=== PATIENT | female | born 1965 | race Caucasian/White ===

== ENCOUNTER 2019-06-10 05:25 | Emergency (ER) | payer OTHER ==
[2019-06-10 06:12] LABS: Absolute Lymphocytes (CBC) 2.6 K/uL (0.7-4.9); Basophils % 0.9 % (0-1.3); Lymphocytes % 21.2 % (15.3-44.8); MPV 7.7 fL (7.6-11.3); RBC Red Blood Cell Count 4.63 M/uL (3.86-4.86)
[2019-06-10] MEDS ORDERED: ONDANSETRON 4 MG/2 ML VIAL ONE (06:15)
[2019-06-10] MEDS ORDERED: MEPERIDINE HCL 25 MG/0.5 ML ONE (06:15)
[2019-06-10 06:33] LABS: ALT/SGPT 25 U/L (12-78); AST/SGOT 9 U/L (15-37); Albumin 3.7 g/dL (3.4-5.0); Alkaline Phosphatase 56 U/L (45-117); BUN Blood Urea Nitrogen 12 mg/dL (7-18); Bicarbonate 31 mmol/L (21-32); Bilirubin Direct < 0.1 mg/dL (0-0.2); Bilirubin Total 0.4 mg/dL (0.2-1.0); Glucose Level 101 mg/dL (74-106); Lipase 162 U/L (73-393); Potassium 3.5 mmol/L (3.5-5.1); Sodium Level 139 mmol/L (136-145); Troponin (Emerg Dept Use Only) < 0.02 ng/mL (0.0-0.045)
[2019-06-10] MEDS ORDERED: MORPHINE 4 MG/ML SYR ONE ×2 (06:36→06:39)
[2019-06-10] MEDS ORDERED: KETOROLAC 30 MG/ML INJ ONE (07:32)
--- NOTE | 2019-06-10 07:41 | RAD REPORT ---
EXAM DESCRIPTION: CT - Chest Abdomen Pelvis W Cont - 06/10/2019 7:04 am CLINICAL HISTORY: Chest and abdominal pain COMPARISON: None TECHNIQUE: Computed axial tomography of the chest, abdomen and pelvis was obtained. 100 cc Isovue-30 0 was administered intravenously. Oral contrast was given. All CT scans are performed using dose optimization technique as appropriate and may include automated exposure control or mA/KV adjustment according to patient size. FINDINGS: A few tree-in-bud opacities right lung. Several right lung nodules measuring a few millime ters. Mioderate centrilobular emphysema. No mediastinal or hilar lymphadenopathy Periosteal deposition surrounds left eighth lateral rib. A pleural effusion is not present. A pericardial effusion is not noted Fatty liver. Cholecystectomy Spleen, pancreas, adrenals and kidneys appear unremarkable. There is no evidence of diverticulitis. No adnexal mass. Small umbilical hernia IMPRESSION: Periosteal deposition surrounding the eighth left lateral rib made be posttraumatic in n ature. This may indicate subacute fracture. An inflammatory process is another consideration but less likely. Minimal tree-in-bud opacities right lung may indicate an atypical pneumonia or pneumonitis. Several tiny right lung nodules. Most likely these are inflammatory/infectious. Followup CT chest in 3 months could be obtained to assess stability/resolution . The seventh left rib could also be reasse ssed at this time COPD Fatty liver.
--- NOTE | 2019-06-10 07:43 | RAD REPORT ---
EXAM DESCRIPTION: Elia Single View06/10/2019 6:09 am CLINICAL HISTORY: Chest pain COMPARISON: none FINDINGS: Lungs are moderately hyperaerated consistent COPD The lungs appear clear of acute infiltrate. The heart is normal size Periosteal deposition the surrounds mid eighth left eighth lateral rib. Please refer to the CT chest report for recommendation
[2019-06-10] MEDS ORDERED: HYDROCODONE/APAP 10/325 TAB ONE (08:08)
--- NOTE | 2019-06-10 08:08 | ER ---
Nurse's Notes [facility] Name: Bree Cruz Age: 53 yrs Sex: Female : 1965 Arrival Date: 06/10/2019 Time: 05:27 Bed 13 Private MD: Diagnosis: Pneumonia due to other specified bacteria-RLL;Possible left eight rib fracture Presentation: 06/10 05:44 Presenting complaint: Patient states: Stabbing and burning pain in upper left abdomen tr5 that started about 2-3 days ago. She recalls twisting while kenneth plums and might have "pulled" something. Pt states that nothing makes the pain go away and it is constant. Patient has tried using heat, ice and norco 10-325 and all have been unsuccessful. Pt is also experiencing nausea. Transition of care: patient was not received from another setting of care. Onset of symptoms was June 10, 2019. Risk Assessment: Do you want to hurt yourself or someone else? Patient reports no desire to harm self or others. Initial Sepsis Screen: Does the patient meet any 2 criteria? RR > 20 per min. No. Patient's initial sepsis screen is negative. Does the patient have a suspected source of infection?. Care prior to arrival: None. 05:44 Method Of Arrival: Ambulatory tr5 05:44 Acuity: PUJA 3 tr5 Triage Assessment: 05:49 General: Appears comfortable, Behavior is calm, cooperative, appropriate for age. Pain: tr5 Complains of pain in left upper quadrant Pain radiates to left subscapular area Pain currently is 9 out of 10 on a pain scale. Quality of pain is described as burning, stabbing, Pain began 2-3 days ago. Is continuous. EENT: No signs and/or symptoms were reported regarding the EENT system. Neuro: Level of Consciousness is awake, alert. Cardiovascular: Heart tones present Capillary refill < 3 seconds Pulses are all present. Edema is absent. Respiratory: Airway is patent Trachea midline Respiratory effort is even, unlabored, Respiratory pattern is regular, symmetrical, Breath sounds are clear bilaterally. GI: Reports upper abdominal pain, nausea. : No signs and/or symptoms were reported regarding the genitourinary system. Derm: Skin is intact, Skin is dry, Skin is normal. Musculoskeletal: Capillary refill < 3 seconds, Range of motion: intact in all extremities. 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 - Social history:: Smoking status: Patient/guardian denies using tobacco, the patient reports quitting approximately 8 years ago. - Family history:: not pertinent. - Ebola Screening: : No symptoms or risks identified at this time. - Hospitalizations: : No recent hospitalization is reported. Screenin:54 Abuse screen: Denies threats or abuse. Nutritional screening: No deficits noted. tr5 Tuberculosis screening: No symptoms or risk factors identified. Fall Risk None identified. Assessment: 05:54 Reassessment: See triage. GI: Abdomen is tender to palpation in left upper quadrant tr5 Reports nausea. 06:23 Reassessment: pt states pain medication is not doing anything pt continues to moan and bb rock back and forth Dr Tapia notified new order received pt medicated see JAN. 06:32 Reassessment: pt states the pain has improved slightly it seems to have dulled it a bb little. 07:00 Reassessment: Pt. is in CT. rb1 07:10 General: Appears uncomfortable, Behavior is calm, cooperative. General: Pt. requested rb1 pain medication. Provider notified.. Pain: Complains of pain in left upper quadrant Pain currently is 10 out of 10 on a pain scale. Quality of pain is described as burning, sharp. Neuro: Level of Consciousness is awake, alert, obeys commands, Oriented to person, place, time, situation. Cardiovascular: Capillary refill < 3 seconds is brisk in bilateral fingers. Respiratory: Airway is patent Respiratory effort is even, unlabored, Respiratory pattern is regular, symmetrical. GI: Reports nausea. : No signs and/or symptoms were reported regarding the genitourinary system. Derm: Skin is pink, warm \\T\\ dry. 08:10 Reassessment: Patient appears in no apparent distress at this time. Patient and/or rb1 family updated on plan of care and expected duration. Pain level reassessed. Patient is alert, oriented x 3, equal unlabored respirations, skin warm/dry/pink. Family at bedside. 08:16 Reassessment: Provider does not wish to send urine for a UA or urine culture at this rb1 time. Vital Signs: 05:49 BP 151 / 82; Pulse 89; Resp 22; Temp 98.6(O); Pulse Ox 99% on 3 lpm NC; tr5 06:26 BP 140 / 75; Pulse 89; Resp 12 S; Pulse Ox 99% on 3 lpm NC; bb 07:15 BP 144 / 79; Pulse 81; Resp 25; Temp 98.5(O); Pulse Ox 100% on R/A; Pain 10/10; rb1 08:15 BP 147 / 68; Pulse 88; Resp 19; Temp 98.6(O); Pulse Ox 99% on 3 lpm NC; Pain 8/10; rb1 ED Course: 05:27 Patient arrived in ED. ds1 05:30 Tyron Medrano, LUIZA is Primary Nurse. tr5 05:38 Avila Tapia MD is Attending Physician. rn 05:47 Triage completed. tr5 05:49 Arm band placed on. tr5 05:54 Patient has correct armband on for positive identification. Placed in gown. Bed in low tr5 position. Call light in reach. quality assurance monitor chassis on. Pulse ox on. NIBP on. Door closed. Noise minimized. Head of bed. 05:55 Inserted saline lock: 20 gauge in right antecubital area, using aseptic technique. tr5 Oxygen administration via nasal cannula \\T\\ 3L/min. 06:00 by ED staff. EKG done, by ED staff. tr5 06:09 X-ray completed. Portable x-ray completed in exam room. Patient tolerated procedure kw well. 06:11 XRAY Chest (1 view) In Process Unspecified. EDMS 06:37 Radiology exam delayed due to lab results not completed at this time. (BUN/Creatinine). eh 06:[address] bb 06:49 Nacho Willett PA is PHCP. cp 07:05 CT Chest, Abdomen, Pelvis - W/Contrast In Process Unspecified. EDMS 08:38 No provider procedures requiring assistance completed. IV discontinued, intact, rb1 bleeding controlled, No redness/swelling at site. Pressure dressing applied. 08:41 INCENTIVE SPIROMETRY Sent. rb1 Administered Medications: 06:10 Drug: Demerol 25 mg Route: IVP; Site: right antecubital; tr5 06:25 Follow up: Response: Pain is unchanged, physician notified bb 06:11 Drug: Zofran 4 mg Route: IVP; Site: right antecubital; tr5 06:25 Follow up: Response: No adverse reaction bb 06:24 Drug: morphine 4 mg Route: IVP; Site: right antecubital; bb 06:33 Follow up: Response: Pain is decreased bb 07:20 Drug: TORadol 30 mg Route: IVP; Site: right antecubital; rb1 07:35 Follow up: Response: No adverse reaction; Pain is unchanged, physician notified rb1 08:00 Drug: [place] 10 mg-325 mg 1 tabs Route: PO; rb1 08:30 Follow up: Response: No adverse reaction; Pain is decreased rb1 08:00 Drug: Rocephin - (cefTRIAXone) 1 grams Route: IVPB; Infused Over: 30 mins; Site: right rb1 antecubital; 08:30 Follow up: Response: No adverse reaction; IV Status: Completed infusion rb1 08:01 CANCELLED (Physician Discretion): Zithromax 500 mg PO once cp 08:10 Drug: Doxycycline 100 mg Route: PO; rb1 08:30 Follow up: Response: No adverse reaction rb1 Outcome: 08:08 Discharge ordered by . cp 08:38 Patient left the ED. rb1 08:38 Discharged to home ambulatory, with family, with walker rb1 08:38 Condition: stable 08:38 Discharge instructions given to patient, Instructed on discharge instructions, follow up and referral plans. medication usage, Demonstrated understanding of instructions, follow-up care, medications, Prescriptions given X 2. Signatures: Dispatcher [employer] EDNM Obed Rincon Demi ds1 Flora Thorne RN RN bb Avila Tapia MD MD rn Whitley, Kimberlee kw Page, Corey, PA PA cp Mari Wright RN RN rb1 Tyron Medrano RN RN tr5
[2019-06-10] MEDS ORDERED: CEFTRIAXONE/SWI 1gm 1 GM/10 ML SYR ONE (08:09)
--- NOTE | 2019-06-10 08:09 | EDPHYS ---
Physician Documentation [facility] Name: Bree Cruz Age: 53 yrs Sex: Female : 1965 Arrival Date: 06/10/2019 Time: 05:27 Bed 13 Private MD: ED Physician Avila Tapia HPI: 06/10 05:45 This 53 yrs old Female presents to ER via Unassigned with complaints of Side rn Pain, Nausea. 05:45 The patient presents to the emergency department with nausea. Onset: The rn symptoms/episode began/occurred 3 day(s) ago. Possible causes: unknown. The symptoms are aggravated by nothing. The symptoms are alleviated by nothing. Severity of symptoms: At their worst the symptoms were moderate in the emergency department the symptoms are unchanged. The patient has not experienced similar symptoms in the past. The patient has not recently seen a physician. Reports left sided chest/abd pain, assoc with nausea, no fever, + hx of copd and chf. Denies diarrhea. NO trauma. No hemoptysis. NO hx of dvt/pe. . 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 - Social history:: Smoking status: Patient/guardian denies using tobacco, the patient reports quitting approximately 8 years ago. - Family history:: not pertinent. - Ebola Screening: : No symptoms or risks identified at this time. - Hospitalizations: : No recent hospitalization is reported. ROS: 05:45 Constitutional: Negative for fever, chills, and weight loss, Eyes: Negative for injury, rn pain, redness, and discharge, Neck: Negative for injury, pain, and swelling, Cardiovascular: Negative for palpitations, and edema, Respiratory: Negative for hemoptysis, + cough and sob Abdomen/GI: Negative for vomiting, diarrhea, and constipation, Back: Negative for injury and pain, : Negative for injury, bleeding, discharge, and swelling, MS/Extremity: Negative for injury and deformity, Skin: Negative for injury, rash, and discoloration, Neuro: Negative for headache, weakness, numbness, tingling, and seizure. Exam: 05:45 Constitutional: This is a well developed, well nourished patient who is awake, alert, rn appears uncomfortable Head/Face: Normocephalic, atraumatic. Eyes: Pupils equal round and reactive to light, extra-ocular motions intact. Lids and lashes normal. Conjunctiva and sclera are non-icteric and not injected. Cornea within normal limits. Periorbital areas with no swelling, redness, or edema. ENT: MMM Chest/axilla: Normal chest wall appearance and motion. NO lesions, no crepitus, no signs of trauma Cardiovascular: Regular rate and rhythm, no murmur Respiratory: + mild tachypnea with diminished breath sounds bilaterally Abdomen/GI: soft, + LUQ tenderness with guarding MS/ Extremity: Pulses equal, no cyanosis. Neurovascular intact. Full, normal range of motion. Equal circumference. Neuro: Awake and alert, GCS 15, oriented to person, place, time, and situation. Cranial nerves II-XII grossly intact. Motor strength 5/5 in all extremities. Sensory grossly intact. Cerebellar exam normal. Vital Signs: 05:49 BP 151 / 82; Pulse 89; Resp 22; Temp 98.6(O); Pulse Ox 99% on 3 lpm NC; tr5 06:26 BP 140 / 75; Pulse 89; Resp 12 S; Pulse Ox 99% on 3 lpm NC; bb 07:15 BP 144 / 79; Pulse 81; Resp 25; Temp 98.5(O); Pulse Ox 100% on R/A; Pain 10/10; rb1 08:15 BP 147 / 68; Pulse 88; Resp 19; Temp 98.6(O); Pulse Ox 99% on 3 lpm NC; Pain 8/10; rb1 MDM: 05:38 Patient medically screened. rn 08:02 Data reviewed: vital signs, nurses notes, lab test result(s), EKG, radiologic studies, cp CT scan, plain films, and as a result, I will discharge patient. 06/10 05:45 Order name: Hepatic Function; Complete Time: 06:43 rn 06/10 07:50 Interpretation: Normal except: AST 9; GLOB 4.3; A/G 0.9. cp 06/10 05:45 Order name: Basic Metabolic Panel; Complete Time: 06:43 rn 06/10 05:45 Order name: CBC with Diff; Complete Time: 06:18 rn 06/10 08:03 Interpretation: Normal except: WBC 12.4; NEUT A 8.2. cp 06/10 05:45 Order name: Lipase; Complete Time: 06:43 rn 06/10 05:45 Order name: Troponin (emerg Dept Use Only); Complete Time: 06:43 rn 06/10 08:22 Order name: Urine Dipstick--Ancillary (enter results); Complete Time: 19:57 eb 06/10 05:45 Order name: XRAY Chest (1 view); Complete Time: 07:49 rn 06/10 06:19 Order name: CT Chest, Abdomen, Pelvis - W/Contrast; Complete Time: 07:49 rn 06/10 08:01 Order name: INCENTIVE SPIROMETRY cp 06/10 08:22 Order name: Urine --Ancillary (enter results); Complete Time: 19:57 06/10 05:45 Order name: IV Saline Lock; Complete Time: 06:11 rn 06/10 05:45 Order name: Labs collected and sent; Complete Time: 06:11 rn 06/10 05:45 Order name: EKG; Complete Time: 05:47 rn 06/10 05:45 Order name: EKG - Nurse/Tech; Complete Time: 06:10 rn 06/10 07:52 Order name: Urine Dipstick-Ancillary (obtain specimen); Complete Time: 08:17 cp Administered Medications: 06:10 Drug: Demerol 25 mg Route: IVP; Site: right antecubital; tr5 06:25 Follow up: Response: Pain is unchanged, physician notified bb 06:11 Drug: Zofran 4 mg Route: IVP; Site: right antecubital; tr5 06:25 Follow up: Response: No adverse reaction bb 06:24 Drug: morphine 4 mg Route: IVP; Site: right antecubital; bb 06:33 Follow up: Response: Pain is decreased bb 07:20 Drug: TORadol 30 mg Route: IVP; Site: right antecubital; rb1 07:35 Follow up: Response: No adverse reaction; Pain is unchanged, physician notified rb1 08:00 Drug: [place] 10 mg-325 mg 1 tabs Route: PO; rb1 08:30 Follow up: Response: No adverse reaction; Pain is decreased rb1 08:00 Drug: Rocephin - (cefTRIAXone) 1 grams Route: IVPB; Infused Over: 30 mins; Site: right rb1 antecubital; 08:30 Follow up: Response: No adverse reaction; IV Status: Completed infusion rb1 08:01 CANCELLED (Physician Discretion): Zithromax 500 mg PO once cp 08:10 Drug: Doxycycline 100 mg Route: PO; rb1 08:30 Follow up: Response: No adverse reaction rb1 Disposition: 19:58 Co-signature as Attending Physician, Avila Tapia MD. rn Disposition: 06/10/19 08:08 Discharged to Home. Impression: Pneumonia due to other specified bacteria - RLL, Possible left eight rib fracture. - Condition is Stable. - Discharge Instructions: Community-Acquired Pneumonia, Adult. - Prescriptions for Doxycycline Hyclate 100 mg Oral Tablet - take 1 tablet by ORAL route every 12 hours; 20 tablet. ketoprofen 75 mg Oral capsule - take 1 capsule by ORAL route every 8 hours As needed as needed; 30 capsule. - Medication Reconciliation Form, Thank You Letter, Antibiotic Education, Prescription Opioid Use form. - Follow up: Private Physician; When: 2 - 3 days; Reason: Recheck today's complaints. - Problem is new. - Symptoms have improved. Signatures: Dispatcher [employer] EDGA Flora Thonre RN RN bb Nieto, Roman, MD MD rn Page, Corey, PA PA cp Barber, Rebecca RN RN rb1 Tyron Medrano RN RN tr5 Corrections: (The following items were deleted from the chart) 06:24 05:47 Abdomen Pelvis W Con+CT.RAD.BRZ ordered. EDGA EDMS 08:01 07:53 Zithromax 500 mg PO once ordered. cp cp 08:03 08:03 Normal except: WBC 12.4. cp cp 08:38 08:08 06/10/2019 08:08 Discharged to Home. Impression: Pneumonia due to other specified rb1 bacteria - RLL; Possible left eight rib fracture. Condition is Stable. Forms are Medication Reconciliation Form, Thank You Letter, Antibiotic Education, Prescription Opioid Use. Follow up: Private Physician; When: 2 - 3 days; Reason: Recheck today's complaints. Problem is new. Symptoms have improved. cp
[2019-06-10] MEDS ORDERED: AZITHROMYCIN 250 MG TAB ONE (08:13)
[2019-06-10] MEDS ORDERED: DOXYCYCLINE 100 MG CAP PO ONE (08:26)
[2019-06-10 08:41] LABS: Urine Blood TRACE (NEG); Urine Glucose NEGATIVE (NEG); Urine Protein NEGATIVE (NEG); Urine pH 7.5 (5.0-7.0)
--- NOTE | 2019-06-11 06:31 | EKG ---
Test Date: 2019-06-10 Test Time: 06:10:53 Social Services Coordinator: MEASUREMENT RESULTS: Intervals: Rate: 90 PA: 146 QRSD: 88 QT: 352 QTc: 430 [place]: P: 82 PA: 146 QRS: 64 T: 28 INTERPRETIVE STATEMENTS: Normal sinus rhythm Right atrial enlargement Borderline ECG Compared to ECG 07/12/2003 11:40:00 Atrial abnormality now present Sinus bradycardia no longer present Electronically Signed On 06-11-19 06:29:33 CDT by Manjeet Fontenot
== END 2019-06-10 08:38 | disposition home or self-care (01) ==
LOC: ER 05:25
DX: J15.8 Pneumonia due to other specified bacteria (principal); I10 Essential (primary) hypertension; I50.9 Heart failure, unspecified; J44.9 Chronic obstructive pulmonary disease, unspecified; Z88.0 Allergy status to penicillin; Z88.3 Allergy status to other anti-infective agents
CPT/HCPCS: 36415; 71045; 71260; 74177; 80048; 80076; 81003; 81025; 83690; 84484; 85025; 93005; 96365; 96375; 99285; J0696; J2175; J2405; Q9967

== ENCOUNTER 2019-06-12 22:07 | Observation (INO) | payer OTHER ==
--- OUTSIDE RECORDS SUMMARY | 2019-06-12 22:18 | XMS REPORT | Continuity of Care Document ---
:1965 Author Organization [facility] Care Team Providers Name Role Phone [facility] Unavailable Unavailable Problems Problem Status Onset Classification Date Comments Source Date Reported Discharge 01/25/20 01/27/2017 [facility] Diagnosis: Coccyx 17 [facility] contusion FALL, TAILBONE Active 01/25/20 [facility] INJURY 17 [facility] FALL/ANKLE PAIN Active 11/30/[address] OPEN FRACTURE Active 11/30/19 [facility][note 3] DISLOCATION OF [address] [place] [address] ANKLE, INTR R92.8 OTH ABN AND Active 08/25/20 [facility] INCONCLUSIVE [facility] [place] FINDNGS SCREENING Active 08/05/20 [facility] 16 [facility] CHEST PAIN Active 04/21/20 [facility] [place] ACUTE COPD Active 04/21/20 [facility] EXACERBATION WITH [facility] [place] RESPIRATORY COPD Active 03/24/[address], Greater [facility] Discharge 12/31/19 01/03/2016 [facility] Diagnosis: Vaginal 16 [place] bleeding, abnormal VAGINAL BLEEDING/ Active 12/31/19 [facility] SOB [facility] [place] OBESITY Active 05/07/20 [facility] [place] EXACERBATION Active 03/13/20 [facility] CHRONIC 15 [place] OBSTRUCTIVE PULMONA CHEST PAIN, Active 12/10/19 [facility] CONGESTIVE HEART 15 [place] FAILURE, DY RIGHT LOWER Active 11/21/19 [facility] ABDOMINAL PAIN 15 [facility] 789.00 784.0 - HEADACHE Active 05/22/20 OPID 14 [facility] 786.09 Active 03/13/20 [facility] [place] ROUTINE Active 03/13/20 [facility] 14 [place] Discharge 03/11/20 03/13/2014 [facility] Diagnosis: COPD 14 [place] with acute exacerbation Discharge 03/11/20 03/13/2014 [facility] Diagnosis: 14 [place] Shortness of breath dyspnea INSOMNIA, SLEEP Active 05/04/20 [facility] APNEA 780.57, 13 [place] 327.26 SLE CHEST PAIN Active 03/17/20 [facility] 786.50,CAD 414.9 13 [place] Asthma Active Problem 04/27/2013 [facility] [place] Chest pain Active Problem 04/27/2013 [facility] [place] CHF - Congestive Resolved Problem 04/27/2013 [facility] heart failure [facility] COPD Resolved Problem 04/27/2013 [facility] COPD - Chronic Active Problem 04/27/2013 [facility] obstructive [facility] pulmonary disease Hypertension Resolved Problem 04/27/2013 [facility] Asthma Active Problem 01/27/2017 [facility] Chest pain Active Problem 01/27/2017 [facility] CHF - Congestive Active Problem 01/27/2017 [facility] heart failure [facility] COPD Active Problem 01/27/2017 [facility] Final: 03/24/2015 [facility] History of Active Problem 01/27/2017 [facility] cholecystectomy [facility] Encounter for 05/05/2019 OPID screening [place] mammogram for malignant neoplasm of breast Anxiety Resolved Problem 05/08/2019 Medical Group, OPID [place],[facility] Cholecystitis Resolved Problem 05/08/2019 Medical Group, OPID [place],[facility] COPD - Chronic Active Problem 05/08/2019 Medical obstructive Group, pulmonary disease OPID [place],[facility] Hypertension Active Problem 05/08/2019 Medical Group, OPID [place],[facility] Kidney stone Resolved Problem 05/08/2019 Medical Group, OPID [place],[facility] Diabetes mellitus Active Problem 01/27/2017 [facility] CHR AIRWAY Active [facility] OBSTRUCT NEC [facility] SLEEP DISTURBANCE Active [facility] NOS [place] LOW BACK PAIN Active [facility] [place] ABDMNAL PAIN Active [facility] UNSPCF SITE [facility] CHF NOS Active [facility] OBS CHR BRON Active [facility] W(AC) EXAC [facility] ILLNESS, Active [facility] UNSPECIFIED [facility] ENCNTR SCREEN Active [facility] MAMMOGRAM FOR [place] MALIGNANT NE OTH ABN AND Active [facility] INCONCLUSIVE [facility] FINDINGS ON DX OT FRACTURE OF Active [facility] LOWER LEG, [facility] INIT FOR Medications Medication Details Route Status Patient Ordering Order Source Instructions Provider Date predniSONE 20 mg 20 mg=1 tab, Active 04/18/ oral tablet PO, Daily, 0 2019 [facility] Refill(s) Group potassium chloride 20 mEq=1 tab, Active 04/18/ 20 mEq oral tablet, PO, Daily, # 2019 Medical extended release 90 tab, 0 Group Refill(s), Pharmacy: [facility] 120 ACTUAT 2 puff, Active Albuterol 0.1 INHALATION, 2019 [facility] MG/ACTUAT / QID, 0 Group Ipratropium Maupin Refill(s) 0.02 MG/ACTUAT Metered Dose Inhaler [Combivent 20/100] amLODIPine 10 mg 10 mg=1 tab, Active oral tablet PO, Daily, # 2019 [facility] 90 tab, 0 Group Refill(s), Pharmacy: [facility] 60 ACTUAT =2 puff, Active tiotropium 0.0025 INHALATION, 2019 [facility] MG/ACTUAT Metered Daily, 0 Group Dose Inhaler Refill(s) [Spiriva] Alendronic acid 35 35 mg=1 tab, Active MG Oral Tablet PO, 0 2019 Medical Refill(s) Group pantoprazole 40 mg 40 mg=1 tab, Active oral enteric coated PO, Daily, # 2019 [facility] tablet 30 tab, 0 Group Refill(s) Hydrochlorothiazide 0.5 tab, PO, Active 25 MG / Losartan Daily, 0 2019 [facility] Potassium 100 MG Refill(s) Group Oral Tablet azithromycin 500 mg See Active oral tablet Instructions, 2019 [facility] 1 tab PO MWF, Group 0 Refill(s) Acetaminophen 300 1 - 2 tab, PO, Active MG / Codeine Q4H, PRN Pain, 2017 [facility] Phosphate 30 MG X 4 day, # 36 [place] Oral Tablet tab, 0 [Tylenol with Refill(s) Codeine #3] tramadol 50 mg, 1 tab, Inactive hydrochloride 50 MG Route: PO, 2017 [facility] Oral Tablet Drug form: [place] TAB, ONCE, Dosing Weight 85, kg, Priority: STAT, Start date: 01/24/17 17:38:00 CDT, Stop date: 01/24/17 17:38:00 CDTNotes: Not to exceed 400mg/day. (Same As: Ultram) WheelChair 1 ea, MISC, Active Daily, # 1 ea, 2017 [facility] 0 Refill(s) [facility] Advair Diskus 500 1 puff, Active mcg-50 mcg INHALATION, 2017 [facility] inhalation powder BID, # 1 ea, 0 [facility] Refill(s) predniSONE 10 mg 10 mg=1 tab, Active oral tablet PO, Daily, 2017 [facility] Follow taper [facility] instructions per your blindmaker. , X 30 day, # 30 tab, 0 Refill(s) potassium chloride 10 mEq=1 tab, Active 10 mEq oral tablet, PO, Daily, 0 2016 [facility] extended release Refill(s) [facility] Acetaminophen 325 2 tab, PO, Active MG / Hydrocodone Q6H, PRN Pain 2017 [facility] Bitartrate 10 MG Score 7-10, [facility] Oral Tablet [Crane Use only for ] severe pain., X 7 day, # 20 tab, 0 Refill(s) Sulfamethoxazole 1 tab, PO, Active 800 MG / [id number], X 10 2017 [facility] Trimethoprim 160 MG day, # 20 tab, [place] Oral Tablet 0 Refill(s) [Bactrim] Sulfamethoxazole 1 tab, Route: Inactive 800 MG / PO, Drug Form: 2016 [facility] Trimethoprim 160 MG TAB, Dosing [facility] Oral Tablet Weight 85.142, [Bactrim] kg, [id number], Start date: 12/07/16 9:00:00 [employer], Duration: 30 day, Stop date: 01/05/17 21:00:00 CSTNotes: One DS tablet=trimeth oprim 160mg + sulfamethoxazo le 800 mg Dose based on trimethoprim component On empty stomach with a glass of water. 1 hr before meals (Same As: Bactrim DS, Septra DS) predniSONE 10 mg, 1 tab, Inactive Route: PO, 2016 [facility] Drug form: [facility] TAB, Daily, Dosing Weight 96.3, kg, Start date: 12/07/16 9:00:00 [employer], Duration: 30 day, Stop date: 01/05/17 9:00:00 CSTNotes: (Same as: PredniSONE) Take with food. potassium chloride 40 mEq, 2 tab, Inactive 20 mEq oral tablet, Route: PO, 2016 [facility] extended release Drug form: [facility] ERTAB, Q2H, Dosing Weight 85.142, kg, Start date: 12/05/16 16:00:00 [employer], Duration: 2 doses or times, Stop date: 12/05/16 18:00:00 CSTNotes: (Same as: K-Dur 20) "Do Not Crush" With food and full glass of water Lovenox 40 mg, 0.4 mL, No Longer Route: SUB-Q, Active 2016 [facility] Drug form: [facility] INJ, Daily, Dosing Weight 85.142, kg, Start date: 12/05/16 9:00:00 [employer], Duration: 30 day, Stop date: 01/03/17 9:00:00 CSTNotes: (Same as: Lovenox) predniSONE 20 mg, 1 tab, No Longer Route: PO, Active 2016 [facility] Drug form: [facility] TAB, Daily, Dosing Weight 96.3, kg, Start date: 12/04/16 9:00:00 [employer], Duration: 30 day, Stop date: 01/02/17 9:00:00 CSTNotes: Take with food. Albuterol 0.83 2.49 mg, 3 mL, No Longer MG/ML Inhalant Route: NEB, Active 2016 [facility] Solution Drug form: [facility] SOLN, Q2H, Dosing Weight 85.142, kg, PRN Wheezing, Start date: 12/04/16 8:36:00 [employer], Duration: 30 day, Stop date: 01/03/17 8:35:00 CSTNotes: SEE RT DOCUMENTATION (Same as: Proventil) Vancomycin 1,000 mg, No Longer Route: IVPB, Active 2016 [facility] ABXQ8H, Dosing [facility] Weight 85.142, kg, Start date: 12/04/16 0:00:00 [employer], Duration: 30 day, Stop date: 01/02/17 16:00:00 CSTNotes: TIME CRITICAL MEDICATION (Same As: Vancocin) Infusion rate 2001 mg: infuse over 2.5 hours MEDICATION WASTE Product Size: 1000 mg Product Wasted: ___ mg Acetaminophen 325 2 tab, Route: No Longer MG / Hydrocodone PO, Drug Form: Active [facility]alo [facility] Bitartrate 10 MG TAB, Dosing [facility] Oral Tablet [Crane Weight 85.142, 10/325] kg, Q6H, PRN Pain Score 7-10, Start date: 12/03/16 14:23:00 [employer], Duration: 30 day, Stop date: 01/02/17 14:22:00 CSTNotes: Do not exceed 4gm/day of acetaminophen. (Same as: Crane 325/10) potassium chloride 20 mEq, 1 tab, Inactive Route: PO, 2016 [facility] Drug form: [facility] ERTAB, ONCE, Dosing Weight 85.142, kg, Priority: NOW, Start date: 12/03/16 8:59:00 [employer], Stop date: 12/03/16 8:59:00 [employer] Dilaudid 0.5 mg, 0.25 Inactive mL, Route: 2016 [facility] IVP, Drug City form: INJ, ONCE, Dosing Weight 85.142, kg, Priority: STAT, Start date: 12/03/16 0:12:00 [employer], Stop date: 12/03/16 0:12:00 CSTNotes: Same as Dilaudid Insulin, Aspart, 4 unit, 0.04 No Longer Human mL, Route: Active 2016 [facility] SUB-Q, [facility] City form: SOLN, Bedtime, Dosing Weight 85.142, kg, PRN Blood Glucose Results, Start date: 12/02/16 22:08:00 [employer], Duration: 30 day, Stop date: 01/01/17 22:07:00 CSTNotes: Roll in palms of hands gently; Do not shake vigorously. (Same as: NovoLOG) "single patient use only" WASTE: F/P - Black; E - Municipal Trash Bin Stable for 28 days at room temperature. Expires in days from Date Dextrose 50% 25 gm, 50 mL, No Longer Syringe Route: IVP, Active 2016 [facility] Drug Form: [facility] INJ, Dosing Weight 85.142, kg, PRN, PRN Blood Glucose Results, Start date: 12/02/16 22:08:00 [employer], Duration: 30 day, Stop date: 01/01/17 22:07:00 [employer] Glucagon 1 mg, Route: No Longer IM, Drug form: Active 2016 [facility] PDR/INJ, PRN, [facility] Dosing Weight 85.142, kg, PRN Blood Glucose Results, Start date: 12/02/16 22:08:00 [employer], Duration: 30 day, Stop date: 01/01/17 22:07:00 [employer] KlonoPIN 0.5 mg, 1 tab, No Longer Route: PO, [facility] 2016 [facility] Drug form: [facility] TAB, QPM, Start date: 12/02/16 22:00:00 [employer], Duration: 30 day, Stop date: 01/01/17 17:00:00 CSTNotes: (Same As: KlonoPIN) Merrem 500 mg, Route: No Longer IVPB, ABXQ6H, Active 2016 [facility] Dosing Weight [facility] 85.142, kg, Start date: 12/02/16 15:00:00 [employer], Duration: 30 day, Stop date: 01/01/17 9:00:00 CSTNotes: Same as Merrem MEDICATION WASTE Product Size: 500 mg Product Wasted: ___ mg Vancomycin 1 gm, Route: No Longer IVPB, [id number], [facility] 2016 [facility] Dosing Weight [facility] 85.142, kg, Start date: 12/02/16 14:00:00 [employer], Duration: 30 day, Stop date: 01/01/17 2:00:00 CSTNotes: TIME CRITICAL MEDICATION (Same As: Vancocin) Infusion rate 2001 mg: infuse over 2.5 hours MEDICATION WASTE Product Size: 1000 mg Product Wasted: ___ mg Morphine 2 mg, 1 mL, No Longer Route: IVP, [facility] 2016 [facility] Drug form: [facility] INJ, Q6H, Dosing Weight 85.142, kg, PRN Pain Score 7-10, if no relief with norco, Start date: 12/02/16 9:14:00 [employer], Stop date: 01/01/17 9:13:00 CSTNotes: (Same as:MORPhine Sulfate) KlonoPIN 0.25 mg, 0.5 No Longer tab, Route: Active 2016 [facility] PO, Drug form: [place] TAB, QAM, Start date: 12/02/16 9:00:00 [employer], Duration: 30 day, Stop date: 12/31/16 9:00:00 CSTNotes: (Same As: KlonoPIN) Hydrocortisone 25 mg, 0.5 mL, No Longer Route: IV, Active 2016 [facility] Drug form: [facility] PDR/INJ, Q8H, Dosing Weight 85.142, kg, Start date: 12/02/16 0:00:00 [employer], Duration: 2 day, Stop date: 12/03/16 16:00:00 CSTNotes: (Same as: Solu-CORTIBRAHIMA) KlonoPIN 0.25 mg, 0.5 No Longer tab, Route: Active 2016 [facility] PO, Drug form: [facility] TAB, QPM, Start date: 12/01/16 22:00:00 [employer], Duration: 30 day, Stop date: 12/31/16 17:00:00 CSTNotes: (Same As: KlonoPIN) Benadryl 25 mg, 1 cap, No Longer Route: PO, Active 2016 [facility] Drug form: [facility] CAP, TID, Dosing Weight 85.142, kg, PRN as needed for itching, Priority: NOW, Start date: 12/01/16 21:46:00 [employer], Duration: 30 day, Stop date: 12/31/16 21:45:00 CSTNotes: (Same as: Benadryl) Alprazolam 0.5 MG 0.5 mg, 1 tab, No Longer Oral Tablet [Xanax] Route: PO, 2016 [facility] Drug form: [facility] TAB, ONCALL, Dosing Weight 85.142, kg, PRN Anxiety, one time, Start date: 12/01/16 17:43:00 [employer], Stop date: 12/02/16 7:00:00 CSTNotes: With food or milk (Same as: Xanax) Clindamycin 600 mg, 4 mL, No Longer Route: IVPB, Active 2016 [facility] ABXQ8H, Dosing [facility] Weight 85.142, kg, Start date: 12/01/16 16:00:00 [employer], Duration: 30 day, Stop date: 12/31/16 8:00:00 CSTNotes: (clindamycin 150 mg/1 ml (600 mg/4 ml VL) INJ) (Same As: Cleocin) Acetaminophen 325 1 tab, Route: No Longer MG / Hydrocodone PO, Drug Form: [facility] 2016 [facility] Bitartrate 10 MG TAB, Dosing [facility] Oral Tablet [Crane Weight 85.142, 10/325] kg, Q4H, PRN Pain Score 4-6, Start date: 12/01/16 15:30:00 [employer], Duration: 30 day, Stop date: 12/31/16 15:29:00 CSTNotes: Do not exceed 4gm/day of acetaminophen. (Same as: Crane 325/10) fentaNYL (ANES) Route: IV, Inactive Drug form: 2016 [facility] INJ, ONCE, [facility] Stop date: 12/01/16 14:16:00 [employer] propofol (ANES) Route: IV, Inactive Drug form: 2016 [facility] INJ, ONCE, [facility] Stop date: 12/01/16 13:51:00 [employer] morphine Sulfate Route: Inactive (ANES) INTRATHECAL, 2016 [facility] Drug form: [facility] SOLN, ONCE, Stop date: 12/01/16 13:39:00 [employer] bupivacaine (ANES) Route: IV, Inactive Drug Form: 2016 [facility] INJ, ONCE, [facility] Stop date: 12/01/16 13:39:00 [employer] midazolam (ANES) Route: IV, Inactive Drug form: 2016 [facility] SOLN, ONCE, [facility] Stop date: 12/01/16 13:33:00 [employer] sodium chloride Route: IV, Inactive 0.9% 1000 ml INJ Total Volume: 2016 [facility] (ANES) 1,000, Start City date: 12/01/16 12:00:00 [employer], Stop date: 12/01/16 13:00:00 [employer] potassium chloride 10 mEq, 1 tab, No Longer Route: PO, Active 2016 [facility] Drug form: [facility] ERTAB, Daily, Dosing Weight 96.3, kg, Start date: 12/01/16 9:00:00 [employer], Duration: 30 day, Stop date: 12/30/16 9:00:00 CSTNotes: (Same as: K-Dur 10) "Do Not Crush" With food and full glass of water Roflumilast 500 microgram, No Longer 1 tab, Route: Active 2016 [facility] PO, Drug form: [facility] TAB, Daily, Dosing Weight 96.3, kg, Start date: 12/01/16 9:00:00 [employer], Duration: 30 day, Stop date: 12/30/16 9:00:00 [employer] Prednisone 20 mg, 1 tab, No Longer Route: PO, Active 2016 [facility] Drug form: [facility] TAB, Daily, Dosing Weight 96.3, kg, Start date: 12/01/16 9:00:00 [employer], Duration: 30 day, Stop date: 12/30/16 9:00:00 CSTNotes: Take with food. Furosemide 40 MG 40 mg, 1 tab, No Longer Oral Tablet Route: PO, Active 2016 [facility] Drug form: [facility] TAB, Daily, Dosing Weight 96.3, kg, Start date: 12/01/16 9:00:00 [employer], Duration: 30 day, Stop date: 12/30/16 9:00:00 CSTNotes: (Same as: Lasix) May cause GI upset. Give with food or milk. Brimonidine 1 drp, Route: No Longer tartrate 2 MG/ML OPTH, BID, Active 2016 [facility] Ophthalmic Solution Drug form: [facility] SOLN, Start date: 12/01/16 9:00:00 [employer], Duration: 30 day, Stop date: 12/30/16 17:00:00 CSTNotes: (Same As: Alphagan) aspirin 81 mg 81 mg, 1 tab, No Longer tablet, enteric Route: PO, Active 2016 [facility] coated Drug form: [facility] ECTAB, Daily, Dosing Weight 96.3, kg, Start date: 12/01/16 9:00:00 [employer], Duration: 30 day, Stop date: 12/30/16 9:00:00 CSTNotes: Do not crush or chew. (Same As: Ecotrin) Amlodipine 10 mg, 2 tab, No Longer Route: PO, Active 2016 [facility] Drug form: [facility] TAB, Daily, Dosing Weight 96.3, kg, Start date: 12/01/16 9:00:00 [employer], Duration: 30 day, Stop date: 12/30/16 9:00:00 CSTNotes: (Same as: Norvasc) tiotropium 0.018 18 microgram, No Longer MG/ACTUAT Inhalant 1 inhalation, Active 2016 [facility] Powder [Spiriva] Route: [facility] INHALATION, Drug form: CAP, RDaily, Dosing Weight 96.3, kg, Start date: 12/01/16 8:00:00 [employer], Duration: 30 day, Stop date: 12/30/16 8:00:00 CSTNotes: (Same As: Spiriva) Clonazepam 0.25 mg, 0.5 Inactive tab, Route: 2016 [facility] PO, Drug form: [place] TAB, QAM & PM, Dosing Weight 96.3, kg, Start date: 12/01/16 4:30:00 [employer], Duration: 30 day, Stop date: 12/30/16 17:00:00 CSTNotes: (Same As: KlonoPIN) Sodium Chloride 25 mL, Route: No Longer 0.9% IV IV, Start Active [address] [place] [address] date: 12/01/16 [facility] 1:11:00 [employer], Duration: 30 day, Stop date: 12/31/16 1:10:00 [employer], PRN Line Flush BD Normal Saline 5 mL, Route: No Longer Flush IVP, Drug Active 2016 [facility] Form: INJ, [place] PRN, PRN Line Flush, Start date: 12/01/16 1:11:00 [employer], Duration: 30 day, Stop date: 12/31/16 1:10:00 CSTNotes: (Same as: BD Posiflush) Fentanyl 50 microgram, No Longer 1 mL, Route: Active 2016 [facility] IVP, Drug [facility] form: INJ, Q5Min, Dosing Weight 88.636, kg, PRN Sedation, Start date: 11/30/16 21:43:00 [employer], Duration: 4 doses or times, Stop date: Limited # of timesNotes: (Same as: Sublimaze) Preservative free. Saline Flush 0.9% 10 mL, Route: No Longer IVP, Drug Active 2016 [facility] Form: INJ, [place] Dosing Weight 88.636, kg, PRN, PRN Line Flush, Start date: 11/30/16 21:41:00 [employer], Duration: 30 day, Stop date: 12/30/16 21:40:00 CSTNotes: (Same as: BD Posiflush) Sodium Chloride 1,000 mL, No Longer 0.154 MEQ/ML Rate: 125 Active 2016 [facility] Injectable Solution ml/hr, Infuse [facility] over: 8 hr, Route: IV, Dosing Weight 88.636 kg, Total Volume: 1,000, Priority: STAT, Start date: 11/30/16 21:41:00 [employer], Duration: 1 doses or times, Stop date: 12/01/16 5:40:00 [employer] Morphine 4 mg, Route: Inactive IVP, ONCE, 2016 [facility] Dosing Weight [facility] 88.636, kg, Start date: 11/30/16 21:37:00 [employer], Stop date: 11/30/16 21:37:00 [employer] Zofran 4 mg, 2 mL, Inactive Route: IVP, 2016 [facility] Drug form: [facility] INJ, ONCE, Dosing Weight 88.636, kg, Start date: 11/30/16 21:37:00 [employer], Stop date: 11/30/16 21:37:00 CSTNotes: (Same as: Zofran) MEDICATION WASTE Product Size: 4 mg Product Wasted: ___ mg Etomidate 13.2954 mg, Inactive 6.65 mL, 2016 [facility] Route: IV, [facility] Drug form: INJ, ONCE, Dosing Weight 88.636, kg, Start date: 11/30/16 21:36:00 [employer], Stop date: 11/30/16 21:36:00 CSTNotes: (Same as: Amidate). Per state nursing law etomidate can only be given by a nurse if patient is intubated or being intubated (unless the nurse is a EMERGENCY MEDICAL SERVICE MANAGER). Diclofenac Sodium =1 appl, TOP, Active 0.01 MG/MG Topical BID, PRN for 2016 [facility] Gel [Voltaren] pain, apply to [facility] left elbow predniSONE 20 mg 20 mg=1 tab, No Longer oral tablet PO, Daily Active 2016 [facility] tramadol 50 mg=1 tab, Active hydrochloride 50 MG PO, BID, PRN 2017 [facility] Oral Tablet pain [facility] potassium chloride 10 mEq=0.5 No Longer 20 mEq oral tablet, tab, PO, Active 2016 [facility] extended release Daily, # 20 [facility] tab, 0 Refill(s) meloxicam 15 mg 15 mg=1 tab, Active oral tablet PO, Daily, PRN 2017 [facility] Pain, # 30 [place] tab, 1 Refill(s) amLODIPine 10 mg 10 mg=1 tab, Active oral tablet PO, Daily, # 2017 [facility] tab, 0 [facility] Refill(s) Ipratropium Maupin 200 Active 0.2 MG/ML Inhalant microgram=1 2016 [facility] Solution ml, NEB, Q6H, [place] PRN Shortness of breath, # 150 ea, 0 Refill(s) 200 ACTUAT 2 puff, Active Albuterol 0.09 INHALATION, 2016 [facility] MG/ACTUAT Dry Q4H, PRN as [place] Powder Inhaler needed for [ProAir] shortness of breath or wheezing, 0 Refill(s) Advair Diskus 500 1 puff, No Longer mcg-50 mcg INHALATION, Active 2016 [facility] inhalation powder Daily [facility] Albuterol 0.83 2.49 mg=3 mL, Active MG/ML Inhalant NEB, Q4H, PRN 2016 [facility] as needed for [facility] shortness of breath Brimonidine 1 drp, OPTH, Active tartrate 2 MG/ML BID, # 5 mL, 0 2016 [facility] Refill(s) [facility] Furosemide 40 MG 40 mg=1 tab, No Longer Oral Tablet [Lasix] PO, Daily, # Active 2016 [facility] 90 tab, 0 City Refill(s) Albuterol 0.833 3 mL, Route: No Longer MG/ML / Ipratropium NEB, Drug Active 2016 [facility] Maupin 0.167 MG/ML Form: SOLN, [place] Inhalant Solution Dosing Weight [DuoNeb] 88.636, kg, RQID, Start date: 11/30/16 21:00:00 [employer], Duration: 30 day, Stop date: 12/30/16 19:00:00 CSTNotes: (Same as: Quyenb) Ativan 1 mg, 0.5 mL, No Longer Route: IV, Active 2016 [facility] Drug form: [place] INJ, Q6H, Dosing Weight 88.636, kg, PRN as needed for anxiety, Start date: 11/30/16 20:46:00 [employer], Duration: 30 day, Stop date: 12/30/16 20:45:00 CSTNotes: (Same as: Ativan) Dilaudid 1 mg, 0.5 mL, No Longer Route: IVP, Active 2016 [facility] Drug form: [place] INJ, Q4H, Dosing Weight 88.636, kg, PRN Pain Score 7-10, Priority: STAT, Start date: 11/30/16 20:45:00 [employer], Duration: 30 day, Stop date: 12/30/16 20:44:00 CSTNotes: Same as Dilaudid Sodium Chloride 1,000 mL, Inactive 0.9% IV 1000 mL Rate: 50 2016 [facility] ml/hr, Infuse [facility] over: 20 hr, Route: IV, Dosing Weight 88.636 kg, Total Volume: 1,000, Start date: 11/30/16 20:33:00 [employer], Duration: 30 day, Stop date: 12/30/16 20:32:00 [employer] Trazodone 50 mg, 1 tab, No Longer Route: PO, Active 2016 [facility] Drug form: [place] TAB, Bedtime, Dosing Weight 88.636, kg, PRN Sleep, Start date: 11/30/16 20:31:00 [employer], Duration: 30 day, Stop date: 12/30/16 20:30:00 [employer], ..Notes: (Same As: Desyrel) Docusate 100 mg, 1 cap, No Longer Route: PO, Active 2016 [facility] Drug form: [place] CAP, BID, Dosing Weight 88.636, kg, PRN Constipation, Start date: 11/30/16 20:30:00 [employer], Duration: 30 day, Stop date: 12/30/16 20:29:00 CSTNotes: (Same as: Colace) (Do Not Crush) Ondansetron 4 mg, 2 mL, No Longer Route: IVP, Active 2016 [facility] Drug form: [place] INJ, Q6H, Dosing Weight 88.636, kg, PRN Nausea & Vomiting, Start date: 11/30/16 20:30:00 [employer], Duration: 30 day, Stop date: 12/30/16 20:29:00 CSTNotes: (Same as: Pennie) MEDICATION WASTE Product Size: 4 mg Product Wasted: ___ mg Morphine 4 mg, Route: Inactive IVP, Q4H, 2016 [facility] Dosing Weight [facility] 88.636, kg, PRN Pain Score 7-10, Start date: 11/30/16 20:30:00 [employer], Duration: 30 day, Stop date: 12/30/16 20:29:00 [employer] Acetaminophen 650 mg, 2 tab, No Longer Route: PO, Active 2016 [facility] Drug form: [facility] TAB, Q4H, Dosing Weight 88.636, kg, PRN Pain 1-3/Temp > 100.4 F, Start date: 11/30/16 20:30:00 [employer], Duration: 30 day, Stop date: 12/30/16 20:29:00 CSTNotes: Do not exceed 4 gm/day. (Same as: Tylenol) Insulin, Aspart, 2 unit, 0.02 No Longer Human mL, Route: Active 2016 [facility] SUB-Q, Drug City form: SOLN, Sliding Scale, Dosing Weight 88.636, kg, PRN Blood Glucose Results, Start date: 11/30/16 20:30:00 [employer], Duration: 30 day, Stop date: 12/30/16 20:29:00 CSTNotes: Roll in palms of hands gently; Do not shake vigorously. (Same as: NovoLOG) "single patient use only" WASTE: F/P - Black; E - Municipal Trash Bin Stable for 28 days at room temperature. Expires in days from Date Dextrose 50% 25 gm, 50 mL, No Longer Syringe Route: IVP, Active 2016 [facility] Form: [facility] INJ, Dosing Weight 88.636, kg, PRN, PRN Blood Glucose Results, Start date: 11/30/16 20:30:00 [employer], Duration: 30 day, Stop date: 12/30/16 20:29:00 [employer] Glucagon 1 mg, Route: No Longer IM, Drug form: Active [address] [place] [address] PDR/INJ, PRN, [facility] Dosing Weight 88.636, kg, PRN Blood Glucose Results, Start date: 11/30/16 20:30:00 [employer], Duration: 30 day, Stop date: 12/30/16 20:29:00 [employer] Morphine 4 mg, Route: Inactive IVP, ONCE, 2016 [facility] Dosing Weight [facility] 88.636, kg, Priority: STAT, Start date: 11/30/16 20:01:00 [employer], Stop date: 11/30/16 20:01:00 [employer] Vancomycin 1,000 mg, Inactive Route: IVPB, 2016 [facility] ONCE, Dosing City Weight 88.636, kg, Priority: STAT, Start date: 11/30/16 20:01:00 [employer], Stop date: 11/30/16 20:01:00 CSTNotes: TIME CRITICAL MEDICATION (Same As: Vancocin) Infusion rate 2001 mg: infuse over 2.5 hours MEDICATION WASTE Product Size: 1000 mg Product Wasted: ___ mg Ancef + sodium 1 gm, Route: Inactive chloride 0.9% INJ IVPB, ONCE, 2016 [facility] 100 mL Dosing Weight [facility] 88.636, kg, Priority: STAT, Start date: 11/30/16 19:34:00 [employer], Stop date: 11/30/16 19:34:00 CSTNotes: (Same As: Ancef, Kefzol) MEDICATION WASTE Product Size: 1000 mg Product Wasted: _0__ mg Saline Flush 0.9% 10 mL, Route: No Longer IVP, Drug Active 2016 [facility] Form: INJ, [facility] Dosing Weight 88.636, kg, PRN, PRN Line Flush, Start date: 11/30/16 19:33:00 [employer], Duration: 30 day, Stop date: 12/30/16 19:32:00 CSTNotes: (Same as: BD Posiflush) Dilaudid 1 mg, Route: Inactive IVP, ONCE, 2016 [facility] Dosing Weight [facility] 88.636, kg, Priority: STAT, Start date: 11/30/16 17:54:00 [employer], Stop date: 11/30/16 17:54:00 [employer] Morphine 4 mg, Route: Inactive IVP, ONCE, 2016 [facility] Dosing Weight [facility] 94.091, kg, Priority: STAT, Start date: 11/30/16 16:38:00 [employer], Stop date: 11/30/16 16:38:00 [employer] tiotropium 0.018 18 microgram=1 Active MH MG/ACTUAT Inhalant cap, 2015 [facility] Powder [Spiriva] INHALATION, [place] Daily, # 90 cap, 0 Refill(s) predniSONE 20 mg 60 mg=3 tab, No Longer oral tablet PO, Daily, # Active 2016 [facility] 60 tab, 0 [place] Refill(s) pantoprazole 40 mg 40 mg=1 tab, Active oral enteric coated PO, Before 2015 [facility] tablet Breakfast, # [place] 30 tab, 0 Refill(s) Metformin 500 mg=1 tab, Active hydrochloride 500 PO, BID-Meals, 2016 [facility] MG Oral Tablet # 60 tab, 0 [place] [Glucophage] Refill(s) Insulin Aspart 100 5 unit, SUB-Q, Active MH unit/ml - (Medium TID-Before 2015 [facility] CD) Meals, # 30 [place] mL, 0 Refill(s) insulin detemir 100 15 unit, Active 04/29/ MH units/mL SUB-Q, BID, # 2016 [facility] subcutaneous 15 mL, 0 [place] solution Refill(s) tiotropium 0.018 18 microgram, Inactive MG/ACTUAT Inhalant 1 inhalation, 2015 [facility] Powder [Spiriva] Route: [facility] INHALATION, Drug form: CAP, Daily, Dosing Weight 94.091, kg, Start date: 04/29/16 9:00:00 CDT, Duration: 30 day, Stop date: 05/28/16 9:00:00 CDTNotes: (Same As: Spiriva) azithromycin 500 mg 500 mg, 2 tab, Inactive oral tablet Route: PO, 2015 Drug form: [place] TAB, Daily, Dosing Weight 94.091, kg, Start date: 04/29/16 9:00:00 CDT, Duration: 30 day, Stop date: 05/28/16 9:00:00 CDTNotes: Take 1 hour before or 2 hours after meals. (Same As: Zithromax) Tessalon Perles 200 mg, 2 cap, No Longer Route: PO, Active 2015 Drug form: [facility] CAP, TID, Dosing Weight 94.091, kg, Start date: 04/28/16 13:00:00 CDT, Duration: 30 day, Stop date: 05/28/16 9:00:00 CDTNotes: (Same As: Arley Hernandes) "Do Not Crush" azithromycin 500 mg 500 mg, PO, Active oral tablet Daily, X 5 2015, # 5 tab, [place] 0 Refill(s) tiotropium 0.018 18 microgram=1 Active MG/ACTUAT Inhalant cap, 2015 Powder [Spiriva] INHALATION, [place] Daily, # 30 cap, 0 Refill(s) benzonatate 100 MG 200 mg, PO, Active Oral Capsule TID, X 10 day, 2015 [facility] [Arley Hernandes] # 30 tab, 0 [place] Refill(s) Albuterol 0.833 3 mL, NEB, Active MG/ML / Ipratropium RQ4H, # 540 2015 Maupin 0.167 MG/ML mL, 0 [facility] Inhalant Solution Refill(s) roflumilast 500 mcg 500 Active oral tablet microgram=1 2015 tab, PO, [place] Daily, # 30 tab, 0 Refill(s) predniSONE 20 mg 60 mg=3 tab, No Longer oral tablet PO, Daily, X Active 2015 14 day, # 42 [place] tab, 0 Refill(s) Advair Diskus 500 1 inhalation, Active mcg-50 mcg INHALER, RBID, 2015 inhalation powder # 28 ea, 0 [facility] Refill(s) guaiFENesin 1,200 mg, 2 No Longer tab, Route: Active 2015 PO, Drug form: [facility] ERTAB, Q12H, Start date: 04/24/16 21:30:00 CDT, Duration: 30 day, Stop date: 05/24/16 21:00:00 CDTNotes: (Same as: Guaifenesin LA, Humibid LA, Mucinex) "Do Not Crush" Take medication with plenty of water. Prednisone 60 mg, 3 tab, No Longer Route: PO, Active 2015 Drug form: [place] TAB, Daily, Dosing Weight 94.091, kg, Start date: 04/24/16 9:00:00 CDT, Duration: 30 day, Stop date: 05/23/16 9:00:00 CDTNotes: Take with food. Furosemide 40 MG 40 mg, 1 tab, No Longer Oral Tablet Route: PO, Active 2015 Drug form: [place] TAB, Daily, Dosing Weight 94.091, kg, Start date: 04/23/16 9:00:00 CDT, Duration: 30 day, Stop date: 05/22/16 9:00:00 CDTNotes: (Same as: Lasix) May cause GI upset. Give with food or milk. Nexium 40 mg, Route: No Longer PO, Drug form: Active 2015 ECCAP, Daily, [place] Dosing Weight 94.091, kg, Start date: 04/23/16 9:00:00 CDT, Duration: 30 day, Stop date: 05/22/16 9:00:00 CDT Aspirin 81 MG 81 mg, 1 tab, No Longer Enteric Coated Route: PO, Active 2015 Tablet Drug form: [facility] ECTAB, Daily, Dosing Weight 94.091, kg, Start date: 04/23/16 9:00:00 CDT, Duration: 30 day, Stop date: 05/22/16 9:00:00 CDTNotes: Do not crush or chew. (Same As: Ecotrin) Metformin 1,000 mg, 2 No Longer hydrochloride 1000 tab, Route: Active 2015 [facility] MG Oral Tablet PO, Drug form: [facility] [Glucophage] TAB, BID-Meals, Dosing Weight 94.091, kg, Start date: 04/23/16 8:00:00 CDT, Duration: 30 day, Stop date: 05/22/16 17:00:00 CDTNotes: (Same as: Glucophage) Take with meal phenol topical 1.4% 1 spray, No Longer spray Route: MUCOUS Active 2015 MEM, PRN, Drug [place] form: SPRY, PRN Sore Throat, Start date: 04/22/16 22:05:00 CDT, Duration: 30 day, Stop date: 05/22/16 22:04:00 CDTNotes: Chloraseptic Comins (Same as: Chloraseptic, Sore Throat Comins) WASTE: F/P - Black; E - Municipal Trash Bin Insulin, Aspart, 5 unit, 0.05 No Longer Human mL, Route: Active 2015 SUB-Q, Drug [place] form: SOLN, TID-Before Meals, Dosing Weight 94.091, kg, Start date: 04/22/16 11:30:00 CDT, Duration: 30 day, Stop date: 05/22/16 7:30:00 CDTNotes: Roll in palms of hands gently; Do not shake vigorously. (Same as: NovoLOG) "single patient use only" WASTE: F/P - Black; E - Municipal Trash Bin Stable for 28 days at room temperature. Expires in days from Date Alprazolam 0.25 MG 0.25 mg, 1 No Longer Oral Tablet [Xanax] tab, Route: Active 2015 PO, Drug form: [place] TAB, TID, Dosing Weight 94.091, kg, PRN Anxiety, Start date: 04/22/16 9:01:00 CDT, Duration: 30 day, Stop date: 05/22/16 9:00:00 CDTNotes: With food or milk (Same as: Xanax) tiotropium 0.018 18 microgram, Inactive MG/ACTUAT Inhalant 1 inhalation, 2015 [facility] Powder [Spiriva] Route: [facility] INHALATION, Drug form: CAP, Daily, Dosing Weight 94.091, kg, Start date: 04/22/16 9:00:00 CDT, Duration: 30 day, Stop date: 05/21/16 9:00:00 CDTNotes: (Same As: Spiriva) Roflumilast 500 microgram, No Longer 1 tab, Route: Active 2015 PO, Drug form: [place] TAB, Daily, Dosing Weight 94.091, kg, Start date: 04/22/16 9:00:00 CDT, Duration: 30 day, Stop date: 05/21/16 9:00:00 CDT Amlodipine 10 mg, 1 tab, No Longer Route: PO, Active 2015 Drug form: [place] TAB, Daily, Dosing Weight 94.091, kg, Start date: 04/22/16 9:00:00 CDT, Duration: 30 day, Stop date: 05/21/16 9:00:00 CDTNotes: (Same as: Norvasc) Spiriva 2.5 Spiriva 2.5 No Longer mcg/actuation mcg/actuation Active 2015 inhaler (own med) inhaler (own [facility] med), 2 spray, Drug form: MISC, Route: INHALATION, QAM, 04/22/16 9:00:00 CDT, Duration: 30 day, Stop date: 05/21/16 9:00:00 CDT Levemir 15 unit, 0.15 No Longer mL, Route: Active 2015 [facility] SUB-Q, Drug [place] form: INJ, BID, Dosing Weight 94.091, kg, Priority: NOW, Start date: 04/22/16 9:00:00 CDT, Duration: 30 day, Stop date: 05/21/16 21:00:00 CDTNotes: Same as Levemir Do not hold insulin without contacting prescriber WASTE: F/P - Black; E - Municipal Trash Bin "single patient use only" KlonoPIN 0.5 mg, 1 tab, No Longer Route: PO, Active 2015 Drug form: [place] TAB, QAM & PM, Start date: 04/22/16 8:30:00 CDT, Duration: 30 day, Stop date: 05/21/16 17:00:00 CDTNotes: (Same As: KlonoPIN) Protonix 40 mg, 1 tab, No Longer Route: PO, Active 2015 [facility] Drug form: [place] ECTAB, Before Breakfast, Dosing Weight 94.091, kg, Start date: 04/22/16 7:30:00 CDT, Duration: 30 day, Stop date: 05/21/16 7:30:00 CDTNotes: Tablet should not be chewed or crushed. (Same as: Protonix) Alprazolam 0.25 MG 0.25 mg=1 tab, Active Oral Tablet [Xanax] PO, PRN 2016 [facility] Anxiety, # 30 [place] tab, 0 Refill(s) methylPREDNISolone 40 mg, 1 mL, No Longer SODium SUCCinate Route: IVP, Active 2015 [facility] Drug form: [place] INJ, Q8H, Dosing Weight 94.091, kg, Start date: 04/22/16 0:00:00 CDT, Duration: 30 day, Stop date: 05/21/16 16:00:00 CDTNotes: (Same as:Solu-MEDROL , A-Methapred) Albuterol 0.833 3 mL, Route: No Longer MG/ML / Ipratropium NEB, Drug Active 2015 [facility] Maupin 0.167 MG/ML Form: [place] MAGAÑA Inhalant Solution Dosing Weight 94.091, kg, RQ4H, Start date: 04/21/16 23:00:00 CDT, Duration: 30 day, Stop date: 05/21/16 19:00:00 CDTNotes: (Same as: Duoneb) Lovenox 40 mg, 0.4 mL, No Longer Route: SUB-Q, Active 2015 [facility] Drug form: [place] INJ, [id number], Dosing Weight 94.091, kg, Start date: 04/21/16 23:00:00 CDT, Duration: 30 day, Stop date: 05/20/16 23:00:00 CDTNotes: (Same as: Lovenox) Hydralazine 20 mg, 1 mL, No Longer Route: IVP, Active 2015 [facility] Drug form: [place] INJ, Q4H, Dosing Weight 94.091, kg, PRN Elevated BP, Start date: 04/21/16 22:16:00 CDT, Duration: 30 day, Stop date: 05/21/16 22:15:00 CDT, SBP > 190 or DBP > 100Notes: (Same as: Apresoline) Push over 5 minutes Tylenol 650 mg, 2 tab, No Longer Route: PO, Active 2015 [facility] Drug form: [place] TAB, Q6H, Dosing Weight 94.091, kg, PRN Pain 1-3/Temp > 100.4 F, Start date: 04/21/16 22:16:00 CDT, Duration: 30 day, Stop date: 05/21/16 22:15:00 CDT, feverNotes: Do not exceed 4 gm/day. (Same as: Tylenol) Zofran 4 mg, 2 mL, No Longer Route: IV, Active 2015 Drug form: [place] INJ, Q6H, Dosing Weight 94.091, kg, PRN as needed for nausea/vomitin g, Start date: 04/21/16 22:16:00 CDT, Duration: 30 day, Stop date: 05/21/16 22:15:00 CDTNotes: (Same as: Zofran) MEDICATION WASTE Product Size: 4 mg Product Wasted: ___ mg Insulin, Aspart, 4 unit, 0.04 No Longer Human mL, Route: Active 2015 SUB-Q, Drug [place] form: SOLN, Bedtime, Dosing Weight 94.091, kg, PRN Blood Glucose Results, Start date: 04/21/16 22:12:00 CDT, Duration: 30 day, Stop date: 05/21/16 22:11:00 CDTNotes: Roll in palms of hands gently; Do not shake vigorously. (Same as: NovoLOG) "single patient use only" WASTE: F/P - Black; E - Municipal Trash Bin Stable for 28 days at room temperature. Expires in days from Date Dextrose 50% 25 mL, Route: Inactive Syringe IVP, Dosing 2015 Weight 94.091, [place] kg, PRN, PRN Blood Glucose Results, Start date: 04/21/16 22:12:00 CDT, Duration: 30 day, Stop date: 05/21/16 22:11:00 CDT Glucagon 1 mg, Route: No Longer IM, Drug form: Active 2015 PDR/INJ, PRN, [place] Dosing Weight 94.091, kg, PRN Blood Glucose Results, Start date: 04/21/16 22:12:00 CDT, Duration: 30 day, Stop date: 05/21/16 22:11:00 CDT Advair Diskus 500 1 inhalation, No Longer mcg-50 mcg Route: Active 2015 inhalation powder INHALER, Drug [place] Form: AERO, Dosing Weight 94.091, kg, RBID, Start date: 04/21/16 22:05:00 CDT, Duration: 30 day, Stop date: 05/21/16 20:00:00 CDTNotes: (Same as: Advair) Acetaminophen 325 1 tab, Route: No Longer MG / Hydrocodone PO, Drug Form: Active 2015 Bitartrate 5 MG TAB, Dosing [place] Oral Tablet [Crane Weight 94.091, 5/325] kg, Q6H, PRN Pain Score 1-3, Start date: 04/21/16 22:05:00 CDT, Duration: 30 day, Stop date: 05/21/16 22:04:00 CDTNotes: (Same as: Crane 325/5) Do not exceed 4gm/day of acetaminophen. Rocephin 1 gm, Route: No Longer IVPB, Drug Active 2015 [facility] form: PDR/INJ, [place] [id number], Dosing Weight 94.091, kg, Start date: 04/21/16 22:00:00 CDT, Duration: 30 day, Stop date: 05/20/16 22:00:00 CDTNotes: (Same As: Rocephin). Use with 100 mL NS and infuse over 30 min MEDICATION WASTE Product Size: 1000 mg Product Wasted: ___ mg Azithromycin 500 mg, Route: No Longer IVPB, Drug Active 2015 [facility] form: PDR/INJ, [place] [id number], Dosing Weight 94.091, kg, Start date: 04/21/16 22:00:00 CDT, Duration: 30 day, Stop date: 05/20/16 22:00:00 CDTNotes: (Same As: Zithromax IV) Symbicort 160/4.5 2 inhalation, Inactive inhalation aerosol Route: 2015 with adapter INHALATION, [place] Drug Form: AERO/A, Dosing Weight 94.091, kg, RQ12H, Start date: 04/21/16 21:55:00 CDT, Duration: 30 day, Stop date: 05/21/16 16:00:00 CDTNotes: (Same as: Symbicort) WASTE: Aerosol - Return to Pharmacy Albuterol 0.83 2.5 mg, 3.01 No Longer MG/ML Inhalant mL, Route: Active 2015 Solution NEB, Drug [place] form: SOLN, RQ2H, Dosing Weight 94.091, kg, PRN Wheezing, Priority: Routine, Start date: 04/21/16 21:19:00 CDT, Duration: 30 day, Stop date: 05/21/16 21:18:00 CDTNotes: SEE RT DOCUMENTATION (Same as: Proventil) Insulin, Aspart, 8 unit, 0.08 No Longer Human mL, Route: Active 2015 SUB-Q, Drug [place] form: SOLN, TID-Before Meals, Dosing Weight 94.091, kg, PRN Blood Glucose Results, Start date: 04/21/16 19:36:00 CDT, Duration: 30 day, Stop date: 05/21/16 19:35:00 CDTNotes: Roll in palms of hands gently; Do not shake vigorously. (Same as: NovoLOG) "single patient use only" WASTE: F/P - Black; E - Municipal Trash Bin Stable for 28 days at room temperature. Expires in days from Date Glucagon 1 mg, Route: Inactive IM, Drug form: 2015 PDR/INJ, PRN, [place] Dosing Weight 94.091, kg, PRN Blood Glucose Results, Start date: 04/21/16 19:36:00 CDT, Duration: 30 day, Stop date: 05/21/16 19:35:00 CDT Dextrose 50% 25 gm, 50 mL, No Longer Syringe Route: IVP, Active 2015 Drug Form: [place] INJ, Dosing Weight 94.091, kg, PRN, PRN Blood Glucose Results, Start date: 04/21/16 19:36:00 CDT, Duration: 30 day, Stop date: 05/21/16 19:35:00 CDT Solu-Medrol 125 mg, 2 mL, Inactive Route: IVP, 2015 Drug form: [place] INJ, ONCE, Dosing Weight 94.091, kg, Priority: STAT, Start date: 04/21/16 17:24:00 CDT, Stop date: 04/21/16 17:24:00 CDTNotes: (Same as:Solu-MEDROL , A-Methapred) Magnesium Sulfate 2 gm, 50 mL, Inactive Route: IV, 2015 [facility] Drug form: [place] INJ, ONCE, Dosing Weight 94.091, kg, Priority: STAT, Start date: 04/21/16 17:22:00 CDT, Stop date: 04/21/16 17:22:00 CDTNotes: WASTE: F/P - Sink; E - Municipal Trash Bin Acetaminophen 325 1 tab, Route: Inactive MG / Hydrocodone PO, Drug Form: 2015 [facility] Bitartrate 5 MG TAB, Dosing [place] Oral Tablet [Crane Weight 94.091, 5/325] kg, ONCE, STAT, Start date: 04/21/16 16:55:00 CDT, Stop date: 04/21/16 16:55:00 CDT insulin regular 100 9 unit, 0.09 Inactive units/mL human mL, Route: IV, 2015 recombinant Drug form: [place] SOLN, ONCE, Dosing Weight 94.091, kg, Priority: STAT, Start date: 04/21/16 16:28:00 CDT, Stop date: 04/21/16 16:28:00 CDTNotes: (Same as: Humulin R) Roll in palms of hands gently; Do not shake vigorously. "single patient use only" (Restricted to patients requiring a dose > 60 units) WASTE: F/P - Black; E - Municipal Trash Bin Stable for 28 days at room temperature Expires in days from Date potassium chloride 40 mEq, 2 tab, Inactive Route: PO, 2015 [facility] Drug form: [place] ERTAB, ONCE, Dosing Weight 94.091, kg, Priority: STAT, Start date: 04/21/16 16:22:00 CDT, Stop date: 04/21/16 16:22:00 CDTNotes: (Same as: K-Dur 20) "Do Not Crush" With food and full glass of water Insulin regular 9 unit, 0.09 Inactive mL, Route: IV, 2016 [facility] Drug form: [place] INJ, ONCE, Dosing Weight 94.091, kg, Priority: STAT, Start date: 04/21/16 16:21:00 CDT, Stop date: 04/21/16 16:21:00 CDTNotes: (Same as: Humulin R and NovoLIN R) WASTE: F/P - Black; E - Municipal Trash Bin (Do not shake) Albuterol 0.833 3 ml, Route: Inactive MG/ML / Ipratropium NEB, Drug 2016 [facility] Maupin 0.167 MG/ML Form: [place] MAGAÑA Inhalant Solution Dosing Weight [DuoNeb] 94.091, kg, Q15Min, STAT, Start date: 04/21/16 15:56:00 CDT, Duration: 3 doses or times, Stop date: 04/21/16 16:26:00 CDTNotes: (Same as: Quyenb) Saline Flush 0.9% 10 mL, Route: No Longer IVP, Drug Active 2015 [facility] Form: INJ, [place] Dosing Weight 98.182, kg, PRN, PRN Line Flush, Start date: 04/21/16 14:13:00 CDT, Duration: 30 day, Stop date: 05/21/16 14:12:00 CDTNotes: Same as: BD Posiflush Sterile Acetaminophen 300 1-2 tablets, Active MG / Codeine PO, Q4-6H, PRN 2015 [facility] Phosphate 30 MG as needed for [place] Oral Tablet pain, X 4 day, [Tylenol with # 24 tab, 0 Codeine #3] Refill(s) Morphine 4 mg, Route: Inactive IVP, Drug 2016 [facility] form: INJ, [place] ONCE, Dosing Weight 98.182, kg, Priority: STAT, Start date: 12/31/15 20:56:00, Stop date: 12/31/15 20:56:00 Morphine 4 mg, 1 mL, Inactive Route: IVP, 2016 [facility] Drug form: [place] INJ, ONCE, Dosing Weight 98.182, kg, Priority: STAT, Start date: 12/31/15 18:44:00, Stop date: 12/31/15 18:44:00Notes: (Same as:MORPhine Sulfate) Ondansetron 4 mg, 2 mL, Inactive Route: IVP, 2015 [facility] Drug form: [place] INJ, ONCE, Dosing Weight 98.182, kg, Priority: STAT, Start date: 12/31/15 18:44:00, Stop date: 12/31/15 18:44:00Notes: (Same as: Pennie) MEDICATION WASTE Product Size: 4 mg Product Wasted: ___ mg Saline Flush 0.9% 10 mL, Route: Inactive IVP, Drug 2015 [facility] Form: INJ, [place] Dosing Weight 98.182, kg, PRN, PRN Line Flush, Start date: 12/31/15 17:16:00, Duration: 30 day, Stop date: 01/30/16 18:15:00Notes: Same as: BD Posiflush Sterile tiotropium 0.018 18 microgram=1 Active MG/ACTUAT Inhalant cap, 2014 [facility] Powder [Spiriva] INHALATION, [place] Daily, # 90 cap, 0 Refill(s) Advair Diskus 500 1 puff, Active mcg-50 mcg INHALATION, 2014 inhalation powder BID, # 28 ea, [place] 0 Refill(s) Alprazolam 0.25 MG 0.25 mg=1 tab, Active Oral Tablet [Xanax] PO, TID, PRN 2014 Anxiety, X 10 [place] day, # 30 tab, 0 Refill(s) predniSONE 20 mg 20 mg=1 tab, Active oral tablet PO, Daily, X 7 2014 day, # 7 tab, [place] 0 Refill(s) budesonide-formoter 2 inhalation, No Longer ol 160 mcg-4.5 Route: Active 2014 mcg/inh inhalation INHALATION, [place] aerosol with Drug Form: adapter AERO/A, Q12H, Start date: 03/20/15 13:00:00, Duration: 30 day, Stop date: 04/19/15 9:00:00Notes: (Same as: Symbicort) Symbicort 160/4.5 2 inhalation, Inactive inhalation aerosol Route: 2014 with adapter INHALATION, [facility] Drug Form: AERO/A, Dosing Weight 95.114, kg, RQ12H, Start date: 03/20/15 12:16:00, Duration: 30 day, Stop date: 04/19/15 4:00:00Notes: (Same as: Symbicort) Prednisone 40 mg, 2 tab, No Longer Route: PO, Active 2014 Drug form: [facility] TAB, Daily, Dosing Weight 95.114, kg, Start date: 03/19/15 9:00:00, Duration: 30 day, Stop date: 04/17/15 9:00:00Notes: Take with food. KlonoPIN 0.5 mg, 1 tab, No Longer Route: PO, Active 2014 Drug form: [facility], BID, Start date: 03/17/15 21:00:00, Duration: 30 day, Stop date: 04/16/15 9:00:00Notes: (Same As: KlonoPIN) Losartan 100 mg, 1 tab, No Longer Route: PO, Active 2014 Drug form: [place] TAB, Daily, Dosing Weight 95.114, kg, Start date: 03/17/15 14:30:00, Duration: 30 day, Stop date: 04/16/15 9:00:00Notes: (Same as: Cozaar) Brovana 15 microgram, No Longer 2 mL, Route: Active 2014 NEB, Drug [facility] form: SOLN, RBID, Dosing Weight 95.114, kg, Start date: 03/16/15 12:03:00, Duration: 30 day, Stop date: 04/15/15 8:00:00Notes: SEE RT DOCUMENTATION Same as Brovana Budesonide 0.25 0.5 mg, 2 mL, No Longer MG/ML Inhalant Route: NEB, Active 2014 Solution Drug form: [facility] [Pulmicort] SUSP, RBID, Dosing Weight 95.114, kg, Start date: 03/15/15 13:19:00, Duration: 30 day, Stop date: 04/14/15 8:00:00Notes: (Same As: Pulmicort) Potassium Chloride 20 mEq, 1 tab, No Longer 20 MEQ Extended Route: PO, Active 2014 Greater Release Tablet Drug form: [facility] ERTAB, Daily, Dosing Weight 95.114, kg, Start date: 03/15/15 9:00:00, Duration: 30 day, Stop date: 04/13/15 9:00:00Notes: (Same as: K-Dur 20) "Do Not Crush" With food and full glass of water Nexium 40 mg, Route: No Longer PO, Drug form: Active 2014 ECCAP, Daily, [place] Dosing Weight 95.114, kg, Start date: 03/15/15 9:00:00, Duration: 30 day, Stop date: 04/13/15 9:00:00 Aspirin 81 MG 81 mg, 1 tab, No Longer Enteric Coated Route: PO, Active 2014 Tablet Drug form: [facility] ECTAB, Daily, Dosing Weight 95.114, kg, Start date: 03/15/15 9:00:00, Duration: 30 day, Stop date: 04/13/15 9:00:00Notes: Do not crush or chew. (Same As: Ecotrin) Amlodipine 10 mg, 1 tab, No Longer Route: PO, Active 2014 Drug form: [place] TAB, Daily, Dosing Weight 95.114, kg, Start date: 03/15/15 9:00:00, Duration: 30 day, Stop date: 04/13/15 9:00:00Notes: (Same as: Norvasc) Xanax 0.25 mg, 1 No Longer tab, Route: Active 2014 PO, Drug form: [place] TAB, Q6H, PRN Anxiety, Start date: 03/14/15 22:03:00, Duration: 30 day, Stop date: 04/13/15 22:02:00Notes: With food or milk (Same as: Xanax) Clonazepam 0.25 mg, 0.5 Inactive tab, Route: 2014 PO, Drug form: [place] TAB, BID, Dosing Weight 95.114, kg, Start date: 03/14/15 21:00:00, Duration: 30 day, Stop date: 04/13/15 9:00:00Notes: (Same As: KlonoPIN) Protonix 40 mg, 1 tab, No Longer Route: PO, Active 2014 Drug form: [facility] ECTAB, Before Dinner, Start date: 03/14/15 16:30:00, Duration: 30 day, Stop date: 04/12/15 16:30:00Notes: Tablet should not be chewed or crushed. (Same as: Protonix) Albuterol 0.833 3 mL, Route: No Longer MG/ML / Ipratropium NEB, Drug Active 2014 Greater Maupin 0.167 MG/ML Form: GÓMEZ [facility] Inhalant Solution Dosing Weight 98.807, kg, RQ4H, Start date: 03/14/15 15:00:00, Duration: 30 day, Stop date: 04/13/15 11:00:00Notes: (Same as: Duoneb) Alprazolam 0.25 MG 0.25 mg, 1 Inactive Oral Tablet [Xanax] tab, Route: 2014 PO, Drug form: [facility] TAB, ONCE, Dosing Weight 95.114, kg, Priority: NOW, Start date: 03/14/15 14:09:00, Stop date: 03/14/15 14:09:00Notes: With food or milk (Same as: Xanax) Furosemide 40 MG 40 mg, 1 tab, No Longer Oral Tablet Route: PO, Active 2014 Drug form: [facility] TAB, Daily, Dosing Weight 95.114, kg, Start date: 03/14/15 13:00:00, Duration: 30 day, Stop date: 04/13/15 9:00:00Notes: (Same as: Lasix) May cause GI upset. Give with food or milk. Roflumilast 500 microgram, No Longer 1 tab, Route: Active 2014 PO, Drug form: [place] TAB, Daily, Dosing Weight 98.807, kg, Start date: 03/14/15 9:00:00, Duration: 30 day, Stop date: 04/12/15 9:00:00 tiotropium 0.018 18 microgram, No Longer MG/ACTUAT Inhalant 1 inhalation, Active 2014 Greater Powder [Spiriva] Route: [place] INHALER, Drug form: CAP, Daily, Dosing Weight 98.807, kg, Start date: 03/14/15 9:00:00, Duration: 30 day, Stop date: 04/12/15 9:00:00Notes: (Same As: Spiriva) KlonoPIN 0.25 mg, 0.5 No Longer tab, Route: Active 2014 PO, Drug form: [place] TAB, BID, Start date: 03/14/15 0:00:00, Duration: 30 day, Stop date: 04/12/15 21:00:00Notes: (Same As: KlonoPIN) tramadol 50 mg oral 50 mg, 1 tab, No Longer tablet Route: PO, Active 2014 Drug form: [place] TAB, TID, Start date: 03/14/15 0:00:00, Duration: 30 day, Stop date: 04/12/15 17:00:00Notes: Not to exceed 400mg/day. (Same As: Ultram) tramadol 50 mg oral 50 mg, 1 tab, No Longer tablet Route: PO, Active 2014 Drug form: [place] TAB, TID, Start date: 03/13/15 22:30:00, Duration: 30 day, Stop date: 04/12/15 17:00:00Notes: Not to exceed 400mg/day. (Same As: Ultram) Mucinex 600 mg, 1 tab, No Longer Route: PO, Active 2014 Drug form: [facility] ERTAB, Q12H, Dosing Weight 98.807, kg, Start date: 03/13/15 21:00:00, Duration: 30 day, Stop date: 04/12/15 9:00:00Notes: (Same as: Guaifenesin LA, Humibid LA, Mucinex) "Do Not Crush" Take medication with plenty of water. Symbicort 160/4.5 2 inhalation, No Longer inhalation aerosol Route: Active 2014 with adapter INHALER, Drug [place] Form: AERO/A, Dosing Weight 98.807, kg, Q12H, Start date: 03/13/15 21:00:00, Duration: 30 day, Stop date: 04/12/15 9:00:00Notes: (Same as: Symbicort) Albuterol 0.833 3 mL, Route: No Longer MG/ML / Ipratropium NEB, Drug Active 2014 [facility] Maupin 0.167 MG/ML Form: SOLN, [facility] Inhalant Solution Dosing Weight 98.807, kg, RQ6H, Start date: 03/13/15 20:00:00, Duration: 30 day, Stop date: 04/12/15 14:00:00Notes: (Same as: Duoneb) Tramadol 50 mg, PO, Active TID, # 20 tab, 2014 Greater 0 Refill(s) [place] Roflumilast 0.5 MG 500 Active Oral Tablet microgram=1 2014 Greater [Daliresp] tab, PO, [place] Daily, 0 Refill(s) 120 ACTUAT 1 puff, Active Albuterol 0.1 INHALATION, 2014 MG/ACTUAT / QID, 0 [facility] Ipratropium Maupin Refill(s) 0.02 MG/ACTUAT Metered Dose Inhaler [Combivent 20/100] Ipratropium 0.5 mg, NEB, Active QID, 0 2014 Greater Refill(s) [place] Spiriva 18 microgram, No Longer INHALATION, Active 2014 Daily, # 30 [facility] ea, 0 Refill(s) Sulfamethoxazole / See No Longer Trimethoprim Instructions, Active 2014 Greater 1 tablet every [place] 12 hours- dr. Gray, 0 Refill(s)Speci al Instructions: 1 tablet every 12 hours- dr. Gray Ceftriaxone 1 gm, Route: No Longer IVPB, Drug Active 2014 form: PDR/INJ, [facility] [id number], Dosing Weight 98.807, kg, Start date: 03/13/15 17:00:00, Duration: 30 day, Stop date: 04/11/15 17:00:00Notes: (Same As: Rocephin). Use with 100ml NS mini-bag PLUS and infuse over 30 min MEDICATION WASTE Product Size: 1000 mg Product Wasted: ___ mg Lovenox 40 mg, 0.4 mL, No Longer Route: SUB-Q, Active 2014 Drug form: [place] INJ, [id number], Dosing Weight 98.807, kg, Start date: 03/13/15 17:00:00, Duration: 30 day, Stop date: 04/11/15 17:00:00Notes: (Same as: Lovenox) methylPREDNISolone 80 mg, 1.28 No Longer SODium SUCCinate mL, Route: Active 2014 IVP, Drug [place] form: INJ, Q8H, Dosing Weight 98.807, kg, Start date: 03/13/15 16:00:00, Duration: 30 day, Stop date: 04/12/15 8:00:00Notes: (Same as:Solu-MEDROL , A-Methapred) Azithromycin 500 mg, 250 No Longer mL, Route: Active 2014 IVPB, Drug [place] form: PDR/INJ, [id number], Dosing Weight 98.807, kg, Start date: 03/13/15 16:00:00, Duration: 30 day, Stop date: 04/11/15 16:00:00Notes: Same as: Zithromax NS 1,000 mL 1,000 mL, No Longer Rate: 40 Active 2014 ml/hr, Infuse [place] over: 25 hr, Route: IV, Dosing Weight 98.807 kg, Total Volume: 1,000, Start date: 03/13/15 15:17:00, Duration: 30 day, Stop date: 04/12/15 15:16:00 Albuterol 0.83 2.5 mg, 3.01 No Longer MG/ML Inhalant mL, Route: Active 2014 Greater Solution NEB, Drug [place] form: SOLN, RQ2H, Dosing Weight 98.807, kg, PRN Wheezing, Priority: Routine, Start date: 03/13/15 15:15:00, Duration: 30 day, Stop date: 04/12/15 15:14:00Notes: SEE RT DOCUMENTATION (Same as: Proventil) DuoNeb inhalation 3 mL, Route: No Longer solution NEB, Drug Active 2014 Form: SOLN, [place] Q2H, PRN Shortness of breath, Start date: 12/15/14 20:29:00, Duration: 30 day, Stop date: 01/14/15 20:28:00Notes: (Same as: Duoneb) POLYETHYLENE GLYCOL 17 gm, 1 pkt, No Longer 3350 Route: PO, Active 2014 Drug form: [facility] PWDR, BID, Dosing Weight 98.807, kg, Start date: 12/14/14 22:00:00, Duration: 30 day, Stop date: 01/13/15 17:00:00Notes: Dissolve in 8 oz of water or juice. (Same as: Miralax) Bentyl 20 mg, 2 cap, No Longer Route: PO, Active 2014 Drug form: [facility] CAP, QID, Dosing Weight 98.807, kg, Start date: 12/13/14 21:00:00, Duration: 30 day, Stop date: 01/12/15 17:00:00Notes: (Same as: Bentyl) Singulair 10 mg, 1 tab, No Longer Route: PO, Active 2014 Drug form: [facility] TAB, Bedtime, Dosing Weight 98.807, kg, Start date: 12/12/14 21:00:00, Duration: 30 day, Stop date: 01/10/15 21:00:00Notes: (Same as:Singulair) acetaminophen-hydro 1 tab, Route: No Longer codone 325 mg-7.5 PO, Drug Form: Active 2014 Greater mg oral tablet TAB, Q4H, PRN [facility] Pain, Start date: 12/12/14 16:57:00, Duration: 30 day, Stop date: 01/11/15 16:56:00Notes: Same as Crane 325-7.5mg Do not exceed 4gm/day of acetaminophen. Nexium 40 mg, Route: No Longer PO, Drug form: Active 2014 ECCAP, Daily, [facility] Dosing Weight 96.08, kg, Start date: 12/12/14 9:00:00, Duration: 30 day, Stop date: 01/10/15 9:00:00 Aspirin 81 MG 81 mg, 1 tab, No Longer Enteric Coated Route: PO, Active 2014 Tablet Drug form: [facility] ECTAB, Daily, Dosing Weight 96.08, kg, Start date: 12/12/14 9:00:00, Duration: 30 day, Stop date: 01/10/15 9:00:00Notes: Do not crush or chew. (Same As: Ecotrin) Amlodipine 10 mg, 1 tab, No Longer Route: PO, Active 2014 Drug form: [facility] TAB, Daily, Dosing Weight 96.08, kg, Start date: 12/12/14 9:00:00, Duration: 30 day, Stop date: 01/10/15 9:00:00Notes: (Same as: Norvasc) acetaminophen-hydro 1 tab, Route: No Longer codone 325 mg-7.5 PO, Drug Form: Active 2014 Greater mg oral tablet TAB, Q6H, PRN [facility] Pain, Start date: 12/11/14 19:07:00, Duration: 30 day, Stop date: 01/10/15 19:06:00Notes: Same as Crane 325-7.5mg Do not exceed 4gm/day of acetaminophen. Fluticasone 1 puff, Route: Inactive propionate 0.5 INHALATION, 2014 MG/ACTUAT / Drug Form: [facility] salmeterol 0.05 AERO, Dosing MG/ACTUAT Dry Weight 96.08, Powder Inhaler kg, BID, Start [Advair 500/50] date: 12/11/14 17:00:00, Duration: 30 day, Stop date: 01/10/15 9:00:00 Clonazepam 0.25 mg, 0.5 No Longer tab, Route: Active 2014 PO, Drug form: [facility] TAB, BID, Dosing Weight 96.08, kg, Start date: 12/11/14 17:00:00, Duration: 30 day, Stop date: 01/10/15 9:00:00Notes: (Same As: KlonoPIN) Protonix 40 mg, 1 tab, No Longer Route: PO, Active 2014 Drug form: [facility] ECTAB, Before Dinner, Start date: 12/11/14 16:30:00, Duration: 30 day, Stop date: 01/09/15 16:30:00Notes: Tablet should not be chewed or crushed. (Same as: Protonix) tiotropium 0.018 18 microgram, No Longer MG/ACTUAT Inhalant 1 inhalation, Active 2014 [facility] Powder [Spiriva] Route: [place] INHALATION, Drug form: CAP, Daily, Dosing Weight 96.08, kg, Start date: 12/11/14 11:00:00, Duration: 30 day, Stop date: 01/10/15 9:00:00Notes: (Same As: Spiriva) Potassium Chloride 20 mEq, 1 tab, No Longer Route: PO, Active 2014 Greater Drug form: [place] ERTAB, Daily, Dosing Weight 96.08, kg, Priority: NOW, Start date: 12/11/14 10:49:00, Duration: 30 day, Stop date: 01/10/15 9:00:00Notes: (Same as: K-Dur 20) "Do Not Crush" With food and full glass of water Lasix 40 mg, 4 mL, No Longer Route: IVP, Active 2014 Drug form: [facility] INJ, Daily, Dosing Weight 96.08, kg, Priority: NOW, Start date: 12/11/14 10:48:00, Duration: 30 day, Stop date: 01/10/15 9:00:00Notes: (Same as: Lasix) Mucinex 600 mg, 1 tab, No Longer Route: PO, Active 2014 Drug form: [facility] ERTAB, Q12H, Dosing Weight 96.08, kg, Start date: 12/11/14 10:30:00, Duration: 30 day, Stop date: 01/10/15 9:00:00Notes: (Same as: Guaifenesin LA, Humibid LA, Mucinex) "Do Not Crush" Take medication with plenty of water. Roflumilast 500 microgram, No Longer 1 tab, Route: Active 2014 PO, Drug form: [facility] TAB, Daily, Dosing Weight 96.08, kg, Priority: NOW, Start date: 12/11/14 10:21:00, Duration: 30 day, Stop date: 01/10/15 9:00:00 Enoxaparin 40 mg, 0.4 mL, No Longer Route: SUB-Q, Active 2015 Greater Drug form: [place] INJ, [id number], Dosing Weight 96.08, kg, Start date: 12/11/14 10:00:00, Duration: 30 day, Stop date: 01/09/15 10:00:00Notes: (Same as: Lovenox) 120 ACTUAT 2 inhalation, No Longer Budesonide 0.16 Route: Active 2014 Greater MG/ACTUAT / INHALATION, [facility] formoterol fumarate Drug Form: 0.0045 MG/ACTUAT AERO/A, Dosing Metered Dose Weight 96.08, Inhaler [Symbicort] kg, Q12H, Start date: 12/11/14 9:47:00, Stop date: 01/10/15 9:00:00Notes: (Same as: Symbicort) Esomeprazole 40 MG 40 mg=1 cap, Active Enteric Coated PO, Daily, 0 2014 [facility] Capsule [Nexium] Refill(s) [facility] enalapril 20 mg 20 mg=1 tab, Inactive oral tablet PO, Q12H, 0 2014 [facility] Refill(s) [place] Amlodipine 10 mg, PO, Active Daily, 0 2014 [facility] Refill(s) [place] Ipratropium Maupin NEB, QID, 0 No Longer 0.2 MG/ML Inhalant Refill(s) Active 2014 Greater Solution [facility] Fluticasone 1 puff, No Longer propionate 0.5 INHALATION, Active 2014 [facility] MG/ACTUAT / BID, 0 [facility] salmeterol 0.05 Refill(s) MG/ACTUAT Dry Powder Inhaler [Advair 500/50] 120 ACTUAT INHALATION, Active Albuterol 0.1 QID, 0 2014 [facility] MG/ACTUAT / Refill(s) [facility] Ipratropium Maupin 0.02 MG/ACTUAT Metered Dose Inhaler [Combivent 20/100] Potassium Chloride 20 mEq=1 tab, Active 20 MEQ Extended PO, Every 2014 [facility] Release Tablet Other Day, 0 [facility] Refill(s) predniSONE 20 mg 20, PO, Daily, Active oral tablet 0 Refill(s) 2014 [facility] Furosemide 40 MG 40 mg=1 tab, Active Oral Tablet PO, Daily, 0 2014 [facility] Refill(s) [place] clonazePAM 0.5 mg 0.25 mg=0.5 Active oral tablet tab, PO, BID, 2014 Greater 0 Refill(s) [place] Acetaminophen 300 1 tab, Route: Inactive MG / Codeine PO, Drug Form: 2014 [facility] Phosphate 30 MG TAB, Dosing [place] Oral Tablet Weight 96.08, [Tylenol with kg, Q6H, PRN Codeine #3] Pain Score 1-3, Start date: 12/11/14 2:05:00, Duration: 30 day, Stop date: 01/10/15 2:04:00Notes: Do not exceed 4gm/day of acetaminophen. (Same as: Tylenol with Codeine # 3) methylPREDNISolone 40 mg, 1 mL, No Longer SODium SUCCinate Route: IVP, Active 2014 Drug form: [place] INJ, Q8H, Dosing Weight 79.688, kg, Start date: 12/11/14 0:00:00, Duration: 30 day, Stop date: 01/09/15 16:00:00Notes: (Same as:Solu-MEDROL , A-Methapred) Azithromycin 500 mg, 250 No Longer mL, Route: Active 2014 IVPB, Drug [place] form: PDR/INJ, [id number], Dosing Weight 79.688, kg, Start date: 12/10/14 21:00:00, Duration: 30 day, Stop date: 01/08/15 21:00:00Notes: Same as: Zithromax Morphine 4 mg, Route: Inactive IVP, ONCE, 2014 Dosing Weight [place] 79.688, kg, Start date: 12/10/14 20:41:00, Stop date: 12/10/14 20:41:00 Albuterol 0.833 3 mL, Route: No Longer MG/ML / Ipratropium NEB, Drug Active 2014 [facility] Maupin 0.167 MG/ML Form: SOLN, [facility] Inhalant Solution Dosing Weight 79.688, kg, RQ6H, Start date: 12/10/14 20:00:00, Duration: 30 day, Stop date: 01/09/15 14:00:00Notes: (Same as: Duoneb) Ceftriaxone 1 gm, Route: No Longer IVPB, Drug Active 2014 Greater form: PDR/INJ, [place] [id number], Dosing Weight 79.688, kg, Start date: 12/10/14 20:00:00, Duration: 30 day, Stop date: 01/08/15 20:00:00Notes: (Same As: Rocephin). Use with 100ml NS mini-bag PLUS and infuse over 30 min Zofran 4 mg, 2 mL, Inactive Route: IVP, 2014 Greater Drug form: [place] INJ, ONCE, Dosing Weight 79.688, kg, Priority: STAT, Start date: 12/10/14 19:32:00, Stop date: 12/10/14 19:32:00Notes: (Same as: Zofran) Aspirin Enteric 325 mg, 1 tab, Inactive Coated Route: PO, 2014 Greater Drug form: [place] ECTAB, ONCE, Dosing Weight 79.688, kg, Priority: STAT, Start date: 12/10/14 19:21:00, Stop date: 12/10/14 19:21:00Notes: (Do Not Crush) Do not crush or chew. Methylprednisolone 125 mg, 2 mL, Inactive Route: IVP2014 Greater Drug form: [place] INJ, ONCE, Dosing Weight 79.688, kg, Priority: STAT, Start date: 12/10/14 19:02:00, Stop date: 12/10/14 19:02:00Notes: (Same as:Solu-MEDROL , A-Methapred) Lasix 40 mg, 4 mL, Inactive Route: IVP, 2014 [facility] Drug form: [place] INJ, ONCE, Dosing Weight 79.688, kg, Priority: STAT, Start date: 12/10/14 18:59:00, Stop date: 12/10/14 18:59:00Notes: (Same as: Lasix) Ipratropium 0.5 mg, 2.5 Inactive mL, Route: 2014 Greater NEB, Drug [place] form: SOLN, ONCE, Dosing Weight 79.688, kg, Priority: STAT, Start date: 12/10/14 18:59:00, Stop date: 12/10/14 18:59:00Notes: SEE RT DOCUMENTATION (Same as:Atrovent) Levalbuterol 1.25 mg, 0.5 Inactive mL, Route: 2014 NEB, Drug [facility] form: SOLN, ONCE, Dosing Weight 79.688, kg, Priority: STAT, Start date: 12/10/14 18:59:00, Stop date: 12/10/14 18:59:00Notes: Same as: Xopenex Non-Formulary High Concentrated (0.5ml) SEE RT DOCUMENTATION Saline Flush 0.9% 10 mL, Route: No Longer IVP, Drug Active 2014 Form: INJ, Jose Dosing Weight 79.688, kg, PRN, PRN Line Flush, Start date: 12/10/14 16:48:00, Duration: 30 day, Stop date: 01/09/15 16:47:00Notes: Same as: BD Posiflush Sterile Omnipaque 300 100 mL, Route: Inactive IVP, Drug 2014 Form: SOLN, [place] ONCALL, Start date: 11/23/14 12:00:00, Duration: 2 hr, Stop date: 11/23/14 13:59:00Notes: (Same as:Omnipaque 300). Azithromycin 5 Day 250 mg=1 tab, Active Dose Pack 250 mg PO, Daily, 2013 oral tablet TAKE 2 TABLETS [facility] ON DAY 1; TAKE 1 TABLET ON DAYS 2 - 5, # 6 tab, 0 Refill(s)Speci al Instructions: TAKE 2 TABLETS ON DAY 1; TAKE 1 TABLET ON DAYS 2 - 5 Methylprednisolone =1 pkt, PO, Active 4 MG Oral Tablet ONCE, as 2013 [Medrol] directed on [facility] package labeling, # 21 tab, 0 Refill(s)Speci al Instructions: as directed on package labeling Levalbuterol 1.25 mg, 0.5 Inactive mL, Route: 2013 [facility], Drug [facility] form: SOLN, ONCE, Dosing Weight 84.091, kg, Priority: STAT, Start date: 03/11/14 0:41:00, Stop date: 03/11/14 0:41:00Notes: Same as: Xopenex Non-Formulary High Concentrated (0.5ml) SEE RT DOCUMENTATION Sucralfate 100 1 gm, 10 mL, Inactive MG/ML Oral Route: PO, 2013 Suspension Drug form: Jose [Carafate] SUSP, ONCE, Dosing Weight 84.091, kg, Priority: STAT, Start date: 03/11/14 0:41:00, Stop date: 03/11/14 0:41:00Notes: Enteral feeds may interfere with the absorption of this medication. Shake well. Take 1 hr before or 2 hrs after antacids, dairy pdt, minerals & meals. (Same As: Carafate) Ipratropium 0.5 mg, 2.5 Inactive mL, Route: 2013 [facility], Drug [facility] form: SOLN, ONCE, Dosing Weight 84.091, kg, Priority: STAT, Start date: 03/10/14 22:30:00, Stop date: 03/10/14 22:30:00Notes: SEE RT DOCUMENTATION (Same as:Atrovent) Albuterol 0.83 2.49 mg, 3 mL, Inactive MG/ML Inhalant Route: NEB2013 Greater Solution Drug form: Jose SOLN, ONCE, Dosing Weight 84.091, kg, Priority: STAT, Start date: 03/10/14 22:30:00, Stop date: 03/10/14 22:30:00Notes: SEE RT DOCUMENTATION (Same as: Proventil) Methylprednisolone 125 mg, 2 mL, Inactive Route: IVP, 2013 Greater Drug form: [place] INJ, ONCE, Dosing Weight 84.091, kg, Priority: STAT, Start date: 03/10/14 22:15:00, Stop date: 03/10/14 22:15:00Notes: (Same as:Solu-MEDROL , A-Methapred) Aspirin / Calcium 325 mg, 1 tab, Inactive Carbonate Route: PO, 2013 Greater Drug form: [facility] TAB, ONCE, Dosing Weight 84.091, kg, Priority: STAT, Start date: 03/10/14 22:04:00, Stop date: 03/10/14 22:04:00Notes: Take with food. Morphine 2 mg, 0.5 mL, Inactive Route: IVP2013 Drug form: [place] INJ, ONCE, Dosing Weight 84.091, kg, Priority: STAT, Start date: 03/10/14 22:03:00, Stop date: 03/10/14 22:03:00Notes: (Same as:MORPhine Sulfate) Ondansetron 4 mg, 2 mL, Inactive Route: IVP2013 Drug form: [place] INJ, ONCE, Dosing Weight 84.091, kg, Priority: STAT, Start date: 03/10/14 22:03:00, Stop date: 03/10/14 22:03:00Notes: (Same as: Zofran) Levalbuterol 1.25 mg, 0.5 Inactive mL, Route: 2013 NEB, Drug [place] form: SOLN, ONCE, Dosing Weight 84.091, kg, Priority: STAT, Start date: 03/10/14 21:09:00, Stop date: 03/10/14 21:09:00Notes: Same as: Xopenex Non-Formulary High Concentrated (0.5ml) SEE RT DOCUMENTATION Furosemide 40 mg, 4 mL, Inactive Route: IVP2013 Drug form: [place] INJ, ONCE, Dosing Weight 84.091, kg, Priority: STAT, Start date: 03/10/14 21:08:00, Stop date: 03/10/14 21:08:00Notes: (Same as: Lasix) Saline Flush 0.9% 5 mL, Route: No Longer IVP, Drug Active 2013 Greater Form: INJ, [place] Dosing Weight 84.091, kg, PRN, PRN Line Flush, Start date: 03/10/14 21:08:00, Duration: 30 day, Stop date: 04/09/14 21:07:00Notes: (Same as: BD Posiflush) influenza virus 0.5 mL, Route: IM No Longer SYSTEM vaccine, IM, Drug Form: Active 2012 Greater inactivated INJ, ONCALL, [place] Start date: 02/10/13 21:45:09, Stop date: 03/12/13 21:40:09 Allergies, Adverse Reactions, Alerts Substance Category Reaction Severity Reaction Status Date Comments Source type Reported ciprofloxacin Assertion Drug Active [facility] penicillins Assertion Drug Active [facility] Brovana Assertion Brovana, Drug Active [facility], [facility] Pulmicort Assertion Drug Active [facility] Immunizations Immunization Date Site Status Last Updated Comments Source Given Hx influenza completed [facility] vaccine-unspecif 4 Group, ied OPID [place] influenza virus completed [facility] vaccine, 3 [facility] inactivated influenza virus Left completed [facility] Medical vaccine, 3 deltoid Group, inactivated OPID [place],[facility] Hx influenza completed [facility] vaccine-unspecif 0 [facility] ied Hx influenza completed [facility] Medical vaccine-unspecif 0 Group, ied OPID [place],[facility] Hx pneumococcal completed [facility] vaccine 9 [facility] Hx pneumococcal completed [facility] Medical vaccine 9 Group, OPID [place],[facility] Results Order Name Results Value Reference Date Interpretation Comments Source Range ELECTROLYTE AGAP 14.1 10.0 - 12/07 S 20. [facility] ELECTROLYTE Calcium Lvl 8.8 8.5 - 10.5 12/07 S [facility] ELECTROLYTE CO2 31 24 - 32 12/07 S [facility] ELECTROLYTE Chloride Lvl 103 95 - 109 12/07 S [facility] ELECTROLYTE Potassium 4.1 3.5 - 5.1 12/07 S Lvl [facility] ELECTROLYTE Glucose Lvl 87 70 - 99 12/07 S [facility] ELECTROLYTE BUN 12 7 - 22 12/07 S [facility] ELECTROLYTE Sodium Lvl 144 135 - 145 12/07 S [facility] ELECTROLYTE eGFR 104 12/07 Result Comment: [facility] eGFR is [place] calculated using the CKD-EPI formula. In most young, healthy individuals the eGFR will be >90 mL/min/1.73m2 . The eGFR declines with age. An eGFR of 60-89 may be normal in some populations, particularly the elderly, for whom the CKD-EPI formula has not been extensively validated. Use of the eGFR is not recommended in the following populations:< br/>
Ninfa viduals with unstable creatinine concentration s, including patients and those with serious co-morbid conditions.<b r/>
Patie nts with extremes in muscle mass or diet.

The data above are obtained from the National Kid[employer] Disease Education Program (NKDEP) which additionally recommends that when the eGFR is used in patients with extremes of body mass index for purposes of drug dosing, the eGFR should be multiplied by the estimated BMI. ELECTROLYTE Creatinine 0.62 0.50 - 12/07 MH S Lvl 1.40 [facility] HEMATOLOGY Hgb 8.1 12.0 - 12/07 MH 16.0 [facility] HEMATOLOGY Hct 26.3 36.0 - 12/07 MH 48.0 [facility] HEMATOLOGY WBC 13.3 3.7 - 10.4 12/07 [facility] HEMATOLOGY RBC 3.54 4.20 - 12/07 MH 5.40 [facility] [facility] HEMATOLOGY MPV 6.9 7.4 - 10.4 12/07 [facility] HEMATOLOGY MCV 74.5 80.0 - 12/07 MH 98.0 [facility] HEMATOLOGY RDW 16.7 11.5 - 12/07 MH 14.5 [facility] HEMATOLOGY MCH 23.0 27.0 - 12/07 MH 31.0 [facility] HEMATOLOGY Platelet 435 133 - 450 12/07 [facility] MCHC 30.9 32.0 - 12/07 MH 36.0 [facility] HEMATOLOGY Eosinophils 3.1 0.0 - 4.0 12/07 [facility] HEMATOLOGY Basophils 0.8 0.0 - 1.0 12/07 [facility] HEMATOLOGY Basophils # 0.1 0.0 - 0.2 12/07 [facility] HEMATOLOGY Monocytes # 1.1 0.0 - 0.8 12/07 [facility] HEMATOLOGY Microcyte 1+ None Seen 12/07 MH *ABN* /2016 [facility] (12/07/16 7:04 AM) [facility] HEMATOLOGY Eosinophils 0.4 0.0 - 0.5 12/07 MH # /2016 [facility] HEMATOLOGY Monocytes 8.3 2.0 - 12.0 12/07 [facility] HEMATOLOGY Segs-Bands # 8.2 1.5 - 8.1 12/07 [facility] HEMATOLOGY Lymphocytes 3.4 1.0 - 5.5 12/07 MH # /2017 [facility] HEMATOLOGY Lymphocytes 25.9 20.0 - 12/07 MH 40.0 [facility] HEMATOLOGY Segs 61.9 45.0 - 12/07 MH 75.0 [facility] HEMATOLOGY Plt Morph Normal 12/07 (12/07/16 7:04 AM) [facility] CHEM PANEL Magnesium 1.9 1.8 - 2.4 12/06 MH Lvl /2016 [facility] CHEM PANEL Glucose Lvl 103 70 - 99 12/06 [facility] CHEM PANEL BUN 13 7 - 22 12/06 [facility] CHEM PANEL Potassium 4.0 3.5 - 5.1 12/06 MH Lvl /2016 [facility] CHEM PANEL Sodium Lvl 143 135 - 145 12/06 [facility] CHEM PANEL Chloride Lvl 106 95 - 109 12/06 [facility] CHEM PANEL CO2 28 24 - 32 12/06 [facility] CHEM PANEL Calcium Lvl 8.7 8.5 - 10.5 12/06 [facility] CHEM PANEL eGFR 105 12/06 Result Comment: The [facility] eGFR is [place] calculated using the CKD-EPI formula. In most young, healthy individuals the eGFR will be >90 mL/min/1.73m2 . The eGFR declines with age. An eGFR of 60-89 may be normal in some populations, particularly the elderly, for whom the CKD-EPI formula has not been extensively validated. Use of the eGFR is not recommended in the following populations:< br/>
Ninfa viduals with unstable creatinine concentration s, including patients and those with serious co-morbid conditions.<b r/>
Patie nts with extremes in muscle mass or diet.

The data above are obtained from the National Kidney Disease Education Program (NKDEP) which additionally recommends that when the eGFR is used in patients with extremes of body mass index for purposes of drug dosing, the eGFR should be multiplied by the estimated BMI. CHEM PANEL Creatinine 0.60 0.50 - 12/06 MH Lvl 1.40 [facility] CHEM PANEL AGAP 13.0 10.0 - 12/06 MH 20.0 /2016 [facility] HEMATOLOGY Lymphocytes 23.3 20.0 - 12/06 MH 40.0 /2017 [facility] HEMATOLOGY Monocytes 9.6 2.0 - 12.0 12/06 [facility] HEMATOLOGY Segs 62.6 45.0 - 12/06 MH 75.0 /2016 [facility] HEMATOLOGY Eosinophils 0.4 0.0 - 0.5 12/06 MH # /2016 [facility] HEMATOLOGY Basophils # 0.2 0.0 - 0.2 12/06 [facility] HEMATOLOGY Lymphocytes 3.0 1.0 - 5.5 12/06 MH # /2017 [facility] HEMATOLOGY Monocytes # 1.2 0.0 - 0.8 12/06 [facility] HEMATOLOGY Basophils 1.3 0.0 - 1.0 12/06 [facility] HEMATOLOGY Segs-Bands # 8.1 1.5 - 8.1 12/06 [facility] HEMATOLOGY Microcyte 1+ None Seen 12/06 *ABN* /2016 [facility] (12/06/16 5:50 AM) [facility] HEMATOLOGY Eosinophils 3.2 0.0 - 4.0 12/06 [facility] HEMATOLOGY Hgb 7.6 12.0 - 12/06 16.0 [facility] HEMATOLOGY WBC 13.0 3.7 - 10.4 12/06 [facility] HEMATOLOGY MCV 74.8 80.0 - 12/06 98.0 [facility] HEMATOLOGY Hct 24.6 36.0 - 12/06 48.0 /2016 [facility] HEMATOLOGY MPV 6.8 7.4 - 10.4 12/06 [facility] HEMATOLOGY RDW 17.0 11.5 - 12/06 14.5 [facility] HEMATOLOGY RBC 3.28 4.20 - 12/06 5.40 /2016 [facility] HEMATOLOGY MCHC 31.0 32.0 - 12/06 36.0 [facility] HEMATOLOGY MCH 23.2 27.0 - 12/06 31.0 [facility] HEMATOLOGY Platelet 351 133 - 450 12/06 [facility] TOXICOLOGY Vanco Tr 10.6 12/05 [facility] TOXICOLOGY Vanco Tr TND 1600 12/05 [facility] ELECTROLYTE AGAP 14.1 10.0 - 12/05 S 20. [facility] ELECTROLYTE eGFR 109 12/05 Result Comment: [facility] eGFR is [place] calculated using the CKD-EPI formula. In most young, healthy individuals the eGFR will be >90 mL/min/1.73m2 . The eGFR declines with age. An eGFR of 60-89 may be normal in some populations, particularly the elderly, for whom the CKD-EPI formula has not been extensively validated. Use of the eGFR is not recommended in the following populations:< br/>
Ninfa viduals with unstable creatinine concentration s, including patients and those with serious co-morbid conditions.<b r/>
Patie nts with extremes in muscle mass or diet.

The data above are obtained from the National Kidney Disease Education Program (NKDEP) which additionally recommends that when the eGFR is used in patients with extremes of body mass index for purposes of drug dosing, the eGFR should be multiplied by the estimated BMI. ELECTROLYTE Creatinine 0.54 0.50 - 12/05 S Lvl 1. [facility] ELECTROLYTE Potassium 3.1 3.5 - 5.1 12/05 S Lvl /2016 [facility] ELECTROLYTE CO2 31 24 - 32 12/05 S [facility] ELECTROLYTE Chloride Lvl 100 95 - 109 12/05 [facility] ELECTROLYTE Calcium Lvl 8.0 8.5 - 10.5 12/05 S [facility] ELECTROLYTE Sodium Lvl 142 135 - 145 12/05 S [facility] ELECTROLYTE BUN 9 7 - 22 12/05 S [facility] ELECTROLYTE Glucose Lvl 109 70 - 99 12/05 S [facility] HEMATOLOGY WBC 12.0 3.7 - 10.4 12/05 [facility] HEMATOLOGY Hct 25.1 36.0 - 12/05 MH 48.0 [facility] HEMATOLOGY MCH 23.2 27.0 - 12/05 MH 31.0 [facility] HEMATOLOGY MCV 75.4 80.0 - 12/05 98.0 [facility] HEMATOLOGY Hgb 7.8 12.0 - 12/05 MH 16.0 [facility] HEMATOLOGY RBC 3.34 4.20 - 12/05 MH 5.40 [facility] HEMATOLOGY MCHC 30.9 32.0 - 12/05 MH 36.0 [facility] HEMATOLOGY MPV 7.0 7.4 - 10.4 12/05 [facility] HEMATOLOGY Platelet 359 133 - 450 12/05 [facility] HEMATOLOGY RDW 16.8 11.5 - 12/05 MH 14.5 /2016 [facility] HEMATOLOGY Microcyte 1+ None Seen 12/05 *ABN* /2016 [facility] (12/05/16 8:37 AM) [facility] HEMATOLOGY Basophils # 0.1 0.0 - 0.2 12/05 [facility] HEMATOLOGY Monocytes # 1.0 0.0 - 0.8 12/05 [facility] HEMATOLOGY Eosinophils 0.4 0.0 - 0.5 12/05 # /2016 [facility] HEMATOLOGY Lymphocytes 2.6 1.0 - 5.5 12/05 MH # /2016 [facility] HEMATOLOGY Segs-Bands # 8.1 1.5 - 8.1 12/05 [facility] HEMATOLOGY Basophils 0.8 0.0 - 1.0 12/05 [facility] HEMATOLOGY Eosinophils 3.0 0.0 - 4.0 12/05 [facility] HEMATOLOGY Monocytes 7.9 2.0 - 12.0 12/05 [facility] HEMATOLOGY Lymphocytes 21.4 20.0 - 12/05 40.0 [facility] HEMATOLOGY Segs 66.9 45.0 - 12/05 75.0 [facility] CHEM PANEL Magnesium 1.8 1.8 - 2.4 12/04 Lvl [facility] HEMATOLOGY Plt Morph Normal 12/04 (12/04/16 6:48 AM) [facility] TOXICOLOGY Vanco Tr TND 1330 12/03 [facility] TOXICOLOGY Vanco Tr 4.3 12/03 [facility] CHEM PANEL Amylase Lvl 23 25 - 115 12/03 [facility] CHEM PANEL Lactic Acid 0.9 0.5 - 2.2 12/03 Lvl [facility] CHEM PANEL Alk Phos 47 39 - 136 12/03 [facility] CHEM PANEL ALT 23 0 - 65 12/03 [facility] CHEM PANEL AST 12 0 - 37 12/03 [facility] CHEM PANEL Total 6.2 6.4 - 8.4 12/03 [facility] CHEM PANEL Albumin Lvl 2.5 3.5 - 5.0 12/03 [facility] CHEM PANEL Globulin 3.7 2.7 - 4.2 12/03 [facility] CHEM PANEL A/G Ratio 0.7 0.7 - 1.6 12/03 [facility] CHEM PANEL Bili 0.2 0.0 - 1.0 12/03 [facility] CHEM PANEL Bili Total 0.3 0.2 - 1.3 12/03 [facility] CHEM PANEL Bili Direct 0.1 0.0 - 0.3 12/03 [facility] CHEM PANEL Lipase Lvl 81 73 - 393 12/03 [facility] URINE AND UA Ketones Negative 12/02 STOOL [facility] URINE AND UA <=1.0 0.1 - 1.0 12/02 STOOL Urobilinogen mg/dL [facility] URINE AND Micro? Performed 12/02 STOOL *NA* /2016 [facility] (12/02/16 12:50 PM) [facility] URINE AND UA Mucus Few /LPF None Seen 12/02 STOOL /LPF /2016 [facility] URINE AND UA Blood Small Negative 12/02 STOOL *ABN* /2016 [facility] (12/02/16 12:50 PM) [facility] URINE AND UA Leuk Est Negative Negative 12/02 STOOL (12/02/16 12:50 PM) /2016 [facility] URINE AND UA Nitrite Negative Negative 12/02 STOOL (12/02/16 12:50 PM) /2016 [facility] URINE AND UA WBC <1 0 - 5 12/02 STOOL /2016 [facility] URINE AND UA pH 6.0 5.0 - 8.0 12/02 STOOL [facility] URINE AND UA Glucose Negative Negative 12/02 STOOL mg/dL mg/dL [facility] URINE AND UA Bili Negative Negative 12/02 STOOL *NA* /2016 [facility] (12/02/16 12:50 PM) [facility] URINE AND UA Protein Negative Negative 12/02 STOOL mg/dL mg/dL [facility] URINE AND UA RBC 1 0 - 2 12/02 STOOL [facility] URINE AND UA Color Colorless Yellow 12/02 STOOL *NA* /2016 [facility] (12/02/16 12:50 PM) [facility] URINE AND UA Spec Grav 1.005 <=1.030 12/02 STOOL [facility] URINE AND UA Turbidity Clear Clear 12/02 STOOL (12/02/16 12:50 PM) /2017 [facility] CHEM PANEL Magnesium 1.8 1.8 - 2.4 12/02 Lvl [facility] CHEM PANEL Phosphorus 3.3 2.5 - 4.5 12/02 [facility] HEMATOLOGY Plt Morph Normal 12/02 (12/02/16 3:04 AM) [facility] HEMATOLOGY Large Plt Moderate None Seen 12/01 *ABN* /2016 [facility] (12/01/16 3:47 AM) [facility] RBC Morph Normal 12/01 (12/01/16 3:47 AM) [facility] BLOOD BANK Antibody Negative 12/01 RESULTS Scrn (11/30/16 8:20 PM) /2016 [facility] BLOOD BANK ABO/Rh A POS 12/01 RESULTS /2016 [facility] SPECIAL Hgb A1C 6.0 <=5.6 % 12/01 CHEMISTRY /2016 [facility] HEMATOLOGY PTT 26.7 22.9 - 12/01 MH 35.8 [facility] HEMATOLOGY INR 0.95 0.85 - 12/01 MH 1. [facility] HEMATOLOGY PT 12.9 12.0 - 12/01 MH 14.7 [facility] CHEM PANEL eGFR 103 04/27 Result Comment: [facility] eGFR is [place] calculated using the CKD-EPI formula. In most young, healthy individuals the eGFR will be >90 mL/min/1.73m2 . The eGFR declines with age. An eGFR of 60-89 may be normal in some populations, particularly the elderly, for whom the CKD-EPI formula has not been extensively validated. Use of the eGFR is not recommended in the following populations:< br/>
Ninfa viduals with unstable creatinine concentration s, including patients and those with serious co-morbid conditions.<b r/>
Patie nts with extremes in muscle mass or diet.

The data above are obtained from the National Kidney Disease Education Program (NKDEP) which additionally recommends that when the eGFR is used in patients with extremes of body mass index for purposes of drug dosing, the eGFR should be multiplied by the estimated BMI. CHEM PANEL CO2 34 24 - 32 04/27 [facility] CHEM PANEL Chloride Lvl 103 95 - 109 04/27 [facility] CHEM PANEL Potassium 3.9 3.5 - 5.1 04/27 Lvl /2015 [facility] CHEM PANEL Creatinine 0.66 0.50 - 04/27 Lvl 1.40 /2015 [facility] CHEM PANEL BUN 16 7 - 22 04/27 /2015 [facility] CHEM PANEL Sodium Lvl 145 135 - 145 04/27 /2015 [facility] CHEM PANEL Glucose Lvl 125 70 - 99 04/27 MH /2015 [facility] CHEM PANEL Calcium Lvl 8.6 8.5 - 10.5 04/27 /2015 [facility] CHEM PANEL AGAP 11.9 10.0 - 04/27 MH 20.0 /2016 [facility] HEMATOLOGY MCHC 29.4 32.0 - 04/27 MH 36.0 /2016 [facility] HEMATOLOGY MCH 23.1 27.0 - 04/27 MH 31.0 /2015 [facility] HEMATOLOGY MCV 78.5 80.0 - 04/27 98.0 /2015 [facility] HEMATOLOGY Hct 33.8 36.0 - 04/27 MH 48.0 /2016 [facility] HEMATOLOGY RBC 4.31 4.20 - 04/27 5.40 /2016 [facility] HEMATOLOGY WBC 15.8 3.7 - 10.4 04/27 /2015 [facility] HEMATOLOGY Hgb 10.0 12.0 - 04/27 MH 16.0 /2016 [facility] HEMATOLOGY MPV 7.9 7.4 - 10.4 04/27 /2015 [facility] HEMATOLOGY Platelet 344 133 - 450 04/27 /2015 [facility] HEMATOLOGY RDW 16.7 11.5 - 04/27 14.5 /2016 [facility] HEMATOLOGY Microcyte 1+ None Seen 04/27 *ABN* /2015 [facility] (04/27/16 4:51 AM) [facility] HEMATOLOGY Segs 67.7 45.0 - 04/27 MH 75.0 /2016 [facility] HEMATOLOGY Large Plt Moderate None Seen 04/27 *ABN* /2015 [facility] (04/27/16 4:51 AM) [facility] HEMATOLOGY Macrocyte 1+ None Seen 04/27 *ABN* /2015 [facility] (04/27/16 4:51 AM) [facility] HEMATOLOGY Anisocyte 1+ None Seen 04/27 *ABN* /2015 [facility] (04/27/16 4:51 AM) [facility] HEMATOLOGY Basophils # 0.1 0.0 - 0.2 04/27 /2015 [facility] HEMATOLOGY Eosinophils 0.1 0.0 - 0.5 06/13 MH # /2016 [facility] HEMATOLOGY Monocytes # 0.8 0.0 - 0.8 04/27 MH /2015 [facility] HEMATOLOGY Lymphocytes 4.1 1.0 - 5.5 04/27 MH # /2016 [facility] HEMATOLOGY Segs-Bands # 10.7 1.5 - 8.1 04/27 /2015 [facility] HEMATOLOGY Basophils 0.4 0.0 - 1.0 04/27 MH /2015 [facility] HEMATOLOGY Eosinophils 0.9 0.0 - 4.0 04/27 /2015 [facility] HEMATOLOGY Monocytes 4.9 2.0 - 12.0 04/27 /2015 [facility] HEMATOLOGY Lymphocytes 26.1 20.0 - 04/27 MH 40.0 /2015 [facility] HEMATOLOGY Plt Morph Normal 04/27 MH (04/27/16 4:51 AM) /2015 [facility] HEMATOLOGY RBC Morph Normal 04/27 (04/27/16 4:51 AM) /2015 ELECTROLYTE AGAP 15.9 10.0 - 08 MH S 20.0 /2015 [facility] ELECTROLYTE eGFR 58 / S /2015 Comment: [facility] eGFR is [place] calculated using the CKD-EPI formula. In most young, healthy individuals the eGFR will be >90 mL/min/1.73m2 . The eGFR declines with age. An eGFR of 60-89 may be normal in some populations, particularly the elderly, for whom the CKD-EPI formula has not been extensively validated. Use of the eGFR is not recommended in the following populations:< br/>
Ninfa viduals with unstable creatinine concentration s, including patients and those with serious co-morbid conditions.<b r/>
Patie nts with extremes in muscle mass or diet.

The data above are obtained from the National Kidney Disease Education Program (NKDEP) which additionally recommends that when the eGFR is used in patients with extremes of body mass index for purposes of drug dosing, the eGFR should be multiplied by the estimated BMI. ELECTROLYTE Chloride Lvl 103 95 - 109 / MH S /2015 [facility] ELECTROLYTE CO2 23 24 - 32 / MH S /2015 [facility] ELECTROLYTE Calcium Lvl 9.1 8.5 - 10.5 / MH S /2015 [facility] ELECTROLYTE Potassium 3.9 3.5 - 5.1 /08 MH S Lvl /2016 [facility] ELECTROLYTE Sodium Lvl 138 135 - 145 06/08 S /2016 [facility] ELECTROLYTE Creatinine 1.11 0.50 - 06/08 MH S Lvl 1.40 /2016 [facility] ELECTROLYTE BUN 15 7 - 22 06/08 S /2016 [facility] ELECTROLYTE Glucose Lvl 380 70 - 99 06/08 S /2016 [facility] HEMATOLOGY Microcyte 1+ None Seen 04/22 MH *ABN* /2015 [facility] (04/22/16 4:28 AM) [facility] HEMATOLOGY Basophils # 0.1 0.0 - 0.2 06/08 MH /2016 [facility] HEMATOLOGY Monocytes # 0.2 0.0 - 0.8 06/08 MH /2016 [facility] HEMATOLOGY Segs-Bands # 10.1 1.5 - 8.1 06/08 MH /2016 [facility] HEMATOLOGY Lymphocytes 0.7 1.0 - 5.5 06/08 MH # /2016 [facility] HEMATOLOGY Segs 91.0 45.0 - 06/08 MH 75.0 /2016 [facility] HEMATOLOGY Lymphocytes 6.1 20.0 - 06/08 MH 40.0 /2016 [facility] HEMATOLOGY Monocytes 2.1 2.0 - 12.0 /08 MH /2016 [facility] HEMATOLOGY Basophils 0.8 0.0 - 1.0 06/08 MH /2016 [facility] HEMATOLOGY MCHC 30.2 32.0 - 06/08 MH 36.0 /2016 [facility] HEMATOLOGY MPV 8.7 7.4 - 10.4 06/08 MH /2016 [facility] HEMATOLOGY RDW 16.9 11.5 - 06/08 MH 14.5 /2016 [facility] HEMATOLOGY Platelet 354 133 - 450 /08 MH /2015 [facility] HEMATOLOGY MCH 23.6 27.0 - 06/08 MH 31.0 /2016 [facility] HEMATOLOGY MCV 78.1 80.0 - 06/08 MH 98.0 /2016 [facility] HEMATOLOGY Hct 36.3 36.0 - 06/08 MH 48.0 /2016 [facility] HEMATOLOGY Hgb 10.9 12.0 - 06/08 MH 16.0 /2016 [facility] HEMATOLOGY RBC 4.64 4.20 - 06/08 MH 5.40 /2016 [facility] HEMATOLOGY WBC 11.1 3.7 - 10.4 06/08 MH /2016 [facility] CHEM PANEL Procalcitoni 0.05 0.00 - 06/08 n Lvl 0.10 /2016 [facility] SPECIAL Hgb A1C 9.9 <=5.6 % 04/22 CHEMISTRY /2016 [facility] CARDIAC BNP 17 <=100 04/21 ENZYMES pg/mL /2015 [facility] CARDIAC CK MB Index 2.2 0.0 - 2.5 04/21 ENZYMES /2015 [facility] CARDIAC Troponin-I <0.02 0.00 - 04/21 EN[facility]YMES 0.40 /2015 [facility] CARDIAC CK MB 1.1 0.5 - 3.6 04/21 ENZYMES /2015 [facility] CARDIAC Total CK 50 12 - 191 04/21 ENZYMES /2015 [facility] CHEM PANEL eGFR 58 04/21 [facility] Comment: The [facility] eGFR is [place] calculated using the CKD-EPI formula. In most young, healthy individuals the eGFR will be >90 mL/min/1.73m2 . The eGFR declines with age. An eGFR of 60-89 may be normal in some populations, particularly the elderly, for whom the CKD-EPI formula has not been extensively validated. Use of the eGFR is not recommended in the following populations:< br/>
Ninfa viduals with unstable creatinine concentration s, including patients and those with serious co-morbid conditions.<b r/>
Patie nts with extremes in muscle mass or diet.

The data above are obtained from the National Kidney Disease Education Program (NKDEP) which additionally recommends that when the eGFR is used in patients with extremes of body mass index for purposes of drug dosing, the eGFR should be multiplied by the estimated BMI. CHEM PANEL Bili Total 0.3 0.2 - 1.3 04/21 [facility] CHEM PANEL Alk Phos 71 39 - 136 04/21 [facility] CHEM PANEL AST 17 0 - 37 04/21 /2015 [facility] CHEM PANEL ALT 54 0 - 65 04/21 [facility] CHEM PANEL A/G Ratio 0.6 0.7 - 1.6 04/21 [facility] CHEM PANEL Globulin 5.1 2.0 - 4.0 04/21 [facility] CHEM PANEL Albumin Lvl 3.2 3.5 - 5.0 04/21 [facility] CHEM PANEL Total 8.3 6.4 - 8.4 04/21 Protein [facility] CHEM PANEL B/C Ratio 10 6 - 25 04/21 [facility] CHEM PANEL Glucose Lvl 425 70 - 99 / Result Comment: [facility] Result(s) called to Stefania Boland at 04/21/2016 15:36 by Eliud Torres. Read back OK. CHEM PANEL BUN 11 7 - 22 / /2015 [facility] CHEM PANEL Calcium Lvl 8.5 8.5 - 10.5 / /2015 [facility] CHEM PANEL Sodium Lvl 135 135 - 145 / /2015 [facility] CHEM PANEL Potassium 3.6 3.5 - 5.1 /07 MH Lvl /2016 [facility] CHEM PANEL Creatinine 1.10 0.50 - 06/07 MH Lvl 1.40 /2015 [facility] CHEM PANEL CO2 26 24 - 32 / /2015 [facility] CHEM PANEL AGAP 13.6 10.0 - 06 20.0 /2015 [facility] CHEM PANEL Chloride Lvl 99 95 - 109 04/21 /2015 [facility] HEMATOLOGY Eosinophils 0.1 0.0 - 0.5 / MH # /2016 [facility] HEMATOLOGY Basophils # 0.1 0.0 - 0.2 04/21 /2015 [facility] HEMATOLOGY Monocytes # 0.5 0.0 - 0.8 04/21 /2015 [facility] HEMATOLOGY Lymphocytes 0.7 1.0 - 5.5 / MH # /2016 [facility] HEMATOLOGY Segs-Bands # 11.7 1.5 - 8.1 04/21 /2015 [facility] HEMATOLOGY Basophils 0.7 0.0 - 1.0 04/21 /2015 [facility] HEMATOLOGY Large Plt Moderate None Seen 04/21 *ABN* /2015 [facility] (04/21/16 2:33 PM) [facility] HEMATOLOGY Microcyte 1+ None Seen 04/21 *ABN* /2015 [facility] (04/21/16 2:33 PM) [facility] HEMATOLOGY Anisocyte 1+ None Seen 04/21 *ABN* /2015 [facility] (04/21/16 2:33 PM) [facility] HEMATOLOGY Eosinophils 0.8 0.0 - 4.0 04/21 /2015 [facility] HEMATOLOGY Monocytes 4.1 2.0 - 12.0 04/21 /2015 [facility] HEMATOLOGY Lymphocytes 5.4 20.0 - /07 MH 40.0 /2016 [facility] HEMATOLOGY Segs 89.0 45.0 - /07 MH 75.0 /2016 [facility] HEMATOLOGY RDW 16.9 11.5 - 06/07 MH 14.5 /2016 [facility] HEMATOLOGY RBC 4.75 4.20 - 0607 MH 5.40 /2016 [facility] HEMATOLOGY WBC 13.1 3.7 - 10.4 04/21 MH /2015 [facility] HEMATOLOGY Hgb 11.3 12.0 - 06/07 MH 16.0 /2015 [facility] HEMATOLOGY Hct 37.0 36.0 - / MH 48.0 /2015 [facility] HEMATOLOGY MCV 77.9 80.0 - 04/21 98.0 /2015 [facility] HEMATOLOGY MCHC 30.5 32.0 - 06/ MH 36.0 /2016 [facility] HEMATOLOGY MCH 23.8 27.0 - 07 MH 31.0 /2015 [facility] HEMATOLOGY Platelet 357 133 - 450 04/21 MH [facility] HEMATOLOGY MPV 8.3 7.4 - 10.4 04/21 [facility] URINE AND UA Leuk Est Trace Negative 12/31 STOOL *ABN* [facility] (12/31/15 5:54 PM) [facility] URINE AND UA WBC 3-5 /HPF None Seen 12/31 STOOL /HPF /2015 [facility] URINE AND UA Sq Epi Occasional Few /LPF 12/31 STOOL /LPF /2015 [facility] URINE AND UA Bacteria Occasional None Seen 12/31 STOOL /HPF /HPF /2015 [facility] URINE AND UA RBC >100 /HPF 0 - 2 12/31 STOOL /2015 [facility] URINE AND UA Blood Large Negative 12/31 STOOL *ABN* [facility] (12/31/15 5:54 PM) [facility] URINE AND UA Bili Negative Negative 12/31 STOOL *NA* [facility] (12/31/15 5:54 PM) [place] URINE AND UA Mucus None Seen None Seen 12/31 STOOL (12/31/15 5:54 PM) [facility] URINE AND UA Nitrite Negative Negative 12/31 STOOL (12/31/15 5:54 PM) [facility] URINE AND UA Ketones Negative Negative 12/31 STOOL *NA* [facility] (12/31/15 5:54 PM) [place] URINE AND UA 0.2 0.1 - 1.0 12/31 STOOL Urobilinogen /2015 [facility] URINE AND UA Glucose Negative Negative 12/31 STOOL (12/31/15 5:54 PM) [facility] URINE AND UA Protein Negative Negative 12/31 STOOL (12/31/15 5:54 PM) [facility] URINE AND UA Color Yellow Yellow 12/31 STOOL *NA* /2015 [facility] (12/31/15 5:54 PM) [facility] URINE AND UA pH 6.0 5.0 - 8.0 12/31 STOOL [facility] URINE AND UA Turbidity Cloudy Clear 12/31 STOOL *ABN* [facility] (12/31/15 5:54 PM) [facility] URINE AND UA Spec Grav 1.010 <=1.030 12/31 STOOL /2015 [facility] BLOOD BANK ABO/Rh A POS 12/31 RESULTS [facility] CHEM PANEL eGFR 72 12/31 Result Comment: The [facility] eGFR is [place] calculated using the CKD-EPI formula. In most young, healthy individuals the eGFR will be >90 mL/min/1.73m2 . The eGFR declines with age. An eGFR of 60-89 may be normal in some populations, particularly the elderly, for whom the CKD-EPI formula has not been extensively validated. Use of the eGFR is not recommended in the following populations:< br/>
Ninfa viduals with unstable creatinine concentration s, including patients and those with serious co-morbid conditions.<b r/>
Patie nts with extremes in muscle mass or diet.

The data above are obtained from the National Kidney Disease Education Program (NKDEP) which additionally recommends that when the eGFR is used in patients with extremes of body mass index for purposes of drug dosing, the eGFR should be multiplied by the estimated BMI. CHEM PANEL Albumin Lvl 3.4 3.5 - 5.0 12/31 [facility] CHEM PANEL Alk Phos 92 39 - 136 12/31 [facility] CHEM PANEL Bili Total 0.3 0.2 - 1.3 12/31 [facility] CHEM PANEL ALT 42 0 - 65 12/31 [facility] CHEM PANEL Calcium Lvl 9.2 8.5 - 10.5 12/31 [facility] CHEM PANEL Chloride Lvl 98 95 - 109 12/31 [facility] CHEM PANEL Potassium 3.8 3.5 - 5.1 12/31 Lvl [facility] CHEM PANEL AST 22 0 - 37 02/16 MH /2016 [facility] CHEM PANEL Total 9.1 6.4 - 8.4 12/31 Protein /2016 [facility] CHEM PANEL Creatinine 0.92 0.50 - 12/31 MH Lvl 1.40 /2016 [facility] CHEM PANEL BUN 12 7 - 22 02/16 MH /2016 [facility] CHEM PANEL Sodium Lvl 136 135 - 145 12/31 MH /2016 [facility] CHEM PANEL Glucose Lvl 183 70 - 99 12/31 MH /2016 [facility] CHEM PANEL CO2 27 24 - 32 0216 MH /2016 [facility] CHEM PANEL B/C Ratio 13 6 - 25 02 MH /2016 [facility] CHEM PANEL Globulin 5.7 2.0 - 4.0 12/31 MH /2016 [facility] CHEM PANEL AGAP 14.8 10.0 - 02 MH 20.0 /2016 [facility] CHEM PANEL A/G Ratio 0.6 0.7 - 1.6 02 MH /2016 [facility] ENDOCRINOLO hCG Tot <1 12/31 MH GY /2016 [facility] HEMATOLOGY PT 12.6 12.0 - 12/31 MH 14.7 /2016 [facility] HEMATOLOGY PTT 27.2 22.9 - 02 MH 35.8 /2016 [facility] HEMATOLOGY INR 0.91 0.85 - 12/31 MH 1.17 /2016 [facility] HEMATOLOGY Lymphocytes 1.8 1.0 - 5.5 16 MH # /2016 [facility] HEMATOLOGY Monocytes # 0.6 0.0 - 0.8 12/31 MH /2016 [facility] HEMATOLOGY Segs-Bands # 20.5 1.5 - 8.1 12/31 MH /2016 [facility] HEMATOLOGY Basophils 0.8 0.0 - 1.0 12/31 MH /2016 [facility] HEMATOLOGY Eosinophils 0.4 0.0 - 4.0 16 MH /2016 [facility] HEMATOLOGY Monocytes 2.7 2.0 - 12.0 16 MH /2016 [facility] HEMATOLOGY Basophils # 0.2 0.0 - 0.2 12/31 MH /2016 [facility] HEMATOLOGY Eosinophils 0.1 0.0 - 0.5 16 MH # /2016 [facility] HEMATOLOGY Segs 88.5 45.0 - 16 MH 75.0 /2016 [facility] HEMATOLOGY RBC Morph Normal 12/31 MH (12/31/15 5:46 PM) /2015 [facility] HEMATOLOGY Plt Morph Normal 12/31 MH (12/31/15 5:46 PM) /2015 [facility] HEMATOLOGY Lymphocytes 7.6 20.0 - 12/31 MH 40.0 /2015 [facility] HEMATOLOGY Platelet 478 133 - 450 12/31 [facility] HEMATOLOGY MPV 7.5 7.4 - 10.4 12/31 /2015 [facility] HEMATOLOGY Hgb 11.3 12.0 - 12/31 MH 16.0 /2015 [facility] HEMATOLOGY WBC 23.1 3.7 - 10.4 12/31 [facility] HEMATOLOGY RBC 4.52 4.20 - 12/31 MH 5.40 /2015 [facility] HEMATOLOGY Hct 36.8 36.0 - 12/31 MH 48.0 /2015 [facility] HEMATOLOGY MCHC 30.8 32.0 - 12/31 36.0 /2015 [facility] HEMATOLOGY RDW 15.7 11.5 - 12/31 14.5 /2015 [facility] HEMATOLOGY MCV 81.3 80.0 - 12/31 98.0 /2015 [facility] HEMATOLOGY MCH 25.1 27.0 - 12/31 31.0 /2015 [facility] CHEM PANEL Globulin 3.2 2.0 - 4.0 03/21 [facility] CHEM PANEL A/G Ratio 0.8 0.7 - 1.6 03/21 [facility] CHEM PANEL eGFR 75 03/21 <sup>1</sup>R esult [facility] Comment: [facility] eGFR is calculated using the CKD-EPI formula. In most young, healthy individuals the eGFR will be >90 mL/min/1.73m2 . The eGFR declines with age. An eGFR of 60-89 may be normal in some populations, particularly the elderly, for whom the CKD-EPI formula has not been extensively validated. Use of the eGFR is not recommended in the following populations:& lt;br/>
I ndividuals with unstable creatinine concentration s, including patients and those with serious co-morbid conditions.<b r/>
Patie nts with extremes in muscle mass or diet.

The data above are obtained from the National Kidney Disease Education Program (NKDEP) which additionally recommends that when the eGFR is used in patients with extremes of body mass index for purposes of drug dosing, the eGFR should be multiplied by the estimated BMI. CHEM PANEL Glucose Lvl 112 70 - 99 03/21 <sup>4</sup>I nterpretive [facility] Data: [facility] reference range values reflect the clinical guidelines
of the [place] [employer]. CHEM PANEL Creatinine 0.9 0.5 - 1.4 03/21 MH Lvl [facility] CHEM PANEL BUN 19 7 - 22 03/21 [facility] CHEM PANEL Alk Phos 54 39 - 136 03/21 [facility] CHEM PANEL AST 8 0 - 37 03/21 [facility] CHEM PANEL ALT 26 0 - 65 03/21 [facility] CHEM PANEL Bili Total 0.5 0.2 - 1.3 03/21 MH [facility] CHEM PANEL AGAP 10.2 10.0 - 05 MH 20.0 /2014 [facility] CHEM PANEL B/C Ratio 21 6 - 25 03/21 [facility] CHEM PANEL Potassium 4.2 3.5 - 5.1 03/21 Lvl [facility] CHEM PANEL Sodium Lvl 143 135 - 145 03/21 [facility] CHEM PANEL Chloride Lvl 101 95 - 109 03/21 [facility] CHEM PANEL CO2 36 24 - 32 03/21 [facility] CHEM PANEL Calcium Lvl 8.4 8.5 - 10.5 03/21 [facility] CHEM PANEL Total 5.8 6.4 - 8.4 03/21 Protein [facility] CHEM PANEL Albumin Lvl 2.6 3.5 - 5.0 03/21 [facility] CHEM PANEL eGFR 86 03/20 <sup>2</sup>R esult [facility] Comment: [facility] eGFR is calculated using the CKD-EPI formula. In most young, healthy individuals the eGFR will be >90 mL/min/1.73m2 . The eGFR declines with age. An eGFR of 60-89 may be normal in some populations, particularly the elderly, for whom the CKD-EPI formula has not been extensively validated. Use of the eGFR is not recommended in the following populations:& lt;br/>
I ndividuals with unstable creatinine concentration s, including patients and those with serious co-morbid conditions.<b r/>
Patie nts with extremes in muscle mass or diet.

The data above are obtained from the National Kidney Disease Education Program (NKDEP) which additionally recommends that when the eGFR is used in patients with extremes of body mass index for purposes of drug dosing, the eGFR should be multiplied by the estimated BMI. CHEM PANEL Bili Total 0.5 0.2 - 1.3 05/ MH /2014 [facility] CHEM PANEL Alk Phos 54 39 - 136 05/ MH /2014 [facility] CHEM PANEL Total 6.0 6.4 - 8.4 05/06 MH Protein /2014 [facility] CHEM PANEL ALT 26 0 - 65 05/ MH /2014 [facility] CHEM PANEL Albumin Lvl 2.5 3.5 - 5.0 05/ MH /2014 [facility] CHEM PANEL AST 7 0 - 37 05/ MH /2014 [facility] CHEM PANEL Calcium Lvl 7.9 8.5 - 10.5 05/ MH /2014 [facility] CHEM PANEL BUN 20 7 - 22 05/ MH /2014 [facility] CHEM PANEL Glucose Lvl 125 70 - 99 05/ <sup>5</sup>I MH /2014 nterpretive Greater Data: [facility] reference range values reflect the clinical guidelines
of the [place] [employer]. CHEM PANEL Sodium Lvl 144 135 - 145 05/06 MH /2014 [facility] CHEM PANEL Creatinine 0.8 0.5 - 1.4 05/06 MH Lvl /2014 [facility] CHEM PANEL Chloride Lvl 103 95 - 109 05/ MH /2014 [facility] CHEM PANEL Potassium 3.7 3.5 - 5.1 05/06 MH Lvl /2014 [facility] CHEM PANEL CO2 35 24 - 32 05/ MH /2014 [facility] CHEM PANEL A/G Ratio 0.7 0.7 - 1.6 05/ MH /2014 [facility] CHEM PANEL B/C Ratio 25 6 - 25 05/ MH /2014 [facility] CHEM PANEL Globulin 3.5 2.0 - 4.0 05/06 MH /2015 [facility] CHEM PANEL AGAP 9.7 10.0 - 05/06 MH 20.0 /2015 [facility] HEMATOLOGY Monocytes # 1.0 0.0 - 0.8 05/06 MH /2014 [facility] HEMATOLOGY Eosinophils 0.2 0.0 - 0.5 05/06 MH # /2015 [facility] HEMATOLOGY Lymphocytes 4.3 1.0 - 5.5 05/06 MH # /2015 [facility] HEMATOLOGY Segs 67.8 45.0 - 05/06 75.0 /2014 [facility] HEMATOLOGY Monocytes 5.7 2.0 - 12.0 05/ MH /2014 [facility] HEMATOLOGY Lymphocytes 25.3 20.0 - 05/ MH 40.0 /2014 [facility] HEMATOLOGY Basophils # 0.0 0.0 - 0.2 05/ MH /2014 [facility] HEMATOLOGY Segs-Bands # 11.5 1.5 - 8.1 / [facility] HEMATOLOGY Eosinophils 1.0 0.0 - 4.0 05/ MH /2014 [facility] HEMATOLOGY Basophils 0.2 0.0 - 1.0 05/ MH /2014 [facility] HEMATOLOGY RBC 4.15 4.20 - 05/ MH 5.40 /2014 [facility] HEMATOLOGY Hgb 11.1 12.0 - 05/ 16.0 /2014 [facility] HEMATOLOGY WBC 17.0 3.7 - 10.4 / MH /2014 [facility] HEMATOLOGY MPV 7.2 7.4 - 10.4 03/20 /2014 [facility] HEMATOLOGY MCH 26.7 27.0 - 05/ 31.0 /2014 [facility] HEMATOLOGY MCHC 30.9 32.0 - 05/ 36.0 /2014 [facility] HEMATOLOGY MCV 86.3 80.0 - 05/ 98.0 /2014 [facility] HEMATOLOGY Hct 35.8 36.0 - 05/ 48.0 /2014 [facility] HEMATOLOGY Platelet 349 133 - 450 05 /2014 [facility] HEMATOLOGY RDW 16.3 11.5 - 05/06 14.5 /2014 [facility] CHEM PANEL Glucose Lvl 184 70 - 99 03/15 <sup>6</sup>I nterpretive [facility] Data: [facility] reference range values reflect the clinical guidelines
of the [place] [employer]. CHEM PANEL Potassium 4.3 3.5 - 5.1 05/ MH Lv /2014 [facility] CHEM PANEL Chloride Lvl 101 95 - 109 / [facility] CHEM PANEL Creatinine 0.9 0.5 - 1.4 / Lvl /2014 [facility] CHEM PANEL Sodium Lvl 139 135 - 145 / [facility] CHEM PANEL BUN 13 7 - 22 / [facility] CHEM PANEL Calcium Lvl 8.9 8.5 - 10.5 03/15 [facility] CHEM PANEL AGAP 15.3 10.0 - 05 MH 20.0 /2014 [facility] CHEM PANEL CO2 27 24 - 32 03/15 [facility] CHEM PANEL eGFR 75 03/15 <sup>3</sup>R /2014 esult [facility] Comment: [facility] eGFR is calculated using the CKD-EPI formula. In most young, healthy individuals the eGFR will be >90 mL/min/1.73m2 . The eGFR declines with age. An eGFR of 60-89 may be normal in some populations, particularly the elderly, for whom the CKD-EPI formula has not been extensively validated. Use of the eGFR is not recommended in the following populations:& lt;br/>
I ndividuals with unstable creatinine concentration s, including patients and those with serious co-morbid conditions.<b r/>
Patie nts with extremes in muscle mass or diet.

The data above are obtained from the National Kidney Disease Education Program (NKDEP) which additionally recommends that when the eGFR is used in patients with extremes of body mass index for purposes of drug dosing, the eGFR should be multiplied by the estimated BMI. CARDIAC CK MB Index 1.3 0.0 - 2.5 03/13 ENZYMES /2014 [facility] CARDIAC CK MB 2.7 0.5 - 3.6 03/13 ENZYMES /2014 [facility] CARDIAC Total CK 207 12 - 191 03/13 ENZYMES /2014 [facility] CARDIAC Troponin-I <0.02 0.00 - 03/13 ENZYMES 0.40 /2014 [facility] CARDIAC BNP 11 <=100 03/13 <sup>7</sup>I ENZYMES pg/mL /2014 nterpretive [facility] Data: [facility] Elevated results are in line with increasing severity of
con gestive heart failure. Minor elevations between 100 and 300
may be seen with Myocardial Ischemia, Sodium retaining drugs,
an d compensated/t reated heart failure. CHEM PANEL Procalcitoni <0.05 0.00 - 03/13 n Lvl ng/mL 0.10 /2014 [facility] CHEM PANEL Magnesium 1.9 1.8 - 2.4 03/13 Lvl /2014 [facility] CHEM PANEL Albumin Lvl 3.3 3.5 - 5.0 03/13 [facility] CHEM PANEL Total 7.9 6.4 - 8.4 03/13 [facility] CHEM PANEL ALT 23 0 - 65 03/13 [facility] CHEM PANEL AST 17 0 - 37 03/13 [facility] CHEM PANEL Bili Total 0.4 0.2 - 1.3 03/13 [facility] CHEM PANEL Alk Phos 83 39 - 136 03/13 [facility] CHEM PANEL A/G Ratio 0.7 0.7 - 1.6 03/13 [facility] CHEM PANEL Globulin 4.6 2.0 - 4.0 03/13 [facility] CHEM PANEL B/C Ratio 12 6 - 25 03/13 [facility] HEMATOLOGY Basophils # 0.0 0.0 - 0.2 03/13 [facility] HEMATOLOGY Monocytes 4.9 2.0 - 12.0 03/13 [facility] HEMATOLOGY Lymphocytes 9.4 20.0 - 03/13 MH 40.0 /2014 [facility] HEMATOLOGY Segs 85.3 45.0 - 03/13 MH 75.0 /2014 [facility] HEMATOLOGY Eosinophils 0.0 0.0 - 4.0 03/13 [facility] HEMATOLOGY Eosinophils 0.0 0.0 - 0.5 03/13 MH # /2014 [facility] HEMATOLOGY Monocytes # 0.5 0.0 - 0.8 03/13 [facility] HEMATOLOGY Lymphocytes 1.0 1.0 - 5.5 03/13 MH # /2014 [facility] HEMATOLOGY Segs-Bands # 9.5 1.5 - 8.1 03/13 [facility] HEMATOLOGY Basophils 0.4 0.0 - 1.0 03/13 [facility] HEMATOLOGY WBC 11.2 3.7 - 10.4 03/13 [facility] HEMATOLOGY RBC 4.57 4.20 - 03/13 MH 5.40 /2015 [facility] HEMATOLOGY Platelet 349 133 - 450 03/13 [facility] HEMATOLOGY MCHC 31.9 32.0 - 03/13 MH 36.0 /2014 [facility] HEMATOLOGY RDW 15.7 11.5 - 03/13 MH 14.5 /2014 [facility] HEMATOLOGY MCH 27.2 27.0 - 03/13 MH 31.0 /2014 [facility] [place] HEMATOLOGY MCV 85.3 80.0 - 03/13 MH 98.0 /2015 [facility] HEMATOLOGY Hgb 12.4 12.0 - 03/13 16.0 /2014 [facility] HEMATOLOGY Hct 39.0 36.0 - 03/13 48.0 /2014 [facility] HEMATOLOGY MPV 7.7 7.4 - 10.4 03/13 /2014 [facility] HEMATOLOGY PTT 26.9 22.9 - 03/13 <sup>9</sup>I 35.8 /2014 nterpretive [facility] Data: [facility] Therapeutic Range: 57 - 92 Seconds HEMATOLOGY PT 13.6 12.0 - 03/13 14.7 /2014 [facility] HEMATOLOGY INR 1.04 0.85 - 03/13 <sup>8</sup>I 1.17 /2014 nterpretive [facility] Data: [facility] RECOMMENDED RANGES FOR PROTIME INR:
2.0-3.0 for most medical and surgical thromboemboli c states.
2.5-3.5 for artificial heart valves and recurrent embolism.<br/ >
INR SHOULD BE USED ONLY FOR PATIENTS ON STABLE ANTICOAGULANT THERAPY. CHEM PANEL eGFR 66 12/17 <sup>1</sup>R esult [facility] Comment: [facility] eGFR is calculated using the CKD-EPI formula. In most young, healthy individuals the eGFR will be >90 mL/min/1.73m2 . The eGFR declines with age. An eGFR of 60-89 may be normal in some populations, particularly the elderly, for whom the CKD-EPI formula has not been extensively validated. Use of the eGFR is not recommended in the following populations:& lt;br/>
I ndividuals with unstable creatinine concentration s, including patients and those with serious co-morbid conditions.<b r/>
Patie nts with extremes in muscle mass or diet.

The data above are obtained from the National Kidney Disease Education Program (NKDEP) which additionally recommends that when the eGFR is used in patients with extremes of body mass index for purposes of drug dosing, the eGFR should be multiplied by the estimated BMI. CHEM PANEL CO2 31 24 - 32 12/17 [facility] CHEM PANEL Calcium Lvl 9.0 8.5 - 10.5 12/17 [facility] CHEM PANEL Glucose Lvl 154 70 - 99 12/17 <sup>4</sup>I nterpretive [facility] Data: [facility] reference range values reflect the clinical guidelines
of the [place] [employer]. CHEM PANEL Creatinine 1.0 0.5 - 1.4 / Lvl /2014 [facility] CHEM PANEL Sodium Lvl 135 135 - 145 12/17 [facility] CHEM PANEL Potassium 4.4 3.5 - 5.1 12/17 Lvl /2014 [facility] CHEM PANEL BUN 26 7 - 22 12/17 /2014 [facility] CHEM PANEL Chloride Lvl 95 95 - 109 12/17 /2014 [facility] CHEM PANEL AGAP 13.4 10.0 - 02 MH 20.0 /2014 [facility] HEMATOLOGY Lymphocytes 1.7 1.0 - 5.5 12/17 # /2014 [facility] HEMATOLOGY Eosinophils 0.0 0.0 - 0.5 12/17 # /2014 [facility] HEMATOLOGY Monocytes # 1.0 0.0 - 0.8 12/17 /2014 [facility] HEMATOLOGY Toxic Gran Slight 12/17 /2014 [facility] HEMATOLOGY Basophils # 0.1 0.0 - 0.2 12/17 /2014 [facility] HEMATOLOGY Eosinophils 0.0 0.0 - 4.0 12/17 /2014 [facility] HEMATOLOGY Segs 87.6 45.0 - 12/17 75.0 /2014 [facility] HEMATOLOGY Lymphocytes 7.6 20.0 - 02 40.0 /2014 [facility] HEMATOLOGY Monocytes 4.5 2.0 - 12.0 12/17 /2014 [facility] HEMATOLOGY RBC Morph Normal 12/17 (12/17/14 7:07 AM) [facility] HEMATOLOGY Plt Morph Normal 12/17 (12/17/14 7:07 AM) [facility] HEMATOLOGY Basophils 0.3 0.0 - 1.0 12/17 /2014 [facility] HEMATOLOGY Segs-Bands # 19.1 1.5 - 8.1 12/17 /2014 [facility] HEMATOLOGY MCH 29.6 27.0 - 02 MH 31.0 /2014 [facility] HEMATOLOGY MCHC 33.8 32.0 - 02 MH 36.0 /2014 [facility] HEMATOLOGY MCV 87.7 80.0 - 02 98.0 /2014 [facility] HEMATOLOGY MPV 7.5 7.4 - 10.4 12/17 /2014 [facility] HEMATOLOGY Platelet 368 133 - 450 02 [facility] HEMATOLOGY Hct 39.4 36.0 - 12/17 48.0 /2014 [facility] HEMATOLOGY RDW 15.1 11.5 - 12/17 14.5 /2014 [facility] HEMATOLOGY RBC 4.50 4.20 - 12/17 5.40 /2014 [facility] HEMATOLOGY Hgb 13.3 12.0 - 12/17 16.0 /2014 [facility] HEMATOLOGY WBC 21.8 3.7 - 10.4 12/17 [facility] CHEM PANEL Lipase Lvl 95 73 - 393 12/16 [facility] CHEM PANEL Amylase Lvl 30 25 - 115 12/16 [facility] CHEM PANEL Amylase Lvl 32 25 - 115 12/15 [facility] CHEM PANEL Lipase Lvl 116 73 - 393 12/15 [facility] CHEM PANEL Lipase Lvl 106 73 - 393 12/14 [facility] CHEM PANEL Amylase Lvl 31 25 - 115 12/14 [facility] IMMUNOLOGY Hep C Ab Negative 12/14 MH *NA* /2014 (12/14/14 5:57 AM) [facility] IMMUNOLOGY Hep B Core Negative Negative 12/14 IgM *NA* /2014 (12/14/14 5:57 AM) [facility] IMMUNOLOGY Hep A IgM Negative Negative 12/14 *NA* /2014 (12/14/14 5:57 AM) [facility] IMMUNOLOGY Hep Bs Ag Negative Negative 12/14 *NA* /2014 (12/14/14 5:57 AM) [facility] MOLECULAR Influenza A Negative Negative 12/13 DIAGNOSTIC PCR (12/12/14 11:20 PM) /2014 [facility] MOLECULAR Source [employer] Swab 12/13 DIAGNOSTIC Respiratory (12/12/14 11:20 PM) /2014 [facility] Panel PCR [facility] MOLECULAR Influenza B Negative Negative 12/13 DIAGNOSTIC PCR (12/12/14 11:20 PM) /2014 [facility] MOLECULAR RSV PCR Negative 12 Negative 12/13 <sup>12</sup> DIAGNOSTIC (12/12/14 11:20 PM) /2014 Interpretive Greater Data: [facility] Gen-Probe Prodesse ProFlu plus assay is a multiplex real-time PCR test
for the qualitative detection and discriminatio n of Influenza A Virus,
In fluenza B Virus, and Respiratory Syncytial Virus. A negative result
do es not rule out the presence of these viruses. The specimen may
conta in polymerase chain reaction (PCR) inhibitors or virus below the
detec table limits of the assay. Results should not be used as the sole
basi s for clinical diagnosis, treatment, or patient management.<b r/>
Th is assay utilizes FDA cleared IVD reagents for Real-Time nucleic acid
ampl ification (PCR). Performance characteristi cs have been verified by
the [facility] Diagnostic Laboratory within [facility]. The
[facility] is authorized under the Clinical
Laboratory Improvement Amendments of 1988 (CLIA-88) to perform high
comp lexity testing. MOLECULAR Parainfluenz Negative Negative 12/13 DIAGNOSTIC a 1 PCR (12/12/14 11:20 PM) [facility] MOLECULAR Source [employer] Swab 12/13 DIAGNOSTIC Parainfluenz (12/12/14 11:20 PM) [facility] a Virus PCR [facility] MOLECULAR Parainfluenz Negative Negative 12/13 DIAGNOSTIC a 2 PCR (12/12/14 11:20 PM) [facility] MOLECULAR Parainfluenz Negative 11 Negative 12/13 <sup>11</sup> DIAGNOSTIC a 3 PCR (12/12/14 11:20 PM) Interpretive Greater Data: [facility] Parainfluenza PCR assay is a multiplex Real-Time PCR test for
the detection and discriminatio n of the Parainfluenza 1 Virus,
Pa rainfluezna 2 Virus and the Parainfluenza 3 Virus. This assay
tar gets the conserved regions of the Hemagglutinin -Neuraminidas e
(HN) gene of the HPIV-1, HPIV-2 and HPIV-3, respectively. This
test is not intended to detect Parainfluenza 4a or Parainfluenza
4b Viruses. A negative result does not rule out the presence of
virus. The specimen may contain polymerase chain reaction (PCR)
inh ibitors or virus below the detectable limits of the assay.<br/&gt ;Results should not be used as the sole basis for clinical diagnosis,
treatment or patient management.<b r/>
This assay utilizes FDA cleared IVD reagents for Real-Time nucleic
a aditya amplification (PCR). Performance characteristi cs have been
veri fied by the [facility] within [facility]. The [facility] is authorized
under the Clinical Laboratory Improvement Amendments of 1988
(CLI A-88) to perform high complexity testing. MOLECULAR Source [employer] Swab 12/13 DIAGNOSTIC Adenovirus (12/12/14 11:20 PM) [facility] PCR [facility] MOLECULAR Adenovirus Negative 10 Negative 12/13 <sup>10</sup> DIAGNOSTIC PCR (12/12/14 11:20 PM) Interpretive Greater Data: [facility] Adenovirus PCR assay is a multiplex Real-Time PCR test for the
detec tion of the human Adenovirus. The test detects but does not
diffe rentiate serotypes 1-51. A negative result does not rule out
the presence of virus. The specimen may contain polymerase chain
sonja ction (PCR) inhibitors or virus below the detectable limits of
the assay. Results should not be used as the sole basis for clinical
diagnosis, treatment or patient management.<b r/>
This assay utilizes FDA cleared IVD reagents for Real-Time nucleic
a aditya amplification (PCR). Performance characteristi cs have been
veri fied by the [facility] within [facility]. The [facility] Laboratory is authorized under
the Clinical Laboratory Improvement Amendments of 1988 (CLIA-88) to
perfor m high complexity testing. LIPIDS Trig 116 <=149 12/12 mg/dL /2014 [facility] LIPIDS LDL 154 <=99 mg/dL 12/12 (Calculated) /2014 [facility] LIPIDS Chol 233 <=199 12/12 mg/dL /2014 [facility] LIPIDS CHD Risk 4.16 3.90 - 12/12 MH 5.80 /2014 [facility] LIPIDS HDL 56 >=61 mg/dL 12/12 [facility] LIPIDS VLDL 23 12/12 /2014 [facility] CARDIAC Total CK 46 12 - 191 12/11 ENZYMES /2014 [facility] CARDIAC Troponin-I 0.10 0.00 - 12/11 ENZYMES 0.40 /2014 [facility] HEMATOLOGY D-Dimer 0.31 12/11 <sup>9</sup>I /2014 nterpretive Greater Data: In [place] quantitative D-Dimer is generally greater than
0.66 ug/mL FEU. Values of quantitative D-Dimer less than
0.40 ug/mL FEU have been reported to be associated with a low
proba bility of deep vein thrombosis/pu lmonary embolism.<br/ >This test alone should not be used to rule out DVT/PE. CHEM PANEL Procalcitoni <0.05 0.00 - 12/11 n Lvl ng/mL 0.10 [facility] CARDIAC Troponin-I <0.02 0.00 - 12/11 ENZYMES 0.40 [facility] CARDIAC Total CK 86 12 - 191 12/11 ENZYMES /2014 [facility] CARDIAC CK MB Index 1.5 0.0 - 2.5 12/11 MH ENZYMES /2014 [facility] CARDIAC CK MB 1.3 0.5 - 3.6 12/11 MH ENZYMES /2014 [facility] CARDIAC BNP 8 <=100 12/11 <sup>7</sup>I ENZYMES pg/mL /2014 nterpretive Greater Data: [facility] Elevated results are in line with increasing severity of
con gestive heart failure. Minor elevations between 100 and 300
may be seen with Myocardial Ischemia, Sodium retaining drugs,
an d compensated/t reated heart failure. CHEM PANEL eGFR 59 12/11 <sup>2</sup>R esult Greater Comment: [facility] eGFR is calculated using the CKD-EPI formula. In most young, healthy individuals the eGFR will be >90 mL/min/1.73m2 . The eGFR declines with age. An eGFR of 60-89 may be normal in some populations, particularly the elderly, for whom the CKD-EPI formula has not been extensively validated. Use of the eGFR is not recommended in the following populations:& lt;br/>
I ndividuals with unstable creatinine concentration s, including patients and those with serious co-morbid conditions.<b r/>
Patie nts with extremes in muscle mass or diet.

The data above are obtained from the National Kidney Disease Education Program (NKDEP) which additionally recommends that when the eGFR is used in patients with extremes of body mass index for purposes of drug dosing, the eGFR should be multiplied by the estimated BMI. CHEM PANEL BUN 18 7 - 22 12/11 [facility] CHEM PANEL Glucose Lvl 140 70 - 99 12/11 <sup>5</sup>I nterpretive Greater Data: [facility] reference range values reflect the clinical guidelines
of the [place] [employer]. CHEM PANEL Potassium 4.4 3.5 - 5.1 12/11 Lv [facility] CHEM PANEL Creatinine 1.1 0.5 - 1.4 12/11 Lvl [facility] CHEM PANEL Sodium Lvl 137 135 - 145 12/11 [facility] CHEM PANEL CO2 27 24 - 32 12/11 [facility] CHEM PANEL Chloride Lvl 98 95 - 109 12/11 [facility] CHEM PANEL Calcium Lvl 9.1 8.5 - 10.5 12/11 [facility] CHEM PANEL AGAP 16.4 10.0 - 12/11 20.0 /2014 [facility] HEMATOLOGY Hct 37.4 36.0 - 12/11 48.0 /2014 [facility] HEMATOLOGY Hgb 12.2 12.0 - 12/11 16.0 /2014 [facility] HEMATOLOGY WBC 18.4 3.7 - 10.4 12/11 [facility] HEMATOLOGY MCV 87.7 80.0 - 12/11 98.0 /2014 [facility] HEMATOLOGY MCH 28.5 27.0 - 12/11 31.0 /2014 [facility] HEMATOLOGY RBC 4.26 4.20 - 12/11 MH 5.40 /2014 [facility] HEMATOLOGY RDW 15.2 11.5 - 12/11 14.5 /2014 [facility] HEMATOLOGY MCHC 32.5 32.0 - 12/11 36.0 /2014 [facility] HEMATOLOGY Platelet 367 133 - 450 12/11 [facility] HEMATOLOGY MPV 7.9 7.4 - 10.4 12/11 [facility] HEMATOLOGY Monocytes # 0.0 0.0 - 0.8 12/11 /2014 [facility] HEMATOLOGY Lymphocytes 1.0 1.0 - 5.5 12/11 MH # /2014 [facility] HEMATOLOGY Segs 94.3 45.0 - 12/11 MH 75.0 /2014 [facility] HEMATOLOGY Lymphocytes 5.4 20.0 - 12/11 MH 40.0 /2014 [facility] HEMATOLOGY Polychrom Slight 12/11 [facility] HEMATOLOGY Large Plt Slight 12/11 /2014 [facility] HEMATOLOGY Basophils # 0.0 0.0 - 0.2 12/11 [facility] HEMATOLOGY Anisocyte 1+ None Seen 12/11 *ABN* /2014 [facility] (12/11/14 5:41 AM) [facility] HEMATOLOGY Eosinophils 0.0 0.0 - 0.5 12/11 # /2014 [facility] HEMATOLOGY Monocytes 0.2 2.0 - 12.0 12/11 [facility] HEMATOLOGY Eosinophils 0.1 0.0 - 4.0 12/11 [facility] HEMATOLOGY Macrocyte 1+ None Seen 12/11 *ABN* /2014 [facility] (12/11/14 5:41 AM[facility] HEMATOLOGY Microcyte 1+ None Seen 12/11 *ABN* /2014 [facility] (12/11/14 5:41 AM) [facility] HEMATOLOGY Basophils 0.0 0.0 - 1.0 12/11 [facility] HEMATOLOGY Segs-Bands # 17.4 1.5 - 8.1 12/11 /2014 [facility] IMMUNOLOGY IgE Lvl 215.0 10.0 - 12/11 MH 100.0 /2014 [facility] THYROID TSH 0.302 0.360 - 12/11 PANEL 3.740 /2014 [facility] THYROID T4 10.8 4.7 - 13.3 12/11 MH PANEL /2014 [facility] THYROID T3 Uptake 34 31 - 39 12/11 MH PANEL /2014 [facility] THYROID FTI 3.7 12/11 MH PANEL /2014 [facility] CHEM PANEL Lactic Acid 2.1 0.5 - 2.2 12/11 MH Lvl /2014 [facility] CARDIAC Total CK 47 12 - 191 12/10 ENZYMES /2014 [facility] CARDIAC Troponin-I <0.02 0.00 - 12/10 ENZYMES 0.40 /2014 [facility] CARDIAC CK MB 1.3 0.5 - 3.6 01/26 MH ENZYMES /2014 [facility] CARDIAC BNP 8 <=100 12/10 <sup>8</sup>I ENZYMES pg/mL /2014 nterpretive Greater Data: [facility] Elevated results are in line with increasing severity of
con gestive heart failure. Minor elevations between 100 and 300
may be seen with Myocardial Ischemia, Sodium retaining drugs,
an d compensated/t reated heart failure. CARDIAC CK MB Index 2.8 0.0 - 2.5 12/10 ENZYMES /2014 [facility] CHEM PANEL eGFR 66 12/10 <sup>3</sup>R MH /2014 esult Greater Comment: [facility] eGFR is calculated using the CKD-EPI formula. In most young, healthy individuals the eGFR will be >90 mL/min/1.73m2 . The eGFR declines with age. An eGFR of 60-89 may be normal in some populations, particularly the elderly, for whom the CKD-EPI formula has not been extensively validated. Use of the eGFR is not recommended in the following populations:& lt;br/>
I ndividuals with unstable creatinine concentration s, including patients and those with serious co-morbid conditions.<b r/>
Patie nts with extremes in muscle mass or diet.

The data above are obtained from the National Kidney Disease Education Program (NKDEP) which additionally recommends that when the eGFR is used in patients with extremes of body mass index for purposes of drug dosing, the eGFR should be multiplied by the estimated BMI. CHEM PANEL AGAP 14.9 10.0 - 12/10 MH 20.0 /2014 [facility] CHEM PANEL B/C Ratio 15 6 - 25 12/10 [facility] CHEM PANEL Globulin 4.8 2.0 - 4.0 12/10 [facility] CHEM PANEL A/G Ratio 0.7 0.7 - 1.6 12/10 [facility] CHEM PANEL Sodium Lvl 139 135 - 145 12/10 [facility] CHEM PANEL Potassium 3.9 3.5 - 5.1 12/10 Lvl /2014 [facility] CHEM PANEL Creatinine 1.0 0.5 - 1.4 12/10 Lvl /2014 [facility] CHEM PANEL Chloride Lvl 100 95 - 109 12/10 [facility] CHEM PANEL CO2 28 24 - 32 12/10 [facility] CHEM PANEL Total 8.2 6.4 - 8.4 12/10 [facility] CHEM PANEL Calcium Lvl 8.7 8.5 - 10.5 12/10 [facility] CHEM PANEL Bili Total 0.7 0.2 - 1.3 12/10 [facility] CHEM PANEL Alk Phos 73 39 - 136 12/10 [facility] CHEM PANEL Albumin Lvl 3.4 3.5 - 5.0 12/10 [facility] CHEM PANEL ALT 26 0 - 65 12/10 [facility] CHEM PANEL AST 12 0 - 37 12/10 [facility] CHEM PANEL Glucose Lvl 139 70 - 99 12/10 <sup>6</sup>I nterpretive Greater Data: [facility] reference range values reflect the clinical guidelines
of the [place] [employer]. CHEM PANEL BUN 15 7 - 22 12/10 [facility] HEMATOLOGY MCHC 33.0 32.0 - 12/10 36.0 /2014 [facility] HEMATOLOGY RDW 14.7 11.5 - 12/10 14.5 /2014 [facility] HEMATOLOGY Platelet 406 133 - 450 12/10 [facility] HEMATOLOGY MPV 7.8 7.4 - 10.4 12/10 [facility] HEMATOLOGY WBC 19.4 3.7 - 10.4 12/10 [facility] HEMATOLOGY RBC 4.45 4.20 - 12/10 5.40 /2014 [facility] HEMATOLOGY Hgb 12.8 12.0 - 12/10 16.0 /2014 [facility] HEMATOLOGY Hct 38.7 36.0 - 12/10 48.0 /2014 [facility] HEMATOLOGY MCV 87.0 80.0 - 12/10 98.0 /2014 [facility] HEMATOLOGY MCH 28.7 27.0 - 12/10 31.0 /2014 [facility] HEMATOLOGY Segs 81.1 45.0 - 12/10 75.0 /2014 [facility] HEMATOLOGY Plt Morph Normal 12/10 (12/10/14 4:56 PM) /2014 [facility] HEMATOLOGY Lymphocytes 14.8 20.0 - 12/10 40.0 /2014 [facility] HEMATOLOGY Eosinophils 0.7 0.0 - 4.0 12/10 [facility] HEMATOLOGY Monocytes 2.9 2.0 - 12.0 12/10 [facility] HEMATOLOGY Segs-Bands # 15.8 1.5 - 8.1 12/10 [facility] HEMATOLOGY Basophils 0.5 0.0 - 1.0 12/10 [facility] HEMATOLOGY Monocytes # 0.6 0.0 - 0.8 12/10 [facility] HEMATOLOGY Lymphocytes 2.9 1.0 - 5.5 12/10 # /2014 [facility] HEMATOLOGY Basophils # 0.1 0.0 - 0.2 12/10 [facility] HEMATOLOGY Eosinophils 0.1 0.0 - 0.5 12/10 # /2014 [facility] CHEM PANEL eGFR 86 11/23 <sup>1</sup>R esult Greater Comment: [facility] eGFR is calculated using the CKD-EPI formula. In most young, healthy individuals the eGFR will be >90 mL/min/1.73m2 . The eGFR declines with age. An eGFR of 60-89 may be normal in some populations, particularly the elderly, for whom the CKD-EPI formula has not been extensively validated. Use of the eGFR is not recommended in the following populations:& lt;br/>
I ndividuals with unstable creatinine concentration s, including patients and those with serious co-morbid conditions.<b r/>
Patie nts with extremes in muscle mass or diet.

The data above are obtained from the National Kidney Disease Education Program (NKDEP) which additionally recommends that when the eGFR is used in patients with extremes of body mass index for purposes of drug dosing, the eGFR should be multiplied by the estimated BMI. CHEM PANEL POC 0.8 0.5 - 1.4 11/23 Creatinine [facility] CARDIAC CK MB Index 2.9 0.0 - 2.5 03/11 ENZYMES /2013 [facility] CARDIAC Troponin-I <0.02 0.00 - 03/11 ENZYMES 0.40 /2013 [facility] CARDIAC BNP 15 <=100 03/11 <sup>3</sup>I ENZYMES pg/mL /2013 nterpretive Greater Data: [facility] Elevated results are in line with increasing severity of
con gestive heart failure. Minor elevations between 100 and 300
may be seen with Myocardial Ischemia, Sodium retaining drugs,
an d compensated/t reated heart failure. CARDIAC Total CK 38 12 - 191 03/11 MH ENZYMES /2013 [facility] CARDIAC CK MB 1.1 0.5 - 3.6 03/11 MH ENZYMES /2013 [facility] ELECTROLYTE AGAP 9.3 10.0 - 03/11 MH S 20.0 /2013 [facility] ELECTROLYTE eGFR 102 03/11 <sup>1</sup>R MH S esult Greater Comment: [facility] eGFR is calculated using the CKD-EPI formula. In most young, healthy individuals the eGFR will be >90 mL/min/1.73m2 . The eGFR declines with age. An eGFR of 60-89 may be normal in some populations, particularly the elderly, for whom the CKD-EPI formula has not been extensively validated. Use of the eGFR is not recommended in the following populations:& lt;br/>
I ndividuals with unstable creatinine concentration s, including patients and those with serious co-morbid conditions.<b r/>
Patie nts with extremes in muscle mass or diet.

The data above are obtained from the National Kidney Disease Education Program (NKDEP) which additionally recommends that when the eGFR is used in patients with extremes of body mass index for purposes of drug dosing, the eGFR should be multiplied by the estimated BMI. ELECTROLYTE Calcium Lvl 8.7 8.5 - 10.5 03/11 MH S [facility] ELECTROLYTE CO2 33 24 - 32 03/11 MH S [facility] ELECTROLYTE Chloride Lvl 98 95 - 109 03/11 MH S [facility] ELECTROLYTE Potassium 4.3 3.5 - 5.1 03/11 MH S Lvl [facility] ELECTROLYTE Sodium Lvl 136 135 - 145 03/11 MH S [facility] ELECTROLYTE Creatinine 0.7 0.5 - 1.4 03/11 MH S Lvl [facility] ELECTROLYTE BUN 11 7 - 22 03/11 MH S [facility] ELECTROLYTE Glucose Lvl 107 70 - 99 03/11 <sup>2</sup>I MH S nterpretive Greater Data: [facility] reference range values reflect the clinical guidelines
of the [place] [employer]. HEMATOLOGY D-Dimer 0.27 03/11 <sup>4</sup>I MH nterpretive Greater Data: In [facility]IC, [facility] quantitative D-Dimer is generally greater than
0.66 ug/mL FEU. Values of quantitative D-Dimer less than
0.40 ug/mL FEU have been reported to be associated with a low
proba bility of deep vein thrombosis/pu lmonary embolism.<br/ >This test alone should not be used to rule out DVT/PE. HEMATOLOGY Eosinophils 2.3 0.0 - 4.0 03/11 [facility] HEMATOLOGY Monocytes 5.8 2.0 - 12.0 03/11 [facility] HEMATOLOGY Basophils # 0.0 0.0 - 0.2 03/11 [facility] HEMATOLOGY Monocytes # 0.8 0.0 - 0.8 03/11 [facility] HEMATOLOGY Lymphocytes 2.5 1.0 - 5.5 03/11 # /2013 [facility] HEMATOLOGY Segs-Bands # 10.3 1.5 - 8.1 03/11 [facility] HEMATOLOGY Basophils 0.3 0.0 - 1.0 03/11 [facility] HEMATOLOGY Eosinophils 0.3 0.0 - 0.5 03/11 # /2013 [facility] HEMATOLOGY Lymphocytes 18.0 20.0 - 03/11 40.0 /2013 [facility] HEMATOLOGY Segs 73.6 45.0 - 03/11 75.0 /2013 [facility] HEMATOLOGY Hgb 12.7 12.0 - 03/11 16.0 /2013 [facility] HEMATOLOGY RBC 4.25 4.20 - 03/11 5.40 /2013 [facility] HEMATOLOGY RDW 14.7 11.5 - 03/11 14.5 /2013 [facility] HEMATOLOGY Hct 39.3 36.0 - 03/11 48.0 /2014 [facility] HEMATOLOGY WBC 14.0 3.7 - 10.4 03/11 /2013 [facility] HEMATOLOGY MCHC 32.4 32.0 - 03/11 36.0 /2013 [facility] HEMATOLOGY MCH 29.9 27.0 - 03/11 31.0 /2013 [facility] HEMATOLOGY MCV 92.3 81.0 - 03/11 99.0 /2013 [facility] HEMATOLOGY MPV 8.0 7.4 - 10.4 03/11 [facility] HEMATOLOGY Platelet 359 133 - 450 03/11 [facility] Pathology Reports No Data Provided for This Section Diagnostic Reports Report Value Date Source Breast Mammo Scrn MAURICE w 05/03/2019 KENYA Acuña jeri incl CAD MA BILATERAL DIGITAL SCREENING MAMMOGRAM 3D/2D WITH CAD: 05/03/2019 CLINICAL: Routine/Z12.31. Current study was evaluated with a Computer Aided Detection (CAD) system. COMPARISON:Comparison is made to exams dated: 09/02/2016 mammogram, 2015 mammogram, 04/24/2015 mammogram, 04/16/2014 mammogram, and 04/14/2013 mammogram - [facility]. TECHNIQUE: Digital Breast Tomosynthesis was performed and utilized for Interpretation. Current study was also evaluated with a Computer Aided Detection (CAD) system. FINDINGS: There are scattered fibroglandular densities in both breasts. There are stable benign appearing calcifications in both breasts. No significant masses, calcifications, or other findings are seen in either breast. There has been no significant interval change. IMPRESSION: BENIGN RECOMMENDATION:There is no mammographic evidence of malignancy. A 1 year screening mammogram is recommended.(05/03/2020) This exam was interpreted at [id number] for KENYA Acuña, 15. Professional services are provided by [facility]. Vicky randhawa/chelly:05/03/2019 14:21:08 Psychologist Social(s): Alyssa Justice [facility] letter sent: BI-RADS 1/2 Mammogram BI-RADS: 2 Benign Sacrum/coccyx series DX Patient Name: BLAYNE RANDHAWA 01/24/2017 [facility] : 1965; Age: 51 years Female MR: [id number] Study: Sacrum/coccyx series DX 01/24/2017 5:28 PM CDT CLINICAL INDICATION: Pain Post Trauma COMPARISON: None FINDINGS: Views and laterality: Sacrococcygeal series No displaced fracture or dislocation. The bilateral sacroiliac joints and sacral neural foramina appear intact. No gross soft tissue abnormalities. IMPRESSION: No acute bony abnormalities. SL: [id number] Chest 2 views DX EXAMINATION: Chest, 2 view, frontal and lateral 12/05/2016 [facility] HISTORY: Postoperative shortness of breath FINDINGS: Frontal and lateral views of the chest are submitted for interpretation and compared to 11/30/2016. The cardiomediastinal silhouette is within normal limits. There are no pleural effusions or pneumothorax. The lungs are clear without focal pneumonic consolidation or pulmonary edema. IMPRESSION: 1. No radiographic evidence of acute cardiopulmonary disease. Ankle 3 views DX CLINICAL HISTORY: Fracture 12/03/2016 [facility] AGE: 51 years GENDER: Female TECHNIQUE: Left ankle radiographs, 3 views. COMPARISON: 11/30/2016 FINDINGS: Interval postoperative changes from internal fixation of presumed noted fracture dislocation of the left ankle. The tibiotalar joint is now situated in expected anatomic alignment. There has been interv al internal fixation of the patient's medial malleolus fracture by 2 cannulated, partially threaded screws. There is no evidence of articular surface step-off in the tibial plafond. No evidence of osteochondral defect in the talar dome. Postoperative changes from internal fixation of the patient's previous seen noted distal fibular fracture with a side plate and screw device. 2 syndesmotic screws are noted. There is improved alignment of the distal fibular fracture. Single orthopedic screw affixes the patient's posterior malleolar fracture in expected anatomic alignment. IMPRESSION: Postoperative changes from reduction and internal fixation of left ankle fracture dislocation. No evidence of articular step-off in the tibial plafond. Ankle 3 views DX CLINICAL HISTORY : , Post-Reduction 11/30/2016 [facility] EXAM : 3 views of the left ankle 11/30/2016 10:33 PM [employer] COMPARISON : Left ankle radiographs 11/30/2016 FINDINGS : There is redemonstration of the patient's right malleolus fracture. There is improved alignment of the fractures. There is also improved alignment of the ankle mortise with approximately 7 mm of residual malalignment. There is diffuse soft tissue swelling overlying the ankle. There is no joint effusion. The rest of the bony alignment is normal. The inter-tarsal, tarsometatarsal, and visualized metatarsophalangeal joints are normal. IMPRESSION: 1. Improved alignment of trimalleolar fracture with improved alignment of ankle mortise. 2. Soft tissue swelling. Chest 1view DX Clinical history: Arrhythmias. 11/30/2016 [facility] : 1965. Technique: Portable AP chest x-ray. Comparison: 04/21/2016. Heart size: Normal. Lungs: No acute consolidation. Pleura: No pleural effusion. Mediastinum and janette: Unremarkable. Musculoskeletal: Unremarkable. Support tubings: None. Impression: 1. No active disease in the chest. Ankle 3 views DX Clinical history: Sprain. 11/30/2016 [facility] : 1965. Technique: 3 views of the left ankle. Findings: Moderate soft tissue swelling. Ankle fracture dislocation. The tibiotalar joint is disrupted. There is a fracture through the base of the medial malleolus with 13 mm of displacement and small comminuted fragments. There is a comminuted fracture of the distal fibula with overriding fragments, angulation and displacement of at least 11 mm. The posterior malleolus is also probably fractured but not well displayed. Impression: 1. Ankle fracture dislocation. Foot series DX Clinical history: Pain, Trauma. 11/30/2016 [facility] : 1965. Technique: 3 views of the right foot. Findings: There is mild soft tissue swelling. No evidence for acute fracture. Normal articulations. No destructive lesion. Impression: 1. No acute skeletal findings. Digital Mammo DX [facility] MA - DIGITAL MAMMO DX MAURICE MA 09/02/2016 [facility] BILATERAL DIGITAL DIAGNOSTIC MAMMOGRAM WITH CAD: 09/02/2016 CLINICAL: R92.8 Other Abnormal And Inconclusive Findings On Diagnostic Imaging Of Breast. Current study was evaluated with a Computer Aided Detection (CAD) system. Comparison is made to exams dated: 08/05/2016 mammogram, 04/24/2015 mammogram , 04/16/2014 mammogram, 04/14/2013 mammogram and 04/14/2012 mammogram - [facility]. There are scattered fibroglandular densities in both breasts. There is a nodule in the right breast at 11 o'clock middle depth. This is seen in additional views. There is a nodule in the left breast at 1 o'clock anterior depth. This is seen in additional views. No other significant masses or calcifications are seen in either breast. IMPRESSION: INCOMPLETE: NEEDS ADDITIONAL IMAGING EVALUATION The nodule in the right breast at 11 o'clock middle depth is indeterminate. An ultrasound is recommended. The nodule in the left breast at 1 o'clock anterior depth is indeterminate. An ultrasound is recommended. SUMMARY: Ultrasound will be performed at this time; please see dedicated separate report. Jazzy Penny M.D. ap/penrad:09/02/2016 16:23:55 Psychologist Social: Lily Shah RT (Sebastian)([place]), [facility] This exam was dictated and interpreted by [id number] for [facility], 12. Mammogram BI-RADS: 0 Indeterminate Breast Complete [facility] US - BREAST COMPLETE MAURICE US 09/02/2016 [facility] ULTRASOUND OF BOTH BREASTS AND BOTH AXILLA: 09/02/2016 CLINICAL: R92.8 Other Abnormal And Inconclusive Findings On Diagnostic Imaging Of Breast. Comparison is made to exam dated: 09/02/2016 mammogram - [facility]. Ultrasound was performed over all four quadrants, retroareolar region, and axilla. Ultrasound was performed over all four quadrants, retroareolar region, and axilla. Color flow and real-time ultrasound of both breasts and both axilla were performed. Natarajan scale images of the real-time examination were reviewed. There is a benign 7 mm complicated cyst right breast at 11 o'clock that correlates with mammography. There also is a benign 4 mm simple cyst left breast at 1 o'clock that correlates with mammography. No abnormalities were seen sonographically in either axilla. IMPRESSION: BENIGN There is no sonographic evidence of malignancy. Bilateral mammographic nodules correspond to benign cysts. A 1 year screening mammogram is recommended. Jazzy Penny M.D. ap/:09/02/2016 16:27:20 Psychologist Social: Alexander Arauz, [facility] This exam was dictated and interpreted by [id number] for [facility], SL 12. letter sent: Normal exam Ultrasound BI-RADS: 2 Benign Digital Mammo Screening - DIGITAL MAMMO SCREENING MAURICE MA 08/05/2016 [facility] [place] MA BILATERAL DIGITAL SCREENING MAMMOGRAM WITH CAD: 08/05/2016 CLINICAL: Z12.31 Encounter For Screening Mammogram For Malignant Neoplasm Of Breast. Current study was evaluated with a Computer Aided Detection (CAD) system. Comparison is made to exams dated: 04/24/2015 mammogram, 04/16/2014 mammogram, 04/14/2012 mammogram and 04/14/2013 mammogram - [facility]. There are scattered fibroglandular densities in both breasts. There is a nodule in the right breast at 11 o'clock anterior depth. There is a possible nodule in the left breast at 1 o'clock middle depth. No other significant masses or calcifications are seen in either breast. IMPRESSION: INCOMPLETE: NEEDS ADDITIONAL IMAGING EVALUATION The nodule in the right breast at 11 o'clock anterior depth is indeterminate. Spot compression and lateral views as well as an ultrasound are recommended. The possible nodule in the left breast at 1 o'clock middle depth is indeterminate. Spot compression and lateral views as well as an ultrasound are recommended. Jazzy Penny M.D. ap/penrad:08/07/2016 13:58:42 Psychologist Social: Lily Shah RT (Sebastian)(Ravin), [facility] This exam was dictated and interpreted by [id number] for [facility], 12. letter sent: Additional Imaging Mammogram BI-RADS: 0 Indeterminate Chest 2 views DX Study: Chest 2 views DX 04/21/2016 [facility] Clinical Indication: Chest pain Comparison: Chest x-ray from 03/13/2015 FINDINGS: The cardiac silhouette is normal in size. The lungs are clear and without consolidation or congestion. No pleural effusion or pneumothorax is seen. The osseous structures are unremarkable. IMPRESSION: No acute cardiopulmonary disease. SL: [id number] Pelvis w Pelvis Patient Name: BLAYNE RANDHAWA 12/31/2015 [facility] Transvaginal US : 1965; Age: 50 years y/o Female MR: [id number] Study: Pelvis w Pelvis Transvaginal US 12/31/2015 6:44 PM [employer] Clinical Indication: Vaginal Bleeding; Comparison: None US PELVIS Technique: Grayscale, color and Doppler transabdominal and transvaginal imaging of the pelvis was performed with standard technique. FINDINGS: TRANSABDOMINAL PELVIC ULTRASOUND: The uterus is anteverted in position and measures 8.7 x 4.1 cm. The uterine myometrium is normal in echotexture and no definitive fibroid is seen. Scattered anechoic subendometrial cysts are seen with l argest measuring 5 mm. Subcentimeter subendometrial calcification is also noted, nonspecific. TRANSVAGINAL PELVIC ULTRASOUND: Endometrial stripe is slightly irregular in appearance and measures 11 mm in thickness. The ovaries are not well visualized on this exam. 1.3 cm cervical nabothian cyst is seen. No free fluid is noted in the pelvic cul-de-sac. IMPRESSION: 1. Thickening and irregularity of the endometrial stripe measuring 11 mm in thickness. This may represent endometrial hyperplasia or polyps. However, underlying endometrial malignancy cannot be excluded. 2. Nonvisualization of the ovaries. 3. No adnexal masses or free pelvic fluid. SL: [id number] Digital Mammo Screening - DIGITAL MAMMO SCREENING MAURICE MA 04/24/2015 [facility] Maurice MA BILATERAL DIGITAL SCREENING MAMMOGRAM WITH CAD: 04/24/2015 CLINICAL: Routine/Screening. Current study was evaluated with a Computer Aided Detection (CAD) system. Comparison is made to exams dated: 04/16/2014 mammogram, 04/14/2013 mammogram and 04/14/2012 mammogram - [facility]. There are scattered fibroglandular densities in both breasts. There are benign calcifications in the left breast. No significant masses, calcifications, or other findings are seen in either breast. There has been no significant interval change. IMPRESSION: BENIGN There is no mammographic evidence of malignancy. A 1 year screening mammogram is recommended. Jazzy Penny M.D. ap/penrad:04/24/2015 15:04:15 Psychologist Social: Leela Ortez RT (R)(Ravin), [facility] This exam was dictated and interpreted by [id number] for [facility], 12. letter sent: Normal exam Mammogram BI-RADS: 2 Benign Chest 1view DX CXR, portable (1 view) 03/13/2015 [facility] HISTORY: Abnormal chest sounds Prior studies of 12/10/2014, 03/10/2014, and 01/24/[address] scan of 03/15/2014 were reviewed. FINDINGS: The lungs are clear. There is pulmonary hyperexpansion consistent with COPD per the prior chest CT scan demonstrated mild to moderate emphysematous changes and bullous changes. There are no pleural effusions. The heart and pulmonary vasculature are within normal limits. There are mild atherosclerotic calcifications involving the thoracic aorta. The regional skeleton is unremarkable. CONCLUSION: 1. No active disease. 2. COPD. Coding: Chest 1view CPT code: 20652 SL: 12 Demetrius Erwin M.D. Abdomen 2 views ABDOMEN, 2 VIEWS. 12/13/2014 [facility] INDICATION: Abdominal pain. Supine and erect images reveal a normal bowel gas pattern. Moderate amount of fecal material is noted within the colon. No pneumoperitoneum is evident. Cholecystectomy has been performed. Multiple calcified phleboliths overlie the pelvis. No definite urinary tract calculus is noted. SL: 12 Digital Mammo Screening - DIGITAL MAMMO SCREENING MAURICE MA 04/16/2014 [facility] Maurice MA BILATERAL DIGITAL SCREENING MAMMOGRAM WITH CAD: 04/16/2014 CLINICAL: Screening/Routine. Current study was evaluated with a Computer Aided Detection (CAD) system. Comparison is made to exams dated: 04/14/2013 mammogram and 04/14/2012 mammogram - [facility]. There are scattered fibroglandular densities in both breasts. There are benign calcifications in the left breast. No significant masses, calcifications, or other findings are seen in either breast. There has been no significant interval change. IMPRESSION: BENIGN There is no mammographic evidence of malignancy. A screening mammogram in one year is recommended. Terrell palomo/penrad:04/17/2014 09:25:11 Psychologist Social: Pamela MALAVE (R)(M), [facility] This exam was dictated and interpreted by [id number] for [facility], SL 12. letter sent: Normal exam Mammogram BI-RADS: 2 Benign Chest 1view Portable chest: The cardiac silhouette and pulmonary vasculature are within normal limits. The lungs and pleural spaces are clear. There is no significant change compared to 12/21/2013. 03/10/2014 [facility] IMPRESSION: No acute radiographic abnormality in the chest. SL:13 Cardiac SPECT multi TECHNETIUM CARDIOLITE LEXISCAN SPECT MYOCARDIAL PERFUSION SCAN: 04/25/2013 [facility] studies NM HX: chest pain The patient was given 0.4 mg / 5 ml administered LEXISCAN for pharmacologic stress. Stress phase images were obtained with 11 mCi of [id number]. PERFUSION SCAN: Stress phase images revealed no evidence of significant myocardial perfusion abnormality. WALL MOTION AND EJECTION FRACTION: There is no evidence of segmental wall motion defect. The left ventricular ejection fraction is 88%. The left ventricular end systolic volume is 5cc. There is no evidence of transient ischemic dilata tion. The ratio of lung to heart activity is normal. IMPRESSION: Negative Technetium Cardiolite LEXISCAN SPECT myocardial perfusion scan. SL: 12 Consultation Notes No Data Provided for This Section Discharge Summaries No Data Provided for This Section History and Physicals No Data Provided for This Section Vital Signs Vital Sign Value Date Comments Source BMI Calculated 32.26 04/18/2019 [facility] Weight 80 04/18/2019 [facility] Height 157.48 cm 04/18/2019 [facility] Temperature Oral (F) 98.1 F 04/18/2019 [facility] Heart Rate 90 04/18/2019 [facility] Systolic (mm Hg) 152 04/18/2019 [facility] Diastolic (mm Hg) 75 04/18/2019 [facility] Respitory Rate 18 01/24/2017 [facility] Temperature Oral (F) 98.2 F 01/24/2017 [facility] Heart Rate 90 01/24/2017 [facility] Systolic (mm Hg) 134 01/24/2017 [facility] Diastolic (mm Hg) 75 01/24/2017 [facility] BMI Calculated 34.27 01/24/2017 [facility] Weight 85 01/24/2017 [facility] Height 157.48 cm 01/24/2017 [facility] Temperature Oral (F) 98.7 F 01/24/2017 [facility] Systolic (mm Hg) 134 01/24/2017 [facility] Diastolic (mm Hg) 73 01/24/2017 [facility] Heart Rate 105 01/24/2017 [facility] Respitory Rate 18 01/24/2017 [facility] Systolic (mm Hg) 159 12/07/2016 [facility] Diastolic (mm Hg) 72 12/07/2016 [facility] Respitory Rate 18 12/07/2016 [facility] Heart Rate 97 12/07/2016 [facility] Temperature Oral (F) 98.4 F 12/07/2016 [facility] Respitory Rate 18 12/07/2016 [facility] Systolic (mm Hg) 119 12/07/2016 [facility] Diastolic (mm Hg) 79 12/07/2016 [facility] Temperature Oral (F) 98.4 F 12/07/2016 [facility] Heart Rate 83 12/07/2016 [facility] Temperature Oral (F) 98.4 F 12/07/2016 [facility] Heart Rate 82 12/07/2016 [facility] Respitory Rate 18 12/07/2016 [facility] Systolic (mm Hg) 120 12/07/2016 [facility] Diastolic (mm Hg) 71 12/07/2016 [facility] Height 157.48 cm 12/01/2016 [facility] BMI Calculated 34.33 12/01/2016 [facility] Weight 85.142 12/01/2016 [facility] BMI Calculated 38.83 12/01/2016 [facility] Height 157.48 cm 12/01/2016 [facility] Weight 96.3 12/01/2016 [facility] BMI Calculated 35.74 11/30/2016 [facility] Weight 88.636 11/30/2016 [facility] Height 157.48 cm 11/30/2016 [facility] Systolic (mm Hg) 98 04/29/2016 [facility] Diastolic (mm Hg) 61 04/29/2016 [facility] Respitory Rate 20 04/29/2016 [facility] Heart Rate 76 04/29/2016 [facility] Temperature Oral (F) 97.6 F 04/29/2016 [facility] Respitory Rate 20 04/29/2016 [facility] Systolic (mm Hg) 101 04/29/2016 [facility] Diastolic (mm Hg) 65 04/29/2016 [facility] Temperature Oral (F) 97.4 F 04/29/2016 [facility] Heart Rate 68 04/29/2016 [facility] Temperature Oral (F) 97.6 F 04/29/2016 [facility] Heart Rate 76 04/29/2016 [facility] Respitory Rate 20 04/29/2016 [facility] Systolic (mm Hg) 123 04/29/2016 [facility] Diastolic (mm Hg) 73 04/29/2016 [facility] Weight 94.091 04/22/2016 [facility] BMI Calculated 37.94 04/22/2016 [facility] Height 157.48 cm 04/22/2016 [facility] Weight 94.091 04/22/2016 [facility] BMI Calculated 37.94 04/21/2016 [facility] Weight 94.091 04/21/2016 [facility] Height 157.48 cm 04/21/2016 [facility] Temperature Oral (F) 98.3 F 01/01/2016 [facility] Systolic (mm Hg) 147 01/01/2016 [facility] Diastolic (mm Hg) 74 01/01/2016 [facility] Heart Rate 85 01/01/2016 [facility] Respitory Rate 20 01/01/2016 [facility] Respitory Rate 20 01/01/2016 [facility] Diastolic (mm Hg) 78 01/01/2016 [facility] Systolic (mm Hg) 127 01/01/2016 [facility] Heart Rate 87 01/01/2016 [facility] Temperature Oral (F) 98.1 F 01/01/2016 [facility] Height 157.48 cm 12/31/2015 [facility] Weight 98.182 12/31/2015 [facility] BMI Calculated 39.59 12/31/2015 [facility] Systolic (mm Hg) 134 12/31/2015 [facility] Diastolic (mm Hg) 81 12/31/2015 [facility] Heart Rate 117 12/31/2015 [facility] Temperature Oral (F) 98.2 F 12/31/2015 [facility] Respitory Rate 24 12/31/2015 [facility] Temperature Oral (F) 97.9 F 03/21/2015 [facility] Systolic (mm Hg) 111 03/21/2015 [facility] Diastolic (mm Hg) 69 03/21/2015 [facility] Heart Rate 84 03/21/2015 [facility] Respitory Rate 20 03/21/2015 [facility] Temperature Oral (F) 98.0 F 03/21/2015 [facility] Heart Rate 82 03/21/2015 [facility] Respitory Rate 20 03/21/2015 [facility] Systolic (mm Hg) 96 03/21/2015 [facility] Diastolic (mm Hg) 62 03/21/2015 [facility] Temperature Oral (F) 98.5 F 03/21/2015 [facility] Systolic (mm Hg) 116 03/21/2015 [facility] Diastolic (mm Hg) 73 03/21/2015 [facility] Respitory Rate 20 03/21/2015 [facility] Heart Rate 83 03/21/2015 [facility] Height 157.48 cm 03/14/2015 [facility] BMI Calculated 38.35 03/13/2015 [facility] Weight 95.114 03/13/2015 [facility] Height 157.48 cm 03/13/2015 [facility] Systolic (mm Hg) 147 12/18/2014 [facility] Temperature Oral (F) 98.3 F 12/18/2014 [facility] Heart Rate 73 12/18/2014 [facility] Diastolic (mm Hg) 80 12/18/2014 [facility] Respitory Rate 20 12/18/2014 [facility] Temperature Oral (F) 97.8 F 12/17/2014 [facility] Systolic (mm Hg) 144 12/17/2014 [facility] Respitory Rate 20 12/17/2014 [facility] Diastolic (mm Hg) 82 12/17/2014 [facility] Heart Rate 74 12/17/2014 [facility] Systolic (mm Hg) 152 12/17/2014 [facility] Respitory Rate 20 12/17/2014 [facility] Diastolic (mm Hg) 79 12/17/2014 [facility] Temperature Oral (F) 98.1 F 12/17/2014 [facility] Heart Rate 75 12/17/2014 [facility] Weight 98.807 12/12/2014 [facility] Height 157.48 cm 12/11/2014 [facility] Weight 96.08 12/11/2014 [facility] BMI Calculated 38.74 12/11/2014 [facility] Weight 79.688 12/10/2014 [facility] BMI Calculated 32.13 12/10/2014 [facility] Height 157.48 cm 12/10/2014 [facility] Diastolic (mm Hg) 98 03/11/2014 [facility] Heart Rate 97 03/11/2014 [facility] Respitory Rate 20 03/11/2014 [facility] Temperature Oral (F) 99 F 03/11/2014 [facility] Systolic (mm Hg) 113 03/11/2014 [facility] Diastolic (mm Hg) 85 03/11/2014 [facility] Systolic (mm Hg) 120 03/11/2014 [facility] Respitory Rate 20 03/11/2014 [facility] Heart Rate 87 03/11/2014 [facility] Temperature Oral (F) 98.3 F 03/11/2014 [facility] Height 157.48 cm 03/11/2014 [facility] Weight 84.091 03/11/2014 [facility] BMI Calculated 33.91 03/11/2014 [facility] Temperature Oral (F) 98.0 F 03/11/2014 [facility] Systolic (mm Hg) 108 03/11/2014 [facility] Respitory Rate 22 03/11/2014 [facility] Heart Rate 85 03/11/2014 [facility] Diastolic (mm Hg) 71 03/11/2014 [facility] BMI Calculated 33.91 02/09/2014 [facility] Weight 84.091 02/09/2014 [facility] Height 157.48 cm 02/09/2014 [facility] Height 157.48 cm 04/25/2013 [facility] Weight 75 04/25/2013 [facility] Encounters Location Location Encounter Encounter Reason Attending ADM DC Status Source Details Type Number For Provider Date Date Visit Outpatient [id number] CHEST LATIFA 04/25 Active [facility] 5 PAIN [facility] 7[facility].50,[facility] [place] AD 414.9 [facility] [id number] _MAPID:E Latifa 02/09 02/10 [place] 0 [id number] NCNTRRFV Marjorie /2013 [facility] [id number] [facility] [place] [id number] Coty 03/11 03/11 [facility] Emergency 1 Marisol /[address] [facility] Outpatient [id number] Latifa 04/16 04/17 [place] 3 Marjorie [facility] Outpatient [id number] [place] 11/23 11/24 [place] 4 [facility] Inpatient [id number] Cunningham 12/10 12/18 [place] 5 [facility] Inpatient [id number] Russian Luy 03/13 03/22 [facility] Outpatient [id number] Cunningham 04/24 04/25 [place] 6 [facility] /2014 [facility] EC [id number] Andres 12/31 01/01 [facility] Emergency 8 [place] /2015 [facility] Inpatient [id number] Cunningham 04/21 04/29 [place] 0 [facility] /2015 [facility] Outpatient [id number] Cunningham 08/05 08/06 [place] 4 [facility] Outpatient [id number] [facility] 09/02 09/03 [place] 1 [facility] Inpatient [id number] Nirjostinkimelda 11/30 12/07 [place] 6 i [facility] Emergency [id number] Cristobal Rodrigez 01/24 01/25 [place] [facility] Outpatient [id number] Michelle Fisher 04/18 [facility] [id number] Loan Fisher 04/18 04/19 [facility] Between [id number] 04/19 04/20 Primary Visit Medical Care [facility] Between [id number] 04/20 04/21 MH Primary Visit Medical Care [facility] Outpt Diag [id number] Michelle Fisher 05/03 05/04 [facility] Out[facility] Between [id number] 05/04 05/05 MH Primary Visit Medical Care [facility] Between [id number] 05/05 05/06 Primary Visit Medical Care [facility] Outpatient [id number] Osmel 06/12 [facility] 7 [place] Outpatient [id number] Michelle Fisher 07/19 Active [facility] [place] Outpatient [id number] INSOMNIA NON Active [facility] 7 , SLEEP PHYSICIAN [facility] [place] 780.57, 327.26 SLEEP RELATED SLEE Procedures Procedure Code Date Perfomer Comments Source Cervical cytology [id number] 04/18/2017 [facility] screening [place] Cervical cytology [id number] 04/18/2017 [facility] section [id number] [facility] Cholecystectomy 25784103 [facility] Bilateral tubal 123595090 [facility] ligation [place] Left [id number] left ovary Greater ovary<sup>1</sup> removed from [facility] cyst 1991 Bilateral tubal [id number] [facility] section [id number] [facility] Cholecystectomy [id number] [facility] Left [id number] left ovary [facility][note 3] ovary<sup>1</sup> removed from [facility] cyst 1990 Bilateral tubal 903870916 [facility] ligation [place] section [id number] [facility] [place] Cholecystectomy [id number] [facility] [place] Left [id number] left ovary [facility] ovary<sup>1</sup> removed from [place] cyst 1990 Bilateral tubal 618476640 Medical ligation [facility] section [id number] [facility] Cholecystectomy [id number] [facility] Left 768534530 left ovary Medical ovary<sup>1</sup> removed from Group cyst 1990 Assessment and Plan Assessment and Plan Date Source Extracted from:Title: General Admission H&P * 12/07/2016 [facility] Author: Bob Rios MD Date: 11/30/16 Impression and Plan 1. Left ankle fracture s/p immobilization - morphine has not provided her relief so I will order IV Dilaudid. Dr. Pardo plans to do ORIF in AM. 2. COPD - currently no wheezing. Continue O2 and CPAP support. Will order neb treatment as needed. She is very anxious about being put to sleep during surgery (her blindmaker, Dr. Antonio Page, said du ring last visit that her lungs are at 29% capacity) so I will request Dr. Wong for preop clearance. Continue Prednisone and neb treatments. 3. Diabetes mellitus Type 2 (A1c 6.0) - I will order ISS. 4. Hypertension - controlled. 5. Leukocytosis - probably reactive. Monitor CBC. 6. Chronic diastolic CHF - stable. 7. Anxiety - continue Clonazepam. 8. Obesity (BMI 35) Plan of Care No Data Provided for This Section Social History Social History Date Source Social History TypeResponse 03/13/2015 [facility] Alcohol Past, Type Liquor. Previous treatment: None. Alcohol use interferes with work or home: No.1 Smoking Status Former smoker; Type: Cigarettes; Previous treatment: None; Ready to change: Yes ; Concerns about tobacco use in household: No; Exposure to Tobacco Smoke None; Cigarette Smoking Last 365 Days No; Reg Smoking Cessation Counseling Yes2 1past frequent alcohol use24 years ago quit Social History TypeResponse 03/13/2015 [facility] Alcohol Past, Type Liquor. Previous treatment: None. Alcohol use interferes with work or home: No.1 Smoking Status Former smoker; Exposure to Tobacco Smoke None; Cigarette Smoking Last 365 Days No; Reg Smoking Cessation Counseling No 1past frequent alcohol use Social History TypeResponse 03/13/2015 AYLEEN Acuña Alcohol Past, Type Liquor. Previous treatment: None. Alcohol use interferes with work or home: No.1 Smoking Status Former smoker; Type: Cigarettes; Previous treatment: None; Ready to change: Yes ; Concerns about tobacco use in household: No; Exposure to Tobacco Smoke None; Cigarette Smoking Last 365 Days No; Reg Smoking Cessation Counseling Yes2 entered on: 04/18/19 1past frequent alcohol use24 years ago quit Social History TypeResponse 03/13/2015 [facility] Alcohol Past, Type Liquor. Previous treatment: None. Alcohol use interferes with work or home: No.1 Smoking Status Former smoker; Type: Cigarettes; Previous treatment: None; Ready to change: Yes ; Concerns about tobacco use in household: No; Exposure to Tobacco Smoke None; Cigarette Smoking Last 365 Days No; Reg Smoking Cessation Counseling Yes2 entered on: 04/18/19 1past frequent alcohol use24 years ago quit Family History No Data Provided for This Section Advance Directives No Data Provided for This Section Functional Status No Data Provided for This Section
--- OUTSIDE RECORDS SUMMARY | 2019-06-12 22:19 | XMS REPORT | Summary of Care ---
:1965 Author Organization [facility] Address [address] [place] [id number]- Encounter HQ Encntr_alias(FIN) [id number] Date(s): 04/20/19 - 04/21/[address] [address]- [phone] Vital Signs No data available for this section Problem List Condition Effective Dates Status Health Status Informant Anxiety(Confirmed) Resolved Cholecystitis(Confirmed) Resolved COPD - Chronic obstructive pulmonary Active disease(Confirmed) Hypertension(Confirmed) Active Kidney stone(Confirmed) Resolved Allergies, Adverse Reactions, Alerts Substance Reaction Severity Status penicillins Active ciprofloxacin Active Pulmicort Nebuamp Active Brovana Brovana Active Brovana Brovana Medications No data available for this section Results No data available for this section Immunizations Given and Recorded Vaccine Date Status Refusal Reason Hx influenza vaccine-unspecified 09/25/14 Given Hx influenza vaccine-unspecified 08/15/10 Given influenza virus vaccine, inactivated 02/10/13 Given Hx pneumococcal vaccine 08/24/09 Given Procedures Procedure Date Related Diagnosis Body Site Status Cervical cytology screening 04/18/17 Completed Bilateral tubal ligation Completed section Completed Cholecystectomy Completed Left ovary1 Completed 1left ovary removed from cyst 1990 Social History Social History Type Response Alcohol Past, Type Liquor. Previous treatment: None. Alcohol use interferes with work or home: No.1 Smoking Status Former smoker; Type: Cigarettes; Previous treatment: None; Ready to change: Yes; Concerns about tobacco use in household: No; Exposure to Tobacco Smoke None; Cigarette Smoking Last 365 Days No; Reg Smoking Cessation Counseling Yes2 entered on: 04/18/19 1past frequent alcohol use24 years ago quit Assessment and Plan No data available for this section
--- OUTSIDE RECORDS SUMMARY | 2019-06-12 22:19 | XMS REPORT | Summary of Care ---
:1965 Author Organization [facility] ([facility]) Address [address] [place] [address]- Encounter HQ Encntr_alias(FIN) [id number] Date(s): 04/19/19 - 04/20/[address] [address]- [phone] Vital Signs No data available for this [...]
--- OUTSIDE RECORDS SUMMARY | 2019-06-12 22:19 | XMS REPORT | Summary of Care ---
:[address] [facility] [place] Address [address] [place] [address], [place] [address]- Encounter HQ Encntr_alichandler(FIN) [id number] Date(s): 05/03/19 - 05/03/19 [facility] [address], [address] [place] [address]- [phone] Encounter Diagnosis Encounter for screening mammogram for malignant neoplasm of breast (Final) - Discharge Disposition: Home or Self Care Attending Physician: Michelle Fisher MD Referring Physician: Michelle Fisher MD Vital Signs No data available for this [...]
--- OUTSIDE RECORDS SUMMARY | 2019-06-12 22:19 | XMS REPORT | Summary of Care ---
:1965 Author Organization [facility] Address [address] [place] [address]- Encounter HQ Sammyntr_salty(FIN) [id number] Date(s): 04/18/19 - 04/18/[address] [address]- [phone] Discharge Disposition: Home or Self Care Attending Physician: Michelle Fisher MD Vital Signs Most recent to oldest [Reference Range]: 1 Height 157.48 cm (04/18/19 2:34 PM) Temperature Oral [96.4-99.1 DegF] 98.1 DegF (04/18/19 2:34 PM) Blood Pressure [90-140/60-90 mmHg] 152/75 mmHg *HI* (04/18/19 2:34 PM) Peripheral Pulse Rate [60-100 bpm] 90 bpm (04/18/19 2:34 PM) Weight 80 kg (04/18/19 2:34 PM) Body Mass Index 32.26 m2 (04/18/19 2:34 PM) Problem List Condition Effective Dates Status Health Status Informant Anxiety(Confirmed) Resolved Cholecystitis(Confirmed) Resolved COPD - Chronic obstructive pulmonary Active disease(Confirmed) Hypertension(Confirmed) Active Kidney stone(Confirmed) Resolved Allergies, Adverse Reactions, Alerts Substance Reaction Severity Status penicillins Active ciprofloxacin Active Pulmicort Nebuamp Active Brovana Brovana Active Brovana Brovana Medications alendronate 35 mg oral tablet 35 mg=1 tab, PO, 0 Refill(s) Start Date: 04/18/19 Status: OrderedamLODIPine 10 mg oral tablet 10 mg=1 tab, PO, Daily, # 90 tab, 0 Refill(s), Pharmacy: [facility] Start Date: 04/18/19 Stop Date: 07/17/19 Status: Orderedazithromycin 500 mg oral tablet See Instructions, 1 tab PO MWF, 0 Refill(s) Start Date: 04/18/19 Status: OrderedCombivent Respimat CFC free 100 mcg-20 mcg/inh inhalation aerosol 2 puff, INHALATION, QID, 0 Refill(s) Start Date: 04/18/19 Status: Orderedhydrochlorothiazide-losartan 25 mg-100 mg oral tablet 0.5 tab, PO, Daily, 0 Refill(s) Start Date: 04/18/19 Status: Orderedpantoprazole 40 mg oral enteric coated tablet 40 mg=1 tab, PO, Daily, # 30 tab, 0 Refill(s) Start Date: 04/18/19 Status: Orderedpotassium chloride 20 mEq oral tablet, extended release 20 mEq=1 tab, PO, Daily, # 90 tab, 0 Refill(s), Pharmacy: [facility] Start Date: 04/18/19 Status: OrderedpredniSONE 20 mg oral tablet 20 mg=1 tab, PO, Daily, 0 Refill(s) Start Date: 04/18/19 Status: OrderedSpiriva Respimat 60 ACT 2.5 mcg/inh inhalation aerosol =2 puff, INHALATION, Daily, 0 Refill(s) Start Date: 04/18/19 Status: Ordered Results No data available for this section [...]
--- OUTSIDE RECORDS SUMMARY | 2019-06-12 22:19 | XMS REPORT | Summary of Care ---
:1965 Author Organization [facility] Address [address] [place] [address]- Encounter HQ Encntr_alias(FIN) [id number] Date(s): 05/04/19 - 05/05/[address] [address]- [phone] Vital Signs No data available for this [...]
--- OUTSIDE RECORDS SUMMARY | 2019-06-12 22:20 | XMS REPORT | Summary of Care ---
:1965 Author Organization [facility] Address [address] [place] [address]- Encounter HQ Encntr_alias(FIN) [id number] Date(s): 05/05/19 - 05/06/[address] [address] [phone] Vital Signs No data available for this [...]
--- OUTSIDE RECORDS SUMMARY | 2019-06-12 22:20 | XMS REPORT | Summary of Care ---
:1965 Author Encounter LIZA Garay(MONICA) [id number] Date(s): 12/10/14 - 12/17/[address] Discharge Disposition: Home Physician Attending: Sheikh Leighton Maurice MD Physician Admitting: Sheikh Leighton Maurice MD Reason for Visit CHEST PAIN, CONGESTIVE HEART FAILURE, DYSPNEA, CHRONIC Vital Signs Most recent to oldest 1 2 3 [Reference Range]: Height 157.48 cm 157.48 cm (12/10/14 10:59 PM) (12/10/14 4:44 PM) Current Weight 98.006 kg 97.4 kg 98.381 kg (12/17/14 4:40 AM) (12/16/14 5:05 AM) (12/15/14 5:33 AM) Temperature Oral [96.4-99.1 98.3 DegF 97.8 DegF 98.1 DegF DegF] (12/17/14 8:25 PM) (12/17/14 4:09 PM) (12/17/14 12:55 PM) Systolic Blood Pressure 147 mmHg 144 mmHg 152 mmHg [90-140 mmHg] *HI* *HI* *HI* (12/17/14 8:25 PM) (12/17/14 4:09 PM) (12/17/14 12:55 PM) Diastolic Blood Pressure 80 mmHg 82 mmHg 79 mmHg [60-90 mmHg] (12/17/14 8:25 PM) (12/17/14 4:09 PM) (12/17/14 12:55 PM) Respiratory Rate [14-20 20 BRMIN 20 BRMIN 20 BRMIN BRMIN] (12/17/14 8:25 PM) (12/17/14 4:09 PM) (12/17/14 12:55 PM) Peripheral Pulse Rate [60-100 73 bpm 74 bpm 75 bpm bpm] (12/17/14 8:25 PM) (12/17/14 4:09 PM) (12/17/14 12:55 PM) Weight 98.807 kg 96.08 kg 79.688 kg (12/12/14 8:12 AM) (12/10/14 10:59 PM) (12/10/14 4:44 PM) Body Mass Index 38.74 m2 32.13 m2 (12/10/14 10:59 PM) (12/10/14 4:44 PM) Problem List Condition Effective Dates Status Health Status Informant Asthma(Confirmed) Active Chest pain(Confirmed) Active CHF - Congestive heart Active failure(Confirmed) Cholecystitis(Confirmed) Resolved COPD(Confirmed) Active COPD - Chronic obstructive pulmonary Active disease(Confirmed) Hypertension(Confirmed) Active Hypertension(Confirmed) Active Kidney stone(Confirmed) Resolved Allergies, Adverse Reactions, Alerts Substance Reaction Severity Status ciprofloxacin Active penicillins Active Medications acetaminophen-hydrocodone 325 mg-7.5 mg oral tablet 1 tab, Route: PO, Drug Form: TAB, Q4H, PRN Pain, Start date: 12/12/14 16:57:00, Duration: 30 day, Stop date: 01/11/15 16:56:00 Notes: Same as [place] 325-7.5mg Do not exceed 4gm/day of acetaminophen. Start Date: 12/12/14 Stop Date: 12/17/14 Status: Discontinuedacetaminophen-hydrocodone 325 mg-7.5 mg oral tablet 1 tab, Route: PO, Drug Form: TAB, Q6H, PRN Pain, Start date: 12/11/14 19:07:00, Duration: 30 day, Stop date: 01/10/15 19:06:00 Notes: Same as [place] 325-7.5mg Do not exceed 4gm/day of acetaminophen. Start Date: 12/11/14 Stop Date: 12/12/14 Status: DiscontinuedAdvair Diskus 500 mcg-50 mcg inhalation powder 1 puff, INHALATION, BID, 0 Refill(s) Start Date: 12/11/14 Stop Date: 12/17/14 Status: DiscontinuedAdvair Diskus 500 mcg-50 mcg inhalation powder 1 puff, Route: INHALATION, Drug Form: AERO, Dosing Weight 96.08, kg, BID, Start date: 12/11/14 17:00:00, Duration: 30 day, Stop date: 01/10/15 9:00:00 Start Date: 12/11/14 Stop Date: 12/11/14 Status: Deletedalbuterol-ipratropium 2.5-0.5 mg inhalation solution 3 mL, Route: NEB, Drug Form: SOLN, Dosing Weight 79.688, kg, RQ6H, Start date: 12/10/14 20:00:00, Duration: 30 day, Stop date: 01/09/15 14:00:00 Notes: (Same as: Duoneb) Start Date: 12/10/14 Stop Date: 12/17/14 Status: DiscontinuedamLODIPine 10 mg, PO, Daily, 0 Refill(s) Start Date: 12/11/14 Status: OrderedamLODIPine 10 mg, 1 tab, Route: PO, Drug form: TAB, Daily, Dosing Weight 96.08, kg, Start date: 12/12/14 9:00:00, Duration: 30 day, Stop date: 01/10/15 9:00:00 Notes: (Same as: Norvasc) Start Date: 12/12/14 Stop Date: 12/17/14 Status: Discontinuedaspirin 81 mg tablet, enteric coated 81 mg, 1 tab, Route: PO, Drug form: ECTAB, Daily, Dosing Weight 96.08, kg, Start date: 12/12/14 9:00:00, Duration: 30 day, Stop date: 01/10/15 9:00:00 Notes: Do not crush or chew.(Same As: Ecotrin) Start Date: 12/12/14 Stop Date: 12/17/14 Status: DiscontinuedAspirin Enteric Coated 325 mg, 1 tab, Route: PO, Drug form: ECTAB, ONCE, Dosing Weight 79.688, kg, Priority: STAT, Start date: 12/10/14 19:21:00, Stop date: 12/10/14 19:21:00 Notes: (Do Not Crush) Do not crush or chew. Start Date: 12/10/14 Stop Date: 12/10/14 Status: Completedazithromycin 500 mg, 250 mL, Route: IVPB, Drug form: PDR/INJ, [id number], Dosing Weight 79.688, kg, Start date: 12/10/14 21:00:00, Duration: 30 day, Stop date: 01/08/15 21:00: 00 Notes: Same as: Zithromax Start Date: 12/10/14 Stop Date: 12/12/14 Status: DiscontinuedBentyl 20 mg, 2 cap, Route: PO, Drug form: CAP, QID, Dosing Weight 98.807, kg, Start date: 12/13/14 21:00:00, Duration: 30 day, Stop date: 01/12/15 17:00:00 Notes: (Same as: Bentyl) Start Date: 12/13/14 Stop Date: 12/17/14 Status: DiscontinuedcefTRIAXone + Sodium Chloride 0.9% IV 100 mL 1 gm, Route: IVPB, Drug form: PDR/INJ, [id number], Dosing Weight 79.688, kg, Start date: 12/10/14 20:00:00, Duration: 30 day, Stop date: 01/08/15 20:00:00 Notes: (Same As: Rocephin). Use with 100ml NS mini-bag PLUS and infuse over 30 min Start Date: 12/10/14 Stop Date: 12/12/14 Status: DiscontinuedclonazePAM 0.25 mg, 0.5 tab, Route: PO, Drug form: TAB, BID, Dosing Weight 96.08, kg, Start date: 12/11/14 17:00:00, Duration: 30 day, Stop date: 01/10/15 9:00:00 Notes: (Same As: KlonoPIN) Start Date: 12/11/14 Stop Date: 12/17/14 Status: DiscontinuedclonazePAM 0.5 mg oral tablet 0.25 mg=0.5 tab, PO, BID, 0 Refill(s) Start Date: 12/11/14 Status: OrderedCombivent Respimat CFC free 100 mcg-20 mcg/inh inhalation aerosol INHALATION, QID, 0 Refill(s) Start Date: 12/11/14 Status: OrderedDuoNeb inhalation solution 3 mL, Route: NEB, Drug Form: SOLN, Q2H, PRN Shortness of breath, Start date: 20:29:00, Duration: 30 day, Stop date: 01/14/15 20:28:00 Notes: (Same as: Duoneb) Start Date: 12/15/14 Stop Date: 12/17/14 Status: Discontinuedenalapril 20 mg oral tablet 20 mg=1 tab, PO, Q12H, 0 Refill(s) Start Date: 12/11/14 Stop Date: 12/11/14 Status: Discontinuedenoxaparin 40 mg, 0.4 mL, Route: SUB-Q, Drug form: INJ, [id number], Dosing Weight 96.08, kg, Start date: 12/11/1509:00:00, Duration: 30 day, Stop date: 01/09/15 10:00:00 Notes: (Same as: Lovenox) Start Date: 12/11/14 Stop Date: 12/17/14 Status: Discontinuedfurosemide 40 mg oral tablet 40 mg=1 tab, PO, Daily, 0 Refill(s) Start Date: 12/11/14 Status: Orderedipratropium 0.5 mg, 2.5 mL, Route: NEB, Drug form: SOLN, ONCE, Dosing Weight 79.688, kg, Priority: STAT, Start date: 12/10/14 18:59:00, Stop date: 12/10/14 18:59:00 Notes: SEE RT DOCUMENTATION(Same as:Atrovent) Start Date: 12/10/14 Stop Date: 12/10/14 Status: Completedipratropium 0.02% inhalation solution NEB, QID, 0 Refill(s) Start Date: 12/11/14 Stop Date: 12/17/14 Status: DiscontinuedLasix 40 mg, 4 mL, Route: IVP, Drug form: INJ, ONCE, Dosing Weight 79.688, kg, Priority: STAT, Start date:12/10/14 18:59:00, Stop date: 12/10/14 18:59:00 Notes: (Same as: Lasix) Start Date: 12/10/14 Stop Date: 12/10/14 Status: CompletedLasix 40 mg, 4 mL, Route: IVP, Drug form: INJ, Daily, Dosing Weight 96.08, kg, Priority: NOW, Start date: 12/11/14 10:48:00, Duration: 30 day, Stop date: 01/10 9:00:00 Notes: (Same as: Lasix) Start Date: 12/11/14 Stop Date: 12/17/14 Status: Discontinuedlevalbuterol 1.25 mg, 0.5 mL, Route: NEB, Drug form: SOLN, ONCE, Dosing Weight 79.688, kg, Priority: STAT, Start date: 12/10/14 18:59:00, Stop date: 12/10/14 18:59:00 Notes: Same as: XopenexNon-FormularyHigh Concentrated (0.5ml) SEE RT DOCUMENTATION Start Date: 12/10/14 Stop Date: 12/10/14 Status: CompletedmethylPREDNISolone 125 mg, 2 mL, Route: IVP, Drug form: INJ, ONCE, Dosing Weight 79.688, kg, Priority: STAT, Start date: 12/10/14 19:02:00, Stop date: 12/10/14 19:02:00 Notes: (Same as:Solu-MEDROL, A-Methapred) Start Date: 12/10/14 Stop Date: 12/10/14 Status: CompletedmethylPREDNISolone SODium SUCCinate 40 mg, 1 mL, Route: IVP, Drug form: INJ, Q8H, Dosing Weight 79.688, kg, Start date: 12/11/14 0:00:00, Duration: 30 day, Stop date: 01/09/15 16:00:00 Notes: (Same as:Solu-MEDROL, A-Methapred) Start Date: 12/11/14 Stop Date: 12/17/14 Status: Discontinuedmorphine Sulfate 4 mg, Route: IVP, ONCE, Dosing Weight 79.688, kg, Start date: 12/10/14 20:41:00 , Stop date: 12/10/1519:41:00 Start Date: 12/10/14 Stop Date: 12/10/14 Status: CompletedMucinex 600 mg, 1 tab, Route: PO, Drug form: ERTAB, Q12H, Dosing Weight 96.08, kg, Start date: 12/11/14 10:30:00, Duration: 30 day, Stop date: 01/10/15 9:00:00 Notes: (Same as: Guaifenesin LA, Humibid LA, Mucinex)"Do Not Crush" Take medication with plenty of water. Start Date: 12/11/14 Stop Date: 12/17/14 Status: DiscontinuedNexIUM 40 mg, Route: PO, Drug form: ECCAP, Daily, Dosing Weight 96.08, kg, Start date: 12/12/14 9:00:00, Duration: 30 day, Stop date: 01/10/15 9:00:00 Start Date: 12/12/14 Stop Date: 12/11/14 Status: DeletedNexIUM 40 mg oral delayed release capsule 40 mg=1 cap, PO, Daily, 0 Refill(s) Start Date: 12/11/14 Status: Orderedpolyethylene glycol 3350 17 gm, 1 pkt, Route: PO, Drug form: PWDR, BID, Dosing Weight 98.807, kg, Start date: 12/14/14 22:00:00, Duration: 30 day, Stop date: 01/13/15 17:00:00 Notes: Dissolve in 8 oz of water or juice.(Same as: Miralax) Start Date: 12/14/14 Stop Date: 12/17/14 Status: Discontinuedpotassium chloride 20 mEq, 1 tab, Route: PO, Drug form: ERTAB, Daily, Dosing Weight 96.08, kg, Priority: NOW, Start date: 12/11/14 10:49:00, Duration: 30 day, Stop date: 01/10 9:00:00 Notes: (Same as: K-Dur 20)"Do Not Crush" With food and full glass of water Start Date: 12/11/14 Stop Date: 12/17/14 Status: Discontinuedpotassium chloride 20 mEq oral tablet, extended release 20 mEq=1 tab, PO, Every Other Day, 0 Refill(s) Start Date: 12/11/14 Status: OrderedpredniSONE 20 mg oral tablet 20, PO, Daily, 0 Refill(s) Start Date: 12/11/14 Status: OrderedProtonix 40 mg, 1 tab, Route: PO, Drug form: ECTAB, Before Dinner, Start date: 12/11/14 16:30:00, Duration: 30 day, Stop date: 01/09/15 16:30:00 Notes: Tablet should not be chewed or crushed.(Same as: Protonix) Start Date: 12/11/14 Stop Date: 12/17/14 Status: Discontinuedroflumilast 500 microgram, 1 tab, Route: PO, Drug form: TAB, Daily, Dosing Weight 96.08, kg , Priority: NOW, Start date: 12/11/14 10:21:00, Duration: 30 day, Stop date: 9:00:00 Start Date: 12/11/14 Stop Date: 12/17/14 Status: DiscontinuedSaline Flush 0.9% 10 mL, Route: IVP, Drug Form: INJ, Dosing Weight 79.688, kg, PRN, PRN Line Flush , Start date: 12/10/14 16:48:00, Duration: 30 day, Stop date: 01/09/15 16:47:00 Notes: Same as: BD Posiflush Sterile Start Date: 12/10/14 Stop Date: 12/17/14 Status: DiscontinuedSingulair 10 mg, 1 tab, Route: PO, Drug form: TAB, Bedtime, Dosing Weight 98.807, kg, Start date: 12/12/14 21:00:00, Duration: 30 day, Stop date: 01/10/15 21:00:00 Notes: (Same as:Singulair) Start Date: 12/12/14 Stop Date: 12/17/14 Status: DiscontinuedSpiriva 18 mcg inhalation capsule 18 microgram, 1 inhalation, Route: INHALATION, Drug form: CAP, Daily, Dosing Weight 96.08, kg, Startdate: 12/11/14 11:00:00, Duration: 30 day, Stop date: 9:00:00 Notes: (Same As: Spiriva) Start Date: 12/11/14 Stop Date: 12/17/14 Status: DiscontinuedSymbicort 160/4.5 inhalation aerosol with adapter 2 inhalation, Route: INHALATION, Drug Form: AERO/A, Dosing Weight 96.08, kg, Q12H, Start date: 12/11/14 9:47:00, Stop date: 01/10/15 9:00:00 Notes: (Same as: Symbicort) Start Date: 12/11/14 Stop Date: 12/17/14 Status: DiscontinuedTylenol with Codeine #3 oral tablet 1 tab, Route: PO, Drug Form: TAB, Dosing Weight 96.08, kg, Q6H, PRN Pain Score 1 -3, Start date: 12/11/14 2:05:00, Duration: 30 day, Stop date: 01/10/15 2:04:00 Notes: Do not exceed 4gm/day of acetaminophen. (Same as: Tylenol with Codeine # 3) Start Date: 12/11/14 Stop Date: 12/11/14 Status: DiscontinuedZofran 4 mg, 2 mL, Route: IVP, Drug form: INJ, ONCE, Dosing Weight 79.688, kg, Priority : STAT, Start date: 12/10/14 19:32:00, Stop date: 12/10/14 19:32:00 Notes: (Same as: Zofran) Start Date: 12/10/14 Stop Date: 12/10/14 Status: Completed Results ELECTROLYTES Most recent to oldest 1 2 3 [Reference Range]: Sodium Lvl [135-145 mEq/L] 135 mEq/L 137 mEq/L 139 mEq/L (12/17/14 7:07 AM) (12/11/14 5:41 AM) (12/10/14 4:56 PM) Potassium Lvl [3.5-5.1 mEq/L] 4.4 mEq/L 4.4 mEq/L 3.9 mEq/L (12/17/14 7:07 AM) (12/11/14 5:41 AM) (12/10/14 4:56 PM) Chloride Lvl [95-109 mEq/L] 95 mEq/L 98 mEq/L 100 mEq/L (12/17/14 7:07 AM) (12/11/14 5:41 AM) (12/10/14 4:56 PM) CO2 [24-32 mEq/L] 31 mEq/L 27 mEq/L 28 mEq/L (12/17/14 7:07 AM) (12/11/14 5:41 AM) (12/10/14 4:56 PM) AGAP [10.0-20.0 mEq/L] 13.4 mEq/L 16.4 mEq/L 14.9 mEq/L (12/17/14 7:07 AM) (12/11/14 5:41 AM) (12/10/14 4:56 PM) CHEM PANEL Most recent to oldest 1 2 3 [Reference Range]: Creatinine Lvl [0.5-1.4 1.0 mg/dL 1.1 mg/dL 1.0 mg/dL mg/dL] (12/17/14 7:07 AM) (12/11/14 5:41 AM) (12/10/14 4:56 PM) eGFR 66 mL/min/1.73m2 1 59 mL/min/1.73m2 2 66 mL/min/1.73m2 3 *NA* *NA* *NA* (12/17/14 7:07 AM) (12/11/14 5:41 AM) (12/10/14 4:56 PM) BUN [7-22 mg/dL] 26 mg/dL 18 mg/dL 15 mg/dL *HI* (12/11/14 5:41 AM) (12/10/14 4:56 PM) (12/17/14 7:07 AM) B/C Ratio [6-25] 15 (12/10/14 4:56 PM) Glucose Lvl [70-99 mg/dL] 154 mg/dL 4 140 mg/dL 5 139 mg/dL 6 *HI* *HI* *HI* (12/17/14 7:07 AM) (12/11/14 5:41 AM) (12/10/14 4:56 PM) Total Protein [6.4-8.4 g/dL] 8.2 g/dL (12/10/14 4:56 PM) Albumin Lvl [3.5-5.0 g/dL] 3.4 g/dL *LOW* (12/10/14 4:56 PM) Globulin [2.0-4.0 g/dL] 4.8 g/dL *HI* (12/10/14 4:56 PM) A/G Ratio [0.7-1.6] 0.7 (12/10/14 4:56 PM) Calcium Lvl [8.5-10.5 mg/dL] 9.0 mg/dL 9.1 mg/dL 8.7 mg/dL (12/17/14 7:07 AM) (12/11/14 5:41 AM) (12/10/14 4:56 PM) ALT [0-65 unit/L] 26 unit/L (12/10/14 4:56 PM) AST [0-37 unit/L] 12 unit/L (12/10/14 4:56 PM) Alk Phos [39-136 unit/L] 73 unit/L (12/10/14 4:56 PM) Bili Total [0.2-1.3 mg/dL] 0.7 mg/dL (12/10/14 4:56 PM) Amylase Lvl [25-115 unit/L] 30 unit/L 32 unit/L 31 unit/L (12/16/14 5:56 AM) (12/15/14 7:02 AM) (12/14/14 5:57 AM) Lipase Lvl [73-393 unit/L] 95 unit/L 116 unit/L 106 unit/L (12/16/14 5:56 AM) (12/15/14 7:02 AM) (12/14/14 5:57 AM) Lactic Acid Lvl [0.5-2.2 2.1 mMol/L mMol/L] (12/10/14 7:55 PM) Procalcitonin Lvl [0.00-0.10 <0.05 ng/mL ng/mL] (12/11/14 5:41 AM) 1Result Comment: The eGFR is calculated using the CKD-EPI formula. In most young , healthy individualsthe eGFR will be >90 mL/min/1.73m2. The eGFR declines with age. An eGFR of 60-89 may be normal in some populations, particularly the elderly, for whom the CKD-EPI formula has not been extensively validated. Use of the eGFR is not recommended in the following populations: Individuals with unstable creatinine concentrations, including patients and those with serious co-morbid conditions. Patients with extremes in muscle mass or diet. The data above are obtained from the National Kid[employer] Disease Education Program ( [employer]) which additionally recommends that when the eGFR is used in patients with extremes of body mass index for purposesof drug dosing, the eGFR should be multiplied by the estimated BMI.2Result Comment: The eGFR is calculated using the CKD-EPI formula. In most young, healthy individualsthe eGFR will be >90 mL/ min/1.73m2. The eGFR declines with age. An eGFR of 60-89 may be normal in some populations, particularly the elderly, for whom the CKD-EPI formula has not been extensively validated. Use of the eGFR is not recommended in the following populations: Individuals with unstable creatinine concentrations, including patients and those with serious co-morbid conditions. Patients with extremes in muscle mass or diet. The data above are obtained from the National Kid[employer] Education Program ( [employer]) which additionally recommends that when the eGFR is used in patients with extremes of body mass index for purposesof drug dosing, the eGFR should be multiplied by the estimated BMI.3Result Comment: The eGFR is calculated using the CKD-EPI formula. In most young, healthy individualsthe eGFR will be >90 mL/ min/1.73m2. The eGFR declines with age. An eGFR of 60-89 may be normal in some populations, particularly the elderly, for whom the CKD-EPI formula has not been extensively validated. Use of the eGFR is not recommended in the following populations: Individuals with unstable creatinine concentrations, including patients and those with serious co-morbid conditions. Patients with extremes in muscle mass or diet. The data above are obtained from the National Kid[employer] Disease Education Program ( [employer]) which additionally recommends that when the eGFR is used in patients with extremes of body mass index for purposesof drug dosing, the eGFR should be multiplied by the estimated BMI.4Interpretive Data: Adult reference range values reflect the clinical guidelines of the [place] [employer].5Interpretive Data: Adult reference range values reflect the clinical guidelines of the [place] [employer].6Interpretive Data: Adult reference range values reflect the clinical guidelines of the [place] [employer].CARDIAC ENZYMES Most recent to oldest 1 2 3 [Reference Range]: Total CK [12-191 unit/L] 46 unit/L 86 unit/L 47 unit/L (12/11/14 2:02 PM) (12/11/14 5:41 AM) (12/10/14 4:56 PM) CK MB [0.5-3.6 ng/mL] 1.3 ng/mL 1.3 ng/mL (12/11/14 5:41 AM) (12/10/14 4:56 PM) CK MB Index [0.0-2.5] 1.5 2.8 (12/11/14 5:41 AM) *HI* (12/10/14 4:56 PM) Troponin-I [0.00-0.40 ng/mL] 0.10 ng/mL <0.02 ng/mL <0.02 ng/mL (12/11/14 2:02 PM) (12/11/14 5:41 AM) (12/10/14 4:56 PM) BNP [<=100 pg/mL] 8 pg/mL 7 8 pg/mL 8 (12/11/14 5:41 AM) (12/10/14 4:56 PM) 7Interpretive Data: Elevated results are in line with increasing severity of congestive heart failure. Minor elevations between 100 and 300 may be seen with Myocardial Ischemia, Sodium retaining drugs, and compensated/treated heart failure.8Interpretive Data: Elevated results are in line with increasing severity of congestive heart failure. Minor elevations between 100 and 300 may be seen with Myocardial Ischemia, Sodium retaining drugs, and compensated/treated heart failure.LIPIDS Most recent to oldest [Reference Range]: 1 2 3 CHD Risk [3.90-5.80] 4.16 (12/12/14 5:09 AM) Chol [<=199 mg/dL] 233 mg/dL *HI* (12/12/14 5:09 AM) Trig [<=149 mg/dL] 116 mg/dL (12/12/14 5:09 AM) HDL [>=61 mg/dL] 56 mg/dL *LOW* (12/12/14 5:09 AM) LDL (Calculated) [<=99 mg/dL] 154 mg/dL *HI* (12/12/14 5:09 AM) VLDL 23 *NA* (12/12/14 5:09 AM) THYROID PANEL Most recent to oldest [Reference Range]: 1 2 3 T3 Uptake [31-39 %] 34 % (12/11/14 5:41 AM) T4 [4.7-13.3 ug/dl] 10.8 ug/dl (12/11/14 5:41 AM) FTI 3.7 *NA* (12/11/14 5:41 AM) TSH [0.360-3.740 uIU/mL] 0.302 uIU/mL *LOW* (12/11/14 5:41 AM) IMMUNOLOGY Most recent to oldest [Reference Range]: 1 2 3 Hep Bs Ag [Negative] Negative *NA* (12/14/14 5:57 AM) Hep B Core IgM [Negative] Negative *NA* (12/14/14 5:57 AM) Hep A IgM [Negative] Negative *NA* (12/14/14 5:57 AM) Hep C Ab Negative *NA* (12/14/14 5:57 AM) IgE Lvl [10.0-100.0 IU/mL] 215.0 IU/mL *HI* (12/11/14 5:41 AM) HEMATOLOGY Most recent to oldest 1 2 3 [Reference Range]: WBC [3.7-10.4 K/CMM] 21.8 K/CMM 18.4 K/CMM 19.4 K/CMM *HI* *HI* *HI* (12/17/14 7:07 AM) (12/11/14 5:41 AM) (12/10/14 4:56 PM) RBC [4.20-5.40 M/CMM] 4.50 M/CMM 4.26 M/CMM 4.45 M/CMM (12/17/14 7:07 AM) (12/11/14 5:41 AM) (12/10/14 4:56 PM) Hgb [12.0-16.0 g/dL] 13.3 g/dL 12.2 g/dL 12.8 g/dL (12/17/14 7:07 AM) (12/11/14 5:41 AM) (12/10/14 4:56 PM) Hct [36.0-48.0 %] 39.4 % 37.4 % 38.7 % (12/17/14 7:07 AM) (12/11/14 5:41 AM) (12/10/14 4:56 PM) MCV [80.0-98.0 fL] 87.7 fL 87.7 fL 87.0 fL (12/17/14 7:07 AM) (12/11/14 5:41 AM) (12/10/14 4:56 PM) MCH [27.0-31.0 pg] 29.6 pg 28.5 pg 28.7 pg (12/17/14 7:07 AM) (12/11/14 5:41 AM) (12/10/14 4:56 PM) MCHC [32.0-36.0 g/dL] 33.8 g/dL 32.5 g/dL 33.0 g/dL (12/17/14 7:07 AM) (12/11/14 5:41 AM) (12/10/14 4:56 PM) RDW [11.5-14.5 %] 15.1 % 15.2 % 14.7 % *HI* *HI* *HI* (12/17/14 7:07 AM) (12/11/14 5:41 AM) (12/10/14 4:56 PM) Platelet [133-450 K/CMM] 368 K/CMM 367 K/CMM 406 K/CMM (12/17/14 7:07 AM) (12/11/14 5:41 AM) (12/10/14 4:56 PM) MPV [7.4-10.4 fL] 7.5 fL 7.9 fL 7.8 fL (12/17/14 7:07 AM) (12/11/14 5:41 AM) (12/10/14 4:56 PM) Segs [45.0-75.0 %] 87.6 % 94.3 % 81.1 % *HI* *HI* *HI* (12/17/14 7:07 AM) (12/11/14 5:41 AM) (12/10/14 4:56 PM) Lymphocytes [20.0-40.0 %] 7.6 % 5.4 % 14.8 % *LOW* *LOW* *LOW* (12/17/14 7:07 AM) (12/11/14 5:41 AM) (12/10/14 4:56 PM) Monocytes [2.0-12.0 %] 4.5 % 0.2 % 2.9 % (12/17/14 7:07 AM) *LOW* (12/10/14 4:56 PM) (12/11/14 5:41 AM) Eosinophils [0.0-4.0 %] 0.0 % 0.1 % 0.7 % (12/17/14 7:07 AM) (12/11/14 5:41 AM) (12/10/14 4:56 PM) Basophils [0.0-1.0 %] 0.3 % 0.0 % 0.5 % (12/17/14 7:07 AM) (12/11/14 5:41 AM) (12/10/14 4:56 PM) Segs-Bands # [1.5-8.1 K/CMM] 19.1 K/CMM 17.4 K/CMM 15.8 K/CMM *HI* *HI* *HI* (12/17/14 7:07 AM) (12/11/14 5:41 AM) (12/10/14 4:56 PM) Lymphocytes # [1.0-5.5 1.7 K/CMM 1.0 K/CMM 2.9 K/CMM K/CMM] (12/17/14 7:07 AM) (12/11/14 5:41 AM) (12/10/14 4:56 PM) Monocytes # [0.0-0.8 K/CMM] 1.0 K/CMM 0.0 K/CMM 0.6 K/CMM *HI* (12/11/14 5:41 AM) (12/10/14 4:56 PM) (12/17/14 7:07 AM) Eosinophils # [0.0-0.5 0.0 K/CMM 0.0 K/CMM 0.1 K/CMM K/CMM] (12/17/14 7:07 AM) (12/11/14 5:41 AM) (12/10/14 4:56 PM) Basophils # [0.0-0.2 K/CMM] 0.1 K/CMM 0.0 K/CMM 0.1 K/CMM (12/17/14 7:07 AM) (12/11/14 5:41 AM) (12/10/14 4:56 PM) RBC Morph Normal (12/17/14 7:07 AM) Anisocyte [None Seen] 1+ *ABN* (12/11/14 5:41 AM) Polychrom Slight *NA* (12/11/14 5:41 AM) Macrocyte [None Seen] 1+ *ABN* (12/11/14 5:41 AM) Microcyte [None Seen] 1+ *ABN* (12/11/14 5:41 AM) Toxic Gran Slight *NA* (12/17/14 7:07 AM) Plt Morph Normal Normal (12/17/14 7:07 AM) (12/10/14 4:56 PM) Large Plt Slight *NA* (12/11/14 5:41 AM) D-Dimer 0.31 ug/mL FEU 9 *NA* (12/11/14 2:02 PM) 9Interpretive Data: In [facility], quantitative D-Dimer is generally greater than 0.66 ug/mL FEU. Values of quantitative D-Dimer less than 0.40 ug/mL FEU have been reported to be associated with a low probability of deep vein thrombosis/pulmonary embolism. This test alone should not be used to rule out DVT/PE.MOLECULAR DIAGNOSTIC Most recent to oldest [Reference Range]: 1 2 3 Source Adenovirus PCR [employer] PRO[employer] LANDSCAPE ARCHITECT Swab (12/12/14 11:20 PM) Adenovirus PCR [Negative] Negative 10 (12/12/14 11:20 PM) Source Parainfluenza Virus PCR [employer] PRO[employer] LANDSCAPE ARCHITECT Swab (12/12/14 11:20 PM) Parainfluenza 1 PCR [Negative] Negative (12/12/14 11:20 PM) Parainfluenza 2 PCR [Negative] Negative (12/12/14 11:20 PM) Parainfluenza 3 PCR [Negative] Negative 11 (12/12/14 11:20 PM) Source Respiratory Panel PCR [employer] LANDSCAPE ARCHITECT Swab (12/12/14 11:20 PM) Influenza A PCR [Negative] Negative (12/12/14 11:20 PM) Influenza B PCR [Negative] Negative (12/12/14 11:20 PM) RSV PCR [Negative] Negative 12 (12/12/14 11:20 PM) 10Interpretive Data: The Adenovirus PCR assay is a multiplex Real-Time PCR test for the detection of the human Adenovirus. The test detects but does not differentiate serotypes 1-51. A negative result does not rule out the presence of virus. The specimen may contain polymerase chain reaction (PCR) inhibitors or virus below the detectable limits of the assay. Results should not be used as the sole basis for clinical diagnosis, treatment or patient management. This assay utilizes FDA cleared IVD reagents for Real-Time nucleic acid amplification (PCR). Performance characteristics have been verified by the [facility] within [facility]. The [facility] is authorized under the Clinical Laboratory Improvement Amendments of 1988 (CLIA-88) to perform high complexity testing.11Interpretive Data: The Parainfluenza PCR assay is a multiplex Real-Time PCR test for the detection and discrimination of the Parainfluenza 1 Virus, Parainfluezna 2 Virus and the Parainfluenza 3 Virus. This assay targets the conserved regions of the Hemagglutinin-Neuraminidase (HN) gene of the HPIV-1, HPIV-2 and HPIV-3, respectively. This test is not intended to detect Parainfluenza 4a or Parainfluenza 4b Viruses. A negative result does not rule out the presence of virus. The specimen may contain polymerase chain reaction (PCR) inhibitors or virus below the detectable limits of the assay. Results should not be used as the sole basis for clinical diagnosis, treatment or patient management. This assay utilizes FDA cleared IVD reagents for Real-Time nucleic acid amplification (PCR). Performance characteristics have been verified by the [facility] Diagnostic Laboratory within [facility]. The [facility] is authorized under the Clinical Laboratory Improvement Amendments of 1988 (CLIA-88) to perform high complexity testing.12Interpretive Data: Gen-Probe Prodesse ProFlu plus assay is a multiplex real-time PCR test for the qualitative detection and discrimination of Influenza A Virus, Influenza B Virus, and Respiratory Syncytial Virus. A negative result does not rule out the presence of these viruses. The specimen may contain polymerase chain reaction (PCR) inhibitors or virus below the detectable limits of the assay. Results should not be used as the sole basis for clinical diagnosis, treatment, or patient management. This assay utilizes FDA cleared IVD reagents for Real-Time nucleic acid amplification (PCR). Performance characteristics have been verified by the [facility] within [facility]. The [facility] is authorized under the Clinical Laboratory Improvement Amendments of 1988 (CLIA-88) to perform high complexity testing. Medications Administered During Your Visit No data available for this section Immunizations Vaccine Date Refusal Reason Hx influenza vaccine-unspecified 09/25/14 Hx influenza vaccine-unspecified 08/15/10 Hx pneumococcal vaccine 08/24/09 influenza virus vaccine, inactivated 02/10/13 Social History Social History Type Response Alcohol Use: Current, Type: Liquor, Frequency: Daily, Previous treatment: None, Has alcohol use interfered with work or home life? No Smoking Status Former smoker, Type: Cigarettes, Previous treatment: None, Ready to change: Yes, Concerns about tobacco use in household: No, Exposure to Tobacco Smoke None, Cigarette Smoking Last 365 Days No, Reg Smoking Cessation Counseling No
--- OUTSIDE RECORDS SUMMARY | 2019-06-12 22:20 | XMS REPORT | Summary of Care ---
:1965 Author Encounter HQ Miguel_salty(MONICA) [id number] Date(s): 04/16/14 - 04/16/[address] Discharge Disposition: Home Physician Attending: Fidel Amador DO Physician_Referring: Fidel Amador DO Reason for Visit ROUTINE Problem List Condition Effective Dates Status Health Status Informant Asthma(Confirmed) Active Chest pain(Confirmed) Active CHF - Congestive heart Resolved failure(Confirmed) Cholecystitis(Confirmed) Resolved COPD(Confirmed) Resolved COPD - Chronic obstructive pulmonary Active disease(Confirmed) Hypertension(Confirmed) Resolved Hypertension(Confirmed) Active Kidney stone(Confirmed) Resolved Allergies, Adverse Reactions, Alerts Substance Reaction Severity Status ciprofloxacin Active penicillins Active Medications No data available for this section Medications Administered During Your Visit No data available for this section Immunizations Vaccine Date Refusal Reason Hx influenza vaccine-unspecified 08/15/10 Hx pneumococcal vaccine [...]
--- OUTSIDE RECORDS SUMMARY | 2019-06-12 22:20 | XMS REPORT | Summary of Care ---
:1965 Author Encounter LIZA Garay(MONICA) [id number] Date(s): 03/10/14 - 03/11/[address] Discharge Diagnosis: COPD with acute exacerbation Discharge Diagnosis: Shortness of breath dyspnea Discharge Disposition: Home Physician Attending: Coty Damon MD Reason for Visit CHEST PAIN Vital Signs Most recent to oldest 1 2 3 [Reference Range]: Height 157.48 cm (03/10/14 8:03 PM) Temperature Oral [96.4-99.1 99 DegF 98.3 DegF 98.0 DegF DegF] (03/11/14 2:05 AM) (03/10/14 11:10 PM) (03/10/14 8:03 PM) Systolic Blood Pressure 113 mmHg 120 mmHg 108 mmHg [90-140 mmHg] (03/11/14 2:05 AM) (03/10/14 11:10 PM) (03/10/14 8:03 PM) Diastolic Blood Pressure 98 mmHg 85 mmHg 71 mmHg [60-90 mmHg] *HI* (03/10/14 11:10 PM) (03/10/14 8:03 PM) (03/11/14 2:05 AM) Respiratory Rate [14-20 BRMIN] 20 BRMIN 20 BRMIN 22 BRMIN (03/11/14 2:05 AM) (03/10/14 11:10 PM) *HI* (03/10/14 8:03 PM) Peripheral Pulse Rate [60-100 97 bpm 87 bpm 85 bpm bpm] (03/11/14 2:05 AM) (03/10/14 11:10 PM) (03/10/14 8:03 PM) Weight 84.091 kg (03/10/14 8:03 PM) Body Mass Index 33.91 m2 (03/10/14 8:03 PM) Problem List Condition Effective Dates Status Health Status Informant Asthma(Confirmed) Active Chest pain(Confirmed) Active CHF - Congestive heart Resolved failure(Confirmed) Cholecystitis(Confirmed) Resolved COPD(Confirmed) Resolved COPD - Chronic obstructive pulmonary Active disease(Confirmed) Hypertension(Confirmed) Resolved Hypertension(Confirmed) Active Kidney stone(Confirmed) Resolved Allergies, Adverse Reactions, Alerts Substance Reaction Severity Status ciprofloxacin Active penicillins Active Medications albuterol 0.083% inhalation solution 2.49 mg, 3 mL, Route: NEB, Drug form: SOLN, ONCE, Dosing Weight 84.091, kg, Priority: STAT, Start date: 03/10/14 22:30:00, Stop date: 03/10/14 22:30:00 Notes: SEE RT DOCUMENTATION (Same as: Karen) Start Date: 03/10/14 Stop Date: 03/10/14 Status: Completedaspirin 325 mg, 1 tab, Route: PO, Drug form: TAB, ONCE, Dosing Weight 84.091, kg, Priority: STAT, Start date: 03/10/14 22:04:00, Stop date: 03/10/14 22:04:00 Notes: Take with food. Start Date: 03/10/14 Stop Date: 03/10/14 Status: CompletedAzithromycin 5 Day Dose Pack 250 mg oral tablet 250 mg=1 tab, PO, Daily, TAKE 2 TABLETS ON DAY 1; TAKE 1 TABLET ON DAYS 2 - 5, # 6 tab, 0 Refill(s) Special Instructions: TAKE 2 TABLETS ON DAY 1; TAKE 1 TABLET ON DAYS 2 - 5 Start Date: 03/11/14 Status: OrderedCarafate 1 g/10 mL oral suspension 1 gm, 10 mL, Route: PO, Drug form: SUSP, ONCE, Dosing Weight 84.091, kg, Priority: STAT, Start date:03/11/14 0:41:00, Stop date: 03/11/14 0:41:00 Notes: Enteral feeds may interfere with the absorption of this medication. Shake well. Take 1 hr before or 2 hrs after antacids, dairy pdt, minerals & meals. (Same As: Carafate) Start Date: 03/11/14 Stop Date: 03/11/14 Status: Orderedfurosemide 40 mg, 4 mL, Route: IVP, Drug form: INJ, ONCE, Dosing Weight 84.091, kg, Priority: STAT, Start date:03/10/14 21:08:00, Stop date: 03/10/14 21:08:00 Notes: (Same as: Lasix) Start Date: 03/10/14 Stop Date: 03/10/14 Status: Completedipratropium 0.5 mg, 2.5 mL, Route: NEB, Drug form: SOLN, ONCE, Dosing Weight 84.091, kg, Priority: STAT, Start date: 03/10/14 22:30:00, Stop date: 03/10/14 22:30:00 Notes: SEE RT DOCUMENTATION(Same as:Atrovent) Start Date: 03/10/14 Stop Date: 03/10/14 Status: Completedlevalbuterol 1.25 mg, 0.5 mL, Route: NEB, Drug form: SOLN, ONCE, Dosing Weight 84.091, kg, Priority: STAT, Start date: 03/11/14 0:41:00, Stop date: 03/11/14 0:41:00 Notes: Same as: XopenexNon-FormularyHigh Concentrated (0.5ml) SEE RT DOCUMENTATION Start Date: 03/11/14 Stop Date: 03/11/14 Status: Completedlevalbuterol 1.25 mg, 0.5 mL, Route: NEB, Drug form: SOLN, ONCE, Dosing Weight 84.091, kg, Priority: STAT, Start date: 03/10/14 21:09:00, Stop date: 03/10/14 21:09:00 Notes: Same as: XopenexNon-FormularyHigh Concentrated (0.5ml) SEE RT DOCUMENTATION Start Date: 03/10/14 Stop Date: 03/10/14 Status: CompletedMedrol 4 mg oral tablet =1 pkt, PO, ONCE, as directed on package labeling, # 21 tab, 0 Refill(s) Special Instructions: as directed on package labeling Start Date: 03/11/14 Status: OrderedmethylPREDNISolone 125 mg, 2 mL, Route: IVP, Drug form: INJ, ONCE, Dosing Weight 84.091, kg, Priority: STAT, Start date: 03/10/14 22:15:00, Stop date: 03/10/14 22:15:00 Notes: (Same as:Solu-MEDROL, A-Methapred) Start Date: 03/10/14 Stop Date: 03/10/14 Status: Completedmorphine Sulfate 2 mg, 0.5 mL, Route: IVP, Drug form: INJ, ONCE, Dosing Weight 84.091, kg, Priority: STAT, Start date: 03/10/14 22:03:00, Stop date: 03/10/14 22:03:00 Notes: (Same as:MORPhine Sulfate) Start Date: 03/10/14 Stop Date: 03/10/14 Status: Completedondansetron 4 mg, 2 mL, Route: IVP, Drug form: INJ, ONCE, Dosing Weight 84.091, kg, Priority : STAT, Start date: 03/10/14 22:03:00, Stop date: 03/10/14 22:03:00 Notes: (Same as: Zofran) Start Date: 03/10/14 Stop Date: 03/10/14 Status: CompletedSaline Flush 0.9% 5 mL, Route: IVP, Drug Form: INJ, Dosing Weight 84.091, kg, PRN, PRN Line Flush , Start date: 03/10/14 21:08:00, Duration: 30 day, Stop date: 04/09/14 21:07:00 Notes: (Same as: BD Posiflush) Start Date: 03/10/14 Stop Date: 03/11/14 Status: Discontinued Results ELECTROLYTES Most recent to oldest [Reference Range]: 1 Sodium Lvl [135-145 mEq/L] 136 mEq/L (03/10/14 8:02 PM) Potassium Lvl [3.5-5.1 mEq/L] 4.3 mEq/L (03/10/14 8:02 PM) Chloride Lvl [95-109 mEq/L] 98 mEq/L (03/10/14 8:02 PM) CO2 [24-32 mEq/L] 33 mEq/L *HI* (03/10/14 8:02 PM) AGAP [10.0-20.0 mEq/L] 9.3 mEq/L *LOW* (03/10/14 8:02 PM) CHEM PANEL Most recent to oldest [Reference Range]: 1 Creatinine Lvl [0.5-1.4 mg/dL] 0.7 mg/dL (03/10/14 8:02 PM) eGFR 102 mL/min/1.73m2 1 *NA* (03/10/14 8:02 PM) BUN [7-22 mg/dL] 11 mg/dL (03/10/14 8:02 PM) Glucose Lvl [70-99 mg/dL] 107 mg/dL 2 *HI* (03/10/14 8:02 PM) Calcium Lvl [8.5-10.5 mg/dL] 8.7 mg/dL (03/10/14 8:02 PM) 1Result Comment: The eGFR is calculated using [...] eGFR should be multiplied by the estimated BMI.2Interpretive Data: Adult reference range values reflect the clinical guidelines of the [employer].CARDIAC ENZYMES Most recent to oldest [Reference Range]: 1 Total CK [12-191 unit/L] 38 unit/L (03/10/14 8:02 PM) CK MB [0.5-3.6 ng/mL] 1.1 ng/mL (03/10/14 8:02 PM) CK MB Index [0.0-2.5] 2.9 *HI* (03/10/14 8:02 PM) Troponin-I [0.00-0.40 ng/mL] <0.02 ng/mL (03/10/14 8:02 PM) BNP [<=100 pg/mL] 15 pg/mL 3 (03/10/14 8:02 PM) 3Interpretive Data: Elevated results are in line with increasing severity of congestive heart failure. Minor elevations between 100 and 300 may be seen with Myocardial Ischemia, Sodium retaining drugs, and compensated/treated heart failure.HEMATOLOGY Most recent to oldest [Reference Range]: 1 WBC [3.7-10.4 K/CMM] 14.0 K/CMM *HI* (03/10/14 8:02 PM) RBC [4.20-5.40 M/CMM] 4.25 M/CMM (03/10/14 8:02 PM) Hgb [12.0-16.0 g/dL] 12.7 g/dL (03/10/14 8:02 PM) Hct [36.0-48.0 %] 39.3 % (03/10/14 8:02 PM) MCV [81.0-99.0 fL] 92.3 fL (03/10/14 8:02 PM) MCH [27.0-31.0 pg] 29.9 pg (03/10/14 8:02 PM) MCHC [32.0-36.0 g/dL] 32.4 g/dL (03/10/14 8:02 PM) RDW [11.5-14.5 %] 14.7 % *HI* (03/10/14 8:02 PM) Platelet [133-450 K/CMM] 359 K/CMM (03/10/14 8:02 PM) MPV [7.4-10.4 fL] 8.0 fL (03/10/14 8:02 PM) Segs [45.0-75.0 %] 73.6 % (03/10/14 8:02 PM) Lymphocytes [20.0-40.0 %] 18.0 % *LOW* (03/10/14 8:02 PM) Monocytes [2.0-12.0 %] 5.8 % (03/10/14 8:02 PM) Eosinophils [0.0-4.0 %] 2.3 % (03/10/14 8:02 PM) Basophils [0.0-1.0 %] 0.3 % (03/10/14 8:02 PM) Segs-Bands # [1.5-8.1 K/CMM] 10.3 K/CMM *HI* (03/10/14 8:02 PM) Lymphocytes # [1.0-5.5 K/CMM] 2.5 K/CMM (03/10/14 8:02 PM) Monocytes # [0.0-0.8 K/CMM] 0.8 K/CMM (03/10/14 8:02 PM) Eosinophils # [0.0-0.5 K/CMM] 0.3 K/CMM (03/10/14 8:02 PM) Basophils # [0.0-0.2 K/CMM] 0.0 K/CMM (03/10/14 8:02 PM) D-Dimer 0.27 ug/mL FEU 4 *NA* (03/10/14 8:02 PM) 4Interpretive Data: In DIC, quantitative D-Dimer is generally greater than 0.66 ug/mL FEU. Values of quantitative D-Dimer less than 0.40 ug/mL FEU have been reported to be associated with a low probability of deep vein thrombosis/pulmonary embolism. This test alone should not be used to rule out DVT/PE. Medications Administered During Your Visit No data available for this section Immunizations Vaccine Date Refusal Reason Hx influenza vaccine-unspecified 08/15/10 Hx pneumococcal vaccine 08/24/09 influenza virus vaccine, inactivated 02/10/13 Procedures Procedure Type Body Site Date of Procedure Related Diagnosis section Cholecystectomy Social History Social History Type Response Alcohol [...]
--- OUTSIDE RECORDS SUMMARY | 2019-06-12 22:20 | XMS REPORT | Summary of Care ---
:1965 Author Encounter LIZA Garay(MONICA) [id number] Date(s): 11/23/14 - 11/23/[address] Discharge Disposition: Home Physician Attending: Sheikh Leighton Maurice MD Physician Admitting: Sheikh Leighton Maurice MD Physician_Referring: Sheikh Leighton Maurice MD Reason for Visit RIGHT LOWER ABDOMINAL PAIN 789.00 Problem List Condition Effective Dates Status Health Status Informant Asthma(Confirmed) Active Chest pain(Confirmed) Active CHF - Congestive heart Resolved failure(Confirmed) Cholecystitis(Confirmed) Resolved COPD(Confirmed) Resolved COPD - Chronic obstructive pulmonary Active disease(Confirmed) Hypertension(Confirmed) Resolved Hypertension(Confirmed) Active Kidney stone(Confirmed) Resolved Allergies, Adverse Reactions, Alerts Substance Reaction Severity Status ciprofloxacin Active penicillins Active Medications Omnipaque 300 100 mL, Route: IVP, Drug Form: JULI MAGAÑA, Start date: 11/23/14 12:00:00, Duration: 2 hr, Stop date: 11/23/14 13:59:00 Notes: (Same as:Omnipaque 300). Start Date: 11/23/14 Stop Date: 11/23/14 Status: Completed Results CHEM PANEL Most recent to oldest [Reference Range]: 1 eGFR 86 mL/min/1.73m2 1 *NA* (11/23/14 10:57 AM) POC Creatinine [0.5-1.4 mg/dL] 0.8 mg/dL (11/23/14 10:57 AM) 1Result Comment: The eGFR is calculated [...] should be multiplied by the estimated BMI. Medications Administered During Your Visit No data [...]
--- OUTSIDE RECORDS SUMMARY | 2019-06-12 22:20 | XMS REPORT | Summary of Care ---
:1965 Author Encounter Dates Location Diagnoses Discharge Disposition Providers 02/09/2014 - [facility] Fidel Amador 02/09/2014 [address] [facility] Marjorie Latgiovannaa Beverly [address] Reason for Visit COPD Vital Signs Most recent to oldest [Reference Range]: 1 Height 157.48 cm (02/09/2014 12:00:00 Fatmata/Pettigrew) Weight 84.091 kg (02/09/2014 12:00:00 Fatmata/Pettigrew) Body Mass Index 33.91 m2 (02/09/2014 12:00:00 Fatmata/Pettigrew) Problem List Condition Effective Dates Status Health Status Informant Asthma(Confirmed) Active Chest pain(Confirmed) Active CHF - Congestive heart Resolved failure(Confirmed) COPD(Confirmed) Resolved COPD - Chronic obstructive pulmonary Active disease(Confirmed) Hypertension(Confirmed) Resolved Hypertension(Confirmed) Active Allergies, Adverse Reactions, Alerts Substance Reaction Severity Status ciprofloxacin Active penicillins Active Medications No data available for this section Medications Administered During Your Visit No data available for this section Immunizations Vaccine Date Refusal Reason Hx influenza vaccine-unspecified 08/15/2010 Hx pneumococcal vaccine 08/24/2009 influenza virus vaccine, inactivated 02/10/2013 Social History Social History Type Response
--- OUTSIDE RECORDS SUMMARY | 2019-06-12 22:20 | XMS REPORT | CCD ---
:1965 Author Organization [facility] Care Team Providers Name Role Phone Marjorie Radharosalva Beverly Referring Provider Allergies, Adverse Reactions, Alerts Substance Reaction Status ciprofloxacin Active penicillins Active Problem List Condition Effective Dates Status Asthma Active Chest pain Active CHF - Congestive heart failure Resolved COPD Resolved COPD - Chronic obstructive pulmonary disease Active Hypertension Resolved Hypertension Active Medications Medication Instructions Start Date End Date Status influenza virus vaccine, 0.5 mL, Route: IM, Drug 02/10/2013 02/10/2013 Completed inactivated Form: INJ, ONCALL, Start date: 02/10/13 21:45:09, Stop date: 03/12/13 21:40:09 Immunizations Vaccine Date Status Hx influenza vaccine-unspecified 08/15/2010 Auth (Verified) Hx pneumococcal vaccine 08/24/2009 Auth (Verified) influenza virus vaccine, inactivated 02/10/2013 Auth (Verified) Vital Signs Most recent to oldest [Reference Range]: 1 Height 157.48 cm (04/25/2013 07:44:00) Weight 75 kg (04/25/2013 07:44:00)
--- OUTSIDE RECORDS SUMMARY | 2019-06-12 22:21 | XMS REPORT | Summary of Care ---
:1965 Author Encounter HQ Miguel_salty(MONICA) [id number] Date(s): 04/24/15 - 04/24/15 [facility] [address] [place] [address]- Discharge Disposition: Home Physician Attending: Sheikh Leighton Maurice MD Physician_Referring: Sheikh Leighton Maurice MD Vital Signs No data available for this section Problem List Condition Effective Dates Status Health Status Informant Asthma(Confirmed) Active Chest pain(Confirmed) Active CHF - Congestive heart Active failure(Confirmed) Cholecystitis(Confirmed) Resolved COPD(Confirmed) Active COPD - Chronic obstructive pulmonary Active disease(Confirmed) History of Active cholecystectomy(Confirmed) Hypertension(Confirmed) Active Hypertension(Confirmed) Active Kidney stone(Confirmed) Resolved Allergies, Adverse Reactions, Alerts Substance Reaction Severity Status ciprofloxacin Active penicillins Active Medications No data available for this section Results No data available for this section Immunizations Vaccine Date Refusal Reason Hx influenza vaccine-unspecified 09/25/14 Hx influenza vaccine-unspecified 08/15/10 Hx pneumococcal vaccine 08/24/09 influenza virus vaccine, inactivated 02/10/13 Procedures Procedure Date Related Diagnosis Body Site Bilateral tubal ligation section Cholecystectomy Left ovary1 1left ovary removed from cyst 1990 Social History Social History Type Response Alcohol Past, Type Liquor. Previous treatment: None. Alcohol use interferes with work or home: No.1 Smoking Status Concerns about tobacco use in household: No; Exposure to Tobacco Smoke None; Cigarette Smoking Last 365 Days No; Reg Smoking Cessation Counseling No; Former smoker; Type: Cigarettes; Previous treatment: None; Ready to change: Yes2 1past frequent alcohol use24 years ago quit Assessment and Plan No data available for this section
--- OUTSIDE RECORDS SUMMARY | 2019-06-12 22:21 | XMS REPORT | Summary of Care ---
:1965 Author Organization [facility] Address [address] [place], [place] [address]- Encounter HQ Miguel_salty(FIN) [id number] Date(s): 04/21/16 - 04/29/16 [facility] [address] [place] [id number]- Discharge Disposition: Home Attending Physician: Sheikh Leighton Maurice MD Admitting Physician: Sheikh Leighton Maurice MD Vital Signs Most recent to oldest 1 2 3 [Reference Range]: Height 157.48 cm 157.48 cm (04/21/16 8:40 PM) (04/21/16 2:12 PM) Temperature Oral [96.4-99.1 97.6 DegF 97.4 DegF 97.6 DegF DegF] (04/29/16 11:43 AM) (04/29/16 7:34 AM) (04/29/16 4:00 AM) Blood Pressure [90-140/60-90 98/61 mmHg 101/65 mmHg 123/73 mmHg mmHg] (04/29/16 11:43 AM) (04/29/16 7:34 AM) (04/29/16 4:00 AM) Respiratory Rate [14-20 BRMIN] 20 BRMIN 20 BRMIN 20 BRMIN (04/29/16 11:43 AM) (04/29/16 7:34 AM) (04/29/16 4:00 AM) Peripheral Pulse Rate [60-100 76 bpm 68 bpm 76 bpm bpm] (04/29/16 11:43 AM) (04/29/16 7:34 AM) (04/29/16 4:00 AM) Weight 94.091 kg 94.091 kg 94.091 kg (04/22/16 6:09 AM) (04/21/16 8:40 PM) (04/21/16 2:12 PM) Body Mass Index 37.94 m2 37.94 m2 (04/21/16 8:40 PM) (04/21/16 2:12 PM) Problem List Condition Effective Dates Status Health Status Informant Asthma(Confirmed) Active Chest pain(Confirmed) Active CHF - Congestive heart Active failure(Confirmed) Cholecystitis(Confirmed) Resolved COPD(Confirmed) Active COPD - Chronic obstructive pulmonary Active disease(Confirmed) History of Active cholecystectomy(Confirmed) Hypertension(Confirmed) Active Hypertension(Confirmed) Active Kidney stone(Confirmed) Resolved Allergies, Adverse Reactions, Alerts Substance Reaction Severity Status Brovana Brovana Active Brovana Brovana ciprofloxacin Active penicillins Active Pulmicort Nebuamp Active Medications Advair Diskus 500 mcg-50 mcg inhalation powder 1 inhalation, Route: INHALER, Drug Form: AERO, Dosing Weight 94.091, kg, RBID, Start date: 04/21/16 22:05:00 CDT, Duration: 30 day, Stop date: 05/21/16 20:00: 00 CDT Notes: (Same as: Advair) Start Date: 04/21/16 Stop Date: 04/29/16 Status: DiscontinuedAdvair Diskus 500 mcg-50 mcg inhalation powder 1 inhalation, INHALER, RBID, # 28 ea, 0 Refill(s) Start Date: 04/28/16 Stop Date: 05/28/16 Status: Orderedalbuterol 0.083% inhalation solution 2.5 mg, 3.01 mL, Route: NEB, Drug form: SOLN, RQ2H, Dosing Weight 94.091, kg, PRN Wheezing, Priority: Routine, Start date: 04/21/16 21:19:00 CDT, Duration: 30 day, Stop date: 05/21/16 21:18:00 CDT Notes: SEE RT DOCUMENTATION (Same as: Proventil) Start Date: 04/21/16 Stop Date: 04/29/16 Status: Discontinuedalbuterol-ipratropium 2.5-0.5 mg inhalation solution 3 mL, NEB, RQ4H, # 540 mL, 0 Refill(s) Start Date: 04/28/16 Stop Date: 05/28/16 Status: Orderedalbuterol-ipratropium 2.5-0.5 mg inhalation solution 3 mL, Route: NEB, Drug Form: SOLN, Dosing Weight 94.091, kg, RQ4H, Start date: 04/21/16 23:00:00 CDT, Duration: 30 day, Stop date: 05/21/16 19:00:00 CDT Notes: (Same as: Duoneb) Start Date: 04/21/16 Stop Date: 04/29/16 Status: DiscontinuedamLODIPine 10 mg, 1 tab, Route: PO, Drug form: TAB, Daily, Dosing Weight 94.091, kg, Start date: 04/22/16 9:00:00 CDT, Duration: 30 day, Stop date: 05/21/16 9:00:00 CDT Notes: (Same as: Norvasc) Start Date: 04/22/16 Stop Date: 04/29/16 Status: Discontinuedaspirin 81 mg tablet, enteric coated 81 mg, 1 tab, Route: PO, Drug form: ECTAB, Daily, Dosing Weight 94.091, kg, Start date: 04/23/16 9:00:00 CDT, Duration: 30 day, Stop date: 05/22/16 9:00:00 CDT Notes: Do not crush or chew.(Same As: Ecotrin) Start Date: 04/23/16 Stop Date: 04/29/16 Status: Discontinuedazithromycin + Sodium Chloride 0.9% IV 250 mL 500 mg, Route: IVPB, Drug form: PDR/INJ, [id number], Dosing Weight 94.091, kg, Start date: 04/21/16 22:00:00 CDT, Duration: 30 day, Stop date: 05/20/16 22:00: 00 CDT Notes: (Same As: Zithromax IV) Start Date: 04/21/16 Stop Date: 04/28/16 Status: Voided With Resultsazithromycin 500 mg oral tablet 500 mg, 2 tab, Route: PO, Drug form: TAB, Daily, Dosing Weight 94.091, kg, Start date: 04/29/16 9:00:00 CDT, Duration: 30 day, Stop date: 05/28/16 9:00:00 CDT Notes: Take 1 hour before or 2 hours after meals.(Same As: Zithromax) Start Date: 04/29/16 Stop Date: 04/29/16 Status: Discontinuedazithromycin 500 mg oral tablet 500 mg, PO, Daily, X 5 day, # 5 tab, 0 Refill(s) Start Date: 04/28/16 Stop Date: 05/03/16 Status: OrderedDextrose 50% Syringe 25 mL, Route: IVP, Dosing Weight 94.091, kg, PRN, PRN Blood Glucose Results, Start date: 04/21/16 22:12:00 CDT, Duration: 30 day, Stop date: 05/21/16 22:11: 00 CDT Start Date: 04/21/16 Stop Date: 04/21/16 Status: DeletedDextrose 50% Syringe 50 mL, Route: IVP, Dosing Weight 94.091, kg, PRN, PRN Blood Glucose Results, Start date: 04/21/16 22:12:00 CDT, Duration: 30 day, Stop date: 05/21/16 22:11: 00 CDT Start Date: 04/21/16 Stop Date: 04/21/16 Status: DeletedDextrose 50% Syringe 25 gm, 50 mL, Route: IVP, Drug Form: INJ, Dosing Weight 94.091, kg, PRN, PRN Blood Glucose Results, Start date: 04/21/16 19:36:00 CDT, Duration: 30 day, Stop date: 05/21/16 19:35:00 CDT Start Date: 04/21/16 Stop Date: 04/29/16 Status: DiscontinuedDextrose 50% Syringe 12.5 gm, 25 mL, Route: IVP, Drug Form: INJ, Dosing Weight 94.091, kg, PRN, PRN Blood Glucose Results, Start date: 04/21/16 19:36:00 CDT, Duration: 30 day, Stop date: 05/21/16 19:35:00 CDT Start Date: 04/21/16 Stop Date: 04/29/16 Status: DiscontinuedDuoNeb inhalation solution 3 ml, Route: NEB, Drug Form: SOLN, Dosing Weight 94.091, kg, Q15Min, STAT, Start date: 04/21/16 15:56:00 CDT, Duration: 3 doses or times, Stop date: 16:26:00 CDT Notes: (Same as: Duoneb) Start Date: 04/21/16 Stop Date: 04/21/16 Status: Completedfurosemide 40 mg oral tablet 40 mg, 1 tab, Route: PO, Drug form: TAB, Daily, Dosing Weight 94.091, kg, Start date: 04/23/16 9:00:00 CDT, Duration: 30 day, Stop date: 05/22/16 9:00:00 CDT Notes: (Same as: Lasix) May cause GI upset. Give with food or milk. Start Date: 04/23/16 Stop Date: 04/29/16 Status: Discontinuedglucagon 1 mg, Route: IM, Drug form: PDR/INJ, PRN, Dosing Weight 94.091, kg, PRN Blood Glucose Results, Startdate: 04/21/16 22:12:00 CDT, Duration: 30 day, Stop date: 05/21/16 22:11:00 CDT Start Date: 04/21/16 Stop Date: 04/29/16 Status: Discontinuedglucagon 1 mg, Route: IM, Drug form: PDR/INJ, PRN, Dosing Weight 94.091, kg, PRN Blood Glucose Results, Startdate: 04/21/16 19:36:00 CDT, Duration: 30 day, Stop date: 05/21/16 19:35:00 CDT Start Date: 04/21/16 Stop Date: 04/21/16 Status: DeletedGlucophage 1000 mg oral tablet 1,000 mg, 2 tab, Route: PO, Drug form: TAB, BID-Meals, Dosing Weight 94.091, kg , Start date: 04/23/16 8:00:00 CDT, Duration: 30 day, Stop date: 05/22/16 17:00: 00 CDT Notes: (Same as: Glucophage) Take with meal Start Date: 04/23/16 Stop Date: 04/29/16 Status: DiscontinuedGlucophage 500 mg oral tablet 500 mg=1 tab, PO, BID-Meals, # 60 tab, 0 Refill(s) Start Date: 04/29/16 Status: OrderedguaiFENesin 1,200 mg, 2 tab, Route: PO, Drug form: ERTAB, Q12H, Start date: 04/24/16 21:30: 00 CDT, Duration: 30 day, Stop date: 05/24/16 21:00:00 CDT Notes: (Same as: Guaifenesin LA, Humibid LA, Mucinex)"Do Not Crush" Take medication with plenty of water. Start Date: 04/24/16 Stop Date: 04/29/16 Status: DiscontinuedhydrALAZINE 20 mg, 1 mL, Route: IVP, Drug form: INJ, Q4H, Dosing Weight 94.091, kg, PRN Elevated BP, Start date:04/21/16 22:16:00 CDT, Duration: 30 day, Stop date: 05/30 22:15:00 CDT, SBP > 190 or DBP > 100 Notes: (Same as: Apresoline)Push over 5 minutes Start Date: 04/21/16 Stop Date: 04/29/16 Status: Discontinuedinsulin aspart 5 unit, 0.05 mL, Route: SUB-Q, Drug form: SOLN, TID-Before Meals, Dosing Weight 94.091, kg, Start date: 04/22/16 11:30:00 CDT, Duration: 30 day, Stop date: 06/30 7:30:00 CDT Notes: Roll in palms of hands gently; Do not shake vigorously. (Same as: MTailor)"single patient use only"WASTE: F/P - Black; E - Municipal Trash Bin Stable for 28 days at room temperature.Expires in days from Date Start Date: 04/22/16 Stop Date: 04/29/16 Status: Discontinuedinsulin aspart 4 unit, 0.04 mL, Route: SUB-Q, Drug form: SOLN, Bedtime, Dosing Weight 94.091, kg, PRN Blood GlucoseResults, Start date: 04/21/16 22:12:00 CDT, Duration: 30 day, Stop date: 05/21/16 22:11:00 CDT Notes: Roll in palms of hands gently; Do not shake vigorously. (Same as: NovoLOG)"single patient use only"WASTE: F/P - Black; E - Municipal Trash Bin Stable for 28 days at room temperature.Expires in days from Date Start Date: 04/21/16 Stop Date: 04/29/16 Status: Discontinuedinsulin aspart 3 unit, 0.03 mL, Route: SUB-Q, Drug form: SOLN, Bedtime, Dosing Weight 94.091, kg, PRN Blood GlucoseResults, Start date: 04/21/16 22:12:00 CDT, Duration: 30 day, Stop date: 05/21/16 22:11:00 CDT Notes: Roll in palms of hands gently; Do not shake vigorously. (Same as: MTailor)"single patient use only"WASTE: F/P - Black; E - Municipal Trash Bin Stable for 28 days at room temperature.Expires in days from Date Start Date: 04/21/16 Stop Date: 04/29/16 Status: Discontinuedinsulin aspart 2 unit, 0.02 mL, Route: SUB-Q, Drug form: SOLN, Bedtime, Dosing Weight 94.091, kg, PRN Blood GlucoseResults, Start date: 04/21/16 22:12:00 CDT, Duration: 30 day, Stop date: 05/21/16 22:11:00 CDT Notes: Roll in palms of hands gently; Do not shake vigorously. (Same as: NovoLOG)"single patient use only"WASTE: F/P - Black; E - Municipal Trash Bin Stable for 28 days at room temperature.Expires in days from Date Start Date: 04/21/16 Stop Date: 04/29/16 Status: Discontinuedinsulin aspart 4 unit, Route: SUB-Q, TID-Before Meals, Dosing Weight 94.091, kg, PRN Blood Glucose Results, Start date: 04/21/16 22:12:00 CDT, Duration: 30 day, Stop date : 05/21/16 22:11:00 CDT Start Date: 04/21/16 Stop Date: 04/21/16 Status: Deletedinsulin aspart 2 unit, Route: SUB-Q, TID-Before Meals, Dosing Weight 94.091, kg, PRN Blood Glucose Results, Start date: 04/21/16 22:12:00 CDT, Duration: 30 day, Stop date : 05/21/16 22:11:00 CDT Start Date: 04/21/16 Stop Date: 04/21/16 Status: Deletedinsulin aspart 6 unit, 0.06 mL, Route: SUB-Q, Drug form: SOLN, TID-Before Meals, Dosing Weight 94.091, kg, PRN Blood Glucose Results, Start date: 04/21/16 22:12:00 CDT, Duration: 30 day, Stop date: 05/21/16 22:11:00 CDT Notes: Roll in palms of hands gently; Do not shake vigorously. (Same as: NovoLOG)"single patient use only"WASTE: F/P - Black; E - Municipal Trash Bin Stable for 28 days at room temperature.Expires in days from Date Start Date: 04/21/16 Stop Date: 04/29/16 Status: Discontinuedinsulin aspart 10 unit, Route: SUB-Q, TID-Before Meals, Dosing Weight 94.091, kg, PRN Blood Glucose Results, Start date: 04/21/16 22:12:00 CDT, Duration: 30 day, Stop date : 05/21/16 22:11:00 CDT Start Date: 04/21/16 Stop Date: 04/21/16 Status: Deletedinsulin aspart 8 unit, Route: SUB-Q, TID-Before Meals, Dosing Weight 94.091, kg, PRN Blood Glucose Results, Start date: 04/21/16 22:12:00 CDT, Duration: 30 day, Stop date : 05/21/16 22:11:00 CDT Start Date: 04/21/16 Stop Date: 04/21/16 Status: Deletedinsulin aspart 1 unit, 0.01 mL, Route: SUB-Q, Drug form: SOLN, Bedtime, Dosing Weight 94.091, kg, PRN Blood GlucoseResults, Start date: 04/21/16 22:12:00 CDT, Duration: 30 day, Stop date: 05/21/16 22:11:00 CDT Notes: Roll in palms of hands gently; Do not shake vigorously. (Same as: NovoLOG)"single patient use only"WASTE: F/P - Black; E - Municipal Trash Bin Stable for 28 days at room temperature.Expires in days from Date Start Date: 04/21/16 Stop Date: 04/29/16 Status: Discontinuedinsulin aspart 8 unit, 0.08 mL, Route: SUB-Q, Drug form: SOLN, TID-Before Meals, Dosing Weight 94.091, kg, PRN Blood Glucose Results, Start date: 04/21/16 19:36:00 CDT, Duration: 30 day, Stop date: 05/21/16 19:35:00 CDT Notes: Roll in palms of hands gently; Do not shake vigorously. (Same as: MTailor)"single patient use only"WASTE: F/P - Black; E - Municipal Trash Bin Stable for 28 days at room temperature.Expires in days from Date Start Date: 04/21/16 Stop Date: 04/29/16 Status: Discontinuedinsulin aspart 4 unit, 0.04 mL, Route: SUB-Q, Drug form: SOLN, TID-Before Meals, Dosing Weight 94.091, kg, PRN Blood Glucose Results, Start date: 04/21/16 19:36:00 CDT, Duration: 30 day, Stop date: 05/21/16 19:35:00 CDT Notes: Roll in palms of hands gently; Do not shake vigorously. (Same as: MTailor)"single patient use only"WASTE: F/P - Black; E - Municipal Trash Bin Stable for 28 days at room temperature.Expires in days from Date Start Date: 04/21/16 Stop Date: 04/29/16 Status: Discontinuedinsulin aspart 6 unit, 0.06 mL, Route: SUB-Q, Drug form: SOLN, TID-Before Meals, Dosing Weight 94.091, kg, PRN Blood Glucose Results, Start date: 04/21/16 19:36:00 CDT, Duration: 30 day, Stop date: 05/21/16 19:35:00 CDT Notes: Roll in palms of hands gently; Do not shake vigorously. (Same as: NovoLOG)"single patient use only"WASTE: F/P - Black; E - Municipal Trash Bin Stable for 28 days at room temperature.Expires in days from Date Start Date: 04/21/16 Stop Date: 04/29/16 Status: Discontinuedinsulin aspart 2 unit, 0.02 mL, Route: SUB-Q, Drug form: SOLN, TID-Before Meals, Dosing Weight 94.091, kg, PRN Blood Glucose Results, Start date: 04/21/16 19:36:00 CDT, Duration: 30 day, Stop date: 05/21/16 19:35:00 CDT Notes: Roll in palms of hands gently; Do not shake vigorously. (Same as: NovoLOG)"single patient use only"WASTE: F/P - Black; E - Municipal Trash Bin Stable for 28 days at room temperature.Expires in days from Date Start Date: 04/21/16 Stop Date: 04/29/16 Status: Discontinuedinsulin aspart 10 unit, 0.1 mL, Route: SUB-Q, Drug form: SOLN, TID-Before Meals, Dosing Weight 94.091, kg, PRN Blood Glucose Results, Start date: 04/21/16 19:36:00 CDT, Duration: 30 day, Stop date: 05/21/16 19:35:00 CDT Notes: Roll in palms of hands gently; Do not shake vigorously. (Same as: NovoLOG)"single patient use only"WASTE: F/P - Black; E - Municipal Trash Bin Stable for 28 days at room temperature.Expires in days from Date Start Date: 04/21/16 Stop Date: 04/29/16 Status: DiscontinuedInsulin Aspart 100 unit/ml - (Medium CD) 5 unit, SUB-Q, TID-Before Meals, # 30 mL, 0 Refill(s) Start Date: 04/29/16 Status: Orderedinsulin detemir 100 units/mL subcutaneous solution 15 unit, SUB-Q, BID, # 15 mL, 0 Refill(s) Start Date: 04/29/16 Status: OrderedInsulin regular 9 unit, 0.09 mL, Route: IV, Drug form: INJ, ONCE, Dosing Weight 94.091, kg, Priority: STAT, Start date: 04/21/16 16:21:00 CDT, Stop date: 04/21/16 16:21:00 CDT Notes: (Same as: Humulin R and NovoLIN R)WASTE: F/P - Black; E - Municipal Trash Bin (Do not shake) Start Date: 04/21/16 Stop Date: 04/21/16 Status: Deletedinsulin regular 100 units/mL human recombinant 9 unit, 0.09 mL, Route: IV, Drug form: SOLN, ONCE, Dosing Weight 94.091, kg, Priority: STAT, Start date: 04/21/16 16:28:00 CDT, Stop date: 04/21/16 16:28:00 CDT Notes: (Same as: Humulin R) Roll in palms of hands gently; Do not shake vigorously. "single patientuse only"(Restricted to patients requiring a dose > 60 units)WASTE: F/P - Black; E - Municipal Trash Bin Stable for 28 days at room temperatureExpires in days from Date Start Date: 04/21/16 Stop Date: 04/21/16 Status: CompletedKlonoPIN 0.5 mg, 1 tab, Route: PO, Drug form: TAB, QAM & PM, Start date: 04/22/16 8: 30:00 CDT, Duration: 30 day, Stop date: 05/21/16 17:00:00 CDT Notes: (Same As: KlonoPIN) Start Date: 04/22/16 Stop Date: 04/29/16 Status: DiscontinuedLevemir 15 unit, 0.15 mL, Route: SUB-Q, Drug form: INJ, BID, Dosing Weight 94.091, kg, Priority: NOW, Start date: 04/22/16 9:00:00 CDT, Duration: 30 day, Stop date: 21:00:00 CDT Notes: Same as LevemirDo not hold insulin without contacting prescriberWASTE: F/ P - Black; E - Municipal Trash Bin "single patient use only" Start Date: 04/22/16 Stop Date: 04/29/16 Status: DiscontinuedLovenox 40 mg, 0.4 mL, Route: SUB-Q, Drug form: INJ, [id number], Dosing Weight 94.091, kg , Start date: 04/21/16 23:00:00 CDT, Duration: 30 day, Stop date: 05/20/16 23:00 :00 CDT Notes: (Same as: Lovenox) Start Date: 04/21/16 Stop Date: 04/29/16 Status: Discontinuedmagnesium sulfate 2 gm, 50 mL, Route: IV, Drug form: INJ, ONCE, Dosing Weight 94.091, kg, Priority : STAT, Start date: 04/21/16 17:22:00 CDT, Stop date: 04/21/16 17:22:00 CDT Notes: WASTE: F/P - Sink; E - Municipal Trash Bin Start Date: 04/21/16 Stop Date: 04/21/16 Status: CompletedmethylPREDNISolone SODium SUCCinate 40 mg, 1 mL, Route: IVP, Drug form: INJ, Q8H, Dosing Weight 94.091, kg, Start date: 04/22/16 0:00:00CDT, Duration: 30 day, Stop date: 05/21/16 16:00:00 CDT Notes: (Same as:Solu-MEDROL, A-Methapred) Start Date: 04/22/16 Stop Date: 04/24/16 Status: DiscontinuedNexIUM 40 mg, Route: PO, Drug form: ECCAP, Daily, Dosing Weight 94.091, kg, Start date : 04/23/16 9:00:00 CDT, Duration: 30 day, Stop date: 05/22/16 9:00:00 CDT Start Date: 04/23/16 Stop Date: 04/22/16 Status: DeletedNorco 5/325 oral tablet 1 tab, Route: PO, Drug Form: TAB, Dosing Weight 94.091, kg, Q6H, PRN Pain Score 1-3, Start date: 04/21/16 22:05:00 CDT, Duration: 30 day, Stop date: 05/21/16 22 :04:00 CDT Notes: (Same as: [place] 325/5) Do not exceed 4gm/day of acetaminophen. Start Date: 04/21/16 Stop Date: 04/29/16 Status: DiscontinuedNorco 5/325 oral tablet 1 tab, Route: PO, Drug Form: TAB, Dosing Weight 94.091, kg, ONCE, STAT, Start date: 04/21/16 16:55:00 CDT, Stop date: 04/21/16 16:55:00 CDT Start Date: 04/21/16 Stop Date: 04/21/16 Status: Completedpantoprazole 40 mg oral enteric coated tablet 40 mg=1 tab, PO, Before Breakfast, # 30 tab, 0 Refill(s) Start Date: 04/29/16 Status: Orderedphenol topical 1.4% spray 1 spray, Route: MUCOUS MEM, PRN, Drug form: SPRY, PRN Sore Throat, Start date: 04/22/16 22:05:00 CDT, Duration: 30 day, Stop date: 05/22/16 22:04:00 CDT Notes: Chloraseptic [place](Same as: Chloraseptic, Sore Throat [place])WASTE: F/P - Black; E - Municipal[facility] Bin Start Date: 04/22/16 Stop Date: 04/29/16 Status: Discontinuedpotassium chloride 40 mEq, 2 tab, Route: PO, Drug form: ERTAB, ONCE, Dosing Weight 94.091, kg, Priority: STAT, Start date: 04/21/16 16:22:00 CDT, Stop date: 04/21/16 16:22:00 CDT Notes: (Same as: K-Dur 20)"Do Not Crush" With food and full glass of water Start Date: 04/21/16 Stop Date: 04/21/16 Status: CompletedpredniSONE 60 mg, 3 tab, Route: PO, Drug form: TAB, Daily, Dosing Weight 94.091, kg, Start date: 04/24/16 9:00:00 CDT, Duration: 30 day, Stop date: 05/23/16 9:00:00 CDT Notes: Take with food. Start Date: 04/24/16 Stop Date: 04/29/16 Status: DiscontinuedpredniSONE 20 mg oral tablet 60 mg=3 tab, PO, Daily, # 60 tab, 0 Refill(s) Start Date: 04/29/16 Stop Date: 04/30/16 Status: CompletedpredniSONE 20 mg oral tablet 60 mg=3 tab, PO, Daily, X 14 day, # 42 tab, 0 Refill(s) Start Date: 04/28/16 Stop Date: 04/29/16 Status: DeletedProtonix 40 mg, 1 tab, Route: PO, Drug form: ECTAB, Before Breakfast, Dosing Weight 94.091, kg, Start date: 04/22/16 7:30:00 CDT, Duration: 30 day, Stop date: 05/21 7:30:00 CDT Notes: Tablet should not be chewed or crushed.(Same as: Protonix) Start Date: 04/22/16 Stop Date: 04/29/16 Status: DiscontinuedRocephin + Sodium Chloride 0.9% IV 100 mL 1 gm, Route: IVPB, Drug form: PDR/INJ, [id number], Dosing Weight 94.091, kg, Start date: 04/21/16 22:00:00 CDT, Duration: 30 day, Stop date: 05/20/16 22:00:00 CDT Notes: (Same As: Rocephin).Use with 100 mL NS and infuse over 30 min MEDICATION WASTE Product Size: 1000 mgProduct Wasted: ___ mg Start Date: 04/21/16 Stop Date: 04/29/16 Status: Discontinuedroflumilast 500 microgram, 1 tab, Route: PO, Drug form: TAB, Daily, Dosing Weight 94.091, kg , Start date: 04/22/16 9:00:00 CDT, Duration: 30 day, Stop date: 05/21/16 9:00: 00 CDT Start Date: 04/22/16 Stop Date: 04/29/16 Status: Discontinuedroflumilast 500 mcg oral tablet 500 microgram=1 tab, PO, Daily, # 30 tab, 0 Refill(s) Start Date: 04/28/16 Stop Date: 05/28/16 Status: OrderedSaline Flush 0.9% 10 mL, Route: IVP, Drug Form: INJ, Dosing Weight 98.182, kg, PRN, PRN Line Flush , Start date: 04/21/16 14:13:00 CDT, Duration: 30 day, Stop date: 05/21/16 14:12 :00 CDT Notes: Same as: BD Posiflush Sterile Start Date: 04/21/16 Stop Date: 04/29/16 Status: DiscontinuedSolu-MEDROL 125 mg, 2 mL, Route: IVP, Drug form: INJ, ONCE, Dosing Weight 94.091, kg, Priority: STAT, Start date: 04/21/16 17:24:00 CDT, Stop date: 04/21/16 17:24:00 CDT Notes: (Same as:Solu-MEDROL, A-Methapred) Start Date: 04/21/16 Stop Date: 04/21/16 Status: CompletedSpiriva 18 mcg inhalation capsule 18 microgram, 1 inhalation, Route: INHALATION, Drug form: CAP, Daily, Dosing Weight 94.091, kg, Start date: 04/29/16 9:00:00 CDT, Duration: 30 day, Stop date : 05/28/16 9:00:00 CDT Notes: (Same As: Spiriva) Start Date: 04/29/16 Stop Date: 04/29/16 Status: DiscontinuedSpiriva 18 mcg inhalation capsule 18 microgram=1 cap, INHALATION, Daily, # 90 cap, 0 Refill(s) Start Date: 04/29/16 Status: OrderedSpiriva 18 mcg inhalation capsule 18 microgram=1 cap, INHALATION, Daily, # 30 cap, 0 Refill(s) Start Date: 04/28/16 Stop Date: 05/28/16 Status: OrderedSpiriva 18 mcg inhalation capsule 18 microgram, 1 inhalation, Route: INHALATION, Drug form: CAP, Daily, Dosing Weight 94.091, kg, Start date: 04/22/16 9:00:00 CDT, Duration: 30 day, Stop date : 05/21/16 9:00:00 CDT Notes: (Same As: Spiriva) Start Date: 04/22/16 Stop Date: 04/22/16 Status: DiscontinuedSpiriva 2.5 mcg/actuation inhaler (own med) Spiriva 2.5 mcg/actuation inhaler (own med), 2 spray, Drug form: MISC, Route: INHALATION, QAM, 04/22/16 9:00:00 CDT, Duration: 30 day, Stop date: 05/21/16 9: 00:00 CDT Start Date: 04/22/16 Stop Date: 04/28/16 Status: DiscontinuedSymbicort 160/4.5 inhalation aerosol with adapter 2 inhalation, Route: INHALATION, Drug Form: AERO/A, Dosing Weight 94.091, kg, RQ12H, Start date: 04/21/16 21:55:00 CDT, Duration: 30 day, Stop date: 05/21/16 16:00:00 CDT Notes: (Same as: Symbicort)WASTE: Aerosol - Return to Pharmacy Start Date: 04/21/16 Stop Date: 04/21/16 Status: DiscontinuedTessalon Perles 200 mg, 2 cap, Route: PO, Drug form: CAP, TID, Dosing Weight 94.091, kg, Start date: 04/28/16 13:00:00 CDT, Duration: 30 day, Stop date: 05/28/16 9:00:00 CDT Notes: (Same As: Tessalon Perles)"Do Not Crush" Start Date: 04/28/16 Stop Date: 04/29/16 Status: DiscontinuedTessalon Perles 100 mg oral capsule 200 mg, PO, TID, X 10 day, # 30 tab, 0 Refill(s) Start Date: 04/28/16 Stop Date: 05/08/16 Status: OrderedTylenol 650 mg, 2 tab, Route: PO, Drug form: TAB, Q6H, Dosing Weight 94.091, kg, PRN Pain 1-3/Temp > 100.4 F, Start date: 04/21/16 22:16:00 CDT, Duration: 30 day, Stop date: 05/21/16 22:15:00 CDT, fever Notes: Do not exceed 4 gm/day. (Same as: Tylenol) Start Date: 04/21/16 Stop Date: 04/29/16 Status: DiscontinuedXanax 0.25 mg oral tablet 0.25 mg=1 tab, PO, PRN Anxiety, # 30 tab, 0 Refill(s) Start Date: 04/22/16 Stop Date: 05/02/16 Status: OrderedXanax 0.25 mg oral tablet 0.25 mg, 1 tab, Route: PO, Drug form: TAB, TID, Dosing Weight 94.091, kg, PRN Anxiety, Start date: 04/22/16 9:01:00 CDT, Duration: 30 day, Stop date: 9:00:00 CDT Notes: With food or milk(Same as: Xanax) Start Date: 04/22/16 Stop Date: 04/29/16 Status: DiscontinuedZofran 4 mg, 2 mL, Route: IV, Drug form: INJ, Q6H, Dosing Weight 94.091, kg, PRN as needed for nausea/vomiting, Start date: 04/21/16 22:16:00 CDT, Duration: 30 day , Stop date: 05/21/16 22:15:00 CDT Notes: (Same as: Zofran) MEDICATION WASTE Product Size: 4 mgProduct Wasted: ___ mg Start Date: 04/21/16 Stop Date: 04/29/16 Status: Discontinued Results ELECTROLYTES Most recent to oldest 1 2 3 [Reference Range]: Sodium Lvl [135-145 mEq/L] 145 mEq/L 138 mEq/L 135 mEq/L (04/27/16 4:51 AM) (04/22/16 4:28 AM) (04/21/16 2:33 PM) Potassium Lvl [3.5-5.1 mEq/L] 3.9 mEq/L 3.9 mEq/L 3.6 mEq/L (04/27/16 4:51 AM) (04/22/16 4:28 AM) (04/21/16 2:33 PM) Chloride Lvl [95-109 mEq/L] 103 mEq/L 103 mEq/L 99 mEq/L (04/27/16 4:51 AM) (04/22/16 4:28 AM) (04/21/16 2:33 PM) CO2 [24-32 mEq/L] 34 mEq/L 23 mEq/L 26 mEq/L *HI* *LOW* (04/21/16 2:33 PM) (04/27/16 4:51 AM) (04/22/16 4:28 AM) AGAP [10.0-20.0 mEq/L] 11.9 mEq/L 15.9 mEq/L 13.6 mEq/L (04/27/16 4:51 AM) (04/22/16 4:28 AM) (04/21/16 2:33 PM) CHEM PANEL Most recent to oldest 1 2 3 [Reference Range]: Creatinine Lvl [0.50-1.40 0.66 mg/dL 1.11 mg/dL 1.10 mg/dL mg/dL] (04/27/16 4:51 AM) (04/22/16 4:28 AM) (04/21/16 2:33 PM) eGFR 103 mL/min/1.73m2 1 58 mL/min/1.73m2 2 58 mL/min/1.73m2 3 *NA* *NA* *NA* (04/27/16 4:51 AM) (04/22/16 4:28 AM) (04/21/16 2:33 PM) BUN [7-22 mg/dL] 16 mg/dL 15 mg/dL 11 mg/dL (04/27/16 4:51 AM) (04/22/16 4:28 AM) (04/21/16 2:33 PM) B/C Ratio [6-25] 10 (04/21/16 2:33 PM) Glucose Lvl [70-99 mg/dL] 125 mg/dL 380 mg/dL 425 mg/dL 4 *HI* *HI* *CRIT* (04/27/16 4:51 AM) (04/22/16 4:28 AM) (04/21/16 2:33 PM) Total Protein [6.4-8.4 g/dL] 8.3 g/dL (04/21/16 2:33 PM) Albumin Lvl [3.5-5.0 g/dL] 3.2 g/dL *LOW* (04/21/16 2:33 PM) Globulin [2.0-4.0 g/dL] 5.1 g/dL *HI* (04/21/16 2:33 PM) A/G Ratio [0.7-1.6] 0.6 *LOW* (04/21/16 2:33 PM) Calcium Lvl [8.5-10.5 mg/dL] 8.6 mg/dL 9.1 mg/dL 8.5 mg/dL (04/27/16 4:51 AM) (04/22/16 4:28 AM) (04/21/16 2:33 PM) ALT [0-65 unit/L] 54 unit/L (04/21/16 2:33 PM) AST [0-37 unit/L] 17 unit/L (04/21/16 2:33 PM) Alk Phos [39-136 unit/L] 71 unit/L (04/21/16 2:33 PM) Bili Total [0.2-1.3 mg/dL] 0.3 mg/dL (04/21/16 2:33 PM) Procalcitonin Lvl [0.00-0.10 0.05 ng/mL ng/mL] (04/21/16 11:43 PM) 1Result Comment: The eGFR is calculated [...] eGFR should be multiplied by the estimated BMI.4Result Comment: Critical Result(s) called to Stefania Boland at 04/21/2016 15:36 by Eliud Torres. Read back OK.CARDIAC ENZYMES Most recent to oldest [Reference Range]: 1 2 3 Total CK [12-191 unit/L] 50 unit/L (04/21/16 2:33 PM) CK MB [0.5-3.6 ng/mL] 1.1 ng/mL (04/21/16 2:33 PM) CK MB Index [0.0-2.5] 2.2 (04/21/16 2:33 PM) Troponin-I [0.00-0.40 ng/mL] <0.02 ng/mL (04/21/16 2:33 PM) BNP [<=100 pg/mL] 17 pg/mL (04/21/16 4:14 PM) SPECIAL CHEMISTRY Most recent to oldest [Reference Range]: 1 2 3 Hgb A1C [<=5.6 %] 9.9 % *HI* (04/21/16 11:43 PM) HEMATOLOGY Most recent to oldest 1 2 3 [Reference Range]: WBC [3.7-10.4 K/CMM] 15.8 K/CMM 11.1 K/CMM 13.1 K/CMM *HI* *HI* *HI* (04/27/16 4:51 AM) (04/22/16 4:28 AM) (04/21/16 2:33 PM) RBC [4.20-5.40 M/CMM] 4.31 M/CMM 4.64 M/CMM 4.75 M/CMM (04/27/16 4:51 AM) (04/22/16 4:28 AM) (04/21/16 2:33 PM) Hgb [12.0-16.0 g/dL] 10.0 g/dL 10.9 g/dL 11.3 g/dL *LOW* *LOW* *LOW* (04/27/16 4:51 AM) (04/22/16 4:28 AM) (04/21/16 2:33 PM) Hct [36.0-48.0 %] 33.8 % 36.3 % 37.0 % *LOW* (04/22/16 4:28 AM) (04/21/16 2:33 PM) (04/27/16 4:51 AM) MCV [80.0-98.0 fL] 78.5 fL 78.1 fL 77.9 fL *LOW* *LOW* *LOW* (04/27/16 4:51 AM) (04/22/16 4:28 AM) (04/21/16 2:33 PM) MCH [27.0-31.0 pg] 23.1 pg 23.6 pg 23.8 pg *LOW* *LOW* *LOW* (04/27/16 4:51 AM) (04/22/16 4:28 AM) (04/21/16 2:33 PM) MCHC [32.0-36.0 g/dL] 29.4 g/dL 30.2 g/dL 30.5 g/dL *LOW* *LOW* *LOW* (04/27/16 4:51 AM) (04/22/16 4:28 AM) (04/21/16 2:33 PM) RDW [11.5-14.5 %] 16.7 % 16.9 % 16.9 % *HI* *HI* *HI* (04/27/16 4:51 AM) (04/22/16 4:28 AM) (04/21/16 2:33 PM) Platelet [133-450 K/CMM] 344 K/CMM 354 K/CMM 357 K/CMM (04/27/16 4:51 AM) (04/22/16 4:28 AM) (04/21/16 2:33 PM) MPV [7.4-10.4 fL] 7.9 fL 8.7 fL 8.3 fL (04/27/16 4:51 AM) (04/22/16 4:28 AM) (04/21/16 2:33 PM) Segs [45.0-75.0 %] 67.7 % 91.0 % 89.0 % (04/27/16 4:51 AM) *HI* *HI* (04/22/16 4:28 AM) (04/21/16 2:33 PM) Lymphocytes [20.0-40.0 %] 26.1 % 6.1 % 5.4 % (04/27/16 4:51 AM) *LOW* *LOW* (04/22/16 4:28 AM) (04/21/16 2:33 PM) Monocytes [2.0-12.0 %] 4.9 % 2.1 % 4.1 % (04/27/16 4:51 AM) (04/22/16 4:28 AM) (04/21/16 2:33 PM) Eosinophils [0.0-4.0 %] 0.9 % 0.8 % (04/27/16 4:51 AM) (04/21/16 2:33 PM) Basophils [0.0-1.0 %] 0.4 % 0.8 % 0.7 % (04/27/16 4:51 AM) (04/22/16 4:28 AM) (04/21/16 2:33 PM) Segs-Bands # [1.5-8.1 K/CMM] 10.7 K/CMM 10.1 K/CMM 11.7 K/CMM *HI* *HI* *HI* (04/27/16 4:51 AM) (04/22/16 4:28 AM) (04/21/16 2:33 PM) Lymphocytes # [1.0-5.5 K/CMM] 4.1 K/CMM 0.7 K/CMM 0.7 K/CMM (04/27/16 4:51 AM) *LOW* *LOW* (04/22/16 4:28 AM) (04/21/16 2:33 PM) Monocytes # [0.0-0.8 K/CMM] 0.8 K/CMM 0.2 K/CMM 0.5 K/CMM (04/27/16 4:51 AM) (04/22/16 4:28 AM) (04/21/16 2:33 PM) Eosinophils # [0.0-0.5 K/CMM] 0.1 K/CMM 0.1 K/CMM (04/27/16 4:51 AM) (04/21/16 2:33 PM) Basophils # [0.0-0.2 K/CMM] 0.1 K/CMM 0.1 K/CMM 0.1 K/CMM (04/27/16 4:51 AM) (04/22/16 4:28 AM) (04/21/16 2:33 PM) RBC Morph Normal (04/27/16 4:51 AM) Anisocyte [None Seen] 1+ 1+ *ABN* *ABN* (04/27/16 4:51 AM) (04/21/16 2:33 PM) Macrocyte [None Seen] 1+ *ABN* (04/27/16 4:51 AM) Microcyte [None Seen] 1+ 1+ 1+ *ABN* *ABN* *ABN* (04/27/16 4:51 AM) (04/22/16 4:28 AM) (04/21/16 2:33 PM) Plt Morph Normal (04/27/16 4:51 AM) Large Plt [None Seen] Moderate Moderate *ABN* *ABN* (04/27/16 4:51 AM) (04/21/16 2:33 PM) Immunizations Given and Recorded Vaccine Date Status Refusal Reason Hx influenza vaccine-unspecified 09/25/14 Given Hx influenza vaccine-unspecified 08/15/10 Given Hx pneumococcal vaccine 08/24/09 Given influenza virus vaccine, inactivated 02/10/13 Given Procedures Procedure Date Related Diagnosis Body [...]
--- OUTSIDE RECORDS SUMMARY | 2019-06-12 22:21 | XMS REPORT | Summary of Care ---
:1965 Author Organization [facility] Address [address] [place] [id number]- Encounter HQ Rashidr_salty(FIN) [id number] Date(s): 09/02/16 - 09/02/[address] [address]- [phone] Discharge Disposition: Home or Self Care Attending Physician: Wilda Maurice MD Referring Physician: Wilda Maurice MD Vital Signs No data available [...] Active penicillins Active Pulmicort Nebuamp Active Medications No data available for this [...]
--- OUTSIDE RECORDS SUMMARY | 2019-06-12 22:21 | XMS REPORT | Summary of Care ---
:[address] [facility] Address [address] [place], [place] [address]- Encounter HQ Jarrod(MONICA) [id number] Date(s): 12/31/15 - 12/31/15 [facility] [address] [place] [address]- Discharge Diagnosis: Vaginal bleeding, abnormal Discharge Disposition: Home Attending Physician: Andres Moss DO Referring Physician: Natalia Noe MD Vital Signs Most recent to oldest 1 2 3 [Reference Range]: Height 157.48 cm (12/31/15 5:06 PM) Temperature Oral [96.4-99.1 98.3 DegF 98.1 DegF 98.2 DegF DegF] (12/31/15 9:43 PM) (12/31/15 7:33 PM) (12/31/15 5:06 PM) Blood Pressure [90-140/60-90 147/74 mmHg 134/81 mmHg mmHg] *HI* (12/31/15 5:06 PM) (12/31/15 9:43 PM) Systolic Blood Pressure [90-140 127 mmHg mmHg] (12/31/15 7:33 PM) Diastolic Blood Pressure [60-90 78 mmHg mmHg] (12/31/15 7:33 PM) Respiratory Rate [14-20 BRMIN] 20 BRMIN 20 BRMIN 24 BRMIN (12/31/15 9:43 PM) (12/31/15 7:33 PM) *HI* (12/31/15 5:06 PM) Peripheral Pulse Rate [60-100 85 bpm 87 bpm 117 bpm bpm] (12/31/15 9:43 PM) (12/31/15 7:33 PM) *HI* (12/31/15 5:06 PM) Weight 98.182 kg (12/31/15 5:06 PM) Body Mass Index 39.59 m2 (12/31/15 5:06 PM) Problem List Condition Effective Dates Status Health Status Informant Asthma(Confirmed) Active Chest pain(Confirmed) Active CHF - Congestive heart Active failure(Confirmed) Cholecystitis(Confirmed) Resolved COPD(Confirmed) Active COPD - Chronic obstructive pulmonary Active disease(Confirmed) History of Active cholecystectomy(Confirmed) Hypertension(Confirmed) Active Hypertension(Confirmed) Active Kidney stone(Confirmed) Resolved Allergies, Adverse Reactions, Alerts Substance Reaction Severity Status ciprofloxacin Active penicillins Active Medications morphine Sulfate 4 mg, 1 mL, Route: IVP, Drug form: INJ, ONCE, Dosing Weight 98.182, kg, Priority : STAT, Start date: 12/31/15 18:44:00, Stop date: 12/31/15 18:44:00 Notes: (Same as:MORPhine Sulfate) Start Date: 12/31/15 Stop Date: 12/31/15 Status: Completedmorphine Sulfate 4 mg, Route: IVP, Drug form: INJ, ONCE, Dosing Weight 98.182, kg, Priority: STAT , Start date: 12/31/15 20:56:00, Stop date: 12/31/15 20:56:00 Start Date: 12/31/15 Stop Date: 12/31/15 Status: Completedondansetron 4 mg, 2 mL, Route: IVP, Drug form: INJ, ONCE, Dosing Weight 98.182, kg, Priority : STAT, Start date: 12/31/15 18:44:00, Stop date: 12/31/15 18:44:00 Notes: (Same as: Pennie) MEDICATION WASTE Product Size: 4 mgProduct Wasted: ___ mg Start Date: 12/31/15 Stop Date: 12/31/15 Status: CompletedSaline Flush 0.9% 10 mL, Route: IVP, Drug Form: INJ, Dosing Weight 98.182, kg, PRN, PRN Line Flush , Start date: 12/31/15 17:16:00, Duration: 30 day, Stop date: 01/30/16 18:15:00 Notes: Same as: BD Posiflush Sterile Start Date: 12/31/15 Stop Date: 12/31/15 Status: DiscontinuedTylenol with Codeine #3 oral tablet 1-2 tablets, PO, Q4-6H, PRN as needed for pain, X 4 day, # 24 tab, 0 Refill(s) Start Date: 12/31/15 Stop Date: 01/04/16 Status: Ordered Results BLOOD BANK RESULTS Most recent to oldest [Reference Range]: 1 ABO/Rh A POS *Unknown* (12/31/15 5:46 PM) ELECTROLYTES Most recent to oldest [Reference Range]: 1 Sodium Lvl [135-145 mEq/L] 136 mEq/L (12/31/15 5:46 PM) Potassium Lvl [3.5-5.1 mEq/L] 3.8 mEq/L (12/31/15 5:46 PM) Chloride Lvl [95-109 mEq/L] 98 mEq/L (12/31/15 5:46 PM) CO2 [24-32 mEq/L] 27 mEq/L (12/31/15 5:46 PM) AGAP [10.0-20.0 mEq/L] 14.8 mEq/L (12/31/15 5:46 PM) CHEM PANEL Most recent to oldest [Reference Range]: 1 Creatinine Lvl [0.50-1.40 mg/dL] 0.92 mg/dL (12/31/15 5:46 PM) eGFR 72 mL/min/1.73m2 1 *NA* (12/31/15 5:46 PM) BUN [7-22 mg/dL] 12 mg/dL (12/31/15 5:46 PM) B/C Ratio [6-25] 13 (12/31/15 5:46 PM) Glucose Lvl [70-99 mg/dL] 183 mg/dL *HI* (12/31/15 5:46 PM) Total Protein [6.4-8.4 g/dL] 9.1 g/dL *HI* (12/31/15 5:46 PM) Albumin Lvl [3.5-5.0 g/dL] 3.4 g/dL *LOW* (12/31/15 5:46 PM) Globulin [2.0-4.0 g/dL] 5.7 g/dL *HI* (12/31/15 5:46 PM) A/G Ratio [0.7-1.6] 0.6 *LOW* (12/31/15 5:46 PM) Calcium Lvl [8.5-10.5 mg/dL] 9.2 mg/dL (12/31/15 5:46 PM) ALT [0-65 unit/L] 42 unit/L (12/31/15 5:46 PM) AST [0-37 unit/L] 22 unit/L (12/31/15 5:46 PM) Alk Phos [39-136 unit/L] 92 unit/L (12/31/15 5:46 PM) Bili Total [0.2-1.3 mg/dL] 0.3 mg/dL (12/31/15 5:46 PM) 1Result Comment: The eGFR is calculated [...] eGFR should be multiplied by the estimated BMI.ENDOCRINOLOGY Most recent to oldest [Reference Range]: 1 hCG Tot <1 mIU/mL *NA* (12/31/15 5:46 PM) URINE AND STOOL Most recent to oldest [Reference Range]: 1 UA Turbidity [Clear] Cloudy *ABN* (12/31/15 5:54 PM) UA Color [Yellow] Yellow *NA* (12/31/15 5:54 PM) UA pH [5.0-8.0] 6.0 (12/31/15 5:54 PM) UA Spec Grav [<=1.030] 1.010 (12/31/15 5:54 PM) UA Glucose [Negative] Negative (12/31/15 5:54 PM) UA Blood [Negative] Large *ABN* (12/31/15 5:54 PM) UA Ketones [Negative] Negative *NA* (12/31/15 5:54 PM) UA Protein [Negative] Negative (12/31/15 5:54 PM) UA Urobilinogen [0.1-1.0 EU/dL] 0.2 EU/dL (12/31/15 5:54 PM) UA Bili [Negative] Negative *NA* (12/31/15 5:54 PM) UA Leuk Est [Negative] Trace *ABN* (12/31/15 5:54 PM) UA Nitrite [Negative] Negative (12/31/15 5:54 PM) UA WBC [None Seen /HPF] 3-5 /HPF (12/31/15 5:54 PM) UA RBC [0-2 /HPF] >100 /HPF *ABN* (12/31/15 5:54 PM) UA Bacteria [None Seen /HPF] Occasional /HPF (12/31/15 5:54 PM) UA Sq Epi [Few /LPF] Occasional /LPF (12/31/15 5:54 PM) UA Mucus [None Seen] None Seen (12/31/15 5:54 PM) HEMATOLOGY Most recent to oldest [Reference Range]: 1 WBC [3.7-10.4 K/CMM] 23.1 K/CMM *HI* (12/31/15 5:46 PM) RBC [4.20-5.40 M/CMM] 4.52 M/CMM (12/31/15 5:46 PM) Hgb [12.0-16.0 g/dL] 11.3 g/dL *LOW* (12/31/15 5:46 PM) Hct [36.0-48.0 %] 36.8 % (12/31/15 5:46 PM) MCV [80.0-98.0 fL] 81.3 fL (12/31/15 5:46 PM) MCH [27.0-31.0 pg] 25.1 pg *LOW* (12/31/15 5:46 PM) MCHC [32.0-36.0 g/dL] 30.8 g/dL *LOW* (12/31/15 5:46 PM) RDW [11.5-14.5 %] 15.7 % *HI* (12/31/15 5:46 PM) Platelet [133-450 K/CMM] 478 K/CMM *HI* (12/31/15 5:46 PM) MPV [7.4-10.4 fL] 7.5 fL (12/31/15 5:46 PM) Segs [45.0-75.0 %] 88.5 % *HI* (12/31/15 5:46 PM) Lymphocytes [20.0-40.0 %] 7.6 % *LOW* (12/31/15 5:46 PM) Monocytes [2.0-12.0 %] 2.7 % (12/31/15 5:46 PM) Eosinophils [0.0-4.0 %] 0.4 % (12/31/15 5:46 PM) Basophils [0.0-1.0 %] 0.8 % (12/31/15 5:46 PM) Segs-Bands # [1.5-8.1 K/CMM] 20.5 K/CMM *HI* (12/31/15 5:46 PM) Lymphocytes # [1.0-5.5 K/CMM] 1.8 K/CMM (12/31/15 5:46 PM) Monocytes # [0.0-0.8 K/CMM] 0.6 K/CMM (12/31/15 5:46 PM) Eosinophils # [0.0-0.5 K/CMM] 0.1 K/CMM (12/31/15 5:46 PM) Basophils # [0.0-0.2 K/CMM] 0.2 K/CMM (12/31/15 5:46 PM) RBC Morph Normal (12/31/15 5:46 PM) Plt Morph Normal (12/31/15 5:46 PM) PT [12.0-14.7 seconds] 12.6 seconds (12/31/15 5:46 PM) INR [0.85-1.17] 0.91 (12/31/15 5:46 PM) PTT [22.9-35.8 seconds] 27.2 seconds (12/31/15 5:46 PM) Immunizations Vaccine Date Refusal Reason Hx influenza [...]
--- OUTSIDE RECORDS SUMMARY | 2019-06-12 22:21 | XMS REPORT | Summary of Care ---
:1965 Author Encounter HQ Jarrod(MONICA) [id number] Date(s): 03/13/15 - 03/21/15 [facility] [address] [place] [address]- Final: Discharge Disposition: Home Physician Attending: Antonio Medley MD Physician Admitting: Antonio Medley MD Vital Signs Most recent to oldest [Reference 1 2 3 Range]: Height 157.48 cm 157.48 cm (03/13/15 9:27 PM) (03/13/15 3:56 PM) Current Weight 96.108 kg (03/13/15 9:27 PM) Temperature Oral [96.4-99.1 97.9 DegF 98.0 DegF 98.5 DegF DegF] (03/21/15 3:22 PM) (03/21/15 12:14 PM) (03/21/15 8:22 AM) Blood Pressure [90-140/60-90 111/69 mmHg 96/62 mmHg 116/73 mmHg mmHg] (03/21/15 3:22 PM) (03/21/15 12:14 PM) (03/21/15 8:22 AM) Respiratory Rate [14-20 BRMIN] 20 BRMIN 20 BRMIN 20 BRMIN (03/21/15 3:22 PM) (03/21/15 12:14 PM) (03/21/15 8:22 AM) Peripheral Pulse Rate [60-100 84 bpm 82 bpm 83 bpm bpm] (03/21/15 3:22 PM) (03/21/15 12:14 PM) (03/21/15 8:22 AM) Weight 95.114 kg (03/13/15 3:56 PM) Body Mass Index 38.35 m2 (03/13/15 3:56 PM) Problem List Condition Effective Dates Status Health Status Informant Asthma(Confirmed) Active Chest pain(Confirmed) Active CHF - Congestive heart Active failure(Confirmed) Cholecystitis(Confirmed) Resolved COPD(Confirmed) Active COPD - Chronic obstructive pulmonary Active disease(Confirmed) History of Active cholecystectomy(Confirmed) Hypertension(Confirmed) Active Hypertension(Confirmed) Active Kidney stone(Confirmed) Resolved Allergies, Adverse Reactions, Alerts Substance Reaction Severity Status ciprofloxacin Active penicillins Active Medications Advair Diskus 500 mcg-50 mcg inhalation powder 1 puff, INHALATION, BID, # 28 ea, 0 Refill(s) Start Date: 03/21/15 Status: Orderedalbuterol 0.083% inhalation solution 2.5 mg, 3.01 mL, Route: NEB, Drug form: SOLN, RQ2H, Dosing Weight 98.807, kg, PRN Wheezing, Priority: Routine, Start date: 03/13/15 15:15:00, Duration: 30 day , Stop date: 04/12/15 15:14:00 Notes: SEE RT DOCUMENTATION (Same as: Karen) Start Date: 03/13/15 Stop Date: 03/21/15 Status: Discontinuedalbuterol-ipratropium 2.5-0.5 mg inhalation solution 3 mL, Route: NEB, Drug Form: SOLN, Dosing Weight 98.807, kg, RQ4H, Start date: 03/14/15 15:00:00, Duration: 30 day, Stop date: 04/13/15 11:00:00 Notes: (Same as: Doug) Start Date: 03/14/15 Stop Date: 03/21/15 Status: Discontinuedalbuterol-ipratropium 2.5-0.5 mg inhalation solution 3 mL, Route: NEB, Drug Form: SOLN, Dosing Weight 98.807, kg, RQ6H, Start date: 03/13/15 20:00:00, Duration: 30 day, Stop date: 04/12/15 14:00:00 Notes: (Same as: Duoneb) Start Date: 03/13/15 Stop Date: 03/14/15 Status: DiscontinuedamLODIPine 10 mg, 1 tab, Route: PO, Drug form: TAB, Daily, Dosing Weight 95.114, kg, Start date: 03/15/15 9:00:00, Duration: 30 day, Stop date: 04/13/15 9:00:00 Notes: (Same as: Norvasc) Start Date: 03/15/15 Stop Date: 03/21/15 Status: Discontinuedaspirin 81 mg tablet, enteric coated 81 mg, 1 tab, Route: PO, Drug form: ECTAB, Daily, Dosing Weight 95.114, kg, Start date: 03/15/15 9:00:00, Duration: 30 day, Stop date: 04/13/15 9:00:00 Notes: Do not crush or chew.(Same As: Ecotrin) Start Date: 03/15/15 Stop Date: 03/21/15 Status: Discontinuedazithromycin 500 mg, 250 mL, Route: IVPB, Drug form: PDR/INJ, [id number], Dosing Weight 98.807, kg, Start date: 03/13/15 16:00:00, Duration: 30 day, Stop date: 04/11/15 16:00: 00 Notes: Same as: Zithromax Start Date: 03/13/15 Stop Date: 03/16/15 Status: DiscontinuedBrovana 15 microgram, 2 mL, Route: NEB, Drug form: SOLN, RBID, Dosing Weight 95.114, kg , Start date: 03/16/15 12:03:00, Duration: 30 day, Stop date: 04/15/15 8:00:00 Notes: SEE RT DOCUMENTATIONSame as Kd Start Date: 03/16/15 Stop Date: 03/20/15 Status: Discontinuedbudesonide-formoterol 160 mcg-4.5 mcg/inh inhalation aerosol with adapter 2 inhalation, Route: INHALATION, Drug Form: AERO/A, Q12H, Start date: 03/20/15 13:00:00, Duration: 30 day, Stop date: 04/19/15 9:00:00 Notes: (Same as: Symbicort) Start Date: 03/20/15 Stop Date: 03/21/15 Status: DiscontinuedcefTRIAXone + Sodium Chloride 0.9% IV 100 mL 1 gm, Route: IVPB, Drug form: PDR/INJ, [id number], Dosing Weight 98.807, kg, Start date: 03/13/15 17:00:00, Duration: 30 day, Stop date: 04/11/15 17:00:00 Notes: (Same As: Rocephin).Use with 100ml NS mini-bag PLUS and infuse over 30 min MEDICATION WASTE Product Size: 1000 mgProduct Wasted: ___ mg Start Date: 03/13/15 Stop Date: 03/16/15 Status: DiscontinuedclonazePAM 0.25 mg, 0.5 tab, Route: PO, Drug form: TAB, BID, Dosing Weight 95.114, kg, Start date: 03/14/15 21:00:00, Duration: 30 day, Stop date: 04/13/15 9:00:00 Notes: (Same As: KlonoPIN) Start Date: 03/14/15 Stop Date: 03/14/15 Status: CanceledCombivent Respimat CFC free 100 mcg-20 mcg/inh inhalation aerosol 1 puff, INHALATION, QID, 0 Refill(s) Start Date: 03/13/15 Status: OrderedDaliresp 500 mcg oral tablet 500 microgram=1 tab, PO, Daily, 0 Refill(s) Start Date: 03/13/15 Status: Orderedfurosemide 40 mg oral tablet 40 mg, 1 tab, Route: PO, Drug form: TAB, Daily, Dosing Weight 95.114, kg, Start date: 03/14/15 13:00:00, Duration: 30 day, Stop date: 04/13/15 9:00:00 Notes: (Same as: Lasix) May cause GI upset. Give with food or milk. Start Date: 03/14/15 Stop Date: 03/21/15 Status: Discontinuedipratropium 0.5 mg, NEB, QID, 0 Refill(s) Start Date: 03/13/15 Status: OrderedKlonoPIN 0.25 mg, 0.5 tab, Route: PO, Drug form: TAB, BID, Start date: 03/14/15 0:00:00, Duration: 30 day, Stop date: 04/12/15 21:00:00 Notes: (Same As: KlonoPIN) Start Date: 03/14/15 Stop Date: 03/17/15 Status: DiscontinuedKlonoPIN 0.5 mg, 1 tab, Route: PO, Drug form: TAB, BID, Start date: 03/17/15 21:00:00, Duration: 30 day, Stopdate: 04/16/15 9:00:00 Notes: (Same As: KlonoPIN) Start Date: 03/17/15 Stop Date: 03/21/15 Status: Discontinuedlosartan 100 mg, 1 tab, Route: PO, Drug form: TAB, Daily, Dosing Weight 95.114, kg, Start date: 03/17/15 14:30:00, Duration: 30 day, Stop date: 04/16/15 9:00:00 Notes: (Same as: Cozaar) Start Date: 03/17/15 Stop Date: 03/21/15 Status: DiscontinuedLovenox 40 mg, 0.4 mL, Route: SUB-Q, Drug form: INJ, [id number], Dosing Weight 98.807, kg , Start date: 03/13/15 17:00:00, Duration: 30 day, Stop date: 04/11/15 17:00:00 Notes: (Same as: Lovenox) Start Date: 03/13/15 Stop Date: 03/21/15 Status: DiscontinuedmethylPREDNISolone SODium SUCCinate 80 mg, 1.28 mL, Route: IVP, Drug form: INJ, Q8H, Dosing Weight 98.807, kg, Start date: 03/13/15 16:00:00, Duration: 30 day, Stop date: 04/12/15 8:00:00 Notes: (Same as:Solu-MEDROL, A-Methapred) Start Date: 03/13/15 Stop Date: 03/18/15 Status: DiscontinuedMucinex 600 mg, 1 tab, Route: PO, Drug form: ERTAB, Q12H, Dosing Weight 98.807, kg, Start date: 03/13/15 21:00:00, Duration: 30 day, Stop date: 04/12/15 9:00:00 Notes: (Same as: Guaifenesin LA, Humibid LA, Mucinex)"Do Not Crush" Take medication with plenty of water. Start Date: 03/13/15 Stop Date: 03/21/15 Status: DiscontinuedNexIUM 40 mg, Route: PO, Drug form: ECCAP, Daily, Dosing Weight 95.114, kg, Start date : 03/15/15 9:00:00, Duration: 30 day, Stop date: 04/13/15 9:00:00 Start Date: 03/15/15 Stop Date: 03/14/15 Status: DeletedNS 1,000 mL 1,000 mL, Rate: 40 ml/hr, Infuse over: 25 hr, Route: IV, Dosing Weight 98.807 kg , Total Volume: 1,000, Start date: 03/13/15 15:17:00, Duration: 30 day, Stop date: 04/12/15 15:16:00 Start Date: 03/13/15 Stop Date: 03/17/15 Status: Discontinuedpotassium chloride 20 mEq oral tablet, extended release 20 mEq, 1 tab, Route: PO, Drug form: ERTAB, Daily, Dosing Weight 95.114, kg, Start date: 03/15/15 9:00:00, Duration: 30 day, Stop date: 04/13/15 9:00:00 Notes: (Same as: K-Dur 20)"Do Not Crush" With food and full glass of water Start Date: 03/15/15 Stop Date: 03/21/15 Status: DiscontinuedpredniSONE 40 mg, 2 tab, Route: PO, Drug form: TAB, Daily, Dosing Weight 95.114, kg, Start date: 03/19/15 9:00:00, Duration: 30 day, Stop date: 04/17/15 9:00:00 Notes: Take with food. Start Date: 03/19/15 Stop Date: 03/21/15 Status: DiscontinuedpredniSONE 20 mg oral tablet 20 mg=1 tab, PO, Daily, X 7 day, # 7 tab, 0 Refill(s) Start Date: 03/21/15 Stop Date: 03/28/15 Status: OrderedProtonix 40 mg, 1 tab, Route: PO, Drug form: ECTAB, Before Dinner, Start date: 03/14/15 16:30:00, Duration: 30 day, Stop date: 04/12/15 16:30:00 Notes: Tablet should not be chewed or crushed.(Same as: Protonix) Start Date: 03/14/15 Stop Date: 03/21/15 Status: DiscontinuedPulmicort Respules 0.5 mg/2 mL inhalation suspension 0.5 mg, 2 mL, Route: NEB, Drug form: SUSP, RBID, Dosing Weight 95.114, kg, Start date: 03/15/15 13:19:00, Duration: 30 day, Stop date: 04/14/15 8:00:00 Notes: (Same As: Pulmicort) Start Date: 03/15/15 Stop Date: 03/20/15 Status: Discontinuedroflumilast 500 microgram, 1 tab, Route: PO, Drug form: TAB, Daily, Dosing Weight 98.807, kg , Start date: 03/14/15 9:00:00, Duration: 30 day, Stop date: 04/12/15 9:00:00 Start Date: 03/14/15 Stop Date: 03/21/15 Status: DiscontinuedSpiriva 18 microgram, INHALATION, Daily, # 30 ea, 0 Refill(s) Start Date: 03/13/15 Stop Date: 03/21/15 Status: DiscontinuedSpiriva 18 mcg inhalation capsule 18 microgram=1 cap, INHALATION, Daily, # 90 cap, 0 Refill(s) Start Date: 03/21/15 Status: OrderedSpiriva 18 mcg inhalation capsule 18 microgram, 1 inhalation, Route: INHALER, Drug form: CAP, Daily, Dosing Weight 98.807, kg, Start date: 03/14/15 9:00:00, Duration: 30 day, Stop date: 9:00:00 Notes: (Same As: Spiriva) Start Date: 03/14/15 Stop Date: 03/21/15 Status: Discontinuedsulfamethoxazole-trimethoprim See Instructions, 1 tablet every 12 hours- dr. Gray, 0 Refill(s) Special Instructions: 1 tablet every 12 hours- dr. Gray Start Date: 03/13/15 Stop Date: 03/21/15 Status: DiscontinuedSymbicort 160/4.5 inhalation aerosol with adapter 2 inhalation, Route: INHALATION, Drug Form: AERO/A, Dosing Weight 95.114, kg, RQ12H, Start date: 03/20/15 12:16:00, Duration: 30 day, Stop date: 04/19/15 4:00 :00 Notes: (Same as: Symbicort) Start Date: 03/20/15 Stop Date: 03/20/15 Status: DeletedSymbicort 160/4.5 inhalation aerosol with adapter 2 inhalation, Route: INHALER, Drug Form: AERO/A, Dosing Weight 98.807, kg, Q12H , Start date: 03/13/15 21:00:00, Duration: 30 day, Stop date: 04/12/15 9:00:00 Notes: (Same as: Symbicort) Start Date: 03/13/15 Stop Date: 03/15/15 Status: Discontinuedtramadol 50 mg, PO, TID, # 20 tab, 0 Refill(s) Start Date: 03/13/15 Status: Orderedtramadol 50 mg oral tablet 50 mg, 1 tab, Route: PO, Drug form: TAB, TID, Start date: 03/14/15 0:00:00, Duration: 30 day, Stop date: 04/12/15 17:00:00 Notes: Not to exceed 400mg/day. (Same As: Ultram) Start Date: 03/14/15 Stop Date: 03/21/15 Status: Discontinuedtramadol 50 mg oral tablet 50 mg, 1 tab, Route: PO, Drug form: TAB, TID, Start date: 03/13/15 22:30:00, Duration: 30 day, Stop date: 04/12/15 17:00:00 Notes: Not to exceed 400mg/day. (Same As: Ultram) Start Date: 03/13/15 Stop Date: 03/14/15 Status: DiscontinuedXanax 0.25 mg, 1 tab, Route: PO, Drug form: TAB, Q6H, PRN Anxiety, Start date: 22:03:00, Duration: 30 day, Stop date: 04/13/15 22:02:00 Notes: With food or milk(Same as: Xanax) Start Date: 03/14/15 Stop Date: 03/21/15 Status: DiscontinuedXanax 0.25 mg oral tablet 0.25 mg, 1 tab, Route: PO, Drug form: TAB, ONCE, Dosing Weight 95.114, kg, Priority: NOW, Start date: 03/14/15 14:09:00, Stop date: 03/14/15 14:09:00 Notes: With food or milk(Same as: Xanax) Start Date: 03/14/15 Stop Date: 03/14/15 Status: CompletedXanax 0.25 mg oral tablet 0.25 mg=1 tab, PO, TID, PRN Anxiety, X 10 day, # 30 tab, 0 Refill(s) Start Date: 03/21/15 Stop Date: 03/31/15 Status: Ordered Results ELECTROLYTES Most recent to oldest 1 2 3 [Reference Range]: Sodium Lvl [135-145 mEq/L] 143 mEq/L 144 mEq/L 139 mEq/L (03/21/15 6:47 AM) (03/20/15 3:07 AM) (03/15/15 5:57 AM) Potassium Lvl [3.5-5.1 mEq/L] 4.2 mEq/L 3.7 mEq/L 4.3 mEq/L (03/21/15 6:47 AM) (03/20/15 3:07 AM) (03/15/15 5:57 AM) Chloride Lvl [95-109 mEq/L] 101 mEq/L 103 mEq/L 101 mEq/L (03/21/15 6:47 AM) (03/20/15 3:07 AM) (03/15/15 5:57 AM) CO2 [24-32 mEq/L] 36 mEq/L 35 mEq/L 27 mEq/L *HI* *HI* (03/15/15 5:57 AM) (03/21/15 6:47 AM) (03/20/15 3:07 AM) AGAP [10.0-20.0 mEq/L] 10.2 mEq/L 9.7 mEq/L 15.3 mEq/L (03/21/15 6:47 AM) *LOW* (03/15/15 5:57 AM) (03/20/15 3:07 AM) CHEM PANEL Most recent to oldest 1 2 3 [Reference Range]: Creatinine Lvl [0.5-1.4 0.9 mg/dL 0.8 mg/dL 0.9 mg/dL mg/dL] (03/21/15 6:47 AM) (03/20/15 3:07 AM) (03/15/15 5:57 AM) eGFR 75 mL/min/1.73m2 1 86 mL/min/1.73m2 2 75 mL/min/1.73m2 3 *NA* *NA* *NA* (03/21/15 6:47 AM) (03/20/15 3:07 AM) (03/15/15 5:57 AM) BUN [7-22 mg/dL] 19 mg/dL 20 mg/dL 13 mg/dL (03/21/15 6:47 AM) (03/20/15 3:07 AM) (03/15/15 5:57 AM) B/C Ratio [6-25] 21 25 12 (03/21/15 6:47 AM) (03/20/15 3:07 AM) (03/13/15 4:38 PM) Glucose Lvl [70-99 mg/dL] 112 mg/dL 4 125 mg/dL 5 184 mg/dL 6 *HI* *HI* *HI* (03/21/15 6:47 AM) (03/20/15 3:07 AM) (03/15/15 5:57 AM) Total Protein [6.4-8.4 g/dL] 5.8 g/dL 6.0 g/dL 7.9 g/dL *LOW* *LOW* (03/13/15 4:38 PM) (03/21/15 6:47 AM) (03/20/15 3:07 AM) Albumin Lvl [3.5-5.0 g/dL] 2.6 g/dL 2.5 g/dL 3.3 g/dL *LOW* *LOW* *LOW* (03/21/15 6:47 AM) (03/20/15 3:07 AM) (03/13/15 4:38 PM) Globulin [2.0-4.0 g/dL] 3.2 g/dL 3.5 g/dL 4.6 g/dL (03/21/15 6:47 AM) (03/20/15 3:07 AM) *HI* (03/13/15 4:38 PM) A/G Ratio [0.7-1.6] 0.8 0.7 0.7 (03/21/15 6:47 AM) (03/20/15 3:07 AM) (03/13/15 4:38 PM) Calcium Lvl [8.5-10.5 mg/dL] 8.4 mg/dL 7.9 mg/dL 8.9 mg/dL *LOW* *LOW* (03/15/15 5:57 AM) (03/21/15 6:47 AM) (03/20/15 3:07 AM) Magnesium Lvl [1.8-2.4 mg/dL] 1.9 mg/dL (03/13/15 4:38 PM) ALT [0-65 unit/L] 26 unit/L 26 unit/L 23 unit/L (03/21/15 6:47 AM) (03/20/15 3:07 AM) (03/13/15 4:38 PM) AST [0-37 unit/L] 8 unit/L 7 unit/L 17 unit/L (03/21/15 6:47 AM) (03/20/15 3:07 AM) (03/13/15 4:38 PM) Alk Phos [39-136 unit/L] 54 unit/L 54 unit/L 83 unit/L (03/21/15 6:47 AM) (03/20/15 3:07 AM) (03/13/15 4:38 PM) Bili Total [0.2-1.3 mg/dL] 0.5 mg/dL 0.5 mg/dL 0.4 mg/dL (03/21/15 6:47 AM) (03/20/15 3:07 AM) (03/13/15 4:38 PM) Procalcitonin Lvl [0.00-0.10 <0.05 ng/mL ng/mL] (03/13/15 4:38 PM) 1Result Comment: The eGFR is calculated [...] values reflect the clinical guidelines of the [place] [employer].5Interpretive Data: Adult reference range values reflect the clinical guidelines of the [place] [employer].6Interpretive Data: Adult reference range values reflect the clinical guidelines of the [place] [employer].CARDIAC ENZYMES Most recent to oldest [Reference Range]: 1 2 3 Total CK [12-191 unit/L] 207 unit/L *HI* (03/13/15 4:38 PM) CK MB [0.5-3.6 ng/mL] 2.7 ng/mL (03/13/15 4:38 PM) CK MB Index [0.0-2.5] 1.3 (03/13/15 4:38 PM) Troponin-I [0.00-0.40 ng/mL] <0.02 ng/mL (03/13/15 4:38 PM) BNP [<=100 pg/mL] 11 pg/mL 7 (03/13/15 4:38 PM) 7Interpretive Data: Elevated results are in line with increasing severity of congestive heart failure. Minor elevations between 100 and 300 may be seen with Myocardial Ischemia, Sodium retaining drugs, and compensated/treated heart failure.HEMATOLOGY Most recent to oldest [Reference Range]: 1 2 3 WBC [3.7-10.4 K/CMM] 17.0 K/CMM 11.2 K/CMM *HI* *HI* (03/20/15 3:07 AM) (03/13/15 4:38 PM) RBC [4.20-5.40 M/CMM] 4.15 M/CMM 4.57 M/CMM *LOW* (03/13/15 4:38 PM) (03/20/15 3:07 AM) Hgb [12.0-16.0 g/dL] 11.1 g/dL 12.4 g/dL *LOW* (03/13/15 4:38 PM) (03/20/15 3:07 AM) Hct [36.0-48.0 %] 35.8 % 39.0 % *LOW* (03/13/15 4:38 PM) (03/20/15 3:07 AM) MCV [80.0-98.0 fL] 86.3 fL 85.3 fL (03/20/15 3:07 AM) (03/13/15 4:38 PM) MCH [27.0-31.0 pg] 26.7 pg 27.2 pg *LOW* (03/13/15 4:38 PM) (03/20/15 3:07 AM) MCHC [32.0-36.0 g/dL] 30.9 g/dL 31.9 g/dL *LOW* *LOW* (03/20/15 3:07 AM) (03/13/15 4:38 PM) RDW [11.5-14.5 %] 16.3 % 15.7 % *HI* *HI* (03/20/15 3:07 AM) (03/13/15 4:38 PM) Platelet [133-450 K/CMM] 349 K/CMM 349 K/CMM (03/20/15 3:07 AM) (03/13/15 4:38 PM) MPV [7.4-10.4 fL] 7.2 fL 7.7 fL *LOW* (03/13/15 4:38 PM) (03/20/15 3:07 AM) Segs [45.0-75.0 %] 67.8 % 85.3 % (03/20/15 3:07 AM) *HI* (03/13/15 4:38 PM) Lymphocytes [20.0-40.0 %] 25.3 % 9.4 % (03/20/15 3:07 AM) *LOW* (03/13/15 4:38 PM) Monocytes [2.0-12.0 %] 5.7 % 4.9 % (03/20/15 3:07 AM) (03/13/15 4:38 PM) Eosinophils [0.0-4.0 %] 1.0 % 0.0 % (03/20/15 3:07 AM) (03/13/15 4:38 PM) Basophils [0.0-1.0 %] 0.2 % 0.4 % (03/20/15 3:07 AM) (03/13/15 4:38 PM) Segs-Bands # [1.5-8.1 K/CMM] 11.5 K/CMM 9.5 K/CMM *HI* *HI* (03/20/15 3:07 AM) (03/13/15 4:38 PM) Lymphocytes # [1.0-5.5 K/CMM] 4.3 K/CMM 1.0 K/CMM (03/20/15 3:07 AM) (03/13/15 4:38 PM) Monocytes # [0.0-0.8 K/CMM] 1.0 K/CMM 0.5 K/CMM *HI* (03/13/15 4:38 PM) (03/20/15 3:07 AM) Eosinophils # [0.0-0.5 K/CMM] 0.2 K/CMM 0.0 K/CMM (03/20/15 3:07 AM) (03/13/15 4:38 PM) Basophils # [0.0-0.2 K/CMM] 0.0 K/CMM 0.0 K/CMM (03/20/15 3:07 AM) (03/13/15 4:38 PM) PT [12.0-14.7 seconds] 13.6 seconds (03/13/15 4:38 PM) INR [0.85-1.17] 1.04 8 (03/13/15 4:38 PM) PTT [22.9-35.8 seconds] 26.9 seconds 9 (03/13/15 4:38 PM) 8Interpretive Data: RECOMMENDED RANGES FOR PROTIME INR: 2.0-3.0 for most medical and surgical thromboembolic states. 2.5-3.5 for artificial heart valves and recurrent embolism. INR SHOULD BE USED ONLY FOR PATIENTS ON STABLE ANTICOAGULANT THERAPY.9Interpretive Data: Heparin Therapeutic Range: 57 - 92 Seconds Immunizations Vaccine Date Refusal Reason Hx influenza [...]
--- OUTSIDE RECORDS SUMMARY | 2019-06-12 22:21 | XMS REPORT | Summary of Care ---
:1965 Author Organization [facility] Address [address] [place] [id number]- Encounter HQ Sammyntr_salty(FIN) [id number] Date(s): 08/05/16 - 08/05/[address] [address]- Discharge Disposition: Home or Self Care Attending Physician: Sheikh Leighton Maurice MD Referring Physician: Sheikh Leighton Maurice MD Vital Signs No [...]
--- OUTSIDE RECORDS SUMMARY | 2019-06-12 22:22 | XMS REPORT | Summary of Care ---
:1965 Author Organization [facility] Address [address] [place] [id number]- Encounter HQ Miguel_salty(FIN) [id number] Date(s): 01/24/17 - 01/24/[address] [address]- Discharge Diagnosis: Coccyx contusion Discharge Disposition: Home or Self Care Attending Physician: Cristobal Rodrigez MD Vital Signs Most recent to oldest [Reference Range]: 1 2 Height 157.48 cm (01/24/17 5:24 PM) Temperature Oral [96.4-99.1 DegF] 98.2 DegF 98.7 DegF (01/24/17 6:59 PM) (01/24/17 5:24 PM) Blood Pressure [90-140/60-90 mmHg] 134/75 mmHg 134/73 mmHg (01/24/17 6:59 PM) (01/24/17 5:24 PM) Respiratory Rate [14-20 BRMIN] 18 BRMIN 18 BRMIN (01/24/17 6:59 PM) (01/24/17 5:24 PM) Peripheral Pulse Rate [60-100 bpm] 90 bpm 105 bpm (01/24/17 6:59 PM) *HI* (01/24/17 5:24 PM) Weight 85 kg (01/24/17 5:24 PM) Body Mass Index 34.27 m2 (01/24/17 5:24 PM) Problem List Condition Effective Dates Status Health Status Informant Anxiety(Confirmed) Resolved Asthma(Confirmed) Active Chest pain(Confirmed) Active CHF - Congestive heart Active failure(Confirmed) Cholecystitis(Confirmed) Resolved COPD(Confirmed) Active COPD - Chronic obstructive pulmonary Active disease(Confirmed) Diabetes mellitus(Confirmed) Active History of Active cholecystectomy(Confirmed) Hypertension(Confirmed) Active Hypertension(Confirmed) Active Kidney stone(Confirmed) Resolved Allergies, Adverse Reactions, Alerts Substance Reaction Severity Status Brovana Brovana Active Brovana Brovana ciprofloxacin Active penicillins Active Pulmicort Nebuamp Active Medications tramadol 50 mg oral tablet 50 mg, 1 tab, Route: PO, Drug form: TAB, ONCE, Dosing Weight 85, kg, Priority: STAT, Start date: 01/24/17 17:38:00 CDT, Stop date: 01/24/17 17:38:00 CDT Notes: Not to exceed 400mg/day. (Same As: Ultram) Start Date: 01/24/17 Stop Date: 01/24/17 Status: CompletedTylenol with Codeine #3 oral tablet 1 - 2 tab, PO, Q4H, PRN Pain, X 4 day, # 36 tab, 0 Refill(s) Start Date: 01/24/17 Stop Date: 01/28/17 Status: Ordered Results No data available for [...]
--- OUTSIDE RECORDS SUMMARY | 2019-06-12 22:22 | XMS REPORT | Summary of Care ---
:1965 Author Organization [facility] Address [address] [place] [id number] Encounter HQ Encntr_alias(FIN) [id number] Date(s): 11/30/16 - 12/07/[address] [address]- Discharge Disposition: Home or Self Care Attending Physician: Brandon Strauss MD Admitting Physician: Brandon Strauss MD Vital Signs Most recent to oldest 1 2 3 [Reference Range]: Height 157.48 cm 157.48 cm 157.48 cm (12/01/16 12:51 AM) (11/30/16 9:44 PM) (11/30/16 4:53 PM) Temperature Oral [96.4-99.1 98.4 DegF 98.4 DegF 98.4 DegF DegF] (12/07/16 12:00 PM) (12/07/16 8:00 AM) (12/07/16 12:00 AM) Blood Pressure [90-140/60-90 159/72 mmHg 119/79 mmHg 120/71 mmHg mmHg] *HI* (12/07/16 8:00 AM) (12/07/16 12:00 AM) (12/07/16 12:00 PM) Respiratory Rate [14-20 18 BRMIN 18 BRMIN 18 BRMIN BRMIN] (12/07/16 12:00 PM) (12/07/16 8:00 AM) (12/07/16 12:00 AM) Peripheral Pulse Rate [60-100 97 bpm 83 bpm 82 bpm bpm] (12/07/16 12:00 PM) (12/07/16 8:00 AM) (12/07/16 12:00 AM) Weight 85.142 kg 96.3 kg 88.636 kg (12/01/16 12:51 AM) (11/30/16 9:44 PM) (11/30/16 4:53 PM) Body Mass Index 34.33 m2 38.83 m2 35.74 m2 (12/01/16 12:51 AM) (11/30/16 9:44 PM) (11/30/16 4:53 PM) Problem List Condition Effective Dates Status [...] Active penicillins Active Pulmicort Nebuamp Active Medications acetaminophen 650 mg, 2 tab, Route: PO, Drug form: TAB, Q4H, Dosing Weight 88.636, kg, PRN Pain 1-3/Temp > 100.4 F, Start date: 11/30/16 20:30:00 GRIT BLASTER, Duration: 30 day, Stop date: 12/30/16 20:29:00 GRIT BLASTER Notes: Do not exceed 4 gm/day. (Same as: Tylenol) Start Date: 11/30/16 Stop Date: 12/07/16 Status: DiscontinuedAdvair Diskus 500 mcg-50 mcg inhalation powder 1 puff, INHALATION, Daily Start Date: 11/30/16 Stop Date: 12/07/16 Status: DiscontinuedAdvair Diskus 500 mcg-50 mcg inhalation powder 1 puff, INHALATION, BID, # 1 ea, 0 Refill(s) Start Date: 12/07/16 Stop Date: 01/06/17 Status: Orderedalbuterol 0.083% inhalation solution 2.49 mg=3 mL, NEB, Q4H, PRN as needed for shortness of breath Start Date: 11/30/16 Status: Orderedalbuterol 0.083% inhalation solution 2.49 mg, 3 mL, Route: NEB, Drug form: SOLN, Q2H, Dosing Weight 85.142, kg, PRN Wheezing, Start date:12/04/16 8:36:00 GRIT BLASTER, Duration: 30 day, Stop date: 8:35:00 GRIT BLASTER Notes: SEE RT DOCUMENTATION (Same as: Karen) Start Date: 12/04/16 Stop Date: 12/07/16 Status: DiscontinuedamLODIPine 10 mg, 2 tab, Route: PO, Drug form: TAB, Daily, Dosing Weight 96.3, kg, Start date: 12/01/16 9:00:00CST, Duration: 30 day, Stop date: 12/30/16 9:00:00 GRIT BLASTER Notes: (Same as: Norvasc) Start Date: 12/01/16 Stop Date: 12/07/16 Status: DiscontinuedamLODIPine 10 mg oral tablet 10 mg=1 tab, PO, Daily, # 30 tab, 0 Refill(s) Start Date: 11/30/16 Status: OrderedAncef + sodium chloride 0.9% INJ 100 mL 1 gm, Route: IVPB, ONCE, Dosing Weight 88.636, kg, Priority: STAT, Start date: 11/30/16 19:34:00 GRIT BLASTER, Stop date: 11/30/16 19:34:00 GRIT BLASTER Notes: (Same As: Eugenia Gloria) MEDICATION WASTE Product Size: 1000 mgProduct Wasted: _0__mg Start Date: 11/30/16 Stop Date: 11/30/16 Status: Deletedaspirin 81 mg tablet, enteric coated 81 mg, 1 tab, Route: PO, Drug form: ECTAB, Daily, Dosing Weight 96.3, kg, Start date: 12/01/16 9:00:00 GRIT BLASTER, Duration: 30 day, Stop date: 12/30/16 9:00:00 GRIT BLASTER Notes: Do not crush or chew.(Same As: Ecotrin) Start Date: 12/01/16 Stop Date: 12/07/16 Status: DiscontinuedAtivan 1 mg, 0.5 mL, Route: IV, Drug form: INJ, Q6H, Dosing Weight 88.636, kg, PRN as needed for anxiety, Start date: 11/30/16 20:46:00 GRIT BLASTER, Duration: 30 day, Stop date: 12/30/16 20:45:00 GRIT BLASTER Notes: (Same as: Ativan) Start Date: 11/30/16 Stop Date: 12/01/16 Status: DiscontinuedBactrim DS 800 mg- 160 mg oral tablet 1 tab, Route: PO, Drug Form: TAB, Dosing Weight 85.142, kg, [id number], Start date : 12/07/16 9:00:00 GRIT BLASTER, Duration: 30 day, Stop date: 01/05/17 21:00:00 GRIT BLASTER Notes: One DS tablet=trimethoprim 160mg + sulfamethoxazole 800 mgDose based on trimethoprim component On empty stomach with a glass of water. 1 hr before meals (Same As: Bactrim DS, Septra DS) Start Date: 12/07/16 Stop Date: 12/07/16 Status: DiscontinuedBactrim DS 800 mg- 160 mg oral tablet 1 tab, PO, [id number], X 10 day, # 20 tab, 0 Refill(s) Start Date: 12/07/16 Stop Date: 12/17/16 Status: OrderedBD Normal Saline Flush 5 mL, Route: IVP, Drug Form: INJ, PRN, PRN Line Flush, Start date: 12/01/16 1:11 :00 GRIT BLASTER, Duration: 30 day, Stop date: 12/31/16 1:10:00 GRIT BLASTER Notes: (Same as: BD Posiflush) Start Date: 12/01/16 Stop Date: 12/07/16 Status: DiscontinuedBenadryl 25 mg, 1 cap, Route: PO, Drug form: CAP, TID, Dosing Weight 85.142, kg, PRN as needed for itching, Priority: NOW, Start date: 12/01/16 21:46:00 GRIT BLASTER, Duration: 30 day, Stop date: 12/31/16 21:45:00 GRIT BLASTER Notes: (Same as: Benadryl) Start Date: 12/01/16 Stop Date: 12/07/16 Status: Discontinuedbrimonidine ophthalmic 0.2% solution 1 drp, OPTH, BID, # 5 mL, 0 Refill(s) Start Date: 11/30/16 Status: Orderedbrimonidine ophthalmic 0.2% solution 1 drp, Route: OPTH, BID, Drug form: SOLN, Start date: 12/01/16 9:00:00 GRIT BLASTER, Duration: 30 day, Stop date: 12/30/16 17:00:00 GRIT BLASTER Notes: (Same As: Alphagan) Start Date: 12/01/16 Stop Date: 12/07/16 Status: Discontinuedbupivacaine (ANES) Route: IV, Drug Form: INJ, ONCE, Stop date: 12/01/16 13:39:00 GRIT BLASTER Start Date: 12/01/16 Stop Date: 12/01/16 Status: Completedclindamycin + sodium chloride 0.9% INJ 50 mL 600 mg, 4 mL, Route: IVPB, ABXQ8H, Dosing Weight 85.142, kg, Start date: 16:00:00 GRIT BLASTER, Duration: 30 day, Stop date: 12/31/16 8:00:00 GRIT BLASTER Notes: (clindamycin 150 mg/1 ml (600 mg/4 ml VL) INJ) (Same As: Cleocin) Start Date: 12/01/16 Stop Date: 12/02/16 Status: DiscontinuedclonazePAM 0.25 mg, 0.5 tab, Route: PO, Drug form: TAB, QAM & PM, Dosing Weight 96.3, kg, Start date: 12/01/16 4:30:00 GRIT BLASTER, Duration: 30 day, Stop date: 12/30/16 17: 00:00 GRIT BLASTER Notes: (Same As: KlonoPIN) Start Date: 12/01/16 Stop Date: 12/01/16 Status: DiscontinuedDextrose 50% Syringe 25 gm, 50 mL, Route: IVP, Drug Form: INJ, Dosing Weight 85.142, kg, PRN, PRN Blood Glucose Results, Start date: 12/02/16 22:08:00 GRIT BLASTER, Duration: 30 day, Stop date: 01/01/17 22:07:00 GRIT BLASTER Start Date: 12/02/16 Stop Date: 12/07/16 Status: DiscontinuedDextrose 50% Syringe 12.5 gm, 25 mL, Route: IVP, Drug Form: INJ, Dosing Weight 85.142, kg, PRN, PRN Blood Glucose Results, Start date: 12/02/16 22:08:00 GRIT BLASTER, Duration: 30 day, Stop date: 01/01/17 22:07:00 GRIT BLASTER Start Date: 12/02/16 Stop Date: 12/07/16 Status: DiscontinuedDextrose 50% Syringe 25 gm, 50 mL, Route: IVP, Drug Form: INJ, Dosing Weight 88.636, kg, PRN, PRN Blood Glucose Results, Start date: 11/30/16 20:30:00 GRIT BLASTER, Duration: 30 day, Stop date: 12/30/16 20:29:00 GRIT BLASTER Start Date: 11/30/16 Stop Date: 12/02/16 Status: DiscontinuedDextrose 50% Syringe 12.5 gm, 25 mL, Route: IVP, Drug Form: INJ, Dosing Weight 88.636, kg, PRN, PRN Blood Glucose Results, Start date: 11/30/16 20:30:00 GRIT BLASTER, Duration: 30 day, Stop date: 12/30/16 20:29:00 GRIT BLASTER Start Date: 11/30/16 Stop Date: 12/02/16 Status: DiscontinuedDilaudid 0.5 mg, 0.25 mL, Route: IVP, Drug form: INJ, ONCE, Dosing Weight 85.142, kg, Priority: STAT, Start date: 12/03/16 0:12:00 GRIT BLASTER, Stop date: 12/03/16 0:12:00 GRIT BLASTER Notes: Same as Dilaudid Start Date: 12/03/16 Stop Date: 12/03/16 Status: CompletedDilaudid 1 mg, 0.5 mL, Route: IVP, Drug form: INJ, Q4H, Dosing Weight 88.636, kg, PRN Pain Score 7-10, Priority: STAT, Start date: 11/30/16 20:45:00 GRIT BLASTER, Duration: 30 day, Stop date: 12/30/16 20:44:00 GRIT BLASTER Notes: Same as Dilaudid Start Date: 11/30/16 Stop Date: 12/02/16 Status: DiscontinuedDilaudid 1 mg, Route: IVP, ONCE, Dosing Weight 88.636, kg, Priority: STAT, Start date: 17:54:00 GRIT BLASTER,Stop date: 11/30/16 17:54:00 GRIT BLASTER Start Date: 11/30/16 Stop Date: 11/30/16 Status: Completeddocusate 100 mg, 1 cap, Route: PO, Drug form: CAP, BID, Dosing Weight 88.636, kg, PRN Constipation, Start date: 11/30/16 20:30:00 GRIT BLASTER, Duration: 30 day, Stop date: 20:29:00 GRIT BLASTER Notes: (Same as: Colace) (Do Not Crush) Start Date: 11/30/16 Stop Date: 12/07/16 Status: DiscontinuedDuoNeb inhalation solution 3 mL, Route: NEB, Drug Form: SOLN, Dosing Weight 88.636, kg, RQID, Start date: 11/30/16 21:00:00 GRIT BLASTER, Duration: 30 day, Stop date: 12/30/16 19:00:00 GRIT BLASTER Notes: (Same as: Duoneb) Start Date: 11/30/16 Stop Date: 12/07/16 Status: Discontinuedetomidate 13.2954 mg, 6.65 mL, Route: IV, Drug form: INJ, ONCE, Dosing Weight 88.636, kg, Start date: 11/30/1720:36:00 GRIT BLASTER, Stop date: 11/30/16 21:36:00 GRIT BLASTER Notes: (Same as: Amidate). Per state nursing law etomidate can only be given by a nurse if patient is intubated or being intubated (unless the nurse is a WIND [employer]EL TECHNICIAN). Start Date: 11/30/16 Stop Date: 11/30/16 Status: CompletedfentaNYL 50 microgram, 1 mL, Route: IVP, Drug form: INJ, Q5Min, Dosing Weight 88.636, kg , PRN Sedation, Startdate: 11/30/16 21:43:00 GRIT BLASTER, Duration: 4 doses or times, Stop date: Limited # of times Notes: (Same as: Sublimaze) Preservative free. Start Date: 11/30/16 Stop Date: 12/01/16 Status: DiscontinuedfentaNYL (ANES) Route: IV, Drug form: INJ, ONCE, Stop date: 12/01/16 14:16:00 GRIT BLASTER Start Date: 12/01/16 Stop Date: 12/01/16 Status: Completedfurosemide 40 mg oral tablet 40 mg, 1 tab, Route: PO, Drug form: TAB, Daily, Dosing Weight 96.3, kg, Start date: 12/01/16 9:00:00CST, Duration: 30 day, Stop date: 12/30/16 9:00:00 GRIT BLASTER Notes: (Same as: Lasix) May cause GI upset. Give with food or milk. Start Date: 12/01/16 Stop Date: 12/07/16 Status: Discontinuedglucagon 1 mg, Route: IM, Drug form: PDR/INJ, PRN, Dosing Weight 85.142, kg, PRN Blood Glucose Results, Startdate: 12/02/16 22:08:00 GRIT BLASTER, Duration: 30 day, Stop date: 01/01/17 22:07:00 GRIT BLASTER Start Date: 12/02/16 Stop Date: 12/07/16 Status: Discontinuedglucagon 1 mg, Route: IM, Drug form: PDR/INJ, PRN, Dosing Weight 88.636, kg, PRN Blood Glucose Results, Startdate: 11/30/16 20:30:00 GRIT BLASTER, Duration: 30 day, Stop date: 12/30/16 20:29:00 GRIT BLASTER Start Date: 11/30/16 Stop Date: 12/02/16 Status: Discontinuedhydrocortisone 25 mg, 0.5 mL, Route: IV, Drug form: PDR/INJ, Q8H, Dosing Weight 85.142, kg, Start date: 12/02/16 0:00:00 GRIT BLASTER, Duration: 2 day, Stop date: 12/03/16 16:00:00 GRIT BLASTER Notes: (Same as: Lou) Start Date: 12/02/16 Stop Date: 12/03/16 Status: Completedinsulin aspart 4 unit, 0.04 mL, Route: SUB-Q, Drug form: SOLN, Bedtime, Dosing Weight 85.142, kg, PRN Blood GlucoseResults, Start date: 12/02/16 22:08:00 GRIT BLASTER, Duration: 30 day, Stop date: 01/01/17 22:07:00 GRIT BLASTER Notes: Roll in palms of hands gently; Do not shake vigorously. (Same as: NovoLOG)"single patient use only"WASTE: F/P - Black; E - Municipal Trash Bin Stable for 28 days at room temperature.Expires in days from Date Start Date: 12/02/16 Stop Date: 12/07/16 Status: Discontinuedinsulin aspart 3 unit, 0.03 mL, Route: SUB-Q, Drug form: SOLN, Bedtime, Dosing Weight 85.142, kg, PRN Blood GlucoseResults, Start date: 12/02/16 22:08:00 GRIT BLASTER, Duration: 30 day, Stop date: 01/01/17 22:07:00 GRIT BLASTER Notes: Roll in palms of hands gently; Do not shake vigorously. (Same as: NovoLOG)"single patient use only"WASTE: F/P - Black; E - Municipal Trash Bin Stable for 28 days at room temperature.Expires in days from Date Start Date: 12/02/16 Stop Date: 12/07/16 Status: Discontinuedinsulin aspart 2 unit, 0.02 mL, Route: SUB-Q, Drug form: SOLN, Bedtime, Dosing Weight 85.142, kg, PRN Blood GlucoseResults, Start date: 12/02/16 22:08:00 GRIT BLASTER, Duration: 30 day, Stop date: 01/01/17 22:07:00 GRIT BLASTER Notes: Roll in palms of hands gently; Do not shake vigorously. (Same as: NovoLOG)"single patient use only"WASTE: F/P - Black; E - Municipal Trash Bin Stable for 28 days at room temperature.Expires in days from Date Start Date: 12/02/16 Stop Date: 12/07/16 Status: Discontinuedinsulin aspart 1 unit, 0.01 mL, Route: SUB-Q, Drug form: SOLN, Bedtime, Dosing Weight 85.142, kg, PRN Blood GlucoseResults, Start date: 12/02/16 22:08:00 GRIT BLASTER, Duration: 30 day, Stop date: 01/01/17 22:07:00 GRIT BLASTER Notes: Roll in palms of hands gently; Do not shake vigorously. (Same as: NovoLOG)"single patient use only"WASTE: F/P - Black; E - Municipal Trash Bin Stable for 28 days at room temperature.Expires in days from Date Start Date: 12/02/16 Stop Date: 12/07/16 Status: Discontinuedinsulin aspart 4 unit, 0.04 mL, Route: SUB-Q, Drug form: SOLN, TID-Before Meals, Dosing Weight 85.142, kg, PRN Blood Glucose Results, Start date: 12/02/16 22:08:00 GRIT BLASTER, Duration: 30 day, Stop date: 01/01/17 22:07:00 GRIT BLASTER Notes: Roll in palms of hands gently; Do not shake vigorously. (Same as: Picreel)"single patient use only"WASTE: F/P - Black; E - Municipal Trash Bin Stable for 28 days at room temperature.Expires in days from Date Start Date: 12/02/16 Stop Date: 12/07/16 Status: Discontinuedinsulin aspart 2 unit, 0.02 mL, Route: SUB-Q, Drug form: SOLN, TID-Before Meals, Dosing Weight 85.142, kg, PRN Blood Glucose Results, Start date: 12/02/16 22:08:00 GRIT BLASTER, Duration: 30 day, Stop date: 01/01/17 22:07:00 GRIT BLASTER Notes: Roll in palms of hands gently; Do not shake vigorously. (Same as: Picreel)"single patient use only"WASTE: F/P - Black; E - Municipal Trash Bin Stable for 28 days at room temperature.Expires in days from Date Start Date: 12/02/16 Stop Date: 12/07/16 Status: Discontinuedinsulin aspart 8 unit, 0.08 mL, Route: SUB-Q, Drug form: SOLN, TID-Before Meals, Dosing Weight 85.142, kg, PRN Blood Glucose Results, Start date: 12/02/16 22:08:00 GRIT BLASTER, Duration: 30 day, Stop date: 01/01/17 22:07:00 GRIT BLASTER Notes: Roll in palms of hands gently; Do not shake vigorously. (Same as: Implicit Monitoring SolutionsLOG)"single patient use only"WASTE: F/P - Black; E - Municipal Trash Bin Stable for 28 days at room temperature.Expires in days from Date Start Date: 12/02/16 Stop Date: 12/07/16 Status: Discontinuedinsulin aspart 6 unit, 0.06 mL, Route: SUB-Q, Drug form: SOLN, TID-Before Meals, Dosing Weight 85.142, kg, PRN Blood Glucose Results, Start date: 12/02/16 22:08:00 GRIT BLASTER, Duration: 30 day, Stop date: 01/01/17 22:07:00 GRIT BLASTER Notes: Roll in palms of hands gently; Do not shake vigorously. (Same as: NovoLOG)"single patient use only"WASTE: F/P - Black; E - Municipal Trash Bin Stable for 28 days at room temperature.Expires in days from Date Start Date: 12/02/16 Stop Date: 12/07/16 Status: Discontinuedinsulin aspart 10 unit, 0.1 mL, Route: SUB-Q, Drug form: SOLN, TID-Before Meals, Dosing Weight 85.142, kg, PRN Blood Glucose Results, Start date: 12/02/16 22:08:00 GRIT BLASTER, Duration: 30 day, Stop date: 01/01/17 22:07:00 GRIT BLASTER Notes: Roll in palms of hands gently; Do not shake vigorously. (Same as: NovoLOG)"single patient use only"WASTE: F/P - Black; E - Municipal Trash Bin Stable for 28 days at room temperature.Expires in days from Date Start Date: 12/02/16 Stop Date: 12/07/16 Status: Discontinuedinsulin aspart 2 unit, 0.02 mL, Route: SUB-Q, Drug form: SOLN, Sliding Scale, Dosing Weight 88.636, kg, PRN Blood Glucose Results, Start date: 11/30/16 20:30:00 GRIT BLASTER, Duration: 30 day, Stop date: 12/30/16 20:29:00 GRIT BLASTER Notes: Roll in palms of hands gently; Do not shake vigorously. (Same as: NovoLOG)"single patient use only"WASTE: F/P - Black; E - Municipal Trash Bin Stable for 28 days at room temperature.Expires in days from Date Start Date: 11/30/16 Stop Date: 12/02/16 Status: Discontinuedinsulin aspart 6 unit, 0.06 mL, Route: SUB-Q, Drug form: SOLN, Sliding Scale, Dosing Weight 88.636, kg, PRN Blood Glucose Results, Start date: 11/30/16 20:30:00 GRIT BLASTER, Duration: 30 day, Stop date: 12/30/16 20:29:00 GRIT BLASTER Notes: Roll in palms of hands gently; Do not shake vigorously. (Same as: NovoLOG)"single patient use only"WASTE: F/P - Black; E - Municipal Trash Bin Stable for 28 days at room temperature.Expires in days from Date Start Date: 11/30/16 Stop Date: 12/02/16 Status: Discontinuedinsulin aspart 10 unit, 0.1 mL, Route: SUB-Q, Drug form: SOLN, Sliding Scale, Dosing Weight 88.636, kg, PRN Blood Glucose Results, Start date: 11/30/16 20:30:00 GRIT BLASTER, Duration: 30 day, Stop date: 12/30/16 20:29:00 GRIT BLASTER Notes: Roll in palms of hands gently; Do not shake vigorously. (Same as: NovoLOG)"single patient use only"WASTE: F/P - Black; E - Municipal Trash Bin Stable for 28 days at room temperature.Expires in days from Date Start Date: 11/30/16 Stop Date: 12/02/16 Status: Discontinuedinsulin aspart 4 unit, 0.04 mL, Route: SUB-Q, Drug form: SOLN, Sliding Scale, Dosing Weight 88.636, kg, PRN Blood Glucose Results, Start date: 11/30/16 20:30:00 GRIT BLASTER, Duration: 30 day, Stop date: 12/30/16 20:29:00 GRIT BLASTER Notes: Roll in palms of hands gently; Do not shake vigorously. (Same as: NovoLOG)"single patient use only"WASTE: F/P - Black; E - Municipal Trash Bin Stable for 28 days at room temperature.Expires in days from Date Start Date: 11/30/16 Stop Date: 12/02/16 Status: Discontinuedinsulin aspart 8 unit, 0.08 mL, Route: SUB-Q, Drug form: SOLN, Sliding Scale, Dosing Weight 88.636, kg, PRN Blood Glucose Results, Start date: 11/30/16 20:30:00 GRIT BLASTER, Duration: 30 day, Stop date: 12/30/16 20:29:00 GRIT BLASTER Notes: Roll in palms of hands gently; Do not shake vigorously. (Same as: NovoLOG)"single patient use only"WASTE: F/P - Black; E - Municipal Trash Bin Stable for 28 days at room temperature.Expires in days from Date Start Date: 11/30/16 Stop Date: 12/02/16 Status: Discontinuedipratropium 0.02% inhalation solution 200 microgram=1 ml, NEB, Q6H, PRN Shortness of breath, # 150 ea, 0 Refill(s) Start Date: 11/30/16 Status: OrderedKlonoPIN 0.25 mg, 0.5 tab, Route: PO, Drug form: TAB, QAM, Start date: 12/02/16 9:00:00 GRIT BLASTER, Duration: 30 day, Stop date: 12/31/16 9:00:00 GRIT BLASTER Notes: (Same As: KlonoPIN) Start Date: 12/02/16 Stop Date: 12/07/16 Status: DiscontinuedKlonoPIN 0.5 mg, 1 tab, Route: PO, Drug form: TAB, QPM, Start date: 12/02/16 22:00:00 GRIT BLASTER , Duration: 30 day, Stop date: 01/01/17 17:00:00 GRIT BLASTER Notes: (Same As: KlonoPIN) Start Date: 12/02/16 Stop Date: 12/01/16 Status: DeletedKlonoPIN 0.25 mg, 0.5 tab, Route: PO, Drug form: TAB, QPM, Start date: 12/01/16 22:00:00 GRIT BLASTER, Duration: 30 day, Stop date: 12/31/16 17:00:00 GRIT BLASTER Notes: (Same As: KlonoPIN) Start Date: 12/01/16 Stop Date: 12/07/16 Status: DiscontinuedLasix 40 mg oral tablet 40 mg=1 tab, PO, Daily, # 90 tab, 0 Refill(s) Start Date: 11/30/16 Stop Date: 12/07/16 Status: DiscontinuedLovenox 40 mg, 0.4 mL, Route: SUB-Q, Drug form: INJ, Daily, Dosing Weight 85.142, kg, Start date: 12/05/16 9:00:00 GRIT BLASTER, Duration: 30 day, Stop date: 01/03/17 9:00:00 GRIT BLASTER Notes: (Same as: Lovenox) Start Date: 12/05/16 Stop Date: 12/07/16 Status: Discontinuedmeloxicam 15 mg oral tablet 15 mg=1 tab, PO, Daily, PRN Pain, # 30 tab, 1 Refill(s) Start Date: 11/30/16 Status: OrderedMerrem + sodium chloride 0.9% INJ 100 mL 500 mg, Route: IVPB, ABXQ6H, Dosing Weight 85.142, kg, Start date: 12/02/16 15: 00:00 GRIT BLASTER, Duration: 30 day, Stop date: 01/01/17 9:00:00 GRIT BLASTER Notes: Same as Merrem MEDICATION WASTE Product Size: 500 mgProduct Wasted: ___ mg Start Date: 12/02/16 Stop Date: 12/07/16 Status: Discontinuedmidazolam (ANES) Route: IV, Drug form: SOLN, ONCE, Stop date: 12/01/16 13:33:00 GRIT BLASTER Start Date: 12/01/16 Stop Date: 12/01/16 Status: Completedmorphine Sulfate 4 mg, Route: IVP, ONCE, Dosing Weight 94.091, kg, Priority: STAT, Start date: 16:38:00 GRIT BLASTER,Stop date: 11/30/16 16:38:00 GRIT BLASTER Start Date: 11/30/16 Stop Date: 11/30/16 Status: Completedmorphine Sulfate 4 mg, Route: IVP, Q4H, Dosing Weight 88.636, kg, PRN Pain Score 7-10, Start date : 11/30/16 20:30:00 GRIT BLASTER, Duration: 30 day, Stop date: 12/30/16 20:29:00 GRIT BLASTER Start Date: 11/30/16 Stop Date: 11/30/16 Status: Discontinuedmorphine Sulfate 4 mg, Route: IVP, ONCE, Dosing Weight 88.636, kg, Start date: 11/30/16 21:37:00 GRIT BLASTER, Stop date: 11/30/16 21:37:00 GRIT BLASTER Start Date: 11/30/16 Stop Date: 11/30/16 Status: Deletedmorphine Sulfate 2 mg, 1 mL, Route: IVP, Drug form: INJ, Q6H, Dosing Weight 85.142, kg, PRN Pain Score 7-10, if no relief with norco, Start date: 12/02/16 9:14:00 GRIT BLASTER, Stop date : 01/01/17 9:13:00 GRIT BLASTER Notes: (Same as:MORPhine Sulfate) Start Date: 12/02/16 Stop Date: 12/07/16 Status: Discontinuedmorphine Sulfate 4 mg, Route: IVP, ONCE, Dosing Weight 88.636, kg, Priority: STAT, Start date: 20:01:00 GRIT BLASTER,Stop date: 11/30/16 20:01:00 GRIT BLASTER Start Date: 11/30/16 Stop Date: 11/30/16 Status: Completedmorphine Sulfate (ANES) Route: INTRATHECAL, Drug form: SOLN, ONCE, Stop date: 12/01/16 13:39:00 GRIT BLASTER Start Date: 12/01/16 Stop Date: 12/01/16 Status: CompletedNorco 10/325 oral tablet 2 tab, Route: PO, Drug Form: TAB, Dosing Weight 85.142, kg, Q6H, PRN Pain Score 7-10, Start date: 12/03/16 14:23:00 GRIT BLASTER, Duration: 30 day, Stop date: 01/02/17 14:22:00 GRIT BLASTER Notes: Do not exceed 4gm/day of acetaminophen. (Same as: [place] 325/10) Start Date: 12/03/16 Stop Date: 12/07/16 Status: DiscontinuedNorco 10/325 oral tablet 1 tab, Route: PO, Drug Form: TAB, Dosing Weight 85.142, kg, Q4H, PRN Pain Score 4-6, Start date: 12/01/16 15:30:00 GRIT BLASTER, Duration: 30 day, Stop date: 12/31/16 15 :29:00 GRIT BLASTER Notes: Do not exceed 4gm/day of acetaminophen. (Same as: [place] 325/10) Start Date: 12/01/16 Stop Date: 12/07/16 Status: DiscontinuedNorco 10/325 oral tablet 2 tab, PO, Q6H, PRN Pain Score 7-10, Use only for severe pain., X 7 day, # 20 tab, 0 Refill(s) Start Date: 12/07/16 Stop Date: 12/14/16 Status: Orderedondansetron 4 mg, 2 mL, Route: IVP, Drug form: INJ, Q6H, Dosing Weight 88.636, kg, PRN Nausea & Vomiting, Start date: 11/30/16 20:30:00 GRIT BLASTER, Duration: 30 day, Stop date: 12/30/16 20:29:00 GRIT BLASTER Notes: (Same as: Pennie) MEDICATION WASTE Product Size: 4 mgProduct Wasted: ___ mg Start Date: 11/30/16 Stop Date: 12/07/16 Status: Discontinuedpotassium chloride 20 mEq, 1 tab, Route: PO, Drug form: ERTAB, ONCE, Dosing Weight 85.142, kg, Priority: NOW, Start date: 12/03/16 8:59:00 GRIT BLASTER, Stop date: 12/03/16 8:59:00 GRIT BLASTER Start Date: 12/03/16 Stop Date: 12/03/16 Status: Completedpotassium chloride 10 mEq, 1 tab, Route: PO, Drug form: ERTAB, Daily, Dosing Weight 96.3, kg, Start date: 12/01/16 9:00:00 GRIT BLASTER, Duration: 30 day, Stop date: 12/30/16 9:00:00 GRIT BLASTER Notes: (Same as: Brenda 10)"Do Not Crush" With food and full glass of water Start Date: 12/01/16 Stop Date: 12/07/16 Status: Discontinuedpotassium chloride 10 mEq oral tablet, extended release 10 mEq=1 tab, PO, Daily, 0 Refill(s) Start Date: 12/07/16 Status: Orderedpotassium chloride 20 mEq oral tablet, extended release 40 mEq, 2 tab, Route: PO, Drug form: ERTAB, Q2H, Dosing Weight 85.142, kg, Start date: 12/05/16 16:00:00 GRIT BLASTER, Duration: 2 doses or times, Stop date: 18:00:00 GRIT BLASTER Notes: (Same as: K-Dur 20)"Do Not Crush" With food and full glass of water Start Date: 12/05/16 Stop Date: 12/05/16 Status: Completedpotassium chloride 20 mEq oral tablet, extended release 10 mEq=0.5 tab, PO, Daily, # 20 tab, 0 Refill(s) Start Date: 11/30/16 Stop Date: 12/07/16 Status: DiscontinuedpredniSONE 20 mg, 1 tab, Route: PO, Drug form: TAB, Daily, Dosing Weight 96.3, kg, Start date: 12/04/16 9:00:00CST, Duration: 30 day, Stop date: 01/02/17 9:00:00 GRIT BLASTER Notes: Take with food. Start Date: 12/04/16 Stop Date: 12/06/16 Status: DiscontinuedpredniSONE 20 mg, 1 tab, Route: PO, Drug form: TAB, Daily, Dosing Weight 96.3, kg, Start date: 12/01/16 9:00:00CST, Duration: 30 day, Stop date: 12/30/16 9:00:00 GRIT BLASTER Notes: Take with food. Start Date: 12/01/16 Stop Date: 12/02/16 Status: DiscontinuedpredniSONE 10 mg, 1 tab, Route: PO, Drug form: TAB, Daily, Dosing Weight 96.3, kg, Start date: 12/07/16 9:00:00CST, Duration: 30 day, Stop date: 01/05/17 9:00:00 GRIT BLASTER Notes: (Same as: PredniSONE) Take with food. Start Date: 12/07/16 Stop Date: 12/07/16 Status: DiscontinuedpredniSONE 10 mg oral tablet 10 mg=1 tab, PO, Daily, Follow taper instructions per your capacitor tester., X 30 day, # 30 tab, 0 Refill(s) Start Date: 12/07/16 Stop Date: 01/06/17 Status: OrderedpredniSONE 20 mg oral tablet 20 mg=1 tab, PO, Daily Start Date: 11/30/16 Stop Date: 12/07/16 Status: DiscontinuedProAir RespiClick 90 mcg/inh inhalation powder 2 puff, INHALATION, Q4H, PRN as needed for shortness of breath or wheezing, 0 Refill(s) Start Date: 11/30/16 Status: Orderedpropofol (ANES) Route: IV, Drug form: INJ, ONCE, Stop date: 12/01/16 13:51:00 GRIT BLASTER Start Date: 12/01/16 Stop Date: 12/01/16 Status: Completedroflumilast 500 microgram, 1 tab, Route: PO, Drug form: TAB, Daily, Dosing Weight 96.3, kg, Start date: 179:00:00 GRIT BLASTER, Duration: 30 day, Stop date: 12/30/16 9:00:00 GRIT BLASTER Start Date: 12/01/16 Stop Date: 12/07/16 Status: DiscontinuedSaline Flush 0.9% 10 mL, Route: IVP, Drug Form: INJ, Dosing Weight 88.636, kg, PRN, PRN Line Flush , Start date: 11/30/16 21:41:00 GRIT BLASTER, Duration: 30 day, Stop date: 12/30/16 21:40 :00 GRIT BLASTER Notes: (Same as: BD Posiflush) Start Date: 11/30/16 Stop Date: 12/07/16 Status: DiscontinuedSaline Flush 0.9% 10 mL, Route: IVP, Drug Form: INJ, Dosing Weight 88.636, kg, PRN, PRN Line Flush , Start date: 11/30/16 19:33:00 GRIT BLASTER, Duration: 30 day, Stop date: 12/30/16 19:32 :00 GRIT BLASTER Notes: (Same as: BD Posiflush) Start Date: 11/30/16 Stop Date: 12/01/16 Status: DeletedSodium Chloride 0.9% (Bolus) IV 1,000 mL, 1,000 ml/hr, Infuse Over: 1 hr, Route: IV, ONCE, Priority: STAT, Dosing Weight 88.636 kg, Start date: 11/30/16 21:41:00 GRIT BLASTER, Duration: 1 doses or times, Stop date: 11/30/16 21:41:00 GRIT BLASTER Start Date: 11/30/16 Stop Date: 11/30/16 Status: Completedsodium chloride 0.9% 1000 ml INJ (ANES) Route: IV, Total Volume: 1,000, Start date: 12/01/16 12:00:00 GRIT BLASTER, Stop date: 13:00:00 GRIT BLASTER Start Date: 12/01/16 Stop Date: 12/01/16 Status: Completedsodium chloride 0.9% 1000 ml INJ 1,000 mL 1,000 mL, Rate: 125 ml/hr, Infuse over: 8 hr, Route: IV, Dosing Weight 88.636 kg , Total Volume: 1,000, Priority: STAT, Start date: 11/30/16 21:41:00 GRIT BLASTER, Duration: 1 doses or times, Stop date: 175:40:00 GRIT BLASTER Start Date: 11/30/16 Stop Date: 12/01/16 Status: CompletedSodium Chloride 0.9% IV 25 mL, Route: IV, Start date: 12/01/16 1:11:00 GRIT BLASTER, Duration: 30 day, Stop date : 12/31/16 1:10:00 GRIT BLASTER, PRN Line Flush Start Date: 12/01/16 Stop Date: 12/07/16 Status: DiscontinuedSodium Chloride 0.9% IV 1000 mL 1,000 mL, Rate: 50 ml/hr, Infuse over: 20 hr, Route: IV, Dosing Weight 88.636 kg , Total Volume: 1,000, Start date: 11/30/16 20:33:00 GRIT BLASTER, Duration: 30 day, Stop date: 12/30/16 20:32:00 GRIT BLASTER Start Date: 11/30/16 Stop Date: 11/30/16 Status: DeletedSpiriva 18 mcg inhalation capsule 18 microgram, 1 inhalation, Route: INHALATION, Drug form: CAP, RDaily, Dosing Weight 96.3, kg, Startdate: 12/01/16 8:00:00 GRIT BLASTER, Duration: 30 day, Stop date: 12/30/16 8:00:00 GRIT BLASTER Notes: (Same As: Spiriva) Start Date: 12/01/16 Stop Date: 12/07/16 Status: Discontinuedtramadol 50 mg oral tablet 50 mg=1 tab, PO, BID, PRN pain Start Date: 11/30/16 Status: Orderedtrazodone 50 mg, 1 tab, Route: PO, Drug form: TAB, Bedtime, Dosing Weight 88.636, kg, PRN Sleep, Start date: 11/30/16 20:31:00 GRIT BLASTER, Duration: 30 day, Stop date: 12/30/16 20:30:00 GRIT BLASTER, .. Notes: (Same As: Yamil) Start Date: 11/30/16 Stop Date: 12/07/16 Status: Discontinuedvancomycin + sodium chloride 0.9% INJ 250 mL 1 gm, Route: IVPB, [id number], Dosing Weight 85.142, kg, Start date: 12/02/16 14:00 :00 GRIT BLASTER, Duration: 30 day, Stop date: 01/01/17 2:00:00 GRIT BLASTER Notes: TIME CRITICAL MEDICATION(Same As: Vancocin)Infusion rate< 1000 mg: infuse over 1 [id number] - 1500 mg: infuse over 1.5 [id number] - 2000 mg: infuse over 2 hours> 2001 mg: infuse over 2.5 hours MEDICATION WASTE Product Size: 1000 mgProduct Wasted: ___ mg Start Date: 12/02/16 Stop Date: 12/03/16 Status: Discontinuedvancomycin + sodium chloride 0.9% INJ 250 mL 1,000 mg, Route: IVPB, [id number], Dosing Weight 85.142, kg, Start date: 12/04/16 0: 00:00 GRIT BLASTER, Duration:30 day, Stop date: 01/02/17 16:00:00 GRIT BLASTER Notes: TIME CRITICAL MEDICATION(Same As: Vancocin)Infusion rate< 1000 mg: infuse over 1 [id number] - 1500 mg: infuse over 1.5 [id number] - 2000 mg: infuse over 2 hours> 2001 mg: infuse over 2.5 hours MEDICATION WASTE Product Size: 1000 mgProduct Wasted: ___ mg Start Date: 12/04/16 Stop Date: 12/07/16 Status: Discontinuedvancomycin + sodium chloride 0.9% INJ 250 mL 1,000 mg, Route: IVPB, ONCE, Dosing Weight 88.636, kg, Priority: STAT, Start date: 11/30/16 20:01:00CST, Stop date: 11/30/16 20:01:00 GRIT BLASTER Notes: TIME CRITICAL MEDICATION(Same As: Vancocin)Infusion rate< 1000 mg: infuse over 1 [id number] - 1500 mg: infuse over 1.5 [id number] - 2000 mg: infuse over 2 hours> 2001 mg: infuse over 2.5 hours MEDICATION WASTE Product Size: 1000 mgProduct Wasted: ___ mg Start Date: 11/30/16 Stop Date: 11/30/16 Status: CompletedVoltaren Topical 1% topical gel =1 appl, TOP, BID, PRN for pain, apply to left elbow Start Date: 11/30/16 Status: OrderedWheelChair 1 ea, MISC, Daily, # 1 ea, 0 Refill(s) Start Date: 12/07/16 Status: OrderedXanax 0.5 mg oral tablet 0.5 mg, 1 tab, Route: PO, Drug form: TAB, ONCALL, Dosing Weight 85.142, kg, PRN Anxiety, one time, Start date: 12/01/16 17:43:00 GRIT BLASTER, Stop date: 12/02/16 7:00: 00 GRIT BLASTER Notes: With food or milk(Same as: Xanax) Start Date: 12/01/16 Stop Date: 12/02/16 Status: CompletedZofran 4 mg, 2 mL, Route: IVP, Drug form: INJ, ONCE, Dosing Weight 88.636, kg, Start date: 11/30/16 21:37:00 GRIT BLASTER, Stop date: 11/30/16 21:37:00 GRIT BLASTER Notes: (Same as: Zofran) MEDICATION WASTE Product Size: 4 mgProduct Wasted: ___ mg Start Date: 11/30/16 Stop Date: 11/30/16 Status: Completed Results BLOOD BANK RESULTS Most recent to oldest [Reference Range]: 1 2 3 ABO/Rh A POS *Unknown* (11/30/16 8:20 PM) Antibody Scrn Negative (11/30/16 8:20 PM) ELECTROLYTES Most recent to oldest 1 2 3 [Reference Range]: Sodium Lvl [135-145 mEq/L] 144 mEq/L 143 mEq/L 142 mEq/L (12/07/16 7:04 AM) (12/06/16 5:50 AM) (12/05/16 8:37 AM) Potassium Lvl [3.5-5.1 4.1 mEq/L 4.0 mEq/L 3.1 mEq/L mEq/L] (12/07/16 7:04 AM) (12/06/16 5:50 AM) *LOW* (12/05/16 8:37 AM) Chloride Lvl [95-109 mEq/L] 103 mEq/L 106 mEq/L 100 mEq/L (12/07/16 7:04 AM) (12/06/16 5:50 AM) (12/05/16 8:37 AM) CO2 [24-32 mEq/L] 31 mEq/L 28 mEq/L 31 mEq/L (12/07/16 7:04 AM) (12/06/16 5:50 AM) (12/05/16 8:37 AM) AGAP [10.0-20.0 mEq/L] 14.1 mEq/L 13.0 mEq/L 14.1 mEq/L (12/07/16 7:04 AM) (12/06/16 5:50 AM) (12/05/16 8:37 AM) CHEM PANEL Most recent to oldest 1 2 3 [Reference Range]: Creatinine Lvl [0.50-1.40 0.62 mg/dL 0.60 mg/dL 0.54 mg/dL mg/dL] (12/07/16 7:04 AM) (12/06/16 5:50 AM) (12/05/16 8:37 AM) eGFR 104 mL/min/1.73m2 1 105 mL/min/1.73m2 2 109 mL/min/1.73m2 3 *NA* *NA* *NA* (12/07/16 7:04 AM) (12/06/16 5:50 AM) (12/05/16 8:37 AM) BUN [7-22 mg/dL] 12 mg/dL 13 mg/dL 9 mg/dL (12/07/16 7:04 AM) (12/06/16 5:50 AM) (12/05/16 8:37 AM) Glucose Lvl [70-99 mg/dL] 87 mg/dL 103 mg/dL 109 mg/dL (12/07/16 7:04 AM) *HI* *HI* (12/06/16 5:50 AM) (12/05/16 8:37 AM) Total Protein [6.4-8.4 6.2 g/dL g/dL] *LOW* (12/03/16 7:10 AM) Albumin Lvl [3.5-5.0 g/dL] 2.5 g/dL *LOW* (12/03/16 7:10 AM) Globulin [2.7-4.2 g/dL] 3.7 g/dL (12/03/16 7:10 AM) A/G Ratio [0.7-1.6] 0.7 (12/03/16 7:10 AM) Calcium Lvl [8.5-10.5 8.8 mg/dL 8.7 mg/dL 8.0 mg/dL mg/dL] (12/07/16 7:04 AM) (12/06/16 5:50 AM) *LOW* (12/05/16 8:37 AM) Phosphorus [2.5-4.5 mg/dL] 3.3 mg/dL (12/02/16 3:04 AM) Magnesium Lvl [1.8-2.4 1.9 mg/dL 1.8 mg/dL 1.8 mg/dL mg/dL] (12/06/16 5:50 AM) (12/04/16 6:48 AM) (12/02/16 3:04 AM) ALT [0-65 unit/L] 23 unit/L (12/03/16 7:10 AM) AST [0-37 unit/L] 12 unit/L (12/03/16 7:10 AM) Alk Phos [39-136 unit/L] 47 unit/L (12/03/16 7:10 AM) Bili Total [0.2-1.3 mg/dL] 0.3 mg/dL (12/03/16 7:10 AM) Bili Direct [0.0-0.3 mg/dL] 0.1 mg/dL (12/03/16 7:10 AM) Bili Indirect [0.0-1.0 0.2 mg/dL mg/dL] (12/03/16 7:10 AM) Amylase Lvl [25-115 unit/L] 23 unit/L *LOW* (12/03/16 7:10 AM) Lipase Lvl [73-393 unit/L] 81 unit/L (12/03/16 7:10 AM) Lactic Acid Lvl [0.5-2.2 0.9 mMol/L mMol/L] (12/03/16 7:10 AM) 1Result Comment: The eGFR is calculated [...] eGFR should be multiplied by the estimated BMI.SPECIAL CHEMISTRY Most recent to oldest [Reference Range]: 1 2 3 Hgb A1C [<=5.6 %] 6.0 % *HI* (11/30/16 8:20 PM) TOXICOLOGY Most recent to oldest [Reference Range]: 1 2 3 Vanco Tr TND 1600 1330 *NA* *NA* (12/05/16 3:05 PM) (12/03/16 2:29 PM) Vanco Tr 10.6 ug/ml 4.3 ug/ml *NA* *NA* (12/05/16 3:05 PM) (12/03/16 2:29 PM) URINE AND STOOL Most recent to oldest [Reference Range]: 1 2 3 UA Turbidity [Clear] Clear (12/02/16 12:50 PM) UA Color [Yellow] Colorless *NA* (12/02/16 12:50 PM) UA pH [5.0-8.0] 6.0 (12/02/16 12:50 PM) UA Spec Grav [<=1.030] 1.005 (12/02/16 12:50 PM) UA Glucose [Negative mg/dL] Negative mg/dL *NA* (12/02/16 12:50 PM) UA Blood [Negative] Small *ABN* (12/02/16 12:50 PM) UA Ketones Negative *NA* (12/02/16 12:50 PM) UA Protein [Negative mg/dL] Negative mg/dL (12/02/16 12:50 PM) UA Urobilinogen [0.1-1.0 mg/dL] <=1.0 mg/dL *NA* (12/02/16 12:50 PM) UA Bili [Negative] Negative *NA* (12/02/16 12:50 PM) UA Leuk Est [Negative] Negative (12/02/16 12:50 PM) UA Nitrite [Negative] Negative (12/02/16 12:50 PM) UA WBC [0-5 /HPF] <1 /HPF (12/02/16 12:50 PM) UA RBC [0-2 /HPF] 1 /HPF (12/02/16 12:50 PM) UA Mucus [None Seen /LPF] Few /LPF *NA* (12/02/16 12:50 PM) Micro? Performed *NA* (12/02/16 12:50 PM) HEMATOLOGY Most recent to oldest 1 2 3 [Reference Range]: WBC [3.7-10.4 K/CMM] 13.3 K/CMM 13.0 K/CMM 12.0 K/CMM *HI* *HI* *HI* (12/07/16 7:04 AM) (12/06/16 5:50 AM) (12/05/16 8:37 AM) RBC [4.20-5.40 M/CMM] 3.54 M/CMM 3.28 M/CMM 3.34 M/CMM *LOW* *LOW* *LOW* (12/07/16 7:04 AM) (12/06/16 5:50 AM) (12/05/16 8:37 AM) Hgb [12.0-16.0 g/dL] 8.1 g/dL 7.6 g/dL 7.8 g/dL *LOW* *LOW* *LOW* (12/07/16 7:04 AM) (12/06/16 5:50 AM) (12/05/16 8:37 AM) Hct [36.0-48.0 %] 26.3 % 24.6 % 25.1 % *LOW* *LOW* *LOW* (12/07/16 7:04 AM) (12/06/16 5:50 AM) (12/05/16 8:37 AM) MCV [80.0-98.0 fL] 74.5 fL 74.8 fL 75.4 fL *LOW* *LOW* *LOW* (12/07/16 7:04 AM) (12/06/16 5:50 AM) (12/05/16 8:37 AM) MCH [27.0-31.0 pg] 23.0 pg 23.2 pg 23.2 pg *LOW* *LOW* *LOW* (12/07/16 7:04 AM) (12/06/16 5:50 AM) (12/05/16 8:37 AM) MCHC [32.0-36.0 g/dL] 30.9 g/dL 31.0 g/dL 30.9 g/dL *LOW* *LOW* *LOW* (12/07/16 7:04 AM) (12/06/16 5:50 AM) (12/05/16 8:37 AM) RDW [11.5-14.5 %] 16.7 % 17.0 % 16.8 % *HI* *HI* *HI* (12/07/16 7:04 AM) (12/06/16 5:50 AM) (12/05/16 8:37 AM) Platelet [133-450 K/CMM] 435 K/CMM 351 K/CMM 359 K/CMM (12/07/16 7:04 AM) (12/06/16 5:50 AM) (12/05/16 8:37 AM) MPV [7.4-10.4 fL] 6.9 fL 6.8 fL 7.0 fL *LOW* *LOW* *LOW* (12/07/16 7:04 AM) (12/06/16 5:50 AM) (12/05/16 8:37 AM) Segs [45.0-75.0 %] 61.9 % 62.6 % 66.9 % (12/07/16 7:04 AM) (12/06/16 5:50 AM) (12/05/16 8:37 AM) Lymphocytes [20.0-40.0 %] 25.9 % 23.3 % 21.4 % (12/07/16 7:04 AM) (12/06/16 5:50 AM) (12/05/16 8:37 AM) Monocytes [2.0-12.0 %] 8.3 % 9.6 % 7.9 % (12/07/16 7:04 AM) (12/06/16 5:50 AM) (12/05/16 8:37 AM) Eosinophils [0.0-4.0 %] 3.1 % 3.2 % 3.0 % (12/07/16 7:04 AM) (12/06/16 5:50 AM) (12/05/16 8:37 AM) Basophils [0.0-1.0 %] 0.8 % 1.3 % 0.8 % (12/07/16 7:04 AM) *HI* (12/05/16 8:37 AM) (12/06/16 5:50 AM) Segs-Bands # [1.5-8.1 K/CMM] 8.2 K/CMM 8.1 K/CMM 8.1 K/CMM *HI* (12/06/16 5:50 AM) (12/05/16 8:37 AM) (12/07/16 7:04 AM) Lymphocytes # [1.0-5.5 3.4 K/CMM 3.0 K/CMM 2.6 K/CMM K/CMM] (12/07/16 7:04 AM) (12/06/16 5:50 AM) (12/05/16 8:37 AM) Monocytes # [0.0-0.8 K/CMM] 1.1 K/CMM 1.2 K/CMM 1.0 K/CMM *HI* *HI* *HI* (12/07/16 7:04 AM) (12/06/16 5:50 AM) (12/05/16 8:37 AM) Eosinophils # [0.0-0.5 0.4 K/CMM 0.4 K/CMM 0.4 K/CMM K/CMM] (12/07/16 7:04 AM) (12/06/16 5:50 AM) (12/05/16 8:37 AM) Basophils # [0.0-0.2 K/CMM] 0.1 K/CMM 0.2 K/CMM 0.1 K/CMM (12/07/16 7:04 AM) (12/06/16 5:50 AM) (12/05/16 8:37 AM) RBC Morph Normal (12/01/16 3:47 AM) Microcyte [None Seen] 1+ 1+ 1+ *ABN* *ABN* *ABN* (12/07/16 7:04 AM) (12/06/16 5:50 AM) (12/05/16 8:37 AM) Plt Morph Normal Normal Normal (12/07/16 7:04 AM) (12/04/16 6:48 AM) (12/02/16 3:04 AM) Large Plt [None Seen] Moderate *ABN* (12/01/16 3:47 AM) PT [12.0-14.7 seconds] 12.9 seconds (11/30/16 8:10 PM) INR [0.85-1.17] 0.95 (11/30/16 8:10 PM) PTT [22.9-35.8 seconds] 26.7 seconds (11/30/16 8:10 PM) Immunizations Given and Recorded Vaccine Date [...] Cessation Counseling No 1past frequent alcohol use Assessment and Plan Extracted from: Title: General Admission H&P * Author: Bob Rios MD Date: 11/30/16 Impression [...] being put to sleep during surgery (her capacitor tester, Dr. Antonio Page, said rhonda lao last visit that her lungs are at [...]
--- OUTSIDE RECORDS SUMMARY | 2019-06-12 22:22 | XMS REPORT ---
:1965 [facility] Address [address] [place] [address] [place] [id number] Care Team Providers Name Role Phone Unavailable Unavailable Unavailable Problems This patient has no known problems. Allergies, Adverse Reactions, Alerts This patient has no known allergies or adverse reactions. Medications This patient has no known medications. Encounters Start End Encounter Admission Attending Care Care Encounter Date/Time Date/Time Type Type Clinicians Facility Department ID 2019-06-10 2019-06-10 Emergency E [id number] 11:43:00 11:43:00
--- OUTSIDE RECORDS SUMMARY | 2019-06-12 22:22 | XMS REPORT | Summary of Care ---
:1965 Author Organization [facility] Address [address] [place] [id number] Care Team Providers Name Role Phone Fisher Michelle Soledad Primary Care Provider Reason for Visit Reason Comments Flank Pain Rib Pain Auth/Cert Status Reason Specialty Diagnoses / Referred By Referred To Procedures Contact Contact [facility] [address] [place] [address] [place] [id number] Encounter Details Date Type Department Care Team Description 06/12/2019 Emergency [facility] Fady Omalley DO Herpes zoster without Department [address] [place] [address]. complication (Primary [address] [place] [address] RT 0711 Dx) [address] [address] [phone] Allergies No Known Allergiesdocumented as of this encounter (statuses as of 06/12/2019) Medications Medication Sig Dispensed Refills Start Date End Date Status acyclovir 200 mg Take 4 capsules 140 capsule 0 06/12/2019 06/19/2019 Active capsuleIndications: by mouth 5 Herpes zoster (five) times without complication daily for 7 days. documented as of this encounter (statuses as of 06/12/2019) Active Problems Not on filedocumented as of this encounter (statuses as of 06/12/2019) Social History Tobacco Use Types Packs/Day Years Used Date Never Assessed Sex Assigned at Date Recorded Not on file Job Start Date Occupation Industry Not on file Not on file Not on file Travel History Travel Start Travel End No recent travel history available. documented as of this encounter Last Filed Vital Signs Vital Sign Reading Time Taken Comments Blood Pressure 162/85 06/12/2019 8:05 AM CDT Pulse 88 06/12/2019 8:05 AM CDT Temperature 36.9 C (98.4 F) 06/12/2019 8:05 AM CDT Respiratory Rate 18 06/12/2019 8:05 AM CDT Oxygen Saturation 97% 06/12/2019 8:05 AM CDT Inhaled Oxygen Concentration - - Weight 68 kg (150 lb) 06/12/2019 8:05 AM CDT Height - - Body Mass Index - - documented in this encounter Discharge Instructions Fady Rios DO - 06/12/2019 DIAGNOSIS Diagnoses that have been ruled out: None Diagnoses that are still under consideration: None Final diagnoses: Herpes zoster without complication NO LIFE-THREATENING FINDINGS ON TODAY'S EXAM. PROCEDURES IN THE ER TODAY: No orders of the defined types were placed in this encounter. MEDICATIONS ADMINISTERED IN THE ER TODAY AND DISCHARGE MEDICATIONS: Orders Placed This Encounter Medications HYDROcodone-acetaminophen (NORCO) 10-325 mg tablet 1 tablet FOLLOW-UP RECOMMENDATIONS: RECOMMEND FOLLOW-UP WITH A PRIMARY CARE PROVIDER OR SPECIALIST IN 2-5 DAYS, ESPECIALLY IF NO IMPROVEMENT IN SYMPTOMS. MAY FOLLOW-UP WITH A PROVIDER OF YOUR CHOICE, SUCH : 1. A PHYSICIAN OF YOUR CHOICE 2. [facility], . LOCATIONS IN [facility] 3. [facility], [address] [place] [address]; OR, IF YOU WISH TO FOLLOW-UP WITHIN THE [facility], MAY TRY THESE OPTIONS (CLINIC APPOINTMENTS AVAILABLE ON [id number] BASIS): 1. SCHEDULE AN APPOINTMENT ONLINE AT [facility] 2. OR CALL THE [facility] ACCESS CENTER AT OR 3. OR CALL YOUR [facility] PHYSICIAN'S OFFICE DIRECTLY IF YOU ARE ALREADY AN ESTABLISHED [facility] PATIENT. RETURN TO ER FOR WORSENING OF SYMPTOMS. AttachmentsThe following attachments cannot be sent through Care Everywhere.Shingles (Herpes Zoster) (Egyptian)documented in this encounter Plan of Treatment Health Maintenance Due Date Last Done Comments HEPATITIS C (HCV) SCREEN 1965 DTaP,Tdap,and Td Vaccines (1 - 1983 Tdap) PAP SMEAR 1985 MAMMOGRAM 2004 COLONOSCOPY 2014 Zoster Recombinant Vaccine 2014 (SHINGRIX) (1 of 2) INFLUENZA VACCINE 07/16/2019 PNEUMOCOCCAL 0-64 YEARS COMBINED Aged Out No longer eligible based on SERIES patient's age to complete this topic documented as of this encounter Procedures Procedure Name Priority Date/Time Associated Diagnosis Comments NOTICE OF PRIVACY Routine 06/12/2019 7:53 AM CDT PRACTICES documented in this encounter Results Not on filedocumented in this encounter Visit Diagnoses Diagnosis Herpes zoster without complication - Primary documented in this encounter Insurance Payer Benefit Plan / Subscriber ID Effective Phone Address Type Group Dates [employer] xxxxxxxxx 2019-[address] [place] [id number] [place] [address] [phone] [id number] (Work) documented as of this encounter
[2019-06-12] MEDS ORDERED: ONDANSETRON 4 MG/2 ML VIAL ONE (23:18)
[2019-06-12] MEDS ORDERED: FAMOTIDINE 20 MG/2 ML VIAL IV ONE (23:18)
[2019-06-12] MEDS ORDERED: FENTANYL CITR 100 MCG/2 ML ONE (23:18)
[2019-06-12 23:26] LABS: Absolute Lymphocytes (CBC) 2.6 K/uL (0.7-4.9); Basophils % 0.5 % (0-1.3); Hematocrit 43.6 % (36.0-45.0); Lymphocytes % 15.5 % (15.3-44.8); MPV 7.5 fL (7.6-11.3); Protime INR 1.02; RBC Red Blood Cell Count 5.04 M/uL (3.86-4.86)
[2019-06-12 23:53] LABS: ALT/SGPT 26 U/L (12-78); AST/SGOT 9 U/L (15-37); Albumin 4.2 g/dL (3.4-5.0); Alkaline Phosphatase 61 U/L (45-117); BUN Blood Urea Nitrogen 16 mg/dL (7-18); Bicarbonate 31 mmol/L (21-32); Bilirubin Direct 0.2 mg/dL (0-0.2); Glucose Level 115 mg/dL (74-106); Magnesium 2.2 mg/dL (1.8-2.4); NT PRO-BNP 148 pg/mL (<125); Potassium 3.6 mmol/L (3.5-5.1); Protein, Total 8.7 g/dL (6.4-8.2); Sodium Level 134 mmol/L (136-145); Troponin (Emerg Dept Use Only) < 0.02 ng/mL (0.0-0.045)
[2019-06-13] MEDS ORDERED: PROMETHAZINE 25 MG/ML VIAL ONE (00:08)
[2019-06-13] MEDS ORDERED: NA CHLORIDE 0.9% 250 ML ONE ×2 (00:36→01:31)
[2019-06-13] MEDS ORDERED: ONDANSETRON 4 MG/2 ML VIAL ONE (01:31)
--- NOTE | 2019-06-13 02:54 | ER ---
Nurse's Notes [facility] Name: Bree Rubalcava Age: 53 yrs Sex: Female : 1965 Arrival Date: 06/12/2019 Time: 22:09 Bed 5 Private MD: Diagnosis: Nausea and vomiting-intractable;Dehydration Presentation: 06/12 22:43 Presenting complaint: Patient states: Diagnosed with Shingles this morning at [address] ER, complaint of severe pain to left rib area where shingles noted; States continued nausea, vomiting since Wednesday, unable to tolerate food or water. Transition of care: patient was not received from another setting of care. Onset of symptoms was June 12, 2019. Risk Assessment: Do you want to hurt yourself or someone else? Patient reports no desire to harm self or others. Initial Sepsis Screen: Does the patient meet any 2 criteria? No. Patient's initial sepsis screen is negative. Does the patient have a suspected source of infection? No. Patient's initial sepsis screen is negative. Care prior to arrival: None. 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 - Social history:: Smoking status: Patient/guardian denies using tobacco, the patient reports quitting approximately 8 years ago. - Ebola Screening: : No symptoms or risks identified at this time. Screenin:47 Abuse screen: Denies threats or abuse. Denies injuries from another. Nutritional lp1 screening: No deficits noted. Tuberculosis screening: No symptoms or risk factors identified. Fall Risk None identified. Assessment: 22:45 General: Appears uncomfortable, Behavior is calm, cooperative, appropriate for age. tr5 Pain: Complains of pain in diaphragm and left lateral anterior chest Pain does not radiate. Quality of pain is described as burning, Pain began 2-3 days ago. Is continuous. Neuro: Level of Consciousness is awake, alert, obeys commands, Oriented to person, place, time, Clinical Research Physician are equal bilaterally Moves all extremities. Cardiovascular: Heart tones present Bruits absent Capillary refill < 3 seconds Pulses are all present. Edema is absent. Respiratory: Airway is patent Trachea midline Respiratory effort is even, Respiratory pattern is symmetrical. GI: Abdomen is flat, Bowel sounds present X 4 quads. Reports upper abdominal pain, intolerance of fluids, intolerance of food, nausea, vomiting. : No signs and/or symptoms were reported regarding the genitourinary system. EENT: No signs and/or symptoms were reported regarding the EENT system. 23:50 Reassessment: Patient continued vomiting at this time; No emesis noted. lp1 06/13 02:00 Reassessment: Patient appears in no apparent distress at this time. Patient and/or tr5 family updated on plan of care and expected duration. Pain level reassessed. 04:06 Reassessment: Patient is alert, oriented x 3, equal unlabored respirations, skin lp1 warm/dry/pink. Patient requesting water, given ice chips at this time; Aware of pending admission. Vital Signs: 06/12 22:44 BP 152 / 89; Pulse 114; Resp 18; Temp 98.1(O); Pulse Ox 96% on 3 lpm NC; Weight 77.56 lp1 kg; Height 5 ft. 3 in. (160.02 cm); Pain 10/; 06/13 00:00 BP 161 / 96; Pulse 93; Resp 20; Pulse Ox 98% on 3 lpm NC; lp1 02:00 BP 155 / 67; Pulse 84; Resp 18; Pulse Ox 96% on 3 lpm NC; tr5 03:00 BP 180 / 96; Pulse 98; Resp 19; Pulse Ox 99% on 3 lpm NC; tr5 04:00 BP 167 / 82; Pulse 88; Resp 18; Pulse Ox 98% on 3 lpm NC; lp1 06/12 22:44 Body Mass Index 30.29 (77.56 kg, 160.02 cm) lp1 06/12 22:44 Patient on home O2 at 3L lp1 ED Course: 22:09 Patient arrived in ED. do 22:33 Nacho Willett PA is PHCP. cp 22:33 Parag Loyd MD is Attending Physician. cp 22:40 EKG done, by ED staff. tr5 22:44 Triage completed. lp1 22:44 Tyron Medrano, RN is Primary Nurse. tr5 22:45 Arm band placed on. lp1 22:45 Patient has correct armband on for positive identification. Placed in gown. Bed in low tr5 position. Call light in reach. Adult w/ patient. Pulse ox on. NIBP on. Door closed. Noise minimized. Head of bed elevated. 22:45 Oxygen administration via nasal cannula \T\ 3L/min. tr5 22:50 Inserted saline lock: 22 gauge in left antecubital area, using aseptic technique. Blood tr5 collected. 23:00 XRAY Chest (1 view) In Process Unspecified. EDMS 23:00 Initial lab(s) drawn, by ED staff, sent to lab. tr5 06/13 02:27 CT Abd/Pelvis - IV Contrast Only In Process Unspecified. EDMS 02:52 Chris Tam MD is Hospitalizing Provider. cp 04:59 transfer. tr5 04:59 Report given to Corazon JARRETT. tr5 04:59 No provider procedures requiring assistance completed. Patient admitted, IV remains in tr5 place. Administered Medications: 06/12 23:11 Drug: Zofran 4 mg Route: IVP; Site: left antecubital; lp1 23:57 Follow up: Response: No change in condition; Nausea unchanged lp1 23:12 Drug: Pepcid 20 mg Route: IVP; Site: left antecubital; lp1 23:57 Follow up: Response: No adverse reaction lp1 23:12 Drug: fentaNYL (PF) 25 mcg Route: IVP; Site: left antecubital; lp1 23:57 Follow up: Response: No change in condition lp1 23:56 CANCELLED (Physician Discretion): NS 0.9% 500 ml IV at bolus once cp 23:57 Drug: Phenergan 25 mg Route: IVP; Site: left antecubital; lp1 06/13 01:17 Follow up: Response: Nausea unchanged lp1 00:22 Drug: NS 0.9% 250 ml Route: IV; Rate: bolus; Site: left antecubital; lp1 00:38 Follow up: IV Status: Completed infusion; IV Intake: 250ml lp1 01:17 Drug: Zofran 4 mg Route: IVP; Site: left antecubital; lp1 02:00 Follow up: Response: Nausea unchanged lp1 01:17 Drug: NS 0.9% 250 ml Route: IV; Rate: bolus; Site: left antecubital; lp1 01:32 Follow up: IV Status: Completed infusion; IV Intake: 250ml lp1 02:59 Drug: Ativan 0.5 mg Route: IVP; Site: left antecubital; tr5 04:00 Follow up: Response: No adverse reaction lp1 Intake: 00:38 IV: 250ml; Total: 250ml. lp1 01:32 IV: 250ml; Total: 500ml. lp1 Outcome: 02:53 Decision to Hospitalize by Provider. cp 04:59 Admitted to Med/surg accompanied by tech, via stretcher, with chart, Report called to uma Chandra RN 04:59 Condition: stable 04:59 Instructed on the need for admit. 05:31 Patient left the ED. tr5 Signatures: Dispatcher [employer] EDGisele Prasad RN RN lp1 Nacho Willett PA PA cp [place], Danielle do Rodriguez, Tommie RN RN tr5
--- NOTE | 2019-06-13 02:54 | EDPHYS ---
Physician Documentation [facility] Name: Bree Rubalcava Age: 53 yrs Sex: Female : 1965 Arrival Date: 06/12/2019 Time: 22:09 Bed 5 Private MD: ED Physician Parag Loyd HPI: 06/12 22:45 This 53 yrs old Female presents to ER via Wheelchair with complaints of cp Nausea/Vomiting, Shingles. 22:45 The patient presents to the emergency department with nausea, with "dry heaves", cp vomiting, that is continuous. Onset: The symptoms/episode began/occurred today. 22:45 Associated signs and symptoms: Pertinent positives: abdominal pain, chest pain, cp Pertinent negatives: constipation, diarrhea, fever, GI bleeding. 22:45 The patient has been recently seen by a physician: in [place] ED, this morning. cp Patient was diagnosed with shingles. 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 - Social history:: Smoking status: Patient/guardian denies using tobacco, the patient reports quitting approximately 8 years ago. - Ebola Screening: : No symptoms or risks identified at this time. ROS: 22:50 Constitutional: Positive for poor PO intake, Negative for body aches, chills, fever. cp 22:50 Eyes: Negative for injury, pain, redness, and discharge. cp 22:50 ENT: Negative for drainage from ear(s), ear pain, sore throat, difficulty swallowing, difficulty handling secretions. 22:50 Cardiovascular: Positive for chest pain, Negative for edema, palpitations. 22:50 Respiratory: Negative for wheezing. 22:50 Abdomen/GI: Positive for nausea and vomiting, Negative for hematemesis. 22:50 Skin: Positive for rash, of the left lateral anterior chest. 22:50 Neuro: Negative for altered mental status, headache. 22:50 All other systems are negative. Exam: 22:56 ECG was reviewed by the Attending Physician. cp 23:00 Constitutional: The patient appears alert, awake, non-diaphoretic, non-toxic, well cp developed, well nourished, uncomfortable. 23:00 Head/Face: Normocephalic, atraumatic. cp 23:00 Eyes: Periorbital structures: appear normal, Pupils: equal, round, and reactive to cp light and accomodation, Extraocular movements: intact throughout, Conjunctiva: normal, no exudate, no injection, Sclera: no appreciated abnormality, Lids and lashes: appear normal, bilaterally. 23:00 ENT: External ear(s): are unremarkable, Ear canal(s): are normal, clear, TM's: dullness, bilaterally, Nose: is normal, Mouth: Lips: moist, Oral mucosa: moist, Posterior pharynx: Airway: no evidence of obstruction, patent. 23:00 Neck: ROM/movement: is normal, is supple, without pain, no range of motions limitations, no meningismus, no nuchal rigidity. 23:00 Chest/axilla: Inspection: rash, of the left lower lateral chest wall Palpation: crepitus, is not appreciated, tenderness, that is moderate, of the left lateral lower chest wall. 23:00 Cardiovascular: Rate: tachycardic, Rhythm: regular, Edema: is not appreciated, JVD: is cp not appreciated. 23:00 Respiratory: the patient does not display signs of respiratory distress, Respirations: normal, no use of accessory muscles, no retractions, no splinting, no tachypnea, labored breathing, is not present, Breath sounds: decreased breath sounds, throughout, wheezing: is not appreciated. 23:00 Abdomen/GI: Inspection: abdomen appears normal, Bowel sounds: active, all quadrants, Palpation: soft, in all quadrants, moderate abdominal tenderness, in the mid abdomen, rebound tenderness, is not appreciated, voluntary guarding, is elicited in the mid abdomen. 23:00 Back: ROM is painful. 23:00 Neuro: Orientation: to person, place \\T\\ time. Mentation: is normal, Motor: moves all fours. Vital Signs: 22:44 BP 152 / 89; Pulse 114; Resp 18; Temp 98.1(O); Pulse Ox 96% on 3 lpm NC; Weight 77.56 lp1 kg; Height 5 ft. 3 in. (160.02 cm); Pain 10/10; 06/13 00:00 BP 161 / 96; Pulse 93; Resp 20; Pulse Ox 98% on 3 lpm NC; lp1 02:00 BP 155 / 67; Pulse 84; Resp 18; Pulse Ox 96% on 3 lpm NC; tr5 03:00 BP 180 / 96; Pulse 98; Resp 19; Pulse Ox 99% on 3 lpm NC; tr5 04:00 BP 167 / 82; Pulse 88; Resp 18; Pulse Ox 98% on 3 lpm NC; lp1 06/12 22:44 Body Mass Index 30.29 (77.56 kg, 160.02 cm) lp1 06/12 22:44 Patient on home O2 at 3L lp1 MDM: 22:35 Patient medically screened. 06/13 02:50 Data reviewed: vital signs, nurses notes, lab test result(s), EKG, radiologic studies, cp plain films. 02:50 Test interpretation: by ED physician or midlevel provider: ECG, plain radiologic cp studies. Response to treatment: the patient's symptoms have mildly improved after treatment, patient continues to be intolerant of po fluids. Will admit for intractable vomiting. 02:50 Physician consultation: Chris Tam MD was called at 02:50, was contacted at 02:50, cp regarding admission, to the medical/surgical unit. patient's condition. 06/12 22:36 Order name: Basic Metabolic Panel; Complete Time: 23:56 cp 06/12 23:55 Interpretation: Normal except: NA 134; CL 97; GLUC 115; GFR 57. cp 06/12 22:36 Order name: CBC with Diff; Complete Time: 23:37 cp 06/12 23:38 Interpretation: Normal except: WBC 16.9; RBC 5.04; RDW 15.4; MPV 7.5; NEUT A 12.3; MNA cp 1.8. 06/12 22:36 Order name: LFT's; Complete Time: 23:56 cp 06/13 00:39 Interpretation: Normal except: AST 9; TP 8.7; GLOB 4.5; A/G 0.9. cp 06/12 22:36 Order name: Magnesium; Complete Time: 23:56 cp 06/12 22:36 Order name: NT PRO-BNP; Complete Time: 23:56 cp 06/12 22:36 Order name: PT-INR; Complete Time: 23:37 cp 06/12 22:36 Order name: Troponin (emerg Dept Use Only); Complete Time: 23:56 cp 06/12 22:36 Order name: XRAY Chest (1 view); Complete Time: 22:11 cp 06/12 23:38 Order name: Urine Microscopic Only; Complete Time: 22:11 cp 06/13 02:52 Order name: Lipase; Complete Time: 22:11 cp 06/13 04:07 Order name: CBC with Automated Diff EDMS 06/13 04:07 Order name: CBC with Automated Diff EDMS 06/13 04:07 Order name: Comprehensive Metabolic Panel [facility] 06/13 04:07 Order name: Comprehensive Metabolic Panel [facility] 06/12 22:36 Order name: EKG; Complete Time: 22:37 cp 06/12 22:36 Order name: Cardiac monitoring; Complete Time: 23:13 cp 06/12 22:36 Order name: EKG - Nurse/Tech; Complete Time: 22:51 cp 06/12 22:36 Order name: IV Saline Lock; Complete Time: 23:13 cp 06/13 01:04 Order name: CT Abd/Pelvis - IV Contrast Only; Complete Time: 22:11 cp 06/13 04:07 Order name: CONS Pharmacy Consult [facility] 06/13 04:07 Order name: NPO [facility] 06/12 22:36 Order name: Labs collected and sent; Complete Time: 23:13 cp 06/12 22:36 Order name: O2 Per Protocol; Complete Time: 22:51 cp 06/12 22:36 Order name: O2 Sat Monitoring; Complete Time: 22:51 cp 06/13 00:41 Order name: PO challenge; Complete Time: 04:40 cp EC/29 22:56 Rate is 107 beats/min. Rhythm is regular. NE interval is normal. QRS interval is cp normal. QT interval is normal. Interpreted by me. Reviewed by me. Administered Medications: 23:11 Drug: Zofran 4 mg Route: IVP; Site: left antecubital; lp1 23:57 Follow up: Response: No change in condition; Nausea unchanged lp1 23:12 Drug: Pepcid 20 mg Route: IVP; Site: left antecubital; lp1 23:57 Follow up: Response: No adverse reaction lp1 23:12 Drug: fentaNYL (PF) 25 mcg Route: IVP; Site: left antecubital; lp1 23:57 Follow up: Response: No change in condition lp1 23:56 CANCELLED (Physician Discretion): NS 0.9% 500 ml IV at bolus once cp 23:57 Drug: Phenergan 25 mg Route: IVP; Site: left antecubital; lp1 06/13 01:17 Follow up: Response: Nausea unchanged lp1 00:22 Drug: NS 0.9% 250 ml Route: IV; Rate: bolus; Site: left antecubital; lp1 00:38 Follow up: IV Status: Completed infusion; IV Intake: 250ml lp1 01:17 Drug: Zofran 4 mg Route: IVP; Site: left antecubital; lp1 02:00 Follow up: Response: Nausea unchanged lp1 01:17 Drug: NS 0.9% 250 ml Route: IV; Rate: bolus; Site: left antecubital; lp1 01:32 Follow up: IV Status: Completed infusion; IV Intake: 250ml lp1 02:59 Drug: Ativan 0.5 mg Route: IVP; Site: left antecubital; tr5 04:00 Follow up: Response: No adverse reaction lp1 Disposition: 06/13/19 02:53 Hospitalization ordered by Chris Tam for Observation. Preliminary diagnosis are Nausea and vomiting - intractable, Dehydration. - Bed requested for Telemetry/MedSurg (observation). - Status is Observation. tr5 - Condition is Stable. - Problem is new. - Symptoms have improved. UTI on Admission? No Signatures: Dispatcher [employer] EDGisele Prasad RN RN lp1 Nacho Willett PA PA cp Garcia, Cindy, RN RN cg Rodriguez, Tommie, RN RN tr5 Corrections: (The following items were deleted from the chart) 06/12 23:38 23:38 Normal except: WBC 16.9; RBC 5.04; RDW 15.4; MPV 7.5; NEUT A 12.3. cp cp 23:56 23:56 NS 0.9% 500 ml IV at bolus once ordered. cp 06/13 04:34 02:53 Hospitalization Ordered by Chris Tam MD for Observation. Preliminary cg diagnosis is Nausea and vomiting - intractable; Dehydration. Bed requested for Telemetry/MedSurg (observation). Status is Observation. Condition is Stable. Problem is new. Symptoms have improved. UTI on Admission? No. cp 05:31 04:34 06/13/2019 02:53 Hospitalization Ordered by Chris Tam MD for Observation. tr5 Preliminary diagnosis is Nausea and vomiting - intractable; Dehydration. Bed requested for Telemetry/MedSurg (observation). Status is Observation. Condition is Stable. Problem is new. Symptoms have improved. UTI on Admission? No. cg
[2019-06-13] MEDS ORDERED: LORazepam 2 MG/ML VIAL ONE (03:07)
[2019-06-13] MEDS ORDERED: ACETAMINOPHEN 500 MG TAB PO PRN (04:03)
[2019-06-13] MEDS: MORPHINE 2 MG/ML SYR IV PRN ×2 (05:47→10:58)
[2019-06-13] MEDS: ONDANSETRON 4 MG/2 ML VIAL IV PRN ×4 (05:47→22:54)
[2019-06-13] MEDS: NA CHLORIDE 0.9% 1,000 ML IV SCH ×2 (05:47→15:26)
--- NOTE | 2019-06-13 08:15 | RAD REPORT ---
EXAM DESCRIPTION: RAD - Chest Single View - 06/12/2019 10:51 pm CLINICAL HISTORY: CHEST PAIN Chest pain. COMPARISON: Chest Single View dated 06/10/2019; Abdomen Pelvis W Contrast dated 06/13/2019 FINDINGS: Portable technique limits examination quality. Linear opacities are present in the left lung base which may represent atelectasis or developing infi ltrate/ pneumonia. The heart is upper limit of normal in size. No displaced fractures.
[2019-06-13] MEDS: predniSONE 20 MG TAB PO SCH ×2 (09:00)
[2019-06-13] MEDS: ACYCLOVIR 400 MG TABLET PO SCH ×4 (11:00→20:42)
--- NOTE | 2019-06-13 11:18 | RAD REPORT ---
EXAM DESCRIPTION: CT Abdomen and Pelvis With Intravenous Contrast CLINICAL HISTORY: The patient is 53 years old and is Female; nausea/vomiting TECHNIQUE: Axial computed tomography images of the abdomen and pelvis with intravenous contrast. S agittal and coronal reformatted images were created and reviewed. This CT exam was performed using one or more of the following dose reduction techniques: automated exposure control, adjustment of t he mA and/or kV according to patient size, and/or use of iterative reconstruction technique. COMPARISON: No relevant prior studies available. FINDINGS: LUNG BASES: A 3 mm right middle lobe pulmonary nodule is present. A few smaller scattere d noncalcified pulmonary nodules are present within the right middle and right lower lobe. No routine follow-up imaging is recommended. Calcified right lower lobe granuloma is present. ABDOMEN: LIVER: The liver is fatty and slightly heterogeneous. GALLBLADDER AND BILE DUCTS: Surgical clips are present in the right upper quadrant, consistent w ith previous cholecystectomy. PANCREAS: No ductal dilation. No mass. SPLEEN: Unremarkable. ADRENALS: Unremarkable. No mass. KIDNEYS AND URETERS: Unremarkable. No solid mass. No hydronephrosis. STOMACH AND BOWEL: The stomach is minimally distended with food contents. The small bowel is nor mal in caliber. Stool is present throughout colon. No evidence of bowel obstruction. No significant b owel wall thickening. Colonic diverticulosis is noted, without associated inflammatory changes to sug gest diverticulitis. PELVIS: APPENDIX: No findings to suggest acute appendicitis. BLADDER: The bladder is well distended. REPRODUCTIVE: Unremarkable as visualized. ABDOMEN and PELVIS: INTRAPERITONEAL SPACE: Unremarkable. No free air. No significant fluid collection. BONES/JOINTS: No acute fracture. SOFT TISSUES: The soft tissues are normal. VASCULATURE: Atherosclerosis of the vasculature is present. The vessels are normal in caliber. No abdominal aortic aneurysm. LYMPH NODES: Unremarkable. No enlarged lymph nodes. IMPRESSION: Colonic diverticulosis without evidence of diverticulitis. Electronically signed by: Yessica Singh MD 06/13/2019 3:16 AM CDT Due to temporary technical issues with the PACS/Fluency reporting system, reports are being signed by the in house radiologist as a courtesy to ensure prompt reporting. The interpreting radiologist is f ully responsible for the content of the report.
--- NOTE | 2019-06-13 13:36 | EKG ---
Test Date: 2019-06-12 Test Time: 22:44:18 Classification Officer: TR MEASUREMENT RESULTS: Intervals: Rate: 107 UT: 136 QRSD: 90 QT: 336 QTc: 448 [place]: P: 79 UT: 136 QRS: 46 T: 63 INTERPRETIVE STATEMENTS: Sinus tachycardia with occasional premature ventricular complexes Right atrial enlargement Borderline ECG No previous ECG available for comparison Electronically Signed On 06-13-19 13:34:09 CDT by Jarrett Porter
[2019-06-13 14:13] LABS: Urine Bacteria >50 /HPF (<20); Urine Culture Reflex Order REFLEXED
[2019-06-13] MEDS ORDERED: NALOXONE HCL NS PRN (16:42)
[2019-06-13] MEDS: HYDROCODONE/APAP 10/325 TAB PO PRN ×2 (17:21→23:01)
--- NOTE | 2019-06-13 21:48 | P.HP ---
Certification for Inpatient Patient admitted to: Observation With expected LOS: <2 Midnights Patient will require the following post-hospital care: None Practitioner: I am a practitioner with admitting privileges, knowledge of patient current condition, hospital course, and medical plan of care. Services: Services provided to patient in accordance with Admission requirements found in Title 42 Section 412.3 of the Code of Federal Regulations Patient History Date of Service: 06/13/19 Reason for admission: Intractable nausea and vomiting Allergies arformoterol [From Brovana] Allergy (Verified 06/13/19 05:42) Shortness of breath budesonide [From Symbicort] Allergy (Verified 06/13/19 05:42) Shortness of breath ciprofloxacin Allergy (Verified 06/13/19 04:57) Rash formoterol [From Symbicort] Allergy (Verified 06/13/19 05:42) Shortness of breath Penicillins Allergy (Verified 06/13/19 05:42) Shortness of breath Home Medications: Acyclovir [Zovirax] 800 mg PO 5XD 06/13/19 Albuterol Sulfate [Proair Hfa] 8.5 gm IH Q4H 06/13/19 Amlodipine [Norvasc] 10 mg PO DAILY 06/13/19 Brimonidine Tartrate [Alphagan P] 10 ml OP DAILY 06/13/19 Brinzolamide [Azopt] 10 ml OP DAILY 06/13/19 Furosemide [Lasix] 40 mg PO DAILY 06/13/19 Hydrocodone 10/APAP 325 [[place] 10/325*] 1 tab PO QID PRN 06/13/19 Ipratropium/Albuterol Sulfate [Combivent Respimat Inhal [place]] 2 puff IH Q3H Lidocaine 5% Patch [Lidoderm 5% Patch] 2 patch TD DAILY 06/13/19 Losartan Potassium [Cozaar] 25 mg PO DAILY 06/13/19 Naloxone HCl [Narcan] 4 mg NS PRN PRN 06/13/19 Potassium Chloride 20 meq PO DAILY 06/13/19 Tiotropium [Spiriva Handihaler] 2 puff IH DAILY 06/13/19 - Past Medical/Surgical History Has patient received pneumonia vaccine in the past: No Diabetic: No -: chf -: copd -: hypertension -: left foor surgery -: cholecystectomy - Social History Smoking Status: Never smoker Alcohol use: No CD- Drugs: No Caffeine use: No Place of Residence: Home Physical Examination - Vital Signs Temperature: 99.8 F Blood Pressure: 137/75 Pulse: 94 Respirations: 18 Pulse Ox (%): 94 - Studies Laboratory Data (last 24 hrs) 06/12/19 23:03: Lipase 322 06/12/19 23:03: PT 12.0, INR 1.02 06/12/19 23:03: WBC 16.9 H D, Hgb 14.4, Hct 43.6, Plt Count 292 06/12/19 23:03: Sodium 134 L, Potassium 3.6, BUN 16, Creatinine 1.01, Glucose 115 H, Magnesium 2.2, Total Bilirubin 1.0, AST 9 L, ALT 26, Alkaline Phosphatase 61 Assessment & Plan - Advance Directives Does patient have a Living Will: No Does patient have a Durable POA for Healthcare: No
[2019-06-14] MEDS: NA CHLORIDE 0.9% 1,000 ML IV SCH ×2 (01:30→11:00)
[2019-06-14 06:02] LABS: Absolute Lymphocytes (CBC) 3.5 K/uL (0.7-4.9); Basophils % 0.6 % (0-1.3); Hematocrit 38.8 % (36.0-45.0); Lymphocytes % 28.8 % (15.3-44.8); MPV 7.8 fL (7.6-11.3)
[2019-06-14 06:07] LABS: Albumin 2.8 g/dL (3.4-5.0); Bilirubin Total 0.7 mg/dL (0.2-1.0); Protein, Total 6.4 g/dL (6.4-8.2)
[2019-06-14 06:10] LABS: Potassium 2.9 mmol/L (3.5-5.1)
[2019-06-14] MEDS ORDERED: POTASSIUM CL 40 MEQ in NA CHLORIDE 0.9% 500 ML IV SCH (08:00)
[2019-06-14] MEDS: ONDANSETRON 4 MG/2 ML VIAL IV PRN (08:45)
[2019-06-14] MEDS: predniSONE 20 MG TAB PO SCH (08:47)
[2019-06-14] MEDS: ACYCLOVIR 400 MG TABLET PO SCH ×3 (08:49→14:00)
[2019-06-14] MEDS ORDERED: TIOTROPIUM 5 SPRAYS/INHALER IH SCH (09:00)
[2019-06-14] MEDS ORDERED: BRINZOLAMIDE OP SCH (09:00)
[2019-06-14] MEDS ORDERED: LIDOCAINE 5% PATCH TD SCH (09:00)
[2019-06-14] MEDS ORDERED: LOSARTAN POTASSIUM 50 MG TABLET PO SCH (09:00)
[2019-06-14] MEDS ORDERED: FUROSEMIDE 40 MG TABLET PO SCH (09:00)
[2019-06-14] MEDS ORDERED: AMLODIPINE 10 MG TAB PO SCH (09:00)
[2019-06-14] MEDS ORDERED: BRIMONIDINE TARTRATE 0.15% 5 ML EACH EYE SCH (09:00)
[2019-06-14] MEDS ORDERED: POTASSIUM CL SA 10 MEQ TAB PO SCH (09:00)
[2019-06-14] MEDS: HYDROCODONE/APAP 10/325 TAB PO PRN (09:43)
[2019-06-15] MEDS ORDERED: LIDOCAINE 5% OINT 30 GM TUBE TOP SCH (09:00)
[2019-06-15] MEDS ORDERED: BRINZOLAMIDE OP SCH (09:00)
--- NOTE | 2019-06-15 16:16 | P.SSS ---
Patient History Date of Service: 06/14/19 Reason for admission: Intractable nausea and vomiting History of Present Illness: This is a 53 yr old female with a PMH of COPD, HTN and CHF who presented to the ER with complaints of intractable nausea and vomiting that had been ongoing for 1-2 days along with abdominal pain. Patient had been seen at [facility] prior to coming to our facility for similar complaints and had been diagnosed with shingles. She denied any diarrhea, constipation, hematochezia, hematemesis, cp, sob, headaches, dizziness or complaints. In the ER, she was hemodynamically stable. Labs were remarkable for leukocytosis. She was admitted as she was not able to tolerate PO due to intractable nausea and vomiting. Allergies arformoterol [From Brovana] Allergy (Verified 06/13/19 05:42) Shortness of breath budesonide [From Symbicort] Allergy (Verified 06/13/19 05:42) Shortness of breath ciprofloxacin Allergy (Verified 06/13/19 04:57) Rash formoterol [From Symbicort] Allergy (Verified 06/13/19 05:42) Shortness of breath Penicillins Allergy (Verified 06/13/19 05:42) Shortness of breath Home medications list reviewed: Yes Home Medications: Albuterol Sulfate [Albuterol Sulfate 0.083% Neb Soln] 1 vial IH Q4H PRN Albuterol Sulfate [Proair Hfa] 8.5 gm IH Q4H 06/13/19 Amlodipine [Norvasc*] 10 mg PO DAILY 06/13/19 Brimonidine Tartrate [Alphagan P] 10 ml OP DAILY 06/13/19 Brinzolamide [Azopt] 10 ml OP DAILY 06/13/19 Furosemide [Lasix] 40 mg PO DAILY 06/13/19 Hydrocodone 10/APAP 325 [[place] 10/325*] 1 tab PO QID PRN 06/13/19 Ipratropium Peytona 1 appl IH Q4HP PRN 06/13/19 Ipratropium/Albuterol Sulfate [Combivent Respimat 20-100 Mcg] 2 puff IH Q3H Losartan Potassium [Cozaar] 25 mg PO DAILY 06/13/19 Potassium Chloride 20 meq PO DAILY 06/13/19 Roflumilast [Daliresp] 500 mcg PO DAILY 06/13/19 Tiotropium [Spiriva Handihaler*] 2 puff IH DAILY 06/13/19 Acyclovir [Zovirax] 800 mg PO 5XD #30 capsule 06/14/19 Aspirin Chewable [Aspirin Chewable*] 81 mg PO DAILY 06/14/19 Azithromycin 500 mg PO DAILY 06/14/19 LIDOCAINE 5% Ointment [Lidocaine HCl*] 1 appl TOP DAILY #1 tube 06/14/19 Tramadol HCl [Ultram] 50 mg PO Q6HP PRN #12 tablet 06/14/19 predniSONE [Prednisone] 20 mg PO DAILY 06/14/19 - Past Medical/Surgical History Has patient received pneumonia vaccine in the past: No Diabetic: No -: chf -: copd -: hypertension -: left foor surgery -: cholecystectomy - Social History Smoking Status: Never smoker Alcohol use: No CD- Drugs: No Caffeine use: No Place of Residence: Home Review of Systems 10-point ROS is otherwise unremarkable Physical Examination - Vital Signs Temperature: 97.2 F Blood Pressure: 98/53 Pulse: 90 Respirations: 18 Pulse Ox (%): 97 - Physical Exam General: Alert, In no apparent distress, Oriented x3, Obese HEENT: Atraumatic, PERRLA, Mucous membr. moist/pink, EOMI, Sclerae nonicteric Neck: Supple, 2+ carotid pulse no bruit, No LAD, Without JVD or thyroid abnormality Respiratory: Clear to auscultation bilaterally, Normal air movement Cardiovascular: Regular rate/rhythm, Normal S1 S2 Gastrointestinal: Normal bowel sounds, No tenderness Musculoskeletal: No tenderness Integumentary: Other (shingles rash left lower chest wall, upper adominal area. ) Neurological: Normal gait, Normal speech, Normal strength at 5/5 x4 extr, Normal tone, Normal affect Lymphatics: No axilla or inguinal lymphadenopathy Treatment Summary: She was started on IVF, acyclovir and pain control. Prior to discharge, she was tolerating a regular diet, was hemodynamically stable, labs were stable. She did have a normal bowel movement, her nausea/vomiting had resolved. Her abdominal pain had resovled but she was complaining of superficial pain at her shingles site. She was discharged home in a safe and stable manner on acyclovir 500 mg 5x daily for 7 days and tramadol for pain control. Patient states that she cannot take any lyrica or gabapentin. She was recommended to follow up with her PCP in 2-3 days for further follow up. - Disposition Discharge Date: 06/14/19 Disposition: ROUTINE DISCHARGE Condition: GOOD Patient Discharge Instructions: Please follow up with the primary care physician in 2-3 days. Please return to the emergency room for worsening symptoms. Diet: AHA Activity: Ad shayne
== END 2019-06-14 14:36 | disposition home or self-care (01) ==
LOC: ER 22:07 → ERHOLD 06-13 04:03 → 4TH 06-13 05:02
PROVIDERS: ADMIT Hospitalist; ATTEND Family Medicine
DX: E86.0 Dehydration (principal); R11.2 Nausea with vomiting, unspecified; R10.9 Unspecified abdominal pain; B02.9 Zoster without complications; J44.9 Chronic obstructive pulmonary disease, unspecified; I11.0 Hypertensive heart disease with heart failure; I50.9 Heart failure, unspecified; D72.829 Elevated white blood cell count, unspecified; K57.30 Diverticulosis of large intestine without perforation or abscess without bleeding; I49.3 Ventricular premature depolarization; R00.0 Tachycardia, unspecified; Z79.52 Long term (current) use of systemic steroids; Z79.82 Long term (current) use of aspirin; Z79.899 Other long term (current) drug therapy
CPT/HCPCS: 96365; 93005; 87088; 85025 ×2; 87086; 80048; 36415 ×2; 83735; 85610; 80076; 81015; 84484; 83690; 80053; 83880; 74177; 71045; 96375; 99285; Q9967; J7512; J3010; J2270 ×3; J7030 ×3; J2405 ×8; G0378 ×2